=== PATIENT | male | born 1955 | race American Indian/Alaskan Native ===

== ENCOUNTER 2016-08-05 12:16 | Inpatient (IN) | payer OTHER ==
[~2016-08-05] VITALS: Ht 170.2 cm; Wt 51.8 kg
[2016-08-05] VITALS (8 sets, daily range): BP systolic 103–160; BP diastolic 52–79; PULSE 89–107; RESP 18–25; TEMP 98.6–101.1; O2SAT 89–96
[~2016-08-05 12:16] MED LIST: DILA4TAB10 PO; GABA300C3 PO; GLIP5 PO; XANA0.5T PO
[2016-08-05] MEDS ORDERED: SODIUM CHLORIDE 0.9% FLUSH 5 ML FLUSH IVF PRN (12:45)
[2016-08-05] MEDS ORDERED: ACETAMINOPHEN 325 MG TAB PO ONE (12:45)
--- NOTE | 2016-08-05 12:53 | PD ---
HPI Chief Complaint: Respiratory Distress Time Seen by Provider: 12:45 Travel History International Travel<30 days: No Contact w/Intl Traveler<30days: No Traveled to known affect area: No History of Present Illness HPI 61-year-old male presents to the emergency department via EMS and by his primary care physician for probable pneumonia. The patient reports cough, congestion, fevers for the past week. He has a history of multiple myeloma and amyloidosis, his oncologist Dr. Smith and he is undergoing chemotherapy every Monday. He also has a history of CHF, coronary artery disease status post [place], depression, diabetes type 2, hyperlipidemia, hypertension, irregular heartbeat. Reports history patient reports cough, congestion, shortness of breath, fevers. He denies any chest pain. He reports chronic abdominal pain. Patient states he has vomited from coughing, but no other vomiting. He reports decreased appetite, but states he has been drinking plenty of fluids. Patient is a current tobacco smoker, states he hasn't smoked for the last 4 days. PFSH Past Medical History Hx Anticoagulant Therapy: Yes (asa 81mg) Arthritis: Yes (LEFT ANKLE) Asthma: No Autoimmune Disease: No Blood Disorders: No Anxiety: No Depression: Yes (SINCE HAD STROKE) Heart Rhythm Problems: Yes Cancer: Yes (MULTIPLE MYELOMA) Cardiovascular Problems: Yes (htn on meds, [place], bypass 2000) High Cholesterol: Yes Chemotherapy: Yes Chest Pain: Yes (ONCE A WHILE AGO) Congestive Heart Failure: Yes COPD: No Cerebrovascular Accident: No Coronary Artery Disease: Yes Diabetes: Yes Diminished Hearing: No Endocrine: Yes GERD: No Genitourinary: Yes Hepatitis: Yes Hiatal Hernia: No Hypertension: Yes Immune Disorder: No Implanted Vascular Access Dvce: Yes Kidney Stones: No Musculoskeletal: Yes Neurologic: No Psychiatric: Yes Reproductive: No Respiratory: Yes Immunizations Current: No Migraines: No Myocardial Infarction: Yes Renal Failure: No Seizures: No Sickle Cell Disease: No Sleep Apnea: No Thyroid Disease: No Ulcer: No ?: Not Past Surgical History AICD: No Arteriovenous Shunt: No Cardiac Surgery: Yes (CABG 2006, AORTIC VALVE 2000) Coronary Artery Bypass Graft: Yes (X2, AORTIC VALCE REPLACEMENT) Ear Surgery: No Endocrine Surgery: No Eye Surgery: No Genitourinary Surgery: No Gynecologic Surgery: No Insulin Pump: No Joint Replacement: Yes (left ANKLE SCREWS AND PLATE AND BAR IN LT FOOT) Oral Surgery: No Pacemaker: No Thoracic Surgery: No Other Surgery: Yes Social History Alcohol Use: Yes (occas. mixed drinks, beer and wine) Tobacco Use: Yes (1-2 CIGARETTES DAILY) Substance Use: No Allergies-Medications (Allergen,Severity, Reaction): Coded Allergies: Zithromax (Verified Allergy, Intermediate, rash, 03/22/16) *MDRO Multi-Drug Resistant Organism (Verified Adverse Reaction, Mild, ) MRSA (foot abscess) - 12/2009 MRSA PCR Screen NEGATIVE - 10/26 and 10/29/2015 CLEARED PER INFECTION CONTROL Reported Meds & Prescriptions Reported Meds & Active Scripts Active Reported Gabapentin 300 Mg Cap 300 Mg PO DAILY Alprazolam 0.5 Mg Tab 0.5 Mg PO DAILY PRN Hydromorphone (Hydromorphone HCl) 4 Mg Tab 4 Mg PO Q6H PRN Review of Systems Except as stated in HPI: all other systems reviewed are Neg Physical Exam Narrative GENERAL: Thin male patient, fever of 101.1. SKIN: Warm and dry. HEAD: Normocephalic. Atraumatic. EYES: No scleral icterus. No injection or drainage. NECK: Supple, trachea midline. No JVD or lymphadenopathy. CARDIOVASCULAR: Regular patient is slightly tachycardic heart rate in the 110s. Regular Rhythm without murmurs, gallops, or rubs. RESPIRATORY: Breath sounds equal bilaterally. No accessory muscle use. Lungs sounds with scattered rhonchi and minimal wheezes. GASTROINTESTINAL: Abdomen soft, non-tender, nondistended. MUSCULOSKELETAL: No cyanosis, or edema. BACK: Nontender without obvious deformity. No CVA tenderness. Data Data Last Documented VS Vital Signs Date Time Temp Pulse Resp B/P Pulse Ox O2 Delivery O2 Flow Rate FiO2 08/05/16 12:45 94 Nasal Cannula 2 08/05/16 12:38 107 25 08/05/16 12:38 101.1 160/79 Orders Complete Blood Count With Diff (08/05/16 12:40) B-Type Natriuretic Peptide (08/05/16 12:40) Magnesium (Mg) (08/05/16 12:40) Ckmb (Isoenzyme) Profile (08/05/16 12:40) Troponin I (08/05/16 12:40) Influenzae A/B Antigen (08/05/16 12:40) Blood Culture (08/05/16 12:40) Iv Access Insert/Monitor (08/05/16 12:40) Electrocardiogram (08/05/16 12:40) Ecg Monitoring (08/05/16 12:40) Oximetry (08/05/16 12:40) Oxygen Administration (08/05/16 12:40) Chest, Single Ap (08/05/16 12:40) Sodium Chloride 0.9% Flush (Ns Flush) (08/05/16 12:45) Lactic Acid Sepsis Protocol (08/05/16 12:40) Comprehensive Metabolic Panel (08/05/16 12:40) Acetaminophen (Tylenol) (08/05/16 12:45) Albuterol-Ipratropium Neb (Duoneb Neb) (08/05/16 12:45) Levofloxacin 750 Mg Premix Inj (Levaquin (08/05/16 14:30) Admit Order (Ed Use Only) (08/05/16 14:34) Labs Laboratory Tests Test 08/05/16 13:15 White Blood Count 7.4 TH/MM3 Red Blood Count 4.00 MIL/MM3 Hemoglobin 13.1 GM/DL Hematocrit 37.4 % Mean Corpuscular Volume 93.4 FL Mean Corpuscular Hemoglobin 32.8 PG Mean Corpuscular Hemoglobin 35.1 % Concent Red Cell Distribution Width 15.3 % Platelet Count 132 TH/MM3 Mean Platelet Volume 8.5 FL Neutrophils (%) (Auto) 91.7 % Lymphocytes (%) (Auto) 2.5 % Monocytes (%) (Auto) 5.6 % Eosinophils (%) (Auto) 0.0 % Basophils (%) (Auto) 0.2 % Neutrophils # (Auto) 6.8 TH/MM3 Lymphocytes # (Auto) 0.2 TH/MM3 Monocytes # (Auto) 0.4 TH/MM3 Eosinophils # (Auto) 0.0 TH/MM3 Basophils # (Auto) 0.0 TH/MM3 CBC Comment DIFF FINAL Differential Comment Sodium Level 132 MEQ/L Potassium Level 4.1 MEQ/L Chloride Level 95 MEQ/L Carbon Dioxide Level 26.6 MEQ/L Anion Gap 10 MEQ/L Blood Urea Nitrogen 13 MG/DL Creatinine 0.57 MG/DL Estimat Glomerular Filtration 146 ML/MIN Rate Random Glucose 149 MG/DL Lactic Acid Level 1.4 mmol/L Calcium Level 8.8 MG/DL Magnesium Level 1.6 MG/DL Total Bilirubin 0.6 MG/DL Aspartate Amino Transf 11 U/L (AST/SGOT) Alanine Aminotransferase 10 U/L (ALT/SGPT) Alkaline Phosphatase 106 U/L Total Creatine Kinase 28 U/L Troponin I LESS THAN 0.02 NG/ML B-Type Natriuretic Peptide 1259 PG/ML Total Protein 7.0 GM/DL Albumin 3.3 GM/DL [facility] Medical Decision Making Medical Screen Exam Complete: Yes Emergency Medical Condition: Yes Medical Record Reviewed: Yes Interpretation(s) chest x-ray - CONCLUSION: Interval improvement with less consolidation. Small pleural effusion persists on the right. Differential Diagnosis Pneumonia versus sepsis versus CHF exacerbation Narrative Course 61-year-old male presents to the emergency department for evaluation of cough, congestion, fevers, shortness of breath sent by his primary care physician for probable pneumonia. EKG, CBC, CMP, magnesium, BNP, CK, troponin, and influenza , lactic acid, blood cultures 2 are ordered and pending. Chest x-ray is ordered and pending. Patient is given DuoNeb 2 and Tylenol 650 mg by mouth for fever. EKG shows ST, HR 106. CBC shows normal WBC 7.4, neutrophilia of 91.7. CMP shows no acute abnormalities. Magnesium is 1.6. BNP is 1259. CK is 28. Troponin is less than 0.02. Lactic acid is 1.4. Influenza is negative. Chest x-ray shows interval improvement with less consolidation, small pleural effusion on the right.' [facility] is paged for admission. Dr. Gómez accepted admission. Sepsis Criteria SIRS Criteria (2 or more): Temp > 100.9 or < 96.8, Heart rate over 90 Sepsis Criteria (SIRS+source): Infect source susp/known Diagnosis Primary Impression: Pneumonia Qualified Code: J18.9 - Pneumonia of left lung due to infectious organism, unspecified part of lung Additional Impressions: Sepsis Qualified Code: A41.9 - Sepsis, due to unspecified organism CHF (congestive heart failure) Qualified Code: I50.9 - Chronic congestive heart failure, unspecified congestive heart failure type Admitting Information Admitting Physician Requests: Admit Joyce Jack Aug 05, 2016 12:52
--- NOTE | 2016-08-05 13:20 | RADRPT ---
EXAM DATE/TIME: 08/05/2016 12:45 [place] COMPARISON: CHEST SINGLE AP, October 23, 2015, 16:22. INDICATIONS : Patient states he feels he has pneumonia and has been short of breath. MEDICAL HISTORY : None. SURGICAL HISTORY : CABG. ENCOUNTER: Initial ACUITY: 2 weeks PAIN SCORE: 7/10 LOCATION: chest FINDINGS: [id number] is in good position. The lungs are mildly hyperinflated. There is minimal blunting of the right costophrenic sulcus, improving in the interval. CONCLUSION: Interval improvement with less consolidation. Small pleural effusion persists on the right. Ramone Carmen MD FACR on August 05, 2016 at 13:13 Board Certified Radiologist. This report was verified electronically.
[2016-08-05 13:38] LABS: AUTOMATED NEUTROPHIL # 6.8 TH/MM3 (1.8-7.7); BASOPHIL % 0.2 % (0.0-2.0); HEMATOCRIT 37.4 % (39.0-51.0); HEMO FLAGS DIFF FINAL; LYMPH % 2.5 % (9.0-44.0); LYMPHOCYTE # 0.2 TH/MM3 (1.0-4.8); MEAN CELL VOLUME 93.4 FL (80.0-100.0); MEAN CORPUSCULAR HEMOGLOBIN 32.8 PG (27.0-34.0); MEAN CORPUSCULAR HGB CONC 35.1 % (32.0-36.0); MONO % 5.6 % (0.0-8.0); NEUT % 91.7 % (16.0-70.0); PLATELET COUNT 132 TH/MM3 (150-450); RED CELL DISTRIBUTION WIDTH 15.3 % (11.6-17.2); WHITE BLOOD COUNT 7.4 TH/MM3 (4.0-11.0)
[2016-08-05 13:53] LABS: ALT (GPT) 10 U/L (12-78); ANION GAP 10 MEQ/L (5-15); AST (GOT) 11 U/L (15-37); BICARBONATE 26.6 MEQ/L (21.0-32.0); BLOOD UREA NITROGEN 13 MG/DL (7-18); CHLORIDE 95 MEQ/L (98-107); GLOMERULAR FILTRATION RATE 146 ML/MIN (>89); MAGNESIUM 1.6 MG/DL (1.5-2.5); POTASSIUM 4.1 MEQ/L (3.5-5.1); SODIUM (NA) 132 MEQ/L (136-145)
[2016-08-05 13:57] LABS: ALKALINE PHOSPHATASE 106 U/L (45-117); TOTAL BILIRUBIN ADULT 0.6 MG/DL (0.2-1.0)
[2016-08-05] MEDS: RESP: ALBUTEROL 2.5 MG/IPRATROPIUM 0.5 MG NEB (SCH) INH (13:59)
[2016-08-05 14:01] LABS: CREATINE KINASE 28 U/L (39-308)
[2016-08-05] MEDS ORDERED: LEVOFLOXACIN 750 MG PREMIX INJ 150 ML IV ONE (14:30)
[2016-08-05] MEDS ORDERED: NALOXONE HCL 0.4 MG/ML AMP IV PRN (14:45)
[2016-08-05] MEDS ORDERED: ONDANSETRON HCL 4 MG/2 ML VIAL IVP PRN (14:45)
[2016-08-05] MEDS ORDERED: ACETAMINOPHEN 325 MG TAB PO PRN (14:45)
--- NOTE | 2016-08-05 15:43 | PD ---
Physical Exam Narrative I, Dr. Moreno, have reviewed the advance practice practitioner's documentation and am in agreement, met with the patient face to face, made the diagnosis, and the medical decision making was done by me. *My assessment and Findings: Pneumonia vs. ACS vs. pleural effusion 61yo M with multiple myeloma, amyloidosis on chemo here with fever, cough and sob for 1 week. Pt was sent by PMD for further evaluation. Pt was hypoxic at 89% on RA initially. O2sat improved to 93% on 2L NC. Pt is cachetic male with decreased lung sounds in lower lungs. Labs reviewed, no leukocytosis but neutrophil is 91.7%. Lactic acid 1.4. Troponin negative. BNP 1259. CXR showed small pleural effusion persists on right. Pt was febrile, tachycardic and tachypneic. Pt given levofloxacin to cover sepsis with suspected pneumonia. Admitted to hospitalist Dr. Gómez. Data Data Last Documented VS Vital Signs Date Time Temp Pulse Resp B/P Pulse Ox O2 Delivery O2 Flow Rate FiO2 08/05/16 12:45 94 Nasal Cannula 2 08/05/16 12:38 107 25 08/05/16 12:38 101.1 160/79 Orders Complete Blood Count With Diff (08/05/16 12:40) B-Type Natriuretic Peptide (08/05/16 12:40) Magnesium (Mg) (08/05/16 12:40) Ckmb (Isoenzyme) Profile (08/05/16 12:40) Troponin I (08/05/16 12:40) Influenzae A/B Antigen (08/05/16 12:40) Blood Culture (08/05/16 12:40) Iv Access Insert/Monitor (08/05/16 12:40) Electrocardiogram (08/05/16 12:40) Ecg Monitoring (08/05/16 12:40) Oximetry (08/05/16 12:40) Oxygen Administration (08/05/16 12:40) Chest, Single Ap (08/05/16 12:40) Sodium Chloride 0.9% Flush (Ns Flush) (08/05/16 12:45) Lactic Acid Sepsis Protocol (08/05/16 12:40) Comprehensive Metabolic Panel (08/05/16 12:40) Acetaminophen (Tylenol) (08/05/16 12:45) Albuterol-Ipratropium Neb (Duoneb Neb) (08/05/16 12:45) Levofloxacin 750 Mg Premix Inj (Levaquin (08/05/16 14:30) Admit Order (Ed Use Only) (08/05/16 14:34) Labs Laboratory Tests Test 08/05/16 13:15 White Blood Count 7.4 TH/MM3 Red Blood Count 4.00 MIL/MM3 Hemoglobin 13.1 GM/DL Hematocrit 37.4 % Mean Corpuscular Volume 93.4 FL Mean Corpuscular Hemoglobin 32.8 PG Mean Corpuscular Hemoglobin 35.1 % Concent Red Cell Distribution Width 15.3 % Platelet Count 132 TH/MM3 Mean Platelet Volume 8.5 FL Neutrophils (%) (Auto) 91.7 % Lymphocytes (%) (Auto) 2.5 % Monocytes (%) (Auto) 5.6 % Eosinophils (%) (Auto) 0.0 % Basophils (%) (Auto) 0.2 % Neutrophils # (Auto) 6.8 TH/MM3 Lymphocytes # (Auto) 0.2 TH/MM3 Monocytes # (Auto) 0.4 TH/MM3 Eosinophils # (Auto) 0.0 TH/MM3 Basophils # (Auto) 0.0 TH/MM3 CBC Comment DIFF FINAL Differential Comment Sodium Level 132 MEQ/L Potassium Level 4.1 MEQ/L Chloride Level 95 MEQ/L Carbon Dioxide Level 26.6 MEQ/L Anion Gap 10 MEQ/L Blood Urea Nitrogen 13 MG/DL Creatinine 0.57 MG/DL Estimat Glomerular Filtration 146 ML/MIN Rate Random Glucose 149 MG/DL Lactic Acid Level 1.4 mmol/L Calcium Level 8.8 MG/DL Magnesium Level 1.6 MG/DL Total Bilirubin 0.6 MG/DL Aspartate Amino Transf 11 U/L (AST/SGOT) Alanine Aminotransferase 10 U/L (ALT/SGPT) Alkaline Phosphatase 106 U/L Total Creatine Kinase 28 U/L Troponin I LESS THAN 0.02 NG/ML B-Type Natriuretic Peptide 1259 PG/ML Total Protein 7.0 GM/DL Albumin 3.3 GM/DL [facility] Supervised Visit with GEORGES: Yes Diagnosis Primary Impression: Pneumonia Qualified Code: J18.9 - Pneumonia of left lung due to infectious organism, unspecified part of lung Additional Impressions: CHF (congestive heart failure) Qualified Code: I50.9 - Chronic congestive heart failure, unspecified congestive heart failure type Sepsis Qualified Code: A41.9 - Sepsis, due to unspecified organism Judi Moreno DO Aug 05, 2016 15:43
[2016-08-05] MEDS: HEPARIN SODIUM - SQ 10,000 UNITS/ML VIAL SQ SCH (16:09)
[2016-08-05] MEDS: SODIUM CHLOR 0.9% 1000 ML INJ 1,000 ML IV SCH (16:09)
[2016-08-05] MEDS ORDERED: FAMOTIDINE 20 MG/2 ML VIAL IV PUSH SCH (16:15)
[2016-08-05] MEDS ORDERED: GLUCAGON 1 MG/ML VIAL OTHER PRN (16:30)
[2016-08-05] MEDS ORDERED: DEXTROSE 50% IN WATER 50 ML VIAL(D50) IV PUSH PRN (16:30)
[2016-08-05] MEDS ORDERED: HYDR4TAB PO (16:56)
[2016-08-05] MEDS ORDERED: GABA300C5 PO (16:56)
[2016-08-05] MEDS ORDERED: ALPR0.5T3 PO (16:56)
[2016-08-05] MEDS: FUROSEMIDE 20 MG/2 ML VIAL IV PUSH SCH (17:19)
[2016-08-05] MEDS: FAMOTIDINE 20 MG/2 ML VIAL IV PUSH SCH (17:19)
--- NOTE | 2016-08-05 17:54 | HP.UPD ---
H&P Update Note This is a very pleasant 7-year-old male with a history of multiple myeloma and of amyloidosis. The patient is also a smoker. He came to the emergency department at [facility] with 3 days of worsening cough with green sputum. Also he had a fever of 101. He gets chemotherapy every Monday including Cytoxan with oncologist Dr. Smith. He has chronic musculoskeletal pain on oral Dilaudid. He was found to have a basal consolidation with a small effusion on chest x-ray. He is being admitted for pneumonia in an immunocompromised host. He was seen by the undersigned in room 1404 In the Presence of his and his nurse. He was started on cefepime and vancomycin. His oncologist is consulted. Full history and physical is to follow. Bhavana Gómez MD Aug 05, 2016 17:52
[2016-08-05] MEDS ORDERED: HYDROmorphone HCL 4 MG TAB PO PRN (18:00)
[2016-08-05] MEDS ORDERED: Vancomycin Consult Pharmacy 1 EA OTHER SCH (18:00)
[2016-08-05] MEDS: HYDROmorphone HCL 4 MG TAB PO SCH ×2 (18:24→23:21)
[2016-08-05] MEDS: CEFEPIME INJ 2,000 MG in SODIUM CHLORIDE 0.9% INJ 100 ML IV SCH (20:19)
[2016-08-05] MEDS: SODIUM CHLORIDE 0.9% FLUSH 5 ML FLUSH FLUSH SCH (20:21)
[2016-08-05] MEDS: VANCOMYCIN INJ 1,000 MG in SODIUM CHLOR 0.9% 250 ML INJ 250 ML IV SCH (21:40)
[2016-08-05] MEDS: ALPRAZolam 0.5 MG TAB PO PRN (23:21)
[2016-08-06] VITALS (8 sets, daily range): BP systolic 119–154; BP diastolic 59–84; PULSE 78–97; RESP 16–20; TEMP 98.9–100; O2SAT 91–96
[2016-08-06] MEDS: HEPARIN SODIUM - SQ 10,000 UNITS/ML VIAL SQ SCH ×2 (03:31→16:00)
[2016-08-06] MEDS: SODIUM CHLOR 0.9% 1000 ML INJ 1,000 ML IV SCH ×2 (03:31→11:32)
[2016-08-06] MEDS: FAMOTIDINE 20 MG/2 ML VIAL IV PUSH SCH ×2 (05:20→17:05)
[2016-08-06] MEDS: HYDROmorphone HCL 4 MG TAB PO SCH ×4 (05:20→23:11)
[2016-08-06 06:06] LABS: AUTOMATED NEUTROPHIL # 2.9 TH/MM3 (1.8-7.7); BASOPHIL % 0.5 % (0.0-2.0); EOSINOPHIL % 0.2 % (0.0-4.0); HEMO FLAGS DIFF FINAL; LYMPH % 8.1 % (9.0-44.0); LYMPHOCYTE # 0.3 TH/MM3 (1.0-4.8); MEAN CELL VOLUME 93.9 FL (80.0-100.0); MEAN CORPUSCULAR HEMOGLOBIN 32.4 PG (27.0-34.0); MEAN CORPUSCULAR HGB CONC 34.5 % (32.0-36.0); MONO % 12.4 % (0.0-8.0); NEUT % 78.8 % (16.0-70.0); PLATELET COUNT 117 TH/MM3 (150-450); RED BLOOD COUNT 3.51 MIL/MM3 (4.50-5.90); RED CELL DISTRIBUTION WIDTH 15.6 % (11.6-17.2); WHITE BLOOD COUNT 3.6 TH/MM3 (4.0-11.0)
[2016-08-06 06:14] LABS: BICARBONATE 26.9 MEQ/L (21.0-32.0); POTASSIUM 3.8 MEQ/L (3.5-5.1)
[2016-08-06] MEDS: SODIUM CHLORIDE 0.9% FLUSH 5 ML FLUSH FLUSH SCH ×2 (07:57→20:32)
[2016-08-06] MEDS: CEFEPIME INJ 2,000 MG in SODIUM CHLORIDE 0.9% INJ 100 ML IV SCH ×2 (08:40→20:32)
[2016-08-06] MEDS: FUROSEMIDE 20 MG/2 ML VIAL IV PUSH SCH ×2 (08:41→17:03)
[2016-08-06] MEDS: VANCOMYCIN INJ 1,000 MG in SODIUM CHLOR 0.9% 250 ML INJ 250 ML IV SCH ×2 (08:42→20:38)
[2016-08-06] MEDS ORDERED: GABAPENTIN 300 MG CAP PO SCH (09:00)
[2016-08-06] MEDS ORDERED: GABAPENTIN 300 MG CAP PO PRN (09:00)
--- NOTE | 2016-08-06 10:44 | HHI.PR ---
Subjective Remarks 61yr old male seen and examined today. Feeling slightly better than yesterday. Still with cough/congestion. No fever. Objective Objective Results - Vital Signs Date Time Temp Pulse Resp B/P Pulse Ox O2 Delivery O2 Flow Rate FiO2 08/06/16 10:24 87 08/06/16 08:00 99.5 92 18 122/84 91 08/06/16 04:24 99.9 83 20 119/61 95 08/06/16 00:07 100.0 97 16 141/72 95 08/05/16 20:19 98.8 92 18 116/63 95 08/05/16 20:00 90 08/05/16 17:22 98.8 102 18 103/52 92 08/05/16 16:30 98.6 08/05/16 16:13 18 08/05/16 16:00 89 20 119/65 96 Nasal Cannula 2 08/05/16 12:45 94 Nasal Cannula 2 08/05/16 12:45 94 Nasal Cannula 2 08/05/16 12:38 107 25 89 Room Air 08/05/16 12:38 101.1 107 25 160/79 95 Nasal Cannula 2 08/05/16 12:34 101.1 107 25 160/79 89 I/O 08/05/16 08/05/16 08/05/16 08/06/16 08/06/16 08/06/16 07:00 15:00 23:00 07:00 15:00 23:00 Intake Total 600 ml 2034 ml Output Total 500 ml 1100 ml Balance 100 ml 934 ml Intake Oral 600 ml 500 ml IV Total 1534 ml Output Urine Total 500 ml 1100 ml # Bowel Movements 0 0 Result Diagram: 08/06/16 0525 08/06/16 0525 Other Results Laboratory Tests Test 08/05/16 08/06/16 13:15 05:25 White Blood Count 7.4 3.6 Red Blood Count 4.00 3.51 Hemoglobin 13.1 11.4 Hematocrit 37.4 33.0 Mean Corpuscular Volume 93.4 93.9 Mean Corpuscular Hemoglobin 32.8 32.4 Mean Corpuscular Hemoglobin 35.1 34.5 Concent Red Cell Distribution Width 15.3 15.6 Platelet Count 132 117 Mean Platelet Volume 8.5 8.8 Neutrophils (%) (Auto) 91.7 78.8 Lymphocytes (%) (Auto) 2.5 8.1 Monocytes (%) (Auto) 5.6 12.4 Eosinophils (%) (Auto) 0.0 0.2 Basophils (%) (Auto) 0.2 0.5 Neutrophils # (Auto) 6.8 2.9 Lymphocytes # (Auto) 0.2 0.3 Monocytes # (Auto) 0.4 0.5 Eosinophils # (Auto) 0.0 0.0 Basophils # (Auto) 0.0 0.0 CBC Comment DIFF FINAL DIFF FINAL Differential Comment Sodium Level 132 135 Potassium Level 4.1 3.8 Chloride Level 95 99 Carbon Dioxide Level 26.6 26.9 Anion Gap 10 9 Blood Urea Nitrogen 13 12 Creatinine 0.57 0.46 Estimat Glomerular Filtration 146 187 Rate Random Glucose 149 93 Lactic Acid Level 1.4 Calcium Level 8.8 8.4 Magnesium Level 1.6 Total Bilirubin 0.6 Aspartate Amino Transf 11 (AST/SGOT) Alanine Aminotransferase 10 (ALT/SGPT) Alkaline Phosphatase 106 Total Creatine Kinase 28 Troponin I LESS THAN 0.02 B-Type Natriuretic Peptide 1259 Total Protein 7.0 Albumin 3.3 Date/Time Procedure Status Source Growth 08/05/16 13:20 Aerobic Blood Culture Received Blood Peripheral Pending 08/05/16 13:20 Anaerobic Blood Culture Received Blood Peripheral Pending 08/05/16 13:15 Influenza Types A,B Antigen (OSIEL) - Final Complete Nasal Aspirate NEGATIVE FOR FLU A AND B ANTIGEN.... 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 He is alert and awake HEAD: Normocephalic without any lesion or mass noted. Facial features appear symmetric. EYES: Perrla, Normal eye movement, No Icterus. No Conj congestion. OROPHARYNGEAL: Oropharynx without erythema or edema. MOUTH/THROAT: Tongue midline . Buccal mucosa is moist . NECK: Supple. No nuchal rigidity or lymphadenopathy.Trachea midline without deviation. Thyroid not palpable, no bruits appreciated. CARDIAC: Regular rhythm, regular rate, S1 and S2 are heard. No muymur. LUNGS: Decreased bs marlin with basilar rales. ABDOMEN: Soft, nontender, no organomegaly or masses. Bowel sounds are heard in all four quadrants. No rebound. No guarding. EXTREMITIES: No edema. Pulses equal bilateral. NEUROLOGICAL: Patient mood and affect appropriate. Cranial nerves II through XII grossly intact. Muscle strength 5/5 in the upper and lower extremities bilaterally. Deep tendon reflexes are 2+ in the upper and lower extremities bilaterally. SKIN:Warm and moist PSYCH: Mood and affect appropriate Urinary Catheter: No A/P Assessment and Plan Pneumonia Sepsis Right pleural effusion Leukopenia Chronic CHF Multiple myeloma Amyloidosis Chronic pain Plan: Admitted to med unit On cefepime.vancomycin. Hem/onc consulted. Mgmt of multiple myeloma/amyloidosis per Hemonc. Pain mgmt by dilaudid/gabapentin Monitor CBC, BMP. DVT prophylaxis: SCDs GI prophylaxis: Pepcid. Discussed with pt/RN. Dwayne Jones MD Aug 06, 2016 10:44
--- NOTE | 2016-08-06 18:30 | EKG ---
Date Performed: 08/05/2016 Time Performed: 13:01:30 PTAGE: 61 years EKG: SINUS TACHYCARDIA POSSIBLE LEFT ATRIAL ENLARGEMENT INTRAVENTRICULAR CONDUCTION DELAY ABNORM AL ECG PREVIOUS TRACING : 10/23/2015 16.14 DOCTOR: Antonio Gates Interpretating Date/Time 08/06/2016 18:28:59
[2016-08-06] MEDS: ALPRAZolam 0.5 MG TAB PO PRN (23:19)
[2016-08-07] VITALS (8 sets, daily range): BP systolic 108–147; BP diastolic 57–77; PULSE 65–83; RESP 16–20; TEMP 97.8–98.6; O2SAT 94–97
[2016-08-07] MEDS: HEPARIN SODIUM - SQ 10,000 UNITS/ML VIAL SQ SCH ×2 (04:59→16:13)
[2016-08-07] MEDS: FAMOTIDINE 20 MG/2 ML VIAL IV PUSH SCH ×2 (04:59→16:16)
[2016-08-07] MEDS: SODIUM CHLOR 0.9% 1000 ML INJ 1,000 ML IV SCH ×3 (04:59→21:15)
[2016-08-07] MEDS: HYDROmorphone HCL 4 MG TAB PO SCH ×4 (05:00→23:54)
[2016-08-07 05:57] LABS: AUTOMATED NEUTROPHIL # 1.4 TH/MM3 (1.8-7.7); BASOPHIL % 0.9 % (0.0-2.0); EOSINOPHIL # 0.1 TH/MM3 (0-0.4); EOSINOPHIL % 2.5 % (0.0-4.0); HEMATOCRIT 33.3 % (39.0-51.0); HEMO FLAGS DIFF FINAL; LYMPH % 14.4 % (9.0-44.0); LYMPHOCYTE # 0.3 TH/MM3 (1.0-4.8); MEAN CELL VOLUME 95.1 FL (80.0-100.0); MEAN CORPUSCULAR HEMOGLOBIN 31.5 PG (27.0-34.0); MEAN CORPUSCULAR HGB CONC 33.1 % (32.0-36.0); MONO % 19.6 % (0.0-8.0); NEUT % 62.6 % (16.0-70.0); PLATELET COUNT 114 TH/MM3 (150-450); RED CELL DISTRIBUTION WIDTH 15.4 % (11.6-17.2); WHITE BLOOD COUNT 2.3 TH/MM3 (4.0-11.0)
[2016-08-07 06:20] LABS: BICARBONATE 28.3 MEQ/L (21.0-32.0)
[2016-08-07 06:43] LABS: CALCIUM-PROTEIN CORRECTED 8.1 MG/DL (8.5-10.1)
[2016-08-07] MEDS ORDERED: PHARMACY ORDERED LAB XX ONE (08:45)
[2016-08-07] MEDS: SODIUM CHLORIDE 0.9% FLUSH 5 ML FLUSH FLUSH SCH ×2 (09:07→20:25)
[2016-08-07] MEDS: CEFEPIME INJ 2,000 MG in SODIUM CHLORIDE 0.9% INJ 100 ML IV SCH ×2 (09:07→20:25)
[2016-08-07] MEDS: FUROSEMIDE 20 MG/2 ML VIAL IV PUSH SCH ×2 (09:07→16:13)
[2016-08-07] MEDS: VANCOMYCIN INJ 1,000 MG in SODIUM CHLOR 0.9% 250 ML INJ 250 ML IV SCH ×2 (09:09→21:16)
--- NOTE | 2016-08-07 11:11 | HHI.PR ---
Subjective Remarks 61yr old male seen and examined today. Feeling slightly better than yesterday. Still with cough/congestion. No fever. Objective Objective Results - Vital Signs Date Time Temp Pulse Resp B/P Pulse Ox O2 Delivery O2 Flow Rate FiO2 08/07/16 09:33 66 08/07/16 08:50 Room Air 08/07/16 08:00 97.8 78 18 147/77 94 08/07/16 04:19 97.8 65 20 124/61 96 08/07/16 00:00 98.6 82 20 119/57 95 08/06/16 20:32 Room Air 08/06/16 20:28 99.0 83 20 125/60 96 08/06/16 20:23 82 08/06/16 16:00 99.2 78 18 154/72 94 08/06/16 12:00 98.9 80 18 127/59 95 I/O 08/06/16 08/06/16 08/06/16 08/07/16 08/07/16 08/07/16 07:00 15:00 23:00 07:00 15:00 23:00 Intake Total 2034 ml 2003 ml 1638 ml 1574 ml Output Total 1100 ml 1050 ml 960 ml 850 ml Balance 934 ml 953 ml 678 ml 724 ml Intake Oral 500 ml 960 ml 480 ml 520 ml IV Total 1534 ml 1043 ml 1158 ml 1054 ml Output Urine Total 1100 ml 1050 ml 960 ml 850 ml # Bowel Movements 0 1 0 1 Result Diagram: 08/07/16 0505 08/07/16 0505 Other Results Laboratory Tests Test 08/07/16 08/07/16 05:05 09:00 White Blood Count 2.3 Red Blood Count 3.50 Hemoglobin 11.0 Hematocrit 33.3 Mean Corpuscular Volume 95.1 Mean Corpuscular Hemoglobin 31.5 Mean Corpuscular Hemoglobin 33.1 Concent Red Cell Distribution Width 15.4 Platelet Count 114 Mean Platelet Volume 9.0 Neutrophils (%) (Auto) 62.6 Lymphocytes (%) (Auto) 14.4 Monocytes (%) (Auto) 19.6 Eosinophils (%) (Auto) 2.5 Basophils (%) (Auto) 0.9 Neutrophils # (Auto) 1.4 Lymphocytes # (Auto) 0.3 Monocytes # (Auto) 0.5 Eosinophils # (Auto) 0.1 Basophils # (Auto) 0.0 CBC Comment DIFF FINAL Differential Comment Sodium Level 137 Potassium Level 3.0 Chloride Level 99 Carbon Dioxide Level 28.3 Anion Gap 10 Blood Urea Nitrogen 10 Creatinine 0.44 Estimat Glomerular Filtration 197 Rate Random Glucose 98 Calcium Level 7.4 Protein Corrected Calcium 8.1 Total Protein 5.9 Vancomycin Level Trough 12.1 Date/Time Procedure Status Source Growth 08/05/16 13:20 Aerobic Blood Culture - Preliminary Resulted Blood Peripheral NO GROWTH IN 1 DAY 08/05/16 13:20 Anaerobic Blood Culture - Preliminary Resulted Blood Peripheral NO GROWTH IN 1 DAY 08/05/16 13:15 Influenza Types A,B Antigen (OSIEL) - Final Complete Nasal Aspirate NEGATIVE FOR FLU A AND B ANTIGEN.... 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 He is alert and awake HEAD: Normocephalic without any lesion or mass noted. Facial features appear symmetric. EYES: Perrla, Normal eye movement, No Icterus. No Conj congestion. OROPHARYNGEAL: Oropharynx without erythema or edema. MOUTH/THROAT: Tongue midline . Buccal mucosa is moist . NECK: Supple. No nuchal rigidity or lymphadenopathy.Trachea midline without deviation. Thyroid not palpable, no bruits appreciated. CARDIAC: Regular rhythm, regular rate, S1 and S2 are heard. No murmur. LUNGS: Decreased bs marlin with basilar rales. ABDOMEN: Soft, nontender, no organomegaly or masses. Bowel sounds are heard in all four quadrants. No rebound. No guarding. EXTREMITIES: No edema. Pulses equal bilateral. NEUROLOGICAL: No focal deficits. SKIN:Warm and moist PSYCH: Mood and affect appropriate A/P Assessment and Plan Assessment: Pneumonia Sepsis Right pleural effusion Leukopenia Chronic CHF Multiple myeloma Amyloidosis Chronic pain Hypokalemia Plan: Admitted to med unit On cefepime.vancomycin. Hem/onc on board. Mgmt of multiple myeloma/amyloidosis per Hemonc. Pain mgmt by dilaudid/gabapentin Replace potassium. Monitor CBC, BMP: WBC: 2.3. DVT prophylaxis: SCDs GI prophylaxis: Pepcid. Discussed with pt/RN. Dwayne Jones MD Aug 07, 2016 11:10
[2016-08-07] MEDS ORDERED: POTASSIUM CHLORIDE 10 MEQ CONTROLLED RELEASE TAB PO ONE (12:15)
[2016-08-07] MEDS: ALPRAZolam 0.5 MG TAB PO PRN (23:55)
[2016-08-08] VITALS (9 sets, daily range): BP systolic 130–181; BP diastolic 59–76; PULSE 70–93; RESP 16–20; TEMP 97.9–98.5; O2SAT 96–99
[2016-08-08] MEDS: SODIUM CHLOR 0.9% 1000 ML INJ 1,000 ML IV SCH ×2 (00:35→12:02)
[2016-08-08] MEDS: HEPARIN SODIUM - SQ 10,000 UNITS/ML VIAL SQ SCH ×2 (04:20→17:33)
[2016-08-08] MEDS: FAMOTIDINE 20 MG/2 ML VIAL IV PUSH SCH ×2 (04:21→17:33)
[2016-08-08 04:44] LABS: AUTOMATED NEUTROPHIL # 1.6 TH/MM3 (1.8-7.7); BASOPHIL % 0.9 % (0.0-2.0); EOSINOPHIL # 0.1 TH/MM3 (0-0.4); EOSINOPHIL % 3.4 % (0.0-4.0); HEMATOCRIT 29.3 % (39.0-51.0); HEMO FLAGS DIFF FINAL; LYMPH % 18.7 % (9.0-44.0); LYMPHOCYTE # 0.5 TH/MM3 (1.0-4.8); MEAN CORPUSCULAR HEMOGLOBIN 32.7 PG (27.0-34.0); MEAN CORPUSCULAR HGB CONC 34.7 % (32.0-36.0); MONO % 14.8 % (0.0-8.0); NEUT % 62.2 % (16.0-70.0); PLATELET COUNT 133 TH/MM3 (150-450); RED BLOOD COUNT 3.11 MIL/MM3 (4.50-5.90); RED CELL DISTRIBUTION WIDTH 15.2 % (11.6-17.2); WHITE BLOOD COUNT 2.5 TH/MM3 (4.0-11.0)
[2016-08-08] MEDS: HYDROmorphone HCL 4 MG TAB PO SCH ×4 (05:57→23:54)
--- NOTE | 2016-08-08 08:16 | MH ---
cc: KT SOTO MD DATE OF ADMISSION: 08/05/2016 DATE OF 1955 CHIEF COMPLAINT Shortness of breath. TRAVEL HISTORY: None in 30 days. HISTORY OF PRESENT ILLNESS This is a pleasant 61-year-old white male who has been diagnosed with multiple myeloma and amyloidosis and approximately two years ago. The patients Oncologist is Dr. Smith. The patient is currently taking chemotherapy treatments and has been very focused on this disease and his treatment regimen for the past few years. Approximately 2 weeks ago the patient was noted to have cough and increased shortness of breath. Currently the patient is a cigarette smoker thought that he just had a little bronchitis. The cough and shortness of breath has continued to get worse. The patient did go for a treatment this past Monday and for the last 24 to 48 hours has been running a fever. He is complaining of weakness and aching all over, malaise, shortness of breath and treatment this past Monday and for the last 24 to 48 hours has been running a fever. He is complaining of weakness and aching all over, malaise, shortness of breath, and congestion. The patient denies any chest pain. Denies any abdominal pain. He does have a decreased appetite and for the past two days he has eaten hardly anything. He has also not smoked in approximately four days. Reynaldo barajas via his OR 80 [facility] the patient does according to the record the patient does complain of some chronic pain in his abdomen she is positive for weight loss a significant weight loss of the past couple years due to cancer. The patient's air volumes are noted to be rapid and low he does cough uncontrollably when trying to take a short run trying to take a deep breath. PAST MEDICAL HISTORY The patient is very weak but is able to give me most of this medical information the other part of the information is being recorded from the record the patient is a fair historian. PAST MEDICAL HISTORY: 1. Multiple myeloma 2. Amyloidosis. 3. Congestive heart failure. 4. Coronary artery disease post myocardial infarction. 5. Depression. 6. Diabetes type 2 7. Hyperlipidemia 8. Hypertension 9. Irregular heart rate 10. Arthritis. 11. Hyperlipidemia 12. Chest pain 13. Diabetic neuropathy. PAST SURGICAL HISTORY: 1. Coronary artery bypass graft in 2006. 2. Aortic valve replacement in 2000. 3. Joint replacement. 4. Left ankle with screws and plates. ALLERGIES ZITHROMAX MDRO DRUG RESISTANT ORGANISMS WITH FOOT ABSCESS. MRSA with a foot abscess MEDICATIONS Reported 1. P.o Dilaudid. 2. Gabapentin 3. Xanax 4. Glucotrol. SOCIAL HISTORY The patient is , currently lives in the home with his . He is positive for tobacco use. He she smokes approximately half a pack of cigarettes a day. He denies any alcohol or beer and greater than 1 year. Denies any illicit drugs. FAMILY HISTORY Cancer on both sides of the family and diabetes. REVIEW OF SYSTEMS A 12-point review was done positives noted. Dyspnea, Diaphoresis cough, congestion, fever. Acute on chronic abdominal pain, decreased appetite, tobacco abuse. Other systems negative or unremarkable. PHYSICAL EXAMINATION VITAL SIGNS: Temperature is 101.1, pulse 107, respirations 25, blood pressure 160/79, O2 sat 94 labile between 89 and 94, O2 at 2 liters. IN GENERAL: Thin white male looks older than his stated age resting on a stretcher, pale, low air volumes, acutely ill. SKIN: Pale, warm, moist. HEAD, EYES, EARS, NOSE, AND THROAT: Atraumatic, normocephalic. Pupils equal, round, reactive to light and accommodation, at two. Mucous membranes are pale and slightly dry. No scleral icterus. NECK: Neck is thin supple. Trachea is midline. CARDIOVASCULAR SYSTEM: S1-S2 audible murmur at the left sternal border. No edema. Pulses are intact. PULMONARY: Tachypneic, low air volumes, coarse rhonchi heard throughout the lung geller. Decreased breath sounds more on the right than the left diminished breath sounds. ABDOMEN: Abdomen is flat, soft, nontender, nondistended. Active bowel sounds in all four quads. MUSCULOSKELETAL: He moves his extremities with purpose. He is generally weakened but can overcome resistance, equal hand foster winder. NEUROLOGICALLY: He is alert, able to answer short questions. Equal hand foster winder. PSYCHIATRIC: Quiet, judgment normal. DIAGNOSTIC DATA Sodium 132, potassium 4.1, chloride 95, carbon dioxide 26.6, amnion gap 10, BUN 13, creatinine 0.57, random glucose 149, lactic acid 1.4, calcium 8.8, mag 1.6, bilirubin one 0.6, AST 11, ALT 10, alkaline phosphatase 106, creatinine kinase 28, troponin less than 0.02. BNP 05/1959, total protein seven, albumin 3.3. CBC blood count white count 7.4, RBC four, hemoglobin 13, hematocrit 237.4, platelet count 132, neutrophil auto count 91.7, lymphocyte auto count 2.5. Chest x-ray shows acute interval improvement with less consolidation, small pleural effusions persist on the right. ASSESSMENT/PLAN Lactic acid, sepsis, pneumonia, congestive heart failure, diabetes type 2. Tobacco abuse, dyspnea, hyponatremia, anemia. PLAN: Our plan is to admit inpatient, vital signs will be q. four. Patient can have a regular diet, we will place him on cardiac monitoring. Activity will be bedrest with out of bed, with assistance. He can have sodium chloride flushes for his IV Tylenol p.r.n. for temperature, Zofran p.r.n. for nausea. We will monitor his labs and order more labs for in the morning. DVT prophylaxis with heparin. Patient has been placed on Levaquin IV. The patient has had an influenza check which is pending. EKG's, O2 therapy, duoneb. Dr. Hyman and I have discussed this plan of care. The patient will have Pepcid I.V. for PUD prophylaxis, medications will be reconciled. Accu-Chek's a.c. and hs. The patient does appear from his chest x-ray that he may have some congestive heart failure with a possible pneumonia. We will discuss any other meds and plan of care. Currently to my knowledge the patient is full code, full aggressive care and we will follow. Thank you very much DICTATED BY:MANASA Jensen MD PAU Marrufo/nathaly /3:56 PM /8:13 AM
[2016-08-08] MEDS: CEFEPIME INJ 2,000 MG in SODIUM CHLORIDE 0.9% INJ 100 ML IV SCH ×2 (09:09→20:17)
[2016-08-08] MEDS: SODIUM CHLORIDE 0.9% FLUSH 5 ML FLUSH FLUSH SCH ×2 (09:09→20:17)
[2016-08-08] MEDS: VANCOMYCIN INJ 1,000 MG in SODIUM CHLOR 0.9% 250 ML INJ 250 ML IV SCH ×2 (09:09→21:29)
[2016-08-08] MEDS: FUROSEMIDE 20 MG/2 ML VIAL IV PUSH SCH (09:09)
[2016-08-08] MEDS ORDERED: RESP: ALBUTEROL 2.5 MG/IPRATROPIUM 0.5 MG NEB (PRN) NEB (16:15)
--- NOTE | 2016-08-08 16:16 | HHI.PR ---
Subjective Subjective Remarks weak no pain + cough no fever blood glucose 200s states he doesn't take anything pills, insulin for diabetes at home (Farhana Gaffney) Vitals/Results Intake & Output 08/07/16 08/07/16 08/08/16 15:00 23:00 07:00 Intake Total 1982 ml 993 ml 579 ml Output Total 700 ml 1200 ml Balance 1282 ml 993 ml -621 ml Intake Oral 860 ml IV Total 1122 ml 993 ml 579 ml Output Urine Total 700 ml 1200 ml # Bowel Movements 2 Vital Signs Vital Signs Date Time Temp Pulse Resp B/P Pulse Ox O2 Delivery O2 Flow Rate FiO2 08/08/16 12:00 98.1 83 20 140/65 97 08/08/16 10:41 71 08/08/16 09:20 Room Air 08/08/16 08:00 98.1 81 20 147/62 96 08/08/16 04:00 98.2 70 16 136/63 98 08/08/16 00:00 98.5 73 16 130/59 97 08/07/16 20:25 Room Air 08/07/16 20:20 71 08/07/16 20:00 98.5 83 16 130/63 95 (Farhana Gaffney) CBC/BMP: 08/08/16 0430 08/08/16 0430 Lab Results Laboratory Tests Test 08/08/16 04:30 White Blood Count 2.5 TH/MM3 Red Blood Count 3.11 MIL/MM3 Hemoglobin 10.2 GM/DL Hematocrit 29.3 % Mean Corpuscular Volume 94.0 FL Mean Corpuscular Hemoglobin 32.7 PG Mean Corpuscular Hemoglobin 34.7 % Concent Red Cell Distribution Width 15.2 % Platelet Count 133 TH/MM3 Mean Platelet Volume 9.2 FL Neutrophils (%) (Auto) 62.2 % Lymphocytes (%) (Auto) 18.7 % Monocytes (%) (Auto) 14.8 % Eosinophils (%) (Auto) 3.4 % Basophils (%) (Auto) 0.9 % Neutrophils # (Auto) 1.6 TH/MM3 Lymphocytes # (Auto) 0.5 TH/MM3 Monocytes # (Auto) 0.4 TH/MM3 Eosinophils # (Auto) 0.1 TH/MM3 Basophils # (Auto) 0.0 TH/MM3 CBC Comment DIFF FINAL Differential Comment Potassium Level 3.5 MEQ/L (Farhana Gaffney. BUILDING OFFICIAL) Physical Exam General General Appearance: Well Developed, Sleeping, Malnourished (Farhana Gaffney. BUILDING OFFICIAL) Eyes Eye Exam: Pupils Equal, Pupils Reactive (Farhana Gaffney. BUILDING OFFICIAL) Ears & Nose Ears & Nose Exam: Nasal Mucosa [place] (Farhana Gaffney. BUILDING OFFICIAL) Throat Throat Exam: Oral Mucosa [place] & Moist (Farhana Gaffney BUILDING OFFICIAL) Pulmonary Resp Exam: Rhonchi Resp Remarks exp. wheeze (Farhana Gaffney G. BUILDING OFFICIAL) Cardiology CV Exam: Regular (Farhana Gaffney. BUILDING OFFICIAL) Gastrointestinal/Abdomen GI Exam: Soft, Non-Tender, Bowel Sounds Present, Non-Distended (Farhana Gaffney. BUILDING OFFICIAL) Musculoskeletal MS Exam: Joints Intact, Atrophy (Farhana Gaffney. BUILDING OFFICIAL) Integumentary Skin Exam: Warm, Dry (Farhana Gaffney. BUILDING OFFICIAL) Extremeties Extremities Exam: No Edema, Pedal Pulses Palpable (Farhana Gaffney BUILDING OFFICIAL) Neurologic Neuro Exam: Alert, Awake, Oriented, Speech Clear, Moving All Extremities, No Focal Deficits (Farhana Gaffney G. BUILDING OFFICIAL) Psychiatric Psych Exam: Appropriate Responses (Farhana Gaffney) VTE Prophylaxis VTE Prophylaxis Meds: Heparin (Farhana Gaffney. BUILDING OFFICIAL) PUD Prophylasis PUD Remarks Pepcid (Farhana Gaffney GDanial BUILDING OFFICIAL) Assessment/Plan Problem List: (1) Sepsis (2) CHF (congestive heart failure) (3) Pneumonia (4) Hx of CABG (5) Hx of aortic valve repair (6) Multiple myeloma (7) Diabetes 1.5, managed as type 2 (8) CAD (coronary artery disease) (9) Amyloidosis (10) Tobacco abuse (11) Pleural effusion, right Assessment/Plan Continue with empiric antibiotics Will add DuoNeb's 4 times a day and when necessary Oxygen as needed to keep sats greater than 92 Tobacco abuse counseling Acute on chronic CHF -improving Discontinue IV fluids Change diuretics, Lasix 20 mg by mouth twice a day Replace potassium Add potassium 20 po daily Accu-Cheks before meals and at bedtime with insulin therapy as needed Patient states he doesn't take any medications at home and doesn't want to start any of them again History of multiple myeloma now with progression to amyloidosis, stable f/u oncology as OP Continue with pain management Heparin subq every 12 for DVT prophylaxis Pepcid for GI prophylaxis Possible discharge tomorrow D/W RN D/W Dr. Gómez D/W pt This patient was seen by myself and Dr. Gómez, this note is written on his behalf (Farhana Gaffney) Assessment/Plan seen, examined by myself, Dr Gómez, today Severe bilateral wheezing Discontinue IV fluids Possible discharge tomorrow if stable Discussed with patient Discussed with mid level provider The exam, history, and the medical decision-making described in the above note were completed with the assistance of the mid-level provider. I reviewed the findings presented. I attest that I had a intx-st-piye encounter with the patient on the same day, and personally performed and documented my assessment and findings in the medical record. (Bhavana Gómez MD) Problem Qualifiers (1) Sepsis: Qualified Code: A41.9 - Sepsis, due to unspecified organism (2) CHF (congestive heart failure): Qualified Code: I50.9 - Chronic congestive heart failure, unspecified congestive heart failure type (3) Pneumonia: Qualified Code: J18.9 - Pneumonia of left lung due to infectious organism, unspecified part of lung (4) Multiple myeloma: Qualified Code: C90.01 - Multiple myeloma in remission (5) CAD (coronary artery disease): Qualified Code: I25.10 - Coronary artery disease involving [place] coronary artery of [place] heart without angina pectoris (6) Amyloidosis: Qualified Code: E85.9 - Amyloidosis, unspecified type Farhana Gaffney Aug 08, 2016 16:16 Bhavana Gómez MD Aug 08, 2016 18:56
[2016-08-08] MEDS: FUROSEMIDE 20 MG TAB PO SCH (17:33)
[2016-08-08] MEDS: POTASSIUM CHLORIDE 20 MEQ CONTROLLED RELEASE TAB PO SCH (17:33)
[2016-08-08] MEDS: INSULIN ASPART SUPPLEMENTAL SCALE SQ SCH ×2 (17:40→21:00)
[2016-08-08] MEDS: RESP: ALBUTEROL 2.5 MG/IPRATROPIUM 0.5 MG NEB (SCH) NEB (19:04)
[2016-08-08] MEDS: ALPRAZolam 0.5 MG TAB PO PRN (23:58)
[2016-08-09] VITALS (7 sets, daily range): BP systolic 110–157; BP diastolic 60–80; PULSE 67–88; RESP 18–20; TEMP 97–98.8; O2SAT 94–98
[2016-08-09] MEDS: FAMOTIDINE 20 MG/2 ML VIAL IV PUSH SCH ×2 (04:46→16:40)
[2016-08-09] MEDS: HEPARIN SODIUM - SQ 10,000 UNITS/ML VIAL SQ SCH ×2 (04:46→16:40)
[2016-08-09] MEDS: HYDROmorphone HCL 4 MG TAB PO SCH ×4 (05:59→23:14)
[2016-08-09] MEDS: INSULIN ASPART SUPPLEMENTAL SCALE SQ SCH ×4 (06:01→23:15)
[2016-08-09] MEDS: RESP: ALBUTEROL 2.5 MG/IPRATROPIUM 0.5 MG NEB (SCH) NEB ×4 (08:00→18:56)
[2016-08-09] MEDS ORDERED: PHARMACY ORDERED LAB XX ONE (08:45)
[2016-08-09] MEDS: FUROSEMIDE 20 MG TAB PO SCH ×2 (09:06→16:40)
[2016-08-09] MEDS: VANCOMYCIN INJ 1,000 MG in SODIUM CHLOR 0.9% 250 ML INJ 250 ML IV SCH (09:06)
[2016-08-09] MEDS: SODIUM CHLORIDE 0.9% FLUSH 5 ML FLUSH FLUSH SCH ×2 (09:06→21:20)
[2016-08-09] MEDS: POTASSIUM CHLORIDE 20 MEQ CONTROLLED RELEASE TAB PO SCH (09:06)
[2016-08-09] MEDS: CEFEPIME INJ 2,000 MG in SODIUM CHLORIDE 0.9% INJ 100 ML IV SCH ×2 (09:08→21:18)
--- NOTE | 2016-08-09 13:54 | HHI.PR ---
Subjective Subjective Remarks better today, has been ambulating, took a shower no fever less cough, some more wheezing today appetite good no n/v no diarrhea Review of Systems Constitutional Constitutional Remarks 12 point ROS completed, negative except as noted above Vitals/Results Intake & Output 08/08/16 08/08/16 08/09/16 15:00 23:00 07:00 Intake Total 960 ml 2324 ml 745 ml Output Total 600 ml 275 ml Balance 360 ml 2049 ml 745 ml Intake Oral 960 ml 480 ml 745 ml IV Total 1844 ml Output Urine Total 600 ml 275 ml # Voids 2 # Bowel Movements 0 0 0 Vital Signs Vital Signs Date Time Temp Pulse Resp B/P Pulse Ox O2 Delivery O2 Flow Rate FiO2 08/09/16 12:00 98.4 76 20 132/61 96 08/09/16 09:25 88 08/09/16 09:25 Room Air 08/09/16 08:00 98.8 79 20 157/74 98 08/09/16 04:00 97.9 78 18 152/80 98 08/09/16 00:00 97.8 73 18 138/62 94 08/08/16 20:59 93 08/08/16 20:17 Room Air 08/08/16 20:00 97.9 80 18 148/72 98 08/08/16 19:05 97 21 08/08/16 16:00 97.9 76 20 181/76 99 CBC/BMP: 08/08/16 0430 08/08/16 0430 Lab Results Laboratory Tests Test 08/09/16 09:25 Vancomycin Level Trough 12.0 MCG/ML Physical Exam General General Appearance: Well Developed, No Acute Distress, Comfortable, Malnourished Eyes Eye Exam: Pupils Equal, Pupils Reactive Ears & Nose Ears & Nose Exam: Nasal Mucosa [place] Throat Throat Exam: Oral Mucosa [place] & Moist Neck Neck Exam: Neck Supple, Trachea Midline Pulmonary Resp Exam: Rhonchi Resp Remarks exp. wheeze Cardiology CV Exam: Regular Gastrointestinal/Abdomen GI Exam: Soft, Non-Tender, Bowel Sounds Present, Non-Distended Musculoskeletal MS Exam: Joints Intact, Atrophy Integumentary Skin Exam: Warm, Dry Extremeties Extremities Exam: No Edema, Pedal Pulses Palpable Neurologic Neuro Exam: Alert, Awake, Oriented, Speech Clear, Moving All Extremities, No Focal Deficits Psychiatric Psych Exam: Appropriate Responses VTE Prophylaxis VTE Prophylaxis Meds: Heparin PUD Prophylasis PUD Remarks Pepcid Assessment/Plan Problem List: (1) Sepsis (2) CHF (congestive heart failure) (3) Pneumonia (4) Hx of CABG (5) Hx of aortic valve repair (6) Multiple myeloma (7) Diabetes 1.5, managed as type 2 (8) CAD (coronary artery disease) (9) Amyloidosis (10) Tobacco abuse (11) Pleural effusion, right Assessment/Plan Continue with empiric antibiotics DuoNeb's 4 times a day and when necessary Oxygen as needed to keep sats greater than 92 add Prednisone 20 mg PO daily Tobacco abuse counseling Acute on chronic CHF -improving Continue with Lasix 20 mg by mouth twice a day Continue with potassium 20 po daily Accu-Cheks before meals and at bedtime with insulin therapy as needed Patient states he doesn't take any medications at home and doesn't want to start any of them again History of multiple myeloma now with progression to amyloidosis, stable f/u oncology as OP Continue with pain management Heparin subq every 12 for DVT prophylaxis Pepcid for GI prophylaxis Some improvement, but more wheezing today, will keep one more day. States also sick at home D/W RN D/W Dr. Gómez D/W pt This patient was seen by myself and Dr. Gómez, this note is written on his behalf Problem Qualifiers (1) Sepsis: Qualified Code: A41.9 - Sepsis, due to unspecified organism (2) CHF (congestive heart failure): Qualified Code: I50.9 - Chronic congestive heart failure, unspecified congestive heart failure type (3) Pneumonia: Qualified Code: J18.9 - Pneumonia of left lung due to infectious organism, unspecified part of lung (4) Multiple myeloma: Qualified Code: C90.01 - Multiple myeloma in remission (5) CAD (coronary artery disease): Qualified Code: I25.10 - Coronary artery disease involving [place] coronary artery of [place] heart without angina pectoris (6) Amyloidosis: Qualified Code: E85.9 - Amyloidosis, unspecified type Farhana Gaffney Aug 09, 2016 13:54
[2016-08-09] MEDS: predniSONE 20 MG TAB PO SCH (14:00)
[2016-08-09] MEDS: VANCOMYCIN INJ 1,250 MG in SODIUM CHLOR 0.9% 250 ML INJ 250 ML IV SCH (21:17)
[2016-08-09] MEDS: SODIUM CHLORIDE 0.9% FLUSH 5 ML FLUSH FLUSH PRN (21:20)
[2016-08-10] VITALS: BP 149/71; PULSE 78; RESP 18; TEMP 98.6; O2SAT 97
[2016-08-10] MEDS: ALPRAZolam 0.5 MG TAB PO PRN (00:57)
[2016-08-10] MEDS: SODIUM CHLORIDE 0.9% FLUSH 5 ML FLUSH FLUSH PRN (00:58)
[2016-08-10 04:00] VITALS: BP 154/72; PULSE 67; RESP 18; TEMP 97.9; O2SAT 98
[2016-08-10] MEDS: FAMOTIDINE 20 MG/2 ML VIAL IV PUSH SCH (05:08)
[2016-08-10] MEDS: HYDROmorphone HCL 4 MG TAB PO SCH ×2 (05:08→11:57)
[2016-08-10] MEDS: HEPARIN SODIUM - SQ 10,000 UNITS/ML VIAL SQ SCH (05:09)
[2016-08-10] MEDS: INSULIN ASPART SUPPLEMENTAL SCALE SQ SCH ×2 (05:11→12:00)
[2016-08-10 06:32] LABS: AUTOMATED NEUTROPHIL # 2.2 TH/MM3 (1.8-7.7); BASOPHIL % 0.8 % (0.0-2.0); EOSINOPHIL % 1.1 % (0.0-4.0); HEMATOCRIT 28.8 % (39.0-51.0); HEMO FLAGS DIFF FINAL; LYMPH % 14.7 % (9.0-44.0); LYMPHOCYTE # 0.5 TH/MM3 (1.0-4.8); MEAN CELL VOLUME 93.2 FL (80.0-100.0); MEAN CORPUSCULAR HEMOGLOBIN 33.1 PG (27.0-34.0); MEAN CORPUSCULAR HGB CONC 35.6 % (32.0-36.0); NEUT % 72.4 % (16.0-70.0); PLATELET COUNT 192 TH/MM3 (150-450); RED BLOOD COUNT 3.09 MIL/MM3 (4.50-5.90); RED CELL DISTRIBUTION WIDTH 15.2 % (11.6-17.2); WHITE BLOOD COUNT 3.1 TH/MM3 (4.0-11.0)
[2016-08-10] MEDS: RESP: ALBUTEROL 2.5 MG/IPRATROPIUM 0.5 MG NEB (SCH) NEB ×2 (07:37→11:03)
[2016-08-10 08:00] VITALS: BP 150/70; PULSE 79; RESP 20; TEMP 98.1; O2SAT 97
[2016-08-10] MEDS: CEFEPIME INJ 2,000 MG in SODIUM CHLORIDE 0.9% INJ 100 ML IV SCH (09:41)
[2016-08-10] MEDS: SODIUM CHLORIDE 0.9% FLUSH 5 ML FLUSH FLUSH SCH (09:41)
[2016-08-10] MEDS: POTASSIUM CHLORIDE 20 MEQ CONTROLLED RELEASE TAB PO SCH (09:42)
[2016-08-10] MEDS: FUROSEMIDE 20 MG TAB PO SCH (09:42)
[2016-08-10] MEDS: VANCOMYCIN INJ 1,250 MG in SODIUM CHLOR 0.9% 250 ML INJ 250 ML IV SCH (09:42)
[2016-08-10] MEDS: predniSONE 20 MG TAB PO SCH (09:42)
--- NOTE | 2016-08-10 11:50 | HHI.PR ---
Subjective Subjective Remarks feels better less cough, and wheezing anxious to go home no fever was seen by Dr. Smith Review of Systems Constitutional Constitutional Remarks 12 point ROS completed, negative except as noted above Vitals/Results Intake & Output 08/09/16 08/09/16 08/10/16 15:00 23:00 07:00 Intake Total 480 ml Balance 480 ml Intake Oral 480 ml # Voids 3 3 # Bowel Movements 1 0 Vital Signs Vital Signs Date Time Temp Pulse Resp B/P Pulse Ox O2 Delivery O2 Flow Rate FiO2 08/10/16 07:00 18 08/10/16 04:00 97.9 67 18 154/72 98 08/10/16 00:00 98.6 78 18 149/71 97 08/09/16 21:30 Room Air 08/09/16 20:00 98.6 75 18 148/65 98 08/09/16 16:00 98.5 79 20 141/65 97 08/09/16 12:00 98.4 76 20 132/61 96 CBC/BMP: 08/10/16 0530 08/10/16 0530 Lab Results Laboratory Tests Test 08/10/16 05:30 White Blood Count 3.1 TH/MM3 Red Blood Count 3.09 MIL/MM3 Hemoglobin 10.2 GM/DL Hematocrit 28.8 % Mean Corpuscular Volume 93.2 FL Mean Corpuscular Hemoglobin 33.1 PG Mean Corpuscular Hemoglobin 35.6 % Concent Red Cell Distribution Width 15.2 % Platelet Count 192 TH/MM3 Mean Platelet Volume 9.2 FL Neutrophils (%) (Auto) 72.4 % Lymphocytes (%) (Auto) 14.7 % Monocytes (%) (Auto) 11.0 % Eosinophils (%) (Auto) 1.1 % Basophils (%) (Auto) 0.8 % Neutrophils # (Auto) 2.2 TH/MM3 Lymphocytes # (Auto) 0.5 TH/MM3 Monocytes # (Auto) 0.3 TH/MM3 Eosinophils # (Auto) 0.0 TH/MM3 Basophils # (Auto) 0.0 TH/MM3 CBC Comment DIFF FINAL Differential Comment Creatinine 0.40 MG/DL Estimat Glomerular Filtration 219 ML/MIN Rate Physical Exam General General Appearance: Well Developed, No Acute Distress, Comfortable, Malnourished Eyes Eye Exam: Pupils Equal, Pupils Reactive Ears & Nose Ears & Nose Exam: Nasal Mucosa [place] Throat Throat Exam: Oral Mucosa [place] & Moist Neck Neck Exam: Neck Supple, Trachea Midline Pulmonary Resp Exam: Rhonchi Resp Remarks exp. wheeze less ronchi Cardiology CV Exam: Regular Gastrointestinal/Abdomen GI Exam: Soft, Non-Tender, Bowel Sounds Present, Non-Distended Musculoskeletal MS Exam: Joints Intact, Atrophy Integumentary Skin Exam: Warm, Dry Extremeties Extremities Exam: No Edema, Pedal Pulses Palpable Neurologic Neuro Exam: Alert, Awake, Oriented, Speech Clear, Moving All Extremities, No Focal Deficits Psychiatric Psych Exam: Appropriate Responses VTE Prophylaxis VTE Prophylaxis Meds: Heparin PUD Prophylasis PUD Remarks Pepcid Assessment/Plan Problem List: (1) Sepsis (2) CHF (congestive heart failure) (3) Pneumonia (4) Hx of CABG (5) Hx of aortic valve repair (6) Multiple myeloma (7) Diabetes 1.5, managed as type 2 (8) CAD (coronary artery disease) (9) Amyloidosis (10) Tobacco abuse (11) Pleural effusion, right Assessment/Plan Continue with empiric antibiotics DuoNeb's 4 times a day and when necessary Oxygen as needed to keep sats greater than 92 Prednisone 20 mg PO daily Tobacco abuse counseling pt. likely with underlying COPD Acute on chronic CHF -improving Continue with Lasix 20 mg by mouth twice a day Continue with potassium 20 po daily Accu-Cheks before meals and at bedtime with insulin therapy as needed Patient states he doesn't take any medications at home and doesn't want to start any of them again History of multiple myeloma now with progression to amyloidosis, stable oncology input appreciated, seen by Dr. Smith today, note pending Continue with pain management Heparin subq every 12 for DVT prophylaxis Pepcid for GI prophylaxis Plan to discharge today, overall improved. F/U oncology, PCP Diet-heart healthy Activity as tolerated D/W RN D/W Dr. Gómez D/W pt This patient was seen by myself and Dr. Gómez, this note is written on his behalf Discharge Minutes: 45 Problem Qualifiers (1) Sepsis: Qualified Code: A41.9 - Sepsis, due to unspecified organism (2) CHF (congestive heart failure): Qualified Code: I50.9 - Chronic congestive heart failure, unspecified congestive heart failure type (3) Pneumonia: Qualified Code: J18.9 - Pneumonia of left lung due to infectious organism, unspecified part of lung (4) Multiple myeloma: Qualified Code: C90.01 - Multiple myeloma in remission (5) CAD (coronary artery disease): Qualified Code: I25.10 - Coronary artery disease involving [place] coronary artery of [place] heart without angina pectoris (6) Amyloidosis: Qualified Code: E85.9 - Amyloidosis, unspecified type Farhana Gaffney Aug 10, 2016 11:50
[2016-08-10] MEDS ORDERED: PRED20 PO (11:53)
[2016-08-10] MEDS ORDERED: POTA20TA5 PO (11:53)
[2016-08-10] MEDS ORDERED: FURO20TA PO (11:53)
[2016-08-10] MEDS ORDERED: VENTAER INH (11:54)
[2016-08-10] MEDS ORDERED: LEVO500T3 PO (11:54)
--- NOTE | 2016-08-10 11:54 | HHI.DCPOC ---
Discharge Care Plan Diagnosis: (1) Congestive heart failure (CHF) (2) Sepsis (3) Pneumonia (4) Multiple myeloma (5) Amyloidosis (6) CAD (coronary artery disease) (7) Tobacco abuse Your Health Problems Are: Chest Pain Cough Shortness of Breath Goals to Promote Your Health * To prevent worsening of your condition and complications * To maintain your health at the optimal level Directions to Meet Your Goals Take your medications as prescribed Follow your dietary instruction Follow activity as directed Keep your appointments as scheduled Take your immunizations and boosters as scheduled If your symptoms worsen call your PCP, if no PCP go to Urgent Care Center or Emergency Room Smoking is Dangerous to Your Health. Avoid second hand smoke Call the 24-hour hour crisis hotline for domestic abuse at Farhana Gaffney Aug 10, 2016 11:54
--- NOTE | 2016-08-10 22:37 | MB ---
cc: MARY ELLEN CONNOR M.D. DATE OF CONSULTATION 08/10/2016 REASON FOR CONSULTATION Consult question by Dr. Gómez for evaluation of multiple myeloma in a patient who is admitted with pneumonia. HISTORY OF PRESENT ILLNESS Jose Angel is a pleasant 61-year-old male. He has a multiple myeloma which has progressed into amyloidosis. Currently he is on Velcade, Cytoxan and Decadron therapy which he gets this once a week. The patient presented to the emergency room complaining of 3 days of cough, fever, shortness of breath and greenish phlegm. X-ray shows pneumonia and he is admitted to the hospital as he is immunocompromised from myeloma as well as from the chemotherapy. The patient is receiving antibiotics. I have been asked to see him for further evaluation. The patient states that his fever has resolved. He is feeling better. He does not have any more shortness of breath. His sputum is now clear. He is anxious to go home. His blood cultures have been negative. He does not have any more fevers. The rest of the review of symptoms is negative. PAST MEDICAL HISTORY 1. Congestive heart failure. 2. Coronary artery disease status post myocardial infarction. 3. Depression. 4. Diabetes mellitus. 5. Hypercholesterolemia. 6. Hypertension. 7. Irregular heartbeat. 8. History of osteomyelitis. 9. Peripheral neuropathy. 10. Multiple myeloma which has progressed in to amyloidosis. PAST SURGICAL HISTORY 1. Colonoscopy. 2. Coronary artery bypass surgery. 3. Knee surgery. 4. Tonsillectomy. 5. I&D of the left foot. 6. Rbefuf-K-Ocjz placement. ALLERGIES None. MEDICATIONS Please see EMR. FAMILY HISTORY Noncontributory. SOCIAL HISTORY The patient smokes cigarettes, does not drink alcohol. PHYSICAL EXAMINATION GENERAL: This is a well-developed, well-nourished white male in no apparent distress. VITAL SIGNS: Temperature 98.1, heart rate 79, blood pressure 150/70. O2 saturation 97% on room air. HEENT: Pupils equal, round, reactive to light and accommodation. Extraocular muscles intact. Anicteric. No oral lesions noted. NECK: Supple. LYMPHATICS: There is no cervical, supraclavicular or axillary lymphadenopathy noted. LUNGS: Clear. No wheezes, rhonchi or rales. HEART: Regular rate and rhythm. ABDOMEN: Soft. Nontender. No hepatosplenomegaly. EXTREMITIES: No pedal edema. NEUROLOGICAL: Awake and alert, oriented times three. SKIN: No significant lesions noted. ASSESSMENT 1. Fever, cough with the greenish phlegm consistent with pneumonia in a patient who is immunocompromised from myeloma as well as from the chemotherapy. 2. Multiple myeloma which has progressed in to amyloidosis, currently on chemotherapy with Velcade, Cytoxan and Decadron. So far he has a good response. 3. Congestive heart failure. PLAN I have reviewed his available records. I have discussed with the patient regarding the reason for admission to the hospital. He had a CBC today which showed white count 3.1, hemoglobin 10.2, hematocrit 28.8, platelet count is 192. The absolute neutrophil count is normal at 2200. On his admission the CBC showed white at 2.3, hemoglobin 11, hematocrit 33.3 and platelet count 114. The absolute neutrophil count is 1400. The leukopenia with neutropenia, thrombocytopenia is due to the chemotherapy. His thrombocytopenia has resolved and neutropenia also has resolved. His blood cultures have been negative. He has been afebrile since the first day of admission. My recommendation is to continue with the antibiotics. The patient is anxious to go home. He is due for chemotherapy today and I will hold off on that due to the infection pneumonia. He will come to our office next week to resume his chemotherapy. No further oncology intervention is required at this time. I will sign off on the case and I will be available as needed. Thank you Dr. Gómez for asking my opinion. MD TIARA Joseph/JENNA /10:07 PM /10:22 PM
[2016-08-11] MEDS ORDERED: PHARMACY ORDERED LAB XX ONE (08:45)
--- NOTE | 2016-08-11 17:53 | HHI.DS ---
Discharge Summary Admission Date Aug 05, 2016 at 14:36 Discharge Date: Aug 10, 2016 Admitting Diagnosis pneumonia,sepsis,chf Brief History This was a pleasant 61-year-old white male who had been diagnosed with multiple myeloma and amyloidosis and approximately two years ago. The patients Oncologist was Dr. Smith. The patient was currently taking chemotherapy treatments and had been very focused on his disease and his treatment regimen for the past few years. Approximately 2 weeks ago the patient was noted to have cough and increased shortness of breath. Currently the patient was a cigarette smoker thought that he just had a little bronchitis. The cough and shortness of breath continued to get worse. The patient did go for a treatment this past Monday and for the last 24 to 48 hours has been running a fever. He was complaining of weakness and aching all over, malaise, shortness of breath and treatment this past Monday before admission and for the last 24 to 48 hours had also been running a fever. He was complaining of weakness and aching all over, malaise, shortness of breath, and congestion. The patient denied any chest pain. He denied any abdominal pain. He did have a decreased appetite and for the past two days he had eaten hardly anything. He had also not smoked in approximately four days. The patient did complain of some chronic pain in his abdomen and was positive for weight loss a significant weight loss of the past couple years due to cancer. The patient's air volumes were noted to be rapid and low. He did cough uncontrollably when trying to take a deep breath. CBC/BMP: 08/10/16 0530 08/10/16 0530 Significant Findings Laboratory Tests Test 08/09/16 08/10/16 09:25 05:30 Vancomycin Level Trough 12.0 MCG/ML (5.0-10.0) White Blood Count 3.1 TH/MM3 (4.0-11.0) Red Blood Count 3.09 MIL/MM3 (4.50-5.90) Hemoglobin 10.2 GM/DL (13.0-17.0) Hematocrit 28.8 % (39.0-51.0) Neutrophils (%) (Auto) 72.4 % (16.0-70.0) Monocytes (%) (Auto) 11.0 % (0.0-8.0) Lymphocytes # (Auto) 0.5 TH/MM3 (1.0-4.8) Creatinine 0.40 MG/DL (0.60-1.30) Imaging Last Impressions Chest X-Ray 08/05/16 1240 Signed Impressions: Service Date/Time: Friday, August 05, 2016 12:45 - CONCLUSION: Interval improvement with less consolidation. Small pleural effusion persists on the right. Ramone Carmen MD FACR PE at Discharge General Appearance: Well Developed, No Acute Distress, Comfortable, Malnourished Eyes Eye Exam: Pupils Equal, Pupils Reactive Ears & Nose Ears & Nose Exam: Nasal Mucosa Watson Throat Throat Exam: Oral Mucosa Watson & Moist Neck Neck Exam: Neck Supple, Trachea Midline Pulmonary Resp Exam: Rhonchi Resp Remarks exp. wheeze less ronchi Cardiology CV Exam: Regular Gastrointestinal/Abdomen GI Exam: Soft, Non-Tender, Bowel Sounds Present, Non-Distended Musculoskeletal MS Exam: Joints Intact, Atrophy Integumentary Skin Exam: Warm, Dry Extremeties Extremities Exam: No Edema, Pedal Pulses Palpable Neurologic Neuro Exam: Alert, Awake, Oriented, Speech Clear, Moving All Extremities, No Focal Deficits Psychiatric Psych Exam: Appropriate Responses VTE Prophylaxis VTE Prophylaxis Meds: Heparin PUD Prophylasis PUD Remarks Pepcid Hospital Course These are the diagnoses that were used to treat this patient during this hospital stay. (1) Sepsis (2) CHF (congestive heart failure) (3) Pneumonia (4) Hx of CABG (5) Hx of aortic valve repair (6) Multiple myeloma (7) Diabetes 1.5, managed as type 2 (8) CAD (coronary artery disease) (9) Amyloidosis (10) Tobacco abuse (11) Pleural effusion, right Due to diagnosis of pneumonia , patient was started on empiric antibiotics, and given DuoNeb's 4 times a day and when necessary. Oxygen was used as needed to keep sats greater than 92 Prednisone 20 mg PO daily was initiated in attempt to stabilize his cough and COPD. Tobacco abuse counseling, since patient is struggling with multi-medical comorbidities which include cancer pneumonia and COPD. Acute on chronic CHF -improving with treatment regimen of Lasix 20 mg by mouth twice a day Continue with potassium 20 po daily, labs were monitored for his renal function as well as potassium levels. Accu-Cheks before meals and at bedtime with insulin therapy as needed Patient states he doesn't take any medications at home and doesn't want to start any of them again History of multiple myeloma now with progression to amyloidosis, stable oncology input appreciated, seen by Dr. Smith today, will be followed up with an outpatient basis for his treatment regimen, when he is stable. Continue with pain management, Heparin subq every 12 for DVT prophylaxis, Pepcid for GI prophylaxis. Patient responded well to medical management included antibiotics, dual nebs, O2 therapy, pain management. He was evaluated per Dr. Gómez and was okayed for discharge. F/U oncology, PCP Diet-heart healthy was tolerated during this hospital stay bout nausea or vomiting Activity as tolerated with assistance and safety. Pt Condition on Discharge: Stable Discharge Disposition: Discharge Home Discharge Instructions DIET: Follow Instructions for: Heart Healthy Diet Activities you can perform: Weight Bearing as Andree Follow up Referrals: Oncology with [facility] PCP Follow-up New Medications: Albuterol 18 GM Inh (Ventolin Hfa 18 GM Inh) 90 Mcg/Act Aer 2 PUFF INH Q4-6H PRN SHORTNESS OF BREATH #1 Ref 0 INHALER Levofloxacin (Levofloxacin) 500 Mg Tab 500 MG PO DAILY Infection #5 Ref 0 TAB Furosemide (Furosemide) 20 Mg Tab 20 MG PO DAILY FLUID OVERLOAD #7 Ref 0 TAB Potassium Chloride Microencaps (Potassium Chloride Microencaps) 20 Meq Tab 20 MEQ PO DAILY ELECTROLYTE REPLACEMENT #7 Ref 0 TAB Prednisone (Prednisone) 20 Mg Tab 20 MG PO DAILY Broncospasm #5 Ref 0 TAB Continued Medications: Alprazolam (Alprazolam) 0.5 Mg Tab 0.5 MG PO DAILY PRN ANXIETY Ref 0 TAB Gabapentin (Gabapentin) 300 Mg Cap 300 MG PO DAILY #60 Ref 0 CAP Hydromorphone (Hydromorphone) 4 Mg Tab 4 MG PO Q6H PRN PAIN Ref 0 TAB Ese Willis Aug 11, 2016 17:53
== END 2016-08-10 14:30 | disposition home or self-care (01) | DRG 871 ==
LOC: NEPC 12:16 → NEDA 14:36 → N04A 17:00
PROVIDERS: ADMIT Specialist; ATTEND Specialist
DX: A41.9 Sepsis, unspecified organism (principal); J44.0 Chronic obstructive pulmonary disease with (acute) lower respiratory infection; J18.9 Pneumonia, unspecified organism; C90.00 Multiple myeloma not having achieved remission; E46 Unspecified protein-calorie malnutrition; E85.9 Amyloidosis, unspecified; I50.9 Heart failure, unspecified; E87.1 Hypo-osmolality and hyponatremia; Z68.1 Body mass index [BMI] 19.9 or less, adult; E11.40 Type 2 diabetes mellitus with diabetic neuropathy, unspecified; Z79.84 Long term (current) use of oral hypoglycemic drugs; Z79.899 Other long term (current) drug therapy; I25.10 Atherosclerotic heart disease of native coronary artery without angina pectoris; Z95.1 Presence of aortocoronary bypass graft; I25.2 Old myocardial infarction; E78.5 Hyperlipidemia, unspecified; F17.210 Nicotine dependence, cigarettes, uncomplicated; I10 Essential (primary) hypertension; M19.90 Unspecified osteoarthritis, unspecified site; Z95.2 Presence of prosthetic heart valve; G89.29 Other chronic pain; E87.6 Hypokalemia
CPT/HCPCS: 71010; 80048; 80053; 80202; 82550; 82565; 82948; 83605; 83735; 83880; 84132; 84155; 84484; 85025; 85060; 87040; 87804; 93005; 94640; 94664; 96374; J0692; J1642; J1644; J1815; J1940; J1956; J3370; J7030; J7050; J7512

== ENCOUNTER 2018-01-11 15:07 | Inpatient (IN) ==
--- NOTE | 2018-01-11 17:45 | ED ---
HPI General Chief complaint: Respiratory Symptoms Stated complaint: Dr an-respiratory Time Seen by Provider: 01/11/18 16:59 Source: patient Mode of arrival: wheelchair Limitations: no limitations History of Present Illness HPI narrative: 62-year-old male the presents to the ED for evaluation of possible pneumonia and swelling. Per patient he has been having symptoms for about a week. He has a history of CHF, amyloidosis and multiple myeloma. He had chemotherapy yesterday. He states that symptoms are worsened for the past week and he is continuing to gain fluid on his leg. Per patient he has pain on his legs has discoloration in his legs. He states that he follows with Dr. Smith for oncology. States that he has been having some congestion as well as feeling short of breath and believes that he has pneumonia. Unclear as to why he thinks his pneumonia as he denies any fevers chills or sweats. He states that he has had similar episodes in the past. He was told by his doctor to come here. Per patient the pain is 7 out of 10. Denies any urinary or bowel movement issues. States taking Lasix currently. He is not sure as to how much he takes. Related Data Allergies Allergy/AdvReac Type Severity Reaction Status Date / Time azithromycin Allergy Intermediate rash Unverified 01/17/17 15:56 *MDRO Multi-Drug Resistant AdvReac Mild Cleared Uncoded 08/08/16 09:57 Organism 10/2015 Review of Systems ROS: all other systems reviewed are negative [facility] Social History Social History Recent Travel in [facility] within the Last 8 Weeks: No Recent Out of Country Travel within the Last 8 Weeks: No Exam Narrative Exam Narrative: GENERAL: Well-appearing. SKIN: Focused skin assessment warm/dry. HEAD: Atraumatic. Normocephalic. EYES: Pupils equal and round. No scleral icterus. No injection or drainage. ENT: No nasal bleeding or discharge. Mucous membranes pink and moist. Tongue is midline. No uvula deviation. NECK: Trachea midline. No JVD. CARDIOVASCULAR: Regular rate and rhythm. No murmur appreciated. RESPIRATORY: No accessory muscle use. Clear to auscultation. Breath sounds equal bilaterally. GASTROINTESTINAL: Abdomen soft, non-tender, nondistended. Hepatic and splenic margins not palpable. MUSCULOSKELETAL: No obvious deformities. No clubbing. No cyanosis. Patient has 2+ pitting edema in the lower extremities with fluid coming out of the skin. Skin changes in the lower extremities as well noted. Full range of motion of the upper and lower extremities bilaterally. 2+ pulses bilaterally. NEUROLOGICAL: Awake and alert. No obvious cranial nerve deficits. Motor grossly within normal limits. Normal speech. PSYCHIATRIC: Appropriate mood and affect; insight and judgment normal. Course Initial Documented Vital Signs Temperature 97.9 F 01/11/18 15:16 Pulse Rate 97 H 01/11/18 15:16 Respiratory Rate 20 01/11/18 15:16 Blood Pressure 115/56 L 01/11/18 15:16 Pulse Oximetry 97 01/11/18 15:16 Last Documented Vital Signs Temperature 97.9 F 01/11/18 15:16 Pulse Rate 97 H 01/11/18 15:16 Respiratory Rate 20 01/11/18 15:16 Blood Pressure 115/56 L 01/11/18 15:16 Pulse Oximetry 97 01/11/18 15:16 Medical Decision Making GEORGES Attestation GEORGES supervised visit: Yes Attestation: I, Dr. segovia, have reviewed the advance practice practitioner's documentation and am in agreement, met with the patient face to face, made the diagnosis, and the medical decision making was done by me. *My assessment and Findings: 62 y/o male that yesterday received chemo no w with signs of sepsis and pneumonia. Given broad-spectrum antibiotics and will admit for further care. Patient agrees to plan, IV fluids held given CHF findings MDM Narrative Medical decision making narrative: 62-year-old male the presents to the ED for evaluation of shortness of breath as well as leg edema and possible pneumonia. Patient was properly examined and was found to have signs and symptoms of unclear etiology. I did review his medical records and he has been diagnosed with amyloidosis recently as well as what appears to be CHF with ejection fraction of 20%. Labs and imaging were ordered. He does appear to be in acute CHF exacerbation at this time. Labs and imaging show what appears to be pneumonia as well as CHF exacerbation. This time her condition is for admission for further evaluation. Patient agrees. No fluids were given. Zosyn and vancomycin was ordered. Patient was given replacement for his low potassium. Case discussed with my attending agrees with admission. Patient was admitted to Dr. Grieper who agrees to admission to his service. Differential Diagnosis Differential Diagnosis: CHF exacerbation versus pneumonia versus fluid overload versus cellulitis Medical Records Medical records reviewed: Yes I reviewed the patient's medical records. Lab Data Lab results reviewed: Yes I reviewed the patient's lab results. Lab results narrative: BNP in the 1999s lactic acid elevated troponin negative Result diagrams: 01/11/18 17:15 01/11/18 17:15 Lab Results 01/11/18 01/11/18 01/11/18 Range/Units 17:15 17:15 17:15 WBC 9.7 (4.0-11.0) th/mm3 RBC 3.18 L (4.50-5.90) mil/mm3 Hgb 9.9 L (13.0-17.0) gm/dL Hct 30.9 L (39.0-51.0) % MCV 97.3 (80.0-100.0) fL MCH 31.1 (27.0-34.0) pg MCHC 32.0 (32.0-36.0) % RDW 21.8 H (11.6-17.2) % Plt Count 141 L (150-450) th/mm3 MPV 9.4 (7.0-11.0) fL Neut % (Auto) 92.1 H (16.0-70.0) % Lymph % (Auto) 2.1 L (9.0-44.0) % [place] % (Auto) 5.4 (0.0-8.0) % Eos % (Auto) 0.0 (0.0-4.0) % Baso % (Auto) 0.4 (0.0-2.0) % Neut # (Auto) 8.9 H (1.8-7.7) th/mm3 Lymph # (Auto) 0.2 L (1.0-4.8) th/mm3 [place] # (Auto) 0.5 (0.0-0.9) th/mm3 Eos # (Auto) 0.0 (0.0-0.4) th/mm3 Baso # (Auto) 0.0 (0.0-0.2) th/mm3 WBC Differential . Differential Comment Auto diff final Sodium 139 (136-145) meq/L Potassium 3.2 L (3.5-5.1) meq/L Chloride 105 (98-107) meq/L Carbon Dioxide 24.8 (21.0-32.0) meq/L Anion Gap 9 (5-15) meq/L BUN 8 (7-18) mg/dL Creatinine 0.89 (0.60-1.30) mg/dL Estimated GFR 87 L (>89) mL/min Random Glucose 332 H (74-106) mg/dL Lactic Acid 3.8 H (0.4-2.0) mmol/L Calcium 7.4 L* (8.5-10.1) mg/dL Prot Corrected Calcium 7.8 L (8.5-10.1) mg/dL Magnesium 1.7 (1.5-2.5) mg/dL Total Bilirubin 0.3 (0.2-1.0) mg/dL AST 9 L (15-37) U/L ALT 18 (12-78) U/L Alkaline Phosphatase 119 H (45-117) U/L Total Creatine Kinase 102 (39-308) U/L CK-MB (CK-2) 1.2 (0.5-3.6) ng/mL Troponin I Less than 0.02 L (0.02-0.05) ng/mL B-Natriuretic Peptide (0-100) pg/mL Total Protein 6.4 (6.4-8.2) g/dL Albumin 2.5 L (3.4-5.0) g/dL 01/11/18 01/11/18 01/11/18 Range/Units 17:15 17:15 17:15 WBC (4.0-11.0) th/mm3 RBC (4.50-5.90) mil/mm3 Hgb (13.0-17.0) gm/dL Hct (39.0-51.0) % MCV (80.0-100.0) fL MCH (27.0-34.0) pg MCHC (32.0-36.0) % RDW (11.6-17.2) % Plt Count (150-450) th/mm3 MPV (7.0-11.0) fL Neut % (Auto) (16.0-70.0) % Lymph % (Auto) (9.0-44.0) % [place] % (Auto) (0.0-8.0) % Eos % (Auto) (0.0-4.0) % Baso % (Auto) (0.0-2.0) % Neut # (Auto) (1.8-7.7) th/mm3 Lymph # (Auto) (1.0-4.8) th/mm3 [place] # (Auto) (0.0-0.9) th/mm3 Eos # (Auto) (0.0-0.4) th/mm3 Baso # (Auto) (0.0-0.2) th/mm3 WBC Differential Differential Comment Sodium (136-145) meq/L Potassium (3.5-5.1) meq/L Chloride (98-107) meq/L Carbon Dioxide (21.0-32.0) meq/L Anion Gap (5-15) meq/L BUN (7-18) mg/dL Creatinine (0.60-1.30) mg/dL Estimated GFR (>89) mL/min Random Glucose (74-106) mg/dL Lactic Acid (0.4-2.0) mmol/L Calcium (8.5-10.1) mg/dL Prot Corrected Calcium (8.5-10.1) mg/dL Magnesium Cancelled (1.5-2.5) mg/dL Total Bilirubin (0.2-1.0) mg/dL AST (15-37) U/L ALT (12-78) U/L Alkaline Phosphatase (45-117) U/L Total Creatine Kinase Cancelled (39-308) U/L CK-MB (CK-2) (0.5-3.6) ng/mL Troponin I (0.02-0.05) ng/mL B-Natriuretic Peptide 2362 H (0-100) pg/mL Total Protein (6.4-8.2) g/dL Albumin (3.4-5.0) g/dL Imaging Data Attestation: I personally reviewed and interpreted this imaging study as follows : Radiologist's impression: Chest X-Ray 01/11/18 17:08 CONCLUSION: 1. Right vertebral left bibasilar consolidation. 2. Small right pleural effusion. 3. Mild cardiomegaly. ECG Data Attestation: I personally reviewed and interpreted this ECG as follows: Interpretation: EKG show sinus rhythm with no sign of acute ST elevation or ischemia. Patient does appear to have some sinus tachycardia. Discharge Plan Discharge Disposition Patient Disposition: 30 Still Patient Discharge Details Diagnosis: Pneumonia, Sepsis, Acute exacerbation of CHF (congestive heart failure) Physicians Team ED Provider: Aixa Segovia ED Midlevel Provider: Gigi Bangura Primary Care Provider: Taiwo Palm Discharge Interventions Interventions: Vital Signs Last Done: 01/11/18 15:16 Status ED Status: Admitted Patient
[2018-01-11 17:46] LABS: Baso % (Auto) 0.4 % (0.0-2.0); Hematocrit 30.9 % (39.0-51.0); Hemoglobin 9.9 gm/dL (13.0-17.0); Lymph # (Auto) 0.2 th/mm3 (1.0-4.8); Lymph % (Auto) 2.1 % (9.0-44.0); Mean Corpuscular Hemoglobin 31.1 pg (27.0-34.0); Mean Corpuscular Volume 97.3 fL (80.0-100.0); Mean Platelet Volume 9.4 fL (7.0-11.0); Mono # (Auto) 0.5 th/mm3 (0.0-0.9); Mono % (Auto) 5.4 % (0.0-8.0); Neut # (Auto) 8.9 th/mm3 (1.8-7.7); Neut % (Auto) 92.1 % (16.0-70.0); Platelet Count 141 th/mm3 (150-450); Red Blood Count 3.18 mil/mm3 (4.50-5.90); Red Cell Distribution Width 21.8 % (11.6-17.2); White Blood Count 9.7 th/mm3 (4.0-11.0)
--- NOTE | 2018-01-11 17:52 | XR ---
EXAM DATE: 01/11/2018 5:44 PM EDT AGE/SEX: 62 years / Male INDICATIONS: Shortness of breath. CLINICAL DATA: This is the patient's initial encounter. Patient reports that signs and symptoms have been present for 1 day and indicates a pain score of 0/10. MEDICAL/SURGICAL HISTORY: . CHF Coronary artery disease Depression Diabetes High cholesterol HT N Irregular heart beat Osteomyelitis Peripheral neuropathy. . Colonoscopy Heart bypass Knee surgery Tonsillectomy I&D of left foot with bone bx COMPARISON: [facility] [place], 08/05/[place]. . FINDINGS: Right greater than left basilar consolidation present. There is also a small right pleural effusion a nd some of it is loculated at the apex. No pneumothorax seen. There is mild cardiomegaly which appears increased from before. Patient has had previous median platt otomy and CABG. Right IJ Mwaxzf-d-Iewl catheter with tip at the atriocaval junction again noted. CONCLUSION: 1. Right vertebral left bibasilar consolidation. 2. Small right pleural effusion. 3. Mild cardiomegaly. Electronically signed by: Dannie Pizarro MD 01/11/2018 5:50 PM EDT
[2018-01-11 18:07] LABS: Alanine Aminotransferase 18 U/L (12-78); Albumin 2.5 g/dL (3.4-5.0); Alkaline Phosphatase 119 U/L (45-117); Anion Gap 9 meq/L (5-15); Aspartate Aminotransferase 9 U/L (15-37); Blood Urea Nitrogen 8 mg/dL (7-18); Calcium 7.4 mg/dL (8.5-10.1); Carbon Dioxide 24.8 meq/L (21.0-32.0); Chloride 105 meq/L (98-107); Creatine Kinase 102 U/L (39-308); Glomerular Filtration Rate 87 mL/min (>89); Glucose,Random 332 mg/dL (74-106); Magnesium 1.7 mg/dL (1.5-2.5); Potassium 3.2 meq/L (3.5-5.1); Sodium 139 meq/L (136-145); Total Protein 6.4 g/dL (6.4-8.2)
[2018-01-11] MEDS ORDERED: Piperacil/Tazo 4.5 GM Premix 4.5 GM/100 ML BAG IV.SIG ONE (18:11)
[2018-01-11] MEDS ORDERED: Sodium Chlor 0.9% Inj 500 ML IV.SIG ONE (18:11)
[2018-01-11] MEDS ORDERED: Vancomycin Inj 1 GM/200 ML PIGGYBACK IV.SIG ONE (18:12)
[2018-01-11 18:29] LABS: Creatine Kinase MB 1.2 ng/mL (0.5-3.6)
[2018-01-11] MEDS ORDERED: Vancomycin Inj 1,000 MG in Sodium Chlor 0.9% Inj 250 ML IV.SIG ONE ×2 (18:30→18:46)
[2018-01-11] MEDS ORDERED: Vancomycin Consult Pharmacy OTHER SCH (18:46)
[2018-01-11] MEDS ORDERED: Acetaminophen 325 MG Tablet PO PRN (18:46)
[2018-01-11] MEDS ORDERED: Temazepam 15 MG Capsule PO PRN (18:51)
[2018-01-11] MEDS ORDERED: Bisacodyl 10 MG Supp RECTAL PRN (18:51)
[2018-01-11] MEDS ORDERED: Morphine Inj 4 MG/ML Vial IV.PUSH PRN (18:54)
[2018-01-11] MEDS ORDERED: Naloxone Inj 0.4 MG/ML Vial IV.PUSH PRN (18:54)
[2018-01-11] MEDS: oxyCODONE/Acetaminophen 10/325 Tablet PO PRN (21:41)
[2018-01-11] MEDS: MethylPREDNISolone Sod Succinate Inj 40 MG/ML Vial IV.PUSH SCH (21:42)
[2018-01-11] MEDS: Senna/Docusate Sodium 8.6/50 MG Tablet PO SCH (21:43)
[2018-01-11] MEDS: guaiFENesin 600 MG ER Tablet PO SCH (21:43)
[2018-01-11] MEDS: Enoxaparin Inj 30 MG/0.3 ML Syringe SQ SCH (21:45)
[2018-01-11] MEDS ORDERED: Sodium Chlor 0.9% Inj 250 ML IV.SIG ONE (23:04)
--- NOTE | 2018-01-11 23:12 | P.HPIM ---
History of Present Illness Service: [facility] Primary Care Physician: Taiwo Palm MD Chief Complaint: Leg swelling and shortness of breath History of Present Illness: Mr. Rios is a 62 y/o male with a history of multiple myeloma s/p chemo on (Dr. Smith is oncologist), CHF (EF 20 - 25% 2015), CAD s/p CABG and aortic valve replacement, diabetes mellitus, diabetic neuropathy, hyperlipidemia , hypertension, and amyloidosis who presented to the ER on 01/11 upon recommendation by his PCP Dr. Palm for 1 week history of progressively worsening SOB and lower extremity edema. The patient was found to have pneumonia, sepsis, and a small pleural effusion and was admitted to the hospitalist service for medical management. The patient is seen in his hospital room. He reports fevers and chills at home. He denies chest pain, nausea, vomiting, or diarrhea. He is diaphoretic at the time of my visit and warm to touch. He reports that he continues to feel mildly short of breath at rest and has weeping bilateral lower extremity edema. He develops worsening shortness of breath with conversation thus limiting history. Inpatient Certification: I certify that the inpatient services were ordered in accordance with Medicare regulations governing the order. This includes certification that hospital inpatient services are reasonable and necessary and in the case of services not specified as inpatient-only under 42 CFR 419.22(n), that they are appropriately provided as inpatient services in accordance to with the 2-midnight benchmark under 43 CFR 412.3(e) Estimated Total Length of Stay (Days): 6 Plans for Post Hospital Care: Not yet determined Review of Systems All other systems reviewed negative except as stated in HPI [facility] - History History Provided By: Medical Record - Medical History Medical History: Medical History (Last Updated 01/12/18 @ 03:02 by MANASA Lanza) Amyloidosis Arthritis CAD (coronary artery disease) CHF (congestive heart failure) Chest pain Diabetes mellitus Diabetic neuropathy HLD (hyperlipidemia) HTN (hypertension) Irregular heart beat Multiple myeloma Myocardial infarct - Surgical History Surgical History: Surgical History (Last Updated 01/12/18 @ 03:00 by MANASA Lanza) Aortic valve replaced Hx of CABG Status post surgical manipulation of ankle joint - Family History Family History: Family History (Last Updated 01/12/18 @ 02:57 by MANASA Lanza) Father Cancer Mother Cancer - Tobacco History Tobacco Use In Past 30 Days: Yes Smoking Status: Current every day smoker Tobacco Type: Cigarettes - Alcohol History How Often Do You Have a Drink Containing Alcohol: Monthly or less - Substance Use History Substance History: No History of Abuse - Travel History Recent Travel in the [place] Within the Last 8 Weeks: No Recent Travel Out of the Country Within the Last 8 Weeks: No - Immunization History Tetanus Immunization: Unsure Hx Influenza Vaccine This Season: No Medications and Allergies Active Medications: Active Medications Acetaminophen (Tylenol) 650 mg PO Q4H PRN PRN Reason: TEMPERATURE > 101 F Al Hydroxide/Mg Hydroxide (Milk Of Magnesia Liq) 30 ml PO Q12H PRN PRN Reason: Mild Constipation Albuterol (Duoneb Neb (Prn)) 1 ampul NEB Q2HR NEB PRN PRN Reason: SHORTNESS OF BREATH/WHEEZING Albuterol (Duoneb Neb (Sharon)) 1 ampul NEB Q6HR WHILE AWAKE NEB SHARON Bisacodyl (Dulcolax Supp) 10 mg RECTAL DAILY PRN PRN Reason: SEVERE CONSITIPATION Enoxaparin Sodium (Lovenox Inj) 30 mg SQ Q24H [facility] Last Admin: 01/11/18 21:45 Dose: 30 mg Furosemide (Lasix Inj) 40 mg IV.PUSH BID@0900,1800 [facility] Guaifenesin (Mucinex Er) 600 mg PO BID [facility] Last Admin: 01/11/18 21:43 Dose: 600 mg Piperacillin/Tazobactam/Dextrose (Zosyn 4.5 Gm Premix) 4.5 gm in 100 mls @ 200 mls/hr IV.SIG Q6H [facility] Vancomycin HCl 750 mg/ Sodium (Chloride) 257.5 mls @ 250 mls/hr IV.SIG Q12H [facility] Sodium Chloride (Ns Inj) 1,000 mls @ 75 mls/hr IV.CONT .[id number] [facility] Lactulose (Lactulose Liq) 30 ml PO DAILY PRN PRN Reason: SEVERE CONSITIPATION Methylprednisolone Sodium Succinate (Solumedrol Inj) 40 mg IV.PUSH Q12H [facility] Last Admin: 01/11/18 21:42 Dose: 40 mg Miscellaneous Information ([facility] Ordered Lab Info) 0 each OTHER ONCE ONE Stop: 01/13/18 08:46 Morphine Sulfate (Morphine Inj) 4 mg IV.PUSH Q3H PRN PRN Reason: PAIN 6-10;IF UNABLE TO TAKE PO Morphine Sulfate (Morphine Inj) 2 mg IV.PUSH Q3H PRN PRN Reason: PAIN 3-5; IF UABLE TO TAKE PO Naloxone HCl (Narcan Inj) 0.4 mg IV.PUSH UNSCH PRN PRN Reason: SEE LABEL COMMENTS Ondansetron HCl (Zofran Inj) 4 mg IV.PUSH Q6H PRN PRN Reason: NAUSEA OR VOMITING Oxycodone/Acetaminophen (Percocet 10/325 Mg) 1 tab PO Q6H PRN PRN Reason: PAIN SCALE 6 TO 10 Last Admin: 01/11/18 21:41 Dose: 1 tab Oxycodone/Acetaminophen (Percocet 5/325 Mg) 1 tab PO Q6H PRN PRN Reason: PAIN SCALE 3 TO 5 Pharmacy Profile Note (Vancomycin Consult Pharmacy) 1 each OTHER UNSCH [facility] Senna/Docusate Sodium (Kamini-Colace) 1 tab PO BID [facility] Last Admin: 01/11/18 21:43 Dose: 1 tab Sennosides (Senokot) 17.2 mg PO Q12H PRN PRN Reason: Moderate Constipation Sodium Chloride (Ns Flush) 2 ml IV.FLUSH PRN PRN PRN Reason: FLUSH AFTER USING IV ACCESS Sodium Chloride (Ns Flush) 2 ml IV.FLUSH BID [facility] Last Admin: 01/11/18 21:41 Dose: 2 ml Temazepam (Restoril) 15 mg PO HS PRN PRN Reason: INSOMNIA Allergies Allergy/AdvReac Type Severity Reaction Status Date / Time azithromycin Allergy Intermediate rash Verified 01/11/18 20:23 *MDRO Multi-Drug Resistant AdvReac Mild Cleared Uncoded 08/08/16 09:57 Organism 10/2015 Home Medications Medication Instructions Recorded Confirmed Type alprazolam 0.5 mg PO HS PRN 01/11/18 01/11/18 History dexamethasone 20 mg PO WEEKLY 01/11/18 01/11/18 History duloxetine [Cymbalta] 30 mg PO HS 01/11/18 01/11/18 History hydromorphone [Dilaudid] 4 mg PO Q6H PRN 01/11/18 01/11/18 History prochlorperazine maleate 10 mg PO QID PRN 01/11/18 01/11/18 History [Compazine] Exam Vital signs: Vital Signs 01/11/18 15:16 01/11/18 15:21 01/11/18 17:08 Temperature 97.9 F Pulse Rate 97 H 117 H 117 H Respiratory Rate 20 Blood Pressure 115/56 L Pulse Oximetry 97 01/11/18 20:00 Temperature 99.4 F Pulse Rate 126 H Respiratory Rate 20 Blood Pressure 141/67 H Pulse Oximetry 98 Intake & Output 01/11/18 01/11/18 01/12/18 06:59 18:59 06:59 Weight 59.421 kg 59.421 kg Other: Weight On Admission 59.421 kg - Constitutional mild distress, thin, chronically ill appearing - Routine HEENT Exam Head: Present: normocephalic, atraumatic - Routine Neck Exam Present: supple. Absent: JVD - Routine Respiratory Exam Present: distant breath sounds (at bilateral bases). Absent: accessory muscle use, wheezes, crackles - Routine Cardiovascular Exam Present: RRR, S1, S2, tachycardia. Absent: murmur - Routine Abdominal Exam Present: soft, normoactive bowel sounds. Absent: tenderness, distended - Routine Extremities Exam Present: edema, pulses intact - Routine Skin Exam Present: warm Comments: diaphoresis noted on chest - Routine Neurological Exam Present: alert, oriented X3 Results - Labs CBC & Chem 7: 01/11/18 17:15 01/11/18 23:37 Labs: Short CBC 01/11/18 Range/Units 17:15 WBC 9.7 (4.0-11.0) th/mm3 Hgb 9.9 L (13.0-17.0) gm/dL Hct 30.9 L (39.0-51.0) % Plt Count 141 L (150-450) th/mm3 BMP 01/11/18 17:15 Sodium 139 Potassium 3.2 L Chloride 105 Carbon Dioxide 24.8 BUN 8 Creatinine 0.89 Calcium 7.4 L* Cardiac Enzymes 01/11/18 01/11/18 Range/Units 17:15 17:15 Total Creatine Kinase 102 Cancelled (39-308) U/L CK-MB (CK-2) 1.2 (0.5-3.6) ng/mL Troponin I Less than 0.02 L (0.02-0.05) ng/mL Liver Function 01/11/18 Range/Units 17:15 Total Bilirubin 0.3 (0.2-1.0) mg/dL AST 9 L (15-37) U/L ALT 18 (12-78) U/L Alkaline Phosphatase 119 H (45-117) U/L Albumin 2.5 L (3.4-5.0) g/dL - Imaging Impressions Chest X-Ray 01/11/18 17:08 CONCLUSION: 1. Right vertebral left bibasilar consolidation. 2. Small right pleural effusion. 3. Mild cardiomegaly. Caprini VTE Risk Assessment Caprini VTE Risk Assessment: Moderate/High Risk (score >= 2) Caprini Risk Assessment Model: Point Value = 1 Point Value = 2 Point Value = 3 Point Value = 5 Age 41-60 Minor surgery BMI > 25 kg/m2 Swollen legs Varicose veins or History of unexplained or recurrent spontaneous Oral contraceptives or hormone replacement Sepsis (< 1 month) Serious lung disease, including pneumonia (< 1 month) Abnormal pulmonary function Acute myocardial infarction Congestive heart failure (< 1 month) History of inflammatory bowel disease Medical patient at bed rest Age 61-74 Arthroscopic surgery Major open surgery (> 45 min) Laparoscopic surgery (> 45 min) Malignancy Confined to bed (> 72 hours) Immobilizing plaster cast Central venous access Age >= 75 History of VTE Family history of VTE Factor V Leiden Prothrombin [id number] Lupus anticoagulant Anticardiolipin antibodies Elevated serum homocysteine Heparin-induced thrombocytopenia Other congenital or acquired thrombophilia Stroke (< 1 month) Elective arthroplasty Hip, pelvis, or leg fracture Acute spinal cord injury (< 1 month) Prophylaxis Regimen: Total Risk Factor Score Risk Level Prophylaxis Regimen 0-1 Low Early ambulation 2 Moderate Order ONE of the following: *Sequential Compression Device (SCD) *Heparin 5000 units SQ BID 3-4 Higher Order ONE of the following medications: *Heparin 5000 units SQ TID *Enoxaparin/Lovenox 40 mg SQ daily (WT < 150 kg, CrCl > 30 mL/min) *Enoxaparin/Lovenox 30 mg SQ daily (WT < 150 kg, CrCl > 10-29 mL/min) *Enoxaparin/Lovenox 30 mg SQ BID (WT < 150 kg, CrCl > 30 mL/min) AND/OR *Sequential Compression Device (SCD) 5 or more Highest Order ONE of the following medications: *Heparin 5000 units SQ TID (Preferred with Epidurals) *Enoxaparin/Lovenox 40 mg SQ daily (WT < 150 kg, CrCl > 30 mL/min) *Enoxaparin/Lovenox 30 mg SQ daily (WT < 150 kg, CrCl > 10-29 mL/min) *Enoxaparin/Lovenox 30 mg SQ BID (WT < 150 kg, CrCl > 30 mL/min) AND *Sequential Compression Device (SCD) Assessment and Plan - Plan Mr. Rios is a 62 y/o male with a history of multiple myeloma s/p chemo on (Dr. Smith is oncologist), CHF (EF 20 - 25% 2015), CAD s/p CABG and aortic valve replacement, diabetes mellitus, diabetic neuropathy, hyperlipidemia , hypertension, and amyloidosis who presented to the ER on 01/11 upon recommendation by his PCP Dr. Palm for 1 week history of progressively worsening SOB and lower extremity edema. The patient was found to have pneumonia, sepsis, and a small pleural effusion and was admitted to the hospitalist service for medical management. Severe Sepsis -Lactic Acid 3.8 on admission, 3.1 on repeat - will repeat per lactic acid sepsis protocol -Antibiotics: IV Vancomycin and Zosyn -IV fluid bolus with NS 250 cc/hr and IV NS at 75 cc/hr maintenance - caution due to CHF -monitor temperature - recheck showed temp 102.4 - PRN tylenol for fever Pneumonia - IV antibiotics as above - Duonebs - supplemental oxygen as needed to maintain oxygen saturation > 92% CHF - last echo (2015) in system shows EF 20 - 25% - will check echocardiogram - Lasix 40 mg IV BID - monitor closely - requiring IVF for sepsis management - at high risk for deterioration - patient transfer to ICU - BNP 2362 Multiple Myeloma - last chemo 01/10 - consult Dr. Smith, oncology - appreciate assistance - monitor CBC DVT prophylaxis - Lovenox SQ Discussed Condition With: Dr. Mcdaniels, RNs, and patient
[2018-01-12] MEDS: Sod Chloride 0.9% Inj 1,000 ML IV.CONT SCH ×2 (00:15→16:41)
[2018-01-12 00:22] LABS: Albumin 2.4 g/dL (3.4-5.0); Calcium 7.3 mg/dL (8.5-10.1); Carbon Dioxide 25.1 meq/L (21.0-32.0); Potassium 3.8 meq/L (3.5-5.1); Troponin I 0.04 ng/mL (0.02-0.05)
[2018-01-12] MEDS: Piperacil/Tazo 4.5 GM Premix 4.5 GM/100 ML BAG IV.SIG SCH ×4 (00:52→17:42)
[2018-01-12] MEDS ORDERED: Heparin Central Flush 100 UNIT/ML 5 ML Vial IV.FLUSH PRN ×2 (01:44)
[2018-01-12] MEDS ORDERED: Dextrose 50% in Water 50 ML Vial IV.PUSH PRN (03:03)
[2018-01-12 06:15] LABS: INR 1.3 Ratio; Prothrombin Time 12.7 sec (9.8-11.6)
[2018-01-12 06:16] LABS: Baso % (Auto) 0.1 % (0.0-2.0); Hematocrit 28.9 % (39.0-51.0); Hemoglobin 9.5 gm/dL (13.0-17.0); Lymph # (Auto) 0.1 th/mm3 (1.0-4.8); Lymph % (Auto) 1.2 % (9.0-44.0); Mean Corpuscular HGB Conc 32.7 % (32.0-36.0); Mean Corpuscular Hemoglobin 31.3 pg (27.0-34.0); Mean Corpuscular Volume 95.9 fL (80.0-100.0); Mean Platelet Volume 9.2 fL (7.0-11.0); Mono # (Auto) 0.7 th/mm3 (0.0-0.9); Mono % (Auto) 9.2 % (0.0-8.0); Neut % (Auto) 89.5 % (16.0-70.0); Platelet Count 105 th/mm3 (150-450); Red Blood Count 3.02 mil/mm3 (4.50-5.90); Red Cell Distribution Width 21.2 % (11.6-17.2); White Blood Count 7.8 th/mm3 (4.0-11.0)
[2018-01-12 06:49] LABS: Albumin 2.4 g/dL (3.4-5.0); Calcium 7.3 mg/dL (8.5-10.1); Carbon Dioxide 21.4 meq/L (21.0-32.0); Free T4 (Free Thyroxine) 1.67 ng/dL (0.76-1.46); Magnesium 1.5 mg/dL (1.5-2.5); Phosphorus 3.2 mg/dL (2.5-4.9); Potassium 4.2 meq/L (3.5-5.1); Thyroid Stimulating Hormone 0.453 uIU/mL (0.358-3.740); Total Protein 6.1 g/dL (6.4-8.2); Troponin I 0.06 ng/mL (0.02-0.05)
[2018-01-12] MEDS: MethylPREDNISolone Sod Succinate Inj 40 MG/ML Vial IV.PUSH SCH ×2 (08:25→21:10)
[2018-01-12] MEDS: Insulin NovoLOG Aspart Correctional Sugar Inj SQ SCH ×3 (08:25→18:12)
[2018-01-12] MEDS: Senna/Docusate Sodium 8.6/50 MG Tablet PO SCH ×2 (08:26→21:13)
[2018-01-12] MEDS: guaiFENesin 600 MG ER Tablet PO SCH ×2 (08:26→21:13)
--- NOTE | 2018-01-12 09:11 | P.PN ---
Physical Exam Vital signs: Vital Signs 01/11/18 15:16 01/11/18 15:21 01/11/18 17:08 Temperature 97.9 F Pulse Rate 97 H 117 H 117 H Respiratory Rate 20 Blood Pressure 115/56 L Pulse Oximetry 97 01/11/18 20:00 01/11/18 23:10 01/12/18 00:30 Temperature 99.4 F 102.4 F H Pulse Rate 126 H Respiratory Rate 20 Blood Pressure 141/67 H Pulse Oximetry 98 98 01/12/18 04:00 01/12/18 04:18 01/12/18 06:00 Temperature 99.6 F Pulse Rate 116 H 118 H Respiratory Rate 20 Blood Pressure 139/67 Pulse Oximetry 97 96 Intake & Output 01/11/18 01/12/18 01/12/18 18:59 06:59 18:59 Intake Total 340 / 340 100 / 100 Balance 340 / 340 100 / 100 Weight 59.421 kg 72.6 kg Intake: IV 100 / 100 100 / 100 Zosyn 4.5 GM Premix 4.5 gm In 100 / 100 100 / 100 100 ml @ 200 mls/hr IV.SIG Q6H [facility] Rx#:[id number] Oral 240 / 240 Other: # Voids 2 Date of Last Bowel Movement 01/10/18 Weight On Admission 59.421 kg Narrative: Subjective In bed complaints of pain in his right leg. Is also associated swelling and redness, there is also drainage. Patient with chills no fevers overnight. Feels very tired and he is noted lethargic however he is complaining of severe pain in his right leg. No n/v/d/c. Blood cultures positive repeat blood cultures today and consult infectious disease, continue antibiotics, consult podiatry and palliative care. BS elevated. not eating much . will add levemir Physical exam GENERAL: Cachectic male, in bed appears lethargic, in pain. SKIN: Bilateral legs erythematous and edematous, left leg with 2 blisters/ wounds, painful to touch. LAD HEAD: Normocephalic. EYES: No scleral icterus. No injection or drainage. NECK: Supple, trachea midline. CARDIOVASCULAR: Tachycardic. Regular rate and rhythm without murmurs, gallops, or rubs. RESPIRATORY: Breath sounds equal bilaterally. No accessory muscle use. GASTROINTESTINAL: Abdomen soft, non-tender, nondistended. MUSCULOSKELETAL: No cyanosis, or edema. BACK: Nontender without obvious deformity. No CVA tenderness. Assessment and plan Mr. Rios is a 62 y/o male with a history of multiple myeloma s/p chemo on (Dr. Smith is oncologist), CHF (EF 20 - 25% 2015), CAD s/p CABG and aortic valve replacement, diabetes mellitus, diabetic neuropathy, hyperlipidemia , hypertension, and amyloidosis who presented to the ER on 01/11 upon recommendation by his PCP Dr. Palm for 1 week history of progressively worsening SOB and lower extremity edema. The patient was found to have pneumonia, sepsis, and a small pleural effusion and was admitted to the hospitalist service for medical management. Severe Sepsis on admission with leukocytosis, fevers, tachycardia, elevated acidosis, source PNA, left leg cellulitis/wound, bacteremia), now lethargic. -Lactic Acid 3.8 on admission, trending down to normal -Antibiotics: IV Vancomycin and Zosyn -IV fluid bolus with NS 250 cc/hr and IV NS at 75 cc/hr maintenance - caution due to CHF - XRay foot reviewed. US doppler shows no DVT -monitor temperature - recheck showed temp 102.4 - PRN tylenol for fever - with bacteremia, repeat BC , consult ID appreciate recommendations - consult wound care, cultures obtained from the leg wounds - Consult podiatry as patient with severe leg pain and edema, wound is not improving. also discussed with wound care - consult palliative care for goals of care Pneumonia - IV antibiotics as above - Duonebs - supplemental oxygen as needed to maintain oxygen saturation > 92% CHF - last echo (2015) in system shows EF 20 - 25% - will check echocardiogram - Lasix 40 mg IV BID - monitor closely - requiring IVF for sepsis management - at high risk for deterioration - patient transfer to ICU - BNP 2362 Multiple Myeloma - last chemo 01/10 - consult Dr. Smith, oncology - appreciate assistance - monitor CBC Elevated BS, accuchecks, ISS- low, Add levemir, monitor BS and adjust insulin as need. diabetic diet. Check A1c. DVT prophylaxis - Lovenox SQ Consult palliative care for goals of care Discussed with the patient, nurse, wound care The patient is lethargic , appears critically ill. Results - Labs CBC & Chem 7: 01/12/18 05:24 01/12/18 05:24 Laboratory Results - last 24 hr 01/11/18 01/11/18 01/11/18 17:15 17:15 17:15 WBC 9.7 RBC 3.18 L Hgb 9.9 L Hct 30.9 L MCV 97.3 MCH 31.1 MCHC 32.0 RDW 21.8 H Plt Count 141 L MPV 9.4 Neut % (Auto) 92.1 H Lymph % (Auto) 2.1 L Brewster % (Auto) 5.4 Eos % (Auto) 0.0 Baso % (Auto) 0.4 Neut # (Auto) 8.9 H Lymph # (Auto) 0.2 L Brewster # (Auto) 0.5 Eos # (Auto) 0.0 Baso # (Auto) 0.0 WBC Differential . Differential Comment Auto diff final PT INR Sodium 139 Potassium 3.2 L Chloride 105 Carbon Dioxide 24.8 Anion Gap 9 BUN 8 Creatinine 0.89 Estimated GFR 87 L POC Glucose Random Glucose 332 H Lactic Acid 3.8 H Calcium 7.4 L* Prot Corrected Calcium 7.8 L Phosphorus Magnesium 1.7 Total Bilirubin 0.3 AST 9 L ALT 18 Alkaline Phosphatase 119 H Total Creatine Kinase 102 CK-MB (CK-2) 1.2 Troponin I Less than 0.02 L B-Natriuretic Peptide Total Protein 6.4 Albumin 2.5 L TSH Free T4 01/11/18 01/11/18 01/11/18 17:15 17:15 17:15 WBC RBC Hgb Hct MCV MCH MCHC RDW Plt Count MPV Neut % (Auto) Lymph % (Auto) Brewster % (Auto) Eos % (Auto) Baso % (Auto) Neut # (Auto) Lymph # (Auto) Brewster # (Auto) Eos # (Auto) Baso # (Auto) WBC Differential Differential Comment PT INR Sodium Potassium Chloride Carbon Dioxide Anion Gap BUN Creatinine Estimated GFR POC Glucose Random Glucose Lactic Acid Calcium Prot Corrected Calcium Phosphorus Magnesium Cancelled Total Bilirubin AST ALT Alkaline Phosphatase Total Creatine Kinase Cancelled CK-MB (CK-2) Troponin I B-Natriuretic Peptide 2362 H Total Protein Albumin TSH Free T4 01/11/18 01/11/18 01/11/18 19:50 23:37 23:37 WBC RBC Hgb Hct MCV MCH MCHC RDW Plt Count MPV Neut % (Auto) Lymph % (Auto) Brewster % (Auto) Eos % (Auto) Baso % (Auto) Neut # (Auto) Lymph # (Auto) Brewster # (Auto) Eos # (Auto) Baso # (Auto) WBC Differential Differential Comment PT INR Sodium 138 Potassium 3.8 Chloride 102 Carbon Dioxide 25.1 Anion Gap 11 BUN 9 Creatinine 0.99 Estimated GFR 77 L POC Glucose Random Glucose 363 H Lactic Acid 3.1 H 3.1 H Calcium 7.3 L* Prot Corrected Calcium 7.9 L Phosphorus Magnesium Total Bilirubin 0.9 AST 10 L ALT 15 Alkaline Phosphatase 119 H Total Creatine Kinase 103 CK-MB (CK-2) Troponin I 0.04 B-Natriuretic Peptide Total Protein 6.0 L Albumin 2.4 L TSH Free T4 01/12/18 01/12/18 01/12/18 05:24 05:24 05:24 WBC 7.8 RBC 3.02 L Hgb 9.5 L Hct 28.9 L MCV 95.9 MCH 31.3 MCHC 32.7 RDW 21.2 H Plt Count 105 L MPV 9.2 Neut % (Auto) 89.5 H Lymph % (Auto) 1.2 L Brewster % (Auto) 9.2 H Eos % (Auto) 0.0 Baso % (Auto) 0.1 Neut # (Auto) 7.0 Lymph # (Auto) 0.1 L Brewster # (Auto) 0.7 Eos # (Auto) 0.0 Baso # (Auto) 0.0 WBC Differential . Differential Comment Auto diff final PT 12.7 H INR 1.3 Sodium 135 L Potassium 4.2 Chloride 101 Carbon Dioxide 21.4 Anion Gap 13 BUN 12 Creatinine 1.04 Estimated GFR 73 L POC Glucose Random Glucose 405 H Lactic Acid Calcium 7.3 L* Prot Corrected Calcium 7.8 L Phosphorus 3.2 Magnesium 1.5 Total Bilirubin 1.0 AST 13 L ALT 16 Alkaline Phosphatase 110 Total Creatine Kinase 108 CK-MB (CK-2) Troponin I 0.06 H B-Natriuretic Peptide Total Protein 6.1 L Albumin 2.4 L TSH 0.453 Free T4 1.67 H 01/12/18 01/12/18 01/12/18 05:24 07:42 08:15 WBC RBC Hgb Hct MCV MCH MCHC RDW Plt Count MPV Neut % (Auto) Lymph % (Auto) Brewster % (Auto) Eos % (Auto) Baso % (Auto) Neut # (Auto) Lymph # (Auto) Brewster # (Auto) Eos # (Auto) Baso # (Auto) WBC Differential Differential Comment PT INR Sodium Potassium Chloride Carbon Dioxide Anion Gap BUN Creatinine Estimated GFR POC Glucose 454 H* Random Glucose Lactic Acid 2.3 H 2.1 H Calcium Prot Corrected Calcium Phosphorus Magnesium Total Bilirubin AST ALT Alkaline Phosphatase Total Creatine Kinase CK-MB (CK-2) Troponin I B-Natriuretic Peptide Total Protein Albumin TSH Free T4 Microbiology 01/11/18 17:20 Blood - Peripheral Aerobic Blood Culture - Preliminary gram negative rods 01/11/18 17:20 Blood - Peripheral Anaerobic Blood Culture - Preliminary gram negative rods 01/11/18 17:15 Blood - Peripheral Aerobic Blood Culture - Preliminary gram negative rods 01/11/18 17:15 Blood - Peripheral Anaerobic Blood Culture - Preliminary gram negative rods 01/11/18 17:25 Nasal Wash Influenza Types A,B Antigen - Final Negative for FLU A and B antigen Infection due to influenza A or B cannot be ruled out since the antigen present in the sample may be below the detection limit of the test. - Imaging Impressions Chest X-Ray 01/11/18 17:08 CONCLUSION: 1. Right vertebral left bibasilar consolidation. 2. Small right pleural effusion. 3. Mild cardiomegaly.
[2018-01-12] MEDS: Vancomycin Inj 750 MG in Sodium Chlor 0.9% Inj 250 ML IV.SIG SCH ×2 (09:15→21:13)
[2018-01-12] MEDS: Insulin Detemir Inj 1,000 UNIT/10 ML Vial SQ SCH (11:45)
[2018-01-12] MEDS: Morphine Inj 4 MG/ML Vial IV.PUSH PRN ×4 (11:52→21:11)
--- NOTE | 2018-01-12 12:29 | P.CONID ---
History of Present Illness Service: Infectious disease Consult date: 01/12/18 Requesting Physician: Vida Menezes Primary Care Provider: Taiwo Palm MD Family Provider: Taiwo Palm MD Chief Complaint: Leg swelling and shortness of breath History of Present Illness: Patient seen and examined. Records reviewed. Patient is a 62-year-old male, with known multiple myeloma, has been receiving chemotherapy over the last 2 years, received chemo about 2 days prior to admission, presented to the hospital for further evaluation of shortness of breath and lower extremity edema. Patient stated he started not feeling good about a week prior to admission. He is not a very good historian. He has had some shortness of breath which has been intermittent, and has noted increased swelling of both lower extremity. He denies any significant cough or congestion. Denies any chest pain. He also complains of some abdominal pain, but no nausea, vomiting, diarrhea or constipation. He denies any dysuria or any urinary complaints. Patient stated he has chronic pigmentation of both lower extremity, but has noted increased swelling of his left lower extremity. He has erythema on the left leg, but he cannot tell me when that started, and the sister stated that it was not there before. He has had some wounds on his left leg over the last 2 weeks, but has not really had any evaluation for that. He denies any trauma, or any injury recently where he would have gotten the wounds. Patient has had prior history of fracture in his left lower extremity about 15 years ago, and had surgery on his left knee, as well as his left ankle. Patient also is a little bit lethargic today. Patient stated that he was not lethargic at home, and also he has been doing ambulation at home normally. Patient also has an [id number] which apparently has been placed about 3 years ago. Since admission he has had a temperature spike of up to 102. His WBC is normal. LFTs are okay. His chest x-ray showing some basilar consolidation more on the right than on the left. No urinalysis has been done. 2 blood cultures now reported as growing gram-negative yandel. Infectious disease consultation has been requested to evaluate the patient with gram-negative yandel in the blood culture. Review of Systems Constitutional: Reports chills, Reports fever(s), Reports weakness Eyes: Denies discharge, Denies dry eyes Ears, Nose, Mouth, and Throat: Denies ear pain, Denies headache(s), Denies nasal congestion, Denies nasal discharge, Denies sinus pain, Denies sore throat Cardiovascular: Reports leg pain with activity, Reports leg sores, Reports leg swelling, Reports shortness of breath, Denies chest pain Respiratory: Reports shortness of breath, Denies chest congestion, Denies cough Gastrointestinal: Reports abdominal pain, Denies change in stools, Denies constipation, Denies loose stools, Denies nausea, Denies pain with swallowing, Denies vomiting Genitourinary: Denies painful urination Musculoskeletal: Reports joint pain Skin/Breast: Reports sores, Reports wounds, Denies rash PMFSH - History History Provided By: Medical Record - Medical History Medical History: Medical History (Last Reviewed 01/12/18 @ 12:28 by Tammi Rothman MD) Amyloidosis Arthritis CAD (coronary artery disease) CHF (congestive heart failure) Chest pain Diabetes mellitus Diabetic neuropathy HLD (hyperlipidemia) HTN (hypertension) Irregular heart beat Multiple myeloma Myocardial infarct - Surgical History Surgical History: Surgical History (Last Updated 01/12/18 @ 12:57 by Tammi Rothman MD) Aortic valve replaced H/O left knee surgery Hx of CABG Status post surgical manipulation of ankle joint - Family History Family History: Family History (Last Updated 01/12/18 @ 02:57 by MANASA Lanza) Father Cancer Mother Cancer - Tobacco History Second Hand Smoke Exposure: No Tobacco Use In Past 30 Days: Yes Smoking Status: Current every day smoker Tobacco Type: Cigarettes - Alcohol History How Often Do You Have a Drink Containing Alcohol: Monthly or less - Substance Use History Substance History: No History of Abuse - Travel History Recent Travel in the [facility] Within the Last 8 Weeks: No Recent Travel Out of the Country Within the Last 8 Weeks: No - Immunization History Tetanus Immunization: Unsure Hx Influenza Vaccine This Season: No Medications and Allergies Active Medications: Active Medications Acetaminophen (Tylenol) 650 mg PO Q4H PRN PRN Reason: TEMPERATURE > 101 F Last Admin: 01/12/18 11:51 Dose: 650 mg Al Hydroxide/Mg Hydroxide (Milk Of Magnesia Liq) 30 ml PO Q12H PRN PRN Reason: Mild Constipation Albuterol (Duoneb Neb (Prn)) 1 ampul NEB Q2HR NEB PRN PRN Reason: SHORTNESS OF BREATH/WHEEZING Albuterol (Duoneb Neb (Sharon)) 1 ampul NEB Q6HR WHILE AWAKE NEB [facility] Last Admin: 01/12/18 09:19 Dose: 1 ampul Bisacodyl (Dulcolax Supp) 10 mg RECTAL DAILY PRN PRN Reason: SEVERE CONSITIPATION Dextrose (D50w Vial) 50 ml IV.PUSH UNSCH PRN PRN Reason: PER HYPOGLYCEMIA PROTOCOL Duloxetine HCl (Cymbalta) 30 mg PO HS [facility] Enoxaparin Sodium (Lovenox Inj) 30 mg SQ Q24H [facility] Last Admin: 01/11/18 21:45 Dose: 30 mg Furosemide (Lasix Inj) 40 mg IV.PUSH BID@0900,1800 [facility] Last Admin: 01/12/18 08:25 Dose: 40 mg Glucagon (Glucagon Inj) 1 mg OTHER PRN PRN PRN Reason: for Hypoglycemia Protocol Guaifenesin (Mucinex Er) 600 mg PO BID [facility] Last Admin: 01/12/18 08:26 Dose: 600 mg Heparin Sodium (Porcine) (Heparin Central Flush) 500 unit IV.FLUSH PRN PRN PRN Reason: Flush infusaport Heparin Sodium (Porcine) (Heparin Central Flush) 250 unit IV.FLUSH PRN PRN PRN Reason: Flush Infusapot Piperacillin/Tazobactam/Dextrose (Zosyn 4.5 Gm Premix) 4.5 gm in 100 mls @ 200 mls/hr IV.SIG Q6H [facility] Last Admin: 01/12/18 11:45 Dose: 200 mls/hr Vancomycin HCl 750 mg/ Sodium (Chloride) 257.5 mls @ 250 mls/hr IV.SIG Q12H [facility] Last Admin: 01/12/18 09:15 Dose: 250 mls/hr Sodium Chloride (Ns Inj) 1,000 mls @ 75 mls/hr IV.CONT .[id number] [facility] Last Admin: 01/12/18 00:15 Dose: 75 mls/hr Insulin Aspart (Novolog Insulin Correctional Sugar Inj) 0 unit SQ ACHS AND 3AM SHARON; Protocol Last Admin: 01/12/18 11:45 Dose: 9 unit Insulin Detemir (Levemir Inj) 7 unit SQ BID [facility] Last Admin: 01/12/18 11:45 Dose: 7 unit Lactulose (Lactulose Liq) 30 ml PO DAILY PRN PRN Reason: SEVERE CONSITIPATION Methylprednisolone Sodium Succinate (Solumedrol Inj) 40 mg IV.PUSH Q12H [facility] Last Admin: 01/12/18 08:25 Dose: 40 mg Miscellaneous Information ([facility] Ordered Lab Info) 0 each OTHER ONCE ONE Stop: 01/13/18 08:46 Morphine Sulfate (Morphine Inj) 4 mg IV.PUSH Q3H PRN PRN Reason: PAIN 6-10;IF UNABLE TO TAKE PO Last Admin: 01/12/18 11:52 Dose: 4 mg Morphine Sulfate (Morphine Inj) 2 mg IV.PUSH Q3H PRN PRN Reason: PAIN 3-5; IF UABLE TO TAKE PO Naloxone HCl (Narcan Inj) 0.4 mg IV.PUSH UNSCH PRN PRN Reason: SEE LABEL COMMENTS Ondansetron HCl (Zofran Inj) 4 mg IV.PUSH Q6H PRN PRN Reason: NAUSEA OR VOMITING Oxycodone/Acetaminophen (Percocet 10/325 Mg) 1 tab PO Q6H PRN PRN Reason: PAIN SCALE 6 TO 10 Last Admin: 01/11/18 21:41 Dose: 1 tab Oxycodone/Acetaminophen (Percocet 5/325 Mg) 1 tab PO Q6H PRN PRN Reason: PAIN SCALE 3 TO 5 Pharmacy Profile Note (Vancomycin Consult Pharmacy) 1 each OTHER UNSCH [facility] Senna/Docusate Sodium (Kamini-Colace) 1 tab PO BID [facility] Last Admin: 01/12/18 08:26 Dose: 1 tab Sennosides (Senokot) 17.2 mg PO Q12H PRN PRN Reason: Moderate Constipation Sodium Chloride (Ns Flush) 2 ml IV.FLUSH PRN PRN PRN Reason: FLUSH AFTER USING IV ACCESS Sodium Chloride (Ns Flush) 2 ml IV.FLUSH BID [facility] Last Admin: 01/12/18 08:26 Dose: 2 ml Sodium Chloride (Ns Flush) 5 ml IV.FLUSH PRN PRN PRN Reason: Flush Infusaport Temazepam (Restoril) 15 mg PO HS PRN PRN Reason: INSOMNIA Allergies Allergy/AdvReac Type Severity Reaction Status Date / Time azithromycin Allergy Intermediate rash Verified 01/11/18 20:23 *MDRO Multi-Drug Resistant AdvReac Mild Cleared Uncoded 08/08/16 09:57 Organism 10/2015 Home Medications Medication Instructions Recorded Confirmed Type alprazolam 0.5 mg PO HS PRN 01/11/18 01/11/18 History dexamethasone 20 mg PO WEEKLY 01/11/18 01/11/18 History duloxetine [Cymbalta] 30 mg PO HS 01/11/18 01/11/18 History hydromorphone [Dilaudid] 4 mg PO Q6H PRN 01/11/18 01/11/18 History prochlorperazine maleate 10 mg PO QID PRN 01/11/18 01/11/18 History [Compazine] Exam Vital signs: Vital Signs 01/11/18 15:16 01/11/18 15:21 01/11/18 17:08 Temperature 97.9 F Pulse Rate 97 H 117 H 117 H Respiratory Rate 20 Blood Pressure 115/56 L Pulse Oximetry 97 01/11/18 20:00 01/11/18 23:10 01/12/18 00:30 Temperature 99.4 F 102.4 F H Pulse Rate 126 H Respiratory Rate 20 Blood Pressure 141/67 H Pulse Oximetry 98 98 01/12/18 04:00 01/12/18 04:18 01/12/18 06:00 Temperature 99.6 F Pulse Rate 116 H 118 H Respiratory Rate 20 Blood Pressure 139/67 Pulse Oximetry 97 96 01/12/18 08:00 Temperature 99.4 F Pulse Rate 116 H Respiratory Rate 34 H Blood Pressure 130/65 Pulse Oximetry 97 Intake & Output 01/11/18 01/12/18 01/12/18 18:59 06:59 18:59 Intake Total 340 / 340 100 / 100 Balance 340 / 340 100 / 100 Weight 59.421 kg 72.6 kg Intake: IV 100 / 100 100 / 100 Zosyn 4.5 GM Premix 4.5 gm In 100 / 100 100 / 100 100 ml @ 200 mls/hr IV.SIG Q6H [facility] Rx#:[id number] Oral 240 / 240 Other: # Voids 2 Date of Last Bowel Movement 01/10/18 01/10/18 Weight On Admission 59.421 kg Narrative: Physical Examination GENERAL: Patient is a well-nourished, well-developed male, mildly lethargic, looks chronically ill appearing, not in respiratory distress. Looks very weak SKIN: Cool and dry. No generalized rash, no ecchymoses and no evidence of embolic lesions. HEAD: Atraumatic. Normocephalic. No temporal wasting, or tenderness. EYES: [place] conjunctiva. No petechia or hemorrhage. Pupils equal, round and reactive to light. Extraocular movements full and intact. No scleral icterus. No injection or drainage. EARS, NOSE AND THROAT: Nose without bleeding or purulent nasal discharge. No sinus tenderness. Mucous membranes pink and moist. No oral lesions noted. No exudate. No oral thrush. NECK: Trachea midline. Supple and not tender, no meningeal signs. No nuchal rigidity CARDIOVASCULAR: Regular rate and rhythm. No murmurs, rubs or gallops heard. Sternotomy incision compatible with surgical history. RESPIRATORY: Clear to auscultation, but decreased at the bases. No rales, wheezing or rhonchi ABDOMEN: Soft, not distended, mild non-specific tenderness, no guarding or rebound. EXTREMITIES: Cool BLE, worse on R vicki on the L. Has chronic brownish pigmentation both legs. Has pitting edema BLE, has erythema on his LLE from below knee to L foot. and he has small wounds on his anterior leg, with some dried blood. He has scattered bullous lesions both LE, ,more on the LLE, with clear fluid and some have been unroofed with red cleann base. Has scar on his R leg, from previous injury with repair of open wound. Has scars on his L knee and L ankle from previous surgeries. Good ROM both knees and ankle. No calf tenderness R, (+) tender on L. Cool feet and hands NEUROLOGICAL: Mildly lethargic. Cranial nerves grossly intact. Moves all extremities. PSYCHIATRIC: cooperative. LINE: Port R upper chest, accessed, with no evidence of infection Results - Labs CBC & Chem 7: 01/12/18 05:24 01/12/18 05:24 Labs: Laboratory Results - last 24 hr 01/11/18 01/11/18 01/11/18 17:15 17:15 17:15 WBC 9.7 RBC 3.18 L Hgb 9.9 L Hct 30.9 L MCV 97.3 MCH 31.1 MCHC 32.0 RDW 21.8 H Plt Count 141 L MPV 9.4 Neut % (Auto) 92.1 H Lymph % (Auto) 2.1 L [place] % (Auto) 5.4 Eos % (Auto) 0.0 Baso % (Auto) 0.4 Neut # (Auto) 8.9 H Lymph # (Auto) 0.2 L [place] # (Auto) 0.5 Eos # (Auto) 0.0 Baso # (Auto) 0.0 WBC Differential . Differential Comment Auto diff final PT INR Sodium 139 Potassium 3.2 L Chloride 105 Carbon Dioxide 24.8 Anion Gap 9 BUN 8 Creatinine 0.89 Estimated GFR 87 L POC Glucose Random Glucose 332 H Lactic Acid 3.8 H Calcium 7.4 L* Prot Corrected Calcium 7.8 L Phosphorus Magnesium 1.7 Total Bilirubin 0.3 AST 9 L ALT 18 Alkaline Phosphatase 119 H Total Creatine Kinase 102 CK-MB (CK-2) 1.2 Troponin I Less than 0.02 L B-Natriuretic Peptide Total Protein 6.4 Albumin 2.5 L TSH Free T4 01/11/18 01/11/18 01/11/18 17:15 17:15 17:15 WBC RBC Hgb Hct MCV MCH MCHC RDW Plt Count MPV Neut % (Auto) Lymph % (Auto) [place] % (Auto) Eos % (Auto) Baso % (Auto) Neut # (Auto) Lymph # (Auto) [place] # (Auto) Eos # (Auto) Baso # (Auto) WBC Differential Differential Comment PT INR Sodium Potassium Chloride Carbon Dioxide Anion Gap BUN Creatinine Estimated GFR POC Glucose Random Glucose Lactic Acid Calcium Prot Corrected Calcium Phosphorus Magnesium Cancelled Total Bilirubin AST ALT Alkaline Phosphatase Total Creatine Kinase Cancelled CK-MB (CK-2) Troponin I B-Natriuretic Peptide 2362 H Total Protein Albumin TSH Free T4 01/11/18 01/11/18 01/11/18 19:50 23:37 23:37 WBC RBC Hgb Hct MCV MCH MCHC RDW Plt Count MPV Neut % (Auto) Lymph % (Auto) [place] % (Auto) Eos % (Auto) Baso % (Auto) Neut # (Auto) Lymph # (Auto) [place] # (Auto) Eos # (Auto) Baso # (Auto) WBC Differential Differential Comment PT INR Sodium 138 Potassium 3.8 Chloride 102 Carbon Dioxide 25.1 Anion Gap 11 BUN 9 Creatinine 0.99 Estimated GFR 77 L POC Glucose Random Glucose 363 H Lactic Acid 3.1 H 3.1 H Calcium 7.3 L* Prot Corrected Calcium 7.9 L Phosphorus Magnesium Total Bilirubin 0.9 AST 10 L ALT 15 Alkaline Phosphatase 119 H Total Creatine Kinase 103 CK-MB (CK-2) Troponin I 0.04 B-Natriuretic Peptide Total Protein 6.0 L Albumin 2.4 L TSH Free T4 01/12/18 01/12/18 01/12/18 05:24 05:24 05:24 WBC 7.8 RBC 3.02 L Hgb 9.5 L Hct 28.9 L MCV 95.9 MCH 31.3 MCHC 32.7 RDW 21.2 H Plt Count 105 L MPV 9.2 Neut % (Auto) 89.5 H Lymph % (Auto) 1.2 L [place] % (Auto) 9.2 H Eos % (Auto) 0.0 Baso % (Auto) 0.1 Neut # (Auto) 7.0 Lymph # (Auto) 0.1 L [place] # (Auto) 0.7 Eos # (Auto) 0.0 Baso # (Auto) 0.0 WBC Differential . Differential Comment Auto diff final PT 12.7 H INR 1.3 Sodium 135 L Potassium 4.2 Chloride 101 Carbon Dioxide 21.4 Anion Gap 13 BUN 12 Creatinine 1.04 Estimated GFR 73 L POC Glucose Random Glucose 405 H Lactic Acid Calcium 7.3 L* Prot Corrected Calcium 7.8 L Phosphorus 3.2 Magnesium 1.5 Total Bilirubin 1.0 AST 13 L ALT 16 Alkaline Phosphatase 110 Total Creatine Kinase 108 CK-MB (CK-2) Troponin I 0.06 H B-Natriuretic Peptide Total Protein 6.1 L Albumin 2.4 L TSH 0.453 Free T4 1.67 H 01/12/18 01/12/18 01/12/18 05:24 07:42 08:15 WBC RBC Hgb Hct MCV MCH MCHC RDW Plt Count MPV Neut % (Auto) Lymph % (Auto) [place] % (Auto) Eos % (Auto) Baso % (Auto) Neut # (Auto) Lymph # (Auto) [place] # (Auto) Eos # (Auto) Baso # (Auto) WBC Differential Differential Comment PT INR Sodium Potassium Chloride Carbon Dioxide Anion Gap BUN Creatinine Estimated GFR POC Glucose 454 H* Random Glucose Lactic Acid 2.3 H 2.1 H Calcium Prot Corrected Calcium Phosphorus Magnesium Total Bilirubin AST ALT Alkaline Phosphatase Total Creatine Kinase CK-MB (CK-2) Troponin I B-Natriuretic Peptide Total Protein Albumin TSH Free T4 01/12/18 11:30 WBC RBC Hgb Hct MCV MCH MCHC RDW Plt Count MPV Neut % (Auto) Lymph % (Auto) [place] % (Auto) Eos % (Auto) Baso % (Auto) Neut # (Auto) Lymph # (Auto) [place] # (Auto) Eos # (Auto) Baso # (Auto) WBC Differential Differential Comment PT INR Sodium Potassium Chloride Carbon Dioxide Anion Gap BUN Creatinine Estimated GFR POC Glucose 412 H Random Glucose Lactic Acid Calcium Prot Corrected Calcium Phosphorus Magnesium Total Bilirubin AST ALT Alkaline Phosphatase Total Creatine Kinase CK-MB (CK-2) Troponin I B-Natriuretic Peptide Total Protein Albumin TSH Free T4 - Imaging Impressions Chest X-Ray 01/11/18 17:08 CONCLUSION: 1. Right vertebral left bibasilar consolidation. 2. Small right pleural effusion. 3. Mild cardiomegaly. Assessment and Plan - Plan Impression GNR sepsis, source? - has cellulitis LLE, with some open wounds, seems to have chroniic venous insufficiency - has some basilar consolidation, ?PNA, no cough or congestion, but he is immunocompromised - ? - ?Port Multiple Myeloma, undergoing chemo Recommendation Repeat BC, one from port and one peripheral get UA and C/S Continue Zosyn - cover GNR Continue Vanco - cover GPC for cellulitis Repeat CXR tomorrow, reeval infiltrate and effusion, may need CT to eval if effusion increasing on CXR Wound care consult - for LLE Elevate BLE Xray L ankle Venous doppler LLE Follow C/S and adjust ABx Follow temps Monitor progress Will determine course of Rx once workup completed and depending on clinical response I will follow along with you Thank you for this consultation D/W RN
--- NOTE | 2018-01-12 13:32 | XR ---
EXAM DATE: 01/12/2018 1:21 PM EDT AGE/SEX: 62 years / Male INDICATIONS: Left ankle pain, swelling, and inflammation. CLINICAL DATA: This is the patient's subsequent encounter. Patient reports that signs and symptoms h ave been present for 1 day and indicates a pain score of 10/10. MEDICAL/SURGICAL HISTORY: . CHF Coronary artery disease Depression Diabetes High cholesterol HT N Irregular heart beat Osteomyelitis Peripheral neuropathy. . Colonoscopy Heart bypass Knee surgery Tonsillectomy I&D of left foot with bone bx COMPARISON: No prior exams available for comparison. FINDINGS: Extra medullary plates are noted along the distal fibular shaft and distal tibia following ORIF. Ther e is soft tissue swelling seen along the distal aspect of the ankle extending into the foot. Signific ant arthropathy is identified of the subtalar joints. There is focal demineralization noted along the medial malleolus. CONCLUSION: 1. Status post ORIF of the distal left fibula and tibia 2. Soft tissue swelling extending from the distal calf into the foot. 3. Mineralization and mild cortical erosion along the medial malleolus 4. Subtalar joint arthropathy Electronically signed by: Ronal Cat MD 01/12/2018 1:30 PM EDT
[2018-01-12 13:59] LABS: Bilirubin,Urine Negative (Negative); Color,Urine Yellow (Yellw/Straw); Glucose,Urine (UA) 150 mg/dL (Negative); Hyaline Casts,Urine 1 /lpf (0-3); Leukocyte Esterase,Urine Negative (Negative); Mucus,Urine Few /lpf (Occasional); Nitrite,Urine Negative (Negative); Specific Gravity,Urine 1.014 (1.002-1.035)
[2018-01-12 14:01] LABS: Clarity,Urine Clear (Clear)
--- NOTE | 2018-01-12 14:33 | US ---
EXAM DATE: 01/12/2018 2:28 PM EDT AGE/SEX: 62 years / Male INDICATIONS: Left leg pain and swelling. CLINICAL DATA: This is the patient's initial encounter. Patient reports that signs and symptoms have been present for 3 days and indicates a pain score of 10/10. MEDICAL/SURGICAL HISTORY: Arthritis. Amyloidosis. CAD. Chest pain. CHF. Diabetes. Diabetic neur opathy. Hyperlipidemia. HTN. Irregular heartbeat. Multiple myeloma. [place]. . CABG. Aortic valve replac ed. Left knee surgery. Status post surgical manipulation of ankle joint. COMPARISON: No prior exams available for comparison. TECHNIQUE: Venous ultrasound of both lower extremities was performed from the inguinal ligament to t he proximal calf. Real-time, color Doppler and spectral tracing, compression and augmentation techni ques were used. FINDINGS: Normal compression of the deep venous system from the inguinal region to the proximal calf . No echogenic clot is seen. Normal response of the venous system to augmentation and respiration. CONCLUSION: Negative for deep venous thrombosis in the left lower extremity. Electronically signed by: Raymond Pereira MD 01/12/2018 2:32 PM EDT
--- NOTE | 2018-01-12 14:39 | ECG ---
Date Performed: 01/11/2018 Time Performed: 18:23:19 PTAGE: 62 years EKG: SINUS TACHYCARDIA LEFT ATRIAL ENLARGEMENT INDETERMINATE AXIS MODERATE INTRAVENTRICULAR COND UCTION DELAY MINIMAL ST DEPRESSION ABNORMAL ECG Since the PREVIOUS TRACING , no significant change noted PREVIOUS TRACIN08/05/2016 13.01 DOCTOR: Antonio Gates Interpretating Date/Time 01/12/2018 14:35:05
--- NOTE | 2018-01-12 16:18 | P.PNWCN ---
Wound Care Nurse Consult Description: Consult for wound Management of LLE per Dr Rothman Communicated with: Dr Riri Houston, RN Recommendation: Consult Podiatry for left lower extremity. Additional information: Patient seen on for LLE wounds with bullae and purple discolored friable fluctuant skin. Wound/Pressure Injury - Patient Status Premedicated for Pain Prior to Dressing Change: Yes - Wound Right Lower Leg Wound Assessment: Ongoing Wound Type: Blister Requested from Provider a Wound Care Consult: No Wound Bed Appearance: Blisters - Intact, Sunsites, Shiny Surrounding Tissue Appearance: Erythema, Sunsites, Shiny, Weeping Surrounding Tissue Temperature: Cool Drainage Description: Serous Drainage Amount: Scant Dressing Status: Changed Cleansing Solution: Saline Primary Dressing: Absorbant Pad Cover Dressing: Gauze Roll/Wrap Tape Type: Transparent Wound Dressing Change Date: 01/12/18 Left Lower Leg Wound Assessment: Ongoing Wound Type: Blister (roofed and unroofed with 2 ulcers noted (wound cultures obtained)) Is This a Chronic Wound: Yes Requested from Provider a Wound Care Consult: Yes Wound Bed Appearance: Blisters - Intact, Peeling Skin, Sunsites, Shiny Surrounding Tissue Appearance: Erythema, Shiny, Taut, Weeping Surrounding Tissue Temperature: Warm Drainage Description: Serous Drainage Amount: Scant Dressing Status: Changed Cleansing Solution: Saline Primary Dressing: Optifoam AG Cover Dressing: Absorbant Pad Tape Type: Roll gauze Wound Dressing Change Date: 01/12/18
[2018-01-12 16:44] LABS: Hemoglobin A1c 10.5 % (4.3-6.0)
--- NOTE | 2018-01-12 19:37 | MB ---
cc: Asda Dale DPM DATE: 01/12/2018 REASON FOR CONSULTATION: Evaluation of lower extremity wound cellulitis. HISTORY OF PRESENT ILLNESS: This is a 62-year-old male. The patient's significant other appears to be bedside, giving some history. Within the past week, there has been worsening of swelling of his extremities and decline. The patient is not the best historian. He does not recall any incident or injury. He does recall he had a history of left ankle fusion in the past, years back that appeared to be uncomplicated. The patient is undergoing chemotherapy for approximately the last 2 years for multiple myeloma. PAST MEDICAL HISTORY: Amyloidosis, arthritis, CAD, CHF, chest pain, diabetes mellitus, diabetic neuropathy, hyperlipidemia, hypertension, irregular heartbeat, multiple myeloma, history of myocardial infarction. PAST SURGICAL HISTORY: Left ankle fusion per significant other 20 plus years ago, aortic valve replacement history of CABG, status post surgical manipulation of ankle joint, unspecified. ALLERGIES: AZITHROMYCIN. APPARENT HISTORY OF MULTIDRUG RESISTANT ORGANISM. SOCIAL HISTORY: Current every day smoker. INPATIENT MEDICATIONS: Reviewed. The patient is receivin. IV antibiotics. 2. Zosyn. 3. Vancomycin. PHYSICAL EXAMINATION: VITAL SIGNS: 101.5, pulse rate 92, respiratory rate 21, he is saturating 100% on room air. GENERAL: This is an arousable gentleman, otherwise he does not appear well. He is alert to himself and place. EXTREMITIES: Bilateral lower extremities are examined. Left is much worse than the right. There is an expansile clear filled bulla, I extending from the posterior lateral ankle and calf. There is noted to be a purple hue of a pretibial abrasion that appears to correlate with at best a partial thickness ulcer. There is no exposed bone. There is no exposed plate or screw. There is shiny skin, significant edema of the dorsum of the foot, ankle and calf. There is significant pain upon attempting to palpate the posterior tibial artery as well as the dorsalis pedis. The right lower extremity has a similar type of appearance; however, not much swelling. Blisters remain. There is audible Doppler posterior tibialis and dorsalis pedis. The extremities appear to be cool. The calf on the left appears to be tender. There is no motion of the left ankle correlating with the patient's past history of ankle fusion. There are thickened, elongated nails. There is no obvious odor. The patient appears to have good perfusion to the digits. There appears to be capillary fill time. LABORATORY FINDINGS: White blood cell 7.8, hemoglobin and hematocrit 9 and 28, platelet count is 105. Microbial findings: Leg culture appears to be ordered and pending. Blood culture is positive for gram-negative rods. Ankle x-ray status post distal fibula ORIF, appears to be a joint fusion. Otherwise, there is no obvious expansile cortical erosion; however mineralization and mild cortical erosion of note of the medial malleolus. This appears to correlate more with arthritis clinically. ASSESSMENT AND PLAN: Left lower extremity edema, third spacing, significant pretibial abrasion. Recommendation to observe over the next 24 hours on IV antibiotics. If the patient improves, this may just be soft tissue such cellulitis. However, if he does not there is a possibility of a CT to further evaluate the soft tissue of the distal leg and ankle. I will continue to follow along with this case. Continue foam dressing to the anterior pretibial roberson, ABD pads and attempt at elevation of the extremities, compressive wrappings. I do not think the patient could tolerate at this point; however, once the swelling goes down this may definitely improve his healing process. GILBERTO Morgan/tom , 05:47 PM , 05:55 PM
[2018-01-12] MEDS: Enoxaparin Inj 30 MG/0.3 ML Syringe SQ SCH (21:13)
--- NOTE | 2018-01-13 00:20 | P.CON ---
History of Present Illness Service: Oncology Consult date: 01/12/18 Reason for Consult: MULTIPLE MYELOMA, CELLULITIS Primary Care Provider: Taiwo Palm MD Family Provider: Taiwo Palm MD Chief Complaint: Leg swelling and shortness of breath History of Present Illness: This is a 62-year-old male who has a diagnosis [place]. He was diagnosed in December 2013. He sees Dr. Smith in the oncology clinic. He was initially treated with CYBORDEX regimen. He had an excellent response. He went into remission after 3 cycles of treatment. He was then initiated on Velcade, which was stopped in 2014. In June 2015 he relapsed and Velcade was restarted. He had complications and developed CHF. He was retreated with CyBORDex. He was then found to have amyloidosis. Daratumamab was added to his treatment regimen. He has been evaluated by [facility] for [facility] cell transplant. Patient received his treatment approximately 1 week ago in the oncology clinic he now presents to the emergency room with 1 week history of progressively getting short of breath and lower extremity edema. He was admitted to the hospital. He is being treated for pneumonia and sepsis. He is receiving broad-spectrum antibiotics include pending. Patient has also been seen by infectious disease. Wound care team has been consulted. He has left lower extremity cellulitis. Doppler ultrasound of lower extremities are pending. Patient appears quite weak and he is not answering my questions. He is arousable and alert and oriented. Review of Systems All other systems reviewed negative except as stated in HPI PMFSH - History History Provided By: Medical Record - Medical History Medical History: Medical History (Last Reviewed 01/13/18 @ 00:30 by Nick De Dios MD) Amyloidosis Arthritis CAD (coronary artery disease) CHF (congestive heart failure) Chest pain Diabetes mellitus Diabetic neuropathy HLD (hyperlipidemia) HTN (hypertension) Irregular heart beat Multiple myeloma Myocardial infarct - Surgical History Surgical History: Surgical History (Last Updated 01/12/18 @ 12:57 by Tammi Rothman MD) Aortic valve replaced H/O left knee surgery Hx of CABG Status post surgical manipulation of ankle joint - Family History Family History: Family History (Last Updated 01/12/18 @ 02:57 by MANASA Lanza) Father Cancer Mother Cancer - Tobacco History Second Hand Smoke Exposure: No Tobacco Use In Past 30 Days: Yes Smoking Status: Current every day smoker Tobacco Type: Cigarettes - Alcohol History How Often Do You Have a Drink Containing Alcohol: Monthly or less - Substance Use History Substance History: No History of Abuse - Travel History Recent Travel in the [place] Within the Last 8 Weeks: No Recent Travel Out of the Country Within the Last 8 Weeks: No - Immunization History Tetanus Immunization: Unsure Hx Influenza Vaccine This Season: No Medications and Allergies Active Medications: Active Medications Acetaminophen (Tylenol) 650 mg PO Q4H PRN PRN Reason: TEMPERATURE > 101 F Last Admin: 01/12/18 11:51 Dose: 650 mg Al Hydroxide/Mg Hydroxide (Milk Of Sara Liq) 30 ml PO Q12H PRN PRN Reason: Mild Constipation Albuterol (Duoneb Neb (Prn)) 1 ampul NEB Q2HR NEB PRN PRN Reason: SHORTNESS OF BREATH/WHEEZING Albuterol (Duoneb Neb (Sharon)) 1 ampul NEB Q6HR WHILE AWAKE NEB [facility] Last Admin: 01/12/18 20:08 Dose: 1 ampul Bisacodyl (Dulcolax Supp) 10 mg RECTAL DAILY PRN PRN Reason: SEVERE CONSITIPATION Dextrose (D50w Vial) 50 ml IV.PUSH UNSCH PRN PRN Reason: PER HYPOGLYCEMIA PROTOCOL Duloxetine HCl (Cymbalta) 30 mg PO HS [facility] Last Admin: 01/12/18 21:13 Dose: 30 mg Enoxaparin Sodium (Lovenox Inj) 30 mg SQ Q24H [facility] Last Admin: 01/12/18 21:13 Dose: 30 mg Furosemide (Lasix Inj) 40 mg IV.PUSH BID@0900,1800 [facility] Last Admin: 01/12/18 18:12 Dose: 40 mg Glucagon (Glucagon Inj) 1 mg OTHER PRN PRN PRN Reason: for Hypoglycemia Protocol Guaifenesin (Mucinex Er) 600 mg PO BID [facility] Last Admin: 01/12/18 21:13 Dose: 600 mg Heparin Sodium (Porcine) (Heparin Central Flush) 500 unit IV.FLUSH PRN PRN PRN Reason: Flush infusaport Heparin Sodium (Porcine) (Heparin Central Flush) 250 unit IV.FLUSH PRN PRN PRN Reason: Flush Infusapot Piperacillin/Tazobactam/Dextrose (Zosyn 4.5 Gm Premix) 4.5 gm in 100 mls @ 200 mls/hr IV.SIG Q6H [facility] Last Admin: 01/12/18 17:42 Dose: 200 mls/hr Vancomycin HCl 750 mg/ Sodium (Chloride) 257.5 mls @ 250 mls/hr IV.SIG Q12H [facility] Last Admin: 01/12/18 21:13 Dose: 250 mls/hr Sodium Chloride (Ns Inj) 1,000 mls @ 75 mls/hr IV.CONT .[id number] [facility] Last Admin: 01/12/18 16:41 Dose: 75 mls/hr Insulin Aspart (Novolog Insulin Correctional Sugar Inj) 0 unit SQ ACHS AND 3AM [facility]; Protocol Last Admin: 01/12/18 18:12 Dose: Not Given Insulin Detemir (Levemir Inj) 7 unit SQ BID [facility] Last Admin: 01/12/18 11:45 Dose: 7 unit Lactulose (Lactulose Liq) 30 ml PO DAILY PRN PRN Reason: SEVERE CONSITIPATION Methylprednisolone Sodium Succinate (Solumedrol Inj) 40 mg IV.PUSH Q12H [facility] Last Admin: 01/12/18 21:10 Dose: 40 mg Miscellaneous Information ([facility] Ordered Lab Info) 0 each OTHER ONCE ONE Stop: 01/13/18 08:46 Morphine Sulfate (Morphine Inj) 4 mg IV.PUSH Q3H PRN PRN Reason: PAIN 6-10;IF UNABLE TO TAKE PO Last Admin: 01/12/18 21:11 Dose: 4 mg Morphine Sulfate (Morphine Inj) 2 mg IV.PUSH Q3H PRN PRN Reason: PAIN 3-5; IF UABLE TO TAKE PO Naloxone HCl (Narcan Inj) 0.4 mg IV.PUSH UNSCH PRN PRN Reason: SEE LABEL COMMENTS Ondansetron HCl (Zofran Inj) 4 mg IV.PUSH Q6H PRN PRN Reason: NAUSEA OR VOMITING Oxycodone/Acetaminophen (Percocet 10/325 Mg) 1 tab PO Q6H PRN PRN Reason: PAIN SCALE 6 TO 10 Last Admin: 01/11/18 21:41 Dose: 1 tab Oxycodone/Acetaminophen (Percocet 5/325 Mg) 1 tab PO Q6H PRN PRN Reason: PAIN SCALE 3 TO 5 Pharmacy Profile Note (Vancomycin Consult Pharmacy) 1 each OTHER UNSCH [facility] Senna/Docusate Sodium (Kamini-Colace) 1 tab PO BID [facility] Last Admin: 01/12/18 21:13 Dose: 1 tab Sennosides (Senokot) 17.2 mg PO Q12H PRN PRN Reason: Moderate Constipation Sodium Chloride (Ns Flush) 2 ml IV.FLUSH PRN PRN PRN Reason: FLUSH AFTER USING IV ACCESS Sodium Chloride (Ns Flush) 2 ml IV.FLUSH BID [facility] Last Admin: 01/12/18 08:26 Dose: 2 ml Sodium Chloride (Ns Flush) 5 ml IV.FLUSH PRN PRN PRN Reason: Flush Infusaport Temazepam (Restoril) 15 mg PO HS PRN PRN Reason: INSOMNIA Allergies Allergy/AdvReac Type Severity Reaction Status Date / Time azithromycin Allergy Intermediate rash Verified 01/11/18 20:23 *MDRO Multi-Drug Resistant AdvReac Mild Cleared Uncoded 08/08/16 09:57 Organism 10/2015 Home Medications Medication Instructions Recorded Confirmed Type alprazolam 0.5 mg PO HS PRN 01/11/18 01/11/18 History dexamethasone 20 mg PO WEEKLY 01/11/18 01/11/18 History duloxetine [Cymbalta] 30 mg PO HS 01/11/18 01/11/18 History hydromorphone [Dilaudid] 4 mg PO Q6H PRN 01/11/18 01/11/18 History prochlorperazine maleate 10 mg PO QID PRN 01/11/18 01/11/18 History [Compazine] Physical Exam Vital signs: Vital Signs 01/12/18 00:30 01/12/18 04:00 01/12/18 04:18 Temperature 99.6 F Pulse Rate 116 H Respiratory Rate 20 Blood Pressure 139/67 Pulse Oximetry 98 97 96 01/12/18 06:00 01/12/18 08:00 01/12/18 10:00 Temperature 99.4 F Pulse Rate 118 H 116 H 110 H Respiratory Rate 34 H Blood Pressure 130/65 Pulse Oximetry 97 01/12/18 12:00 01/12/18 14:00 01/12/18 15:15 Temperature 101.1 F H Pulse Rate 112 H 92 H Respiratory Rate 33 H 21 Blood Pressure 133/72 Pulse Oximetry 100 01/12/18 16:00 01/12/18 18:00 01/12/18 20:00 Temperature 98.9 F 98 F Pulse Rate 86 82 88 Respiratory Rate 17 14 Blood Pressure 115/57 L 108/62 Pulse Oximetry 100 100 01/12/18 20:10 01/12/18 20:12 01/12/18 21:30 Temperature Pulse Rate 86 Respiratory Rate 16 14 Blood Pressure Pulse Oximetry 100 01/12/18 22:00 Temperature Pulse Rate 90 Respiratory Rate Blood Pressure Pulse Oximetry Intake & Output 01/12/18 01/12/18 01/13/18 06:59 18:59 06:59 Intake Total 690 / 690 2137.5 / 2137.5 Output Total 400 / 400 Balance 690 / 690 1737.5 / 1737.5 Weight 72.6 kg Intake: IV 450 / 450 1657.5 / 1657.5 NS Inj 1,000 ML @ 75 mls/hr IV. 950 / 950 CONT .[id number] [facility]ARON Rx#:[id number] Zosyn 4.5 GM Premix 4.5 gm In 100 / 100 200 / 200 100 ml @ 200 mls/hr IV.SIG Q6H [facility] Rx#:[id number] Vancomycin Inj 750 MG In NS Inj 257.5 / 257.5 250 ML @ 250 mls/hr IV.SIG Q12H [facility] Rx#:[id number] Oral 240 / 240 480 / 480 Output: Urine 400 / 400 Other: # Voids 2 # Incontinent Voids 1 Date of Last Bowel Movement 01/10/18 01/12/18 01/12/18 # Bowel Movements 1 Weight On Admission 59.421 kg - Constitutional thin, cachectic, chronically ill appearing - Routine Neck Exam Present: supple - Routine Respiratory Exam Present: rhonchi, crackles Comments: right lung bases - Routine Cardiovascular Exam Present: RRR, S1, S2 - Routine Abdominal Exam Present: soft, normoactive bowel sounds - Routine Extremities Exam Comments: b/l LE pitting edema cellulitis left foot - Routine Skin Exam Comments: cellulitis with bullous eruptions left foot - Detailed Neurological Exam: Coma Scale Verbal Response: Oriented - Routine Psychiatric Exam Present: normal affect Assessment and Plan - Assessment (1) Pneumonia Code(s): J18.9 - Pneumonia, unspecified organism Status: Acute (2) Sepsis Code(s): A41.9 - Sepsis, unspecified organism Status: Acute (3) Acute exacerbation of CHF (congestive heart failure) Code(s): I50.9 - Heart failure, unspecified Status: Acute - Plan Assessment and plan: This is a 62-year-old male with refractory/progressive multiple myeloma who is currently receiving systemic chemotherapy as well as anti-CD38 treatment. He presents to the emergency department with increasing shortness of breath and lower extremity edema: #1 sepsis and pneumonia and also cellulitis of the left lower extremity Blood cultures are-positive for gram-negative rods. Speciation and sensitivities are pending. Patient is being followed by ID. Appreciate their recommendations. I agree with obtaining ultrasound of lower extremities to rule out DVT. #2 anemia due to multiple myeloma -No indication for blood transfusion at this time. Transfuse to keep hemoglobin greater than 7.5-. -He will need diuresis with blood transfusions. #3 thrombocytopenia with a platelet count of 105,000. -No evidence of bleeding -Monitor daily CBC #4 history of CAD and cardiomyopathy -Consider repeating 2D echocardiogram. -He does have significant lower extremity edema - Lasix prn -Check BNP -Consider cardiology evaluation #5 refractory/progressive multiple myeloma To be further managed in the outpatient setting- Patient will be seen by Dr. Smith on Monday. Please call the on-call oncology team over the weekend if any questions (1) Pneumonia Qualifiers: Pneumonia type: due to unspecified organism Laterality: right Lung location : lower lobe of lung Qualified Code(s): J18.1 - Lobar pneumonia, unspecified organism (2) Sepsis Qualifiers: Sepsis type: sepsis due to unspecified organism Qualified Code(s): A41.9 - Sepsis, unspecified organism (3) Acute exacerbation of CHF (congestive heart failure) Qualifiers: Heart failure type: unspecified Qualified Code(s): I50.9 - Heart failure, unspecified
[2018-01-13] MEDS: Morphine Inj 4 MG/ML Vial IV.PUSH PRN ×4 (00:23→23:05)
[2018-01-13] MEDS: Piperacil/Tazo 4.5 GM Premix 4.5 GM/100 ML BAG IV.SIG SCH ×5 (00:23→23:01)
[2018-01-13] MEDS: Insulin NovoLOG Aspart Correctional Sugar Inj SQ SCH ×6 (00:42→20:36)
[2018-01-13] MEDS: Insulin Detemir Inj 1,000 UNIT/10 ML Vial SQ SCH ×3 (00:42→20:35)
[2018-01-13 04:02] LABS: Baso # (Auto) 0.1 th/mm3 (0.0-0.2); Hematocrit 26.3 % (39.0-51.0); Hemoglobin 8.7 gm/dL (13.0-17.0); Lymph # (Auto) 0.1 th/mm3 (1.0-4.8); Lymph % (Auto) 1.6 % (9.0-44.0); Mean Corpuscular HGB Conc 32.9 % (32.0-36.0); Mean Corpuscular Volume 94.4 fL (80.0-100.0); Mean Platelet Volume 9.1 fL (7.0-11.0); Mono # (Auto) 0.4 th/mm3 (0.0-0.9); Mono % (Auto) 7.3 % (0.0-8.0); Neut # (Auto) 5.4 th/mm3 (1.8-7.7); Neut % (Auto) 90.1 % (16.0-70.0); Platelet Count 62 th/mm3 (150-450); Red Blood Count 2.79 mil/mm3 (4.50-5.90); Red Cell Distribution Width 20.8 % (11.6-17.2)
[2018-01-13 04:12] LABS: Albumin 1.9 g/dL (3.4-5.0); Calcium 7.1 mg/dL (8.5-10.1); Potassium 3.3 meq/L (3.5-5.1)
[2018-01-13 04:17] LABS: Total Protein 5.4 g/dL (6.4-8.2)
[2018-01-13 04:58] LABS: Lymphocytes 1 % (9-44); Monocytes 4 % (0-8); Tallied Nucleated RBC 1 (0-0)
[2018-01-13 05:01] LABS: Platelet Morphology Normal (Normal)
[2018-01-13 05:03] LABS: Acanthocytes Occ
[2018-01-13] MEDS ORDERED: Pharmacy Ordered Lab Info OTHER ONE (08:45)
[2018-01-13] MEDS: Senna/Docusate Sodium 8.6/50 MG Tablet PO SCH ×2 (09:19→20:35)
[2018-01-13] MEDS: MethylPREDNISolone Sod Succinate Inj 40 MG/ML Vial IV.PUSH SCH ×2 (09:19→20:35)
[2018-01-13] MEDS: guaiFENesin 600 MG ER Tablet PO SCH ×2 (09:22→20:35)
[2018-01-13] MEDS: Sod Chloride 0.9% Inj 1,000 ML IV.CONT SCH ×2 (10:07→15:15)
[2018-01-13] MEDS: Vancomycin Inj 750 MG in Sodium Chlor 0.9% Inj 250 ML IV.SIG SCH (10:26)
[2018-01-13] MEDS ORDERED: Sodium Phosphate Inj 30 MMOL in Sodium Chlor 0.9% Inj 250 ML IV.SIG PRN (11:03)
[2018-01-13] MEDS ORDERED: Potassium Chlor 40 mEq Premix 40 MEQ/100 ML PIGGYBACK IV.SIG PRN ×2 (11:03)
[2018-01-13] MEDS ORDERED: Magnesium Sulfate Inj 4 GM in Sodium Chlor 0.9% Inj 92 ML IV.SIG PRN (11:03)
[2018-01-13] MEDS ORDERED: Magnesium Sulfate Inj 2 GM in Sodium Chlor 0.9% Inj 96 ML IV.SIG PRN (11:03)
[2018-01-13] MEDS ORDERED: Potassium Chloride 25 MEQ Effervescent Tablet PO PRN (11:03)
[2018-01-13] MEDS ORDERED: Potassium Chlor 20 mEq Premix 20 MEQ/100 ML PIGGYBACK IV.SIG PRN ×2 (11:03)
[2018-01-13] MEDS ORDERED: Potassium Phosphate 500 MG Soluble Tablet PO PRN ×2 (11:03)
[2018-01-13] MEDS ORDERED: Magnesium Oxide 400 MG Tablet PO PRN (11:03)
[2018-01-13] MEDS ORDERED: Potassium Phosphate Inj 30 MMOL in Sodium Chlor 0.9% Inj 250 ML IV.SIG PRN (11:03)
--- NOTE | 2018-01-13 11:06 | P.PN ---
Physical Exam Vital signs: Vital Signs 01/12/18 12:00 01/12/18 14:00 01/12/18 15:15 Temperature 101.1 F H Pulse Rate 112 H 92 H Respiratory Rate 33 H 21 Blood Pressure 133/72 Pulse Oximetry 100 01/12/18 16:00 01/12/18 18:00 01/12/18 20:00 Temperature 98.9 F 98 F Pulse Rate 86 82 88 Respiratory Rate 17 14 Blood Pressure 115/57 L 108/62 Pulse Oximetry 100 100 01/12/18 20:10 01/12/18 20:12 01/12/18 21:30 Temperature Pulse Rate 86 Respiratory Rate 16 14 Blood Pressure Pulse Oximetry 100 01/12/18 22:00 01/13/18 00:00 01/13/18 01:00 Temperature 98.3 F Pulse Rate 90 96 H Respiratory Rate 18 14 Blood Pressure 99/56 L Pulse Oximetry 93 L 01/13/18 02:00 01/13/18 04:00 01/13/18 05:30 Temperature 98.1 F Pulse Rate 89 80 Respiratory Rate 16 16 Blood Pressure 120/71 Pulse Oximetry 100 01/13/18 06:00 01/13/18 08:00 01/13/18 08:45 Temperature Pulse Rate 81 86 Respiratory Rate 16 Blood Pressure Pulse Oximetry 98 Intake & Output 01/12/18 01/13/18 01/13/18 18:59 06:59 18:59 Intake Total 2237.5 / 2237.5 1817.5 / 1817.5 Output Total 400 / 400 800 / 800 Balance 1837.5 / 1837.5 1017.5 / 1017.5 Weight 73.6 kg Intake: IV 1757.5 / 1757.5 1457.5 / 1457.5 NS Inj 1,000 ML @ 75 mls/hr IV. 950 / 950 1000 / 1000 CONT .[id number] LEIGHA Rx#:[id number] Zosyn 4.5 GM Premix 4.5 gm In 300 / 300 200 / 200 100 ml @ 200 mls/hr IV.SIG Q6H LEIGHA Rx#:[id number] Vancomycin Inj 750 MG In NS Inj 257.5 / 257.5 257.5 / 257.5 250 ML @ 250 mls/hr IV.SIG Q12H LEIGHA Rx#:[id number] Oral 480 / 480 360 / 360 Output: Urine 400 / 400 800 / 800 Other: # Incontinent Voids 1 Date of Last Bowel Movement 01/12/18 01/12/18 # Bowel Movements 1 0 Narrative: Subjective In bed still with severe pain in his right leg, erythema and edema, blisters. Swelling appears a little bit improved. Patient with chills no fevers overnight. Feels very tired less lethargic today. No n/v/d/c. BS better controlled. Plan for CT right leg discussed with Dr Dale podiatry Physical exam GENERAL: Cachectic male, in bed appears ill. SKIN: Bilateral legs erythematous and edematous, left leg with 2 blisters/ wounds, painful to touch. HEAD: Normocephalic. EYES: No scleral icterus. No injection or drainage. NECK: Supple, trachea midline. CARDIOVASCULAR: Tachycardic. Regular rate and rhythm without murmurs, gallops, or rubs. RESPIRATORY: Breath sounds equal bilaterally. No accessory muscle use. GASTROINTESTINAL: Abdomen soft, non-tender, nondistended. MUSCULOSKELETAL: No cyanosis, or edema. BACK: Nontender without obvious deformity. No CVA tenderness. Assessment and plan Mr. Rios is a 62 y/o male with a history of multiple myeloma s/p chemo on (Dr. Smith is oncologist), CHF (EF 20 - 25% 2015), CAD s/p CABG and aortic valve replacement, diabetes mellitus, diabetic neuropathy, hyperlipidemia , hypertension, and amyloidosis who presented to the ER on 01/11 upon recommendation by his PCP Dr. Palm for 1 week history of progressively worsening SOB and lower extremity edema. The patient was found to have pneumonia, sepsis, and a small pleural effusion and was admitted to the hospitalist service for medical management. Severe Sepsis on admission with leukocytosis, fevers, tachycardia, elevated acidosis, source PNA, left leg cellulitis/wound, bacteremia), now lethargic. -Lactic Acid 3.8 on admission, trending down to normal -Antibiotics: IV Vancomycin and Zosyn -DC IVF - due to CHF - XRay foot reviewed. US doppler shows no DVT -monitor temperature - recheck showed temp 102.4 - PRN tylenol for fever - with bacteremia, repeat BC , consult ID appreciate recommendations - consult wound care, cultures obtained from the leg wounds - Consult podiatry as patient with severe leg pain and edema, wound is not improving. Plan for CT right leg discussed with Dr Dale podiatry - consult palliative care for goals of care - on lasix Pneumonia - IV antibiotics as above - Duonebs - supplemental oxygen as needed to maintain oxygen saturation > 92% Hypokalemia, hypocalcemia Replace Ca by IV and PO, Replace K . Electrolytes per ICU protocol. Monitor and replace lytes as need. CHF - last echo (2015) in system shows EF 20 - 25% - will check echocardiogram - Lasix 40 mg IV BID - monitor closely - requiring IVF for sepsis management - at high risk for deterioration - patient transfer to ICU - BNP 2362 - Monitor kidney function Multiple Myeloma - last chemo 01/10 - consult Dr. Smith, oncology - appreciate assistance - monitor CBC Elevated BS, accuchecks, ISS- low, Add levemir, monitor BS and adjust insulin as need. diabetic diet. Check A1c. DVT prophylaxis - Lovenox SQ Consult palliative care for goals of care Discussed with the patient, nurse, Dr Dale podiatry Results - Labs CBC & Chem 7: 01/13/18 03:40 01/13/18 03:40 Laboratory Results - last 24 hr 01/12/18 01/12/18 01/12/18 05:24 08:00 11:30 WBC RBC Hgb Hct MCV MCH MCHC RDW Plt Count MPV Prelim Diff (Auto) Neut % (Auto) Lymph % (Auto) [place] % (Auto) Eos % (Auto) Baso % (Auto) Neut # (Auto) Lymph # (Auto) [place] # (Auto) Eos # (Auto) Baso # (Auto) WBC Differential Seg Neuts % (Manual) Band Neuts % (Manual) Lymphocytes % (Manual) Monocytes % (Manual) Abs Neuts (Manual) Nucleated RBCs/100 WBC Differential Comment Platelet Estimate Platelet Morphology Acanthocytes (Spur) Keratocytes Sodium Potassium Chloride Carbon Dioxide Anion Gap BUN Creatinine Estimated GFR POC Glucose 412 H Random Glucose Hemoglobin A1c 10.5 H Calcium Prot Corrected Calcium Total Bilirubin AST ALT Alkaline Phosphatase B-Natriuretic Peptide Total Protein Albumin Urine Color Urine Clarity Urine pH Ur Specific [place] [employer] Urine Protein Urine Glucose (UA) Urine Ketones Urine Occult Blood Urine Nitrate Urine Bilirubin Urine Urobilinogen Ur Leukocyte Esterase Urine RBC Urine WBC Hyaline Casts Urine Mucus Micro UA Comment Urine Culture Comments Nasal Screen MRSA (PCR) Not detected Vancomycin Trough 01/12/18 01/12/18 01/12/18 13:00 17:50 20:58 WBC RBC Hgb Hct MCV MCH MCHC RDW Plt Count MPV Prelim Diff (Auto) Neut % (Auto) Lymph % (Auto) [place] % (Auto) Eos % (Auto) Baso % (Auto) Neut # (Auto) Lymph # (Auto) [place] # (Auto) Eos # (Auto) Baso # (Auto) WBC Differential Seg Neuts % (Manual) Band Neuts % (Manual) Lymphocytes % (Manual) Monocytes % (Manual) Abs Neuts (Manual) Nucleated RBCs/100 WBC Differential Comment Platelet Estimate Platelet Morphology Acanthocytes (Spur) Keratocytes Sodium Potassium Chloride Carbon Dioxide Anion Gap BUN Creatinine Estimated GFR POC Glucose 149 H 98 Random Glucose Hemoglobin A1c Calcium Prot Corrected Calcium Total Bilirubin AST ALT Alkaline Phosphatase B-Natriuretic Peptide Total Protein Albumin Urine Color Yellow Urine Clarity Clear Urine pH 5.0 Ur Specific [place] [employer] 1.014 Urine Protein 100 H Urine Glucose (UA) 150 H Urine Ketones Negative Urine Occult Blood Moderate H Urine Nitrate Negative Urine Bilirubin Negative Urine Urobilinogen Less than 2 Ur Leukocyte Esterase Negative Urine RBC 1 Urine WBC 7 H Hyaline Casts 1 Urine Mucus Few H Micro UA Comment Culture not ind Urine Culture Comments Culture not ind Nasal Screen MRSA (PCR) Vancomycin Trough 01/13/18 01/13/18 01/13/18 03:39 03:40 03:40 WBC 6.0 RBC 2.79 L Hgb 8.7 L Hct 26.3 L MCV 94.4 MCH 31.0 MCHC 32.9 RDW 20.8 H Plt Count 62 L D MPV 9.1 Prelim Diff (Auto) Slide review pending Neut % (Auto) 90.1 H Lymph % (Auto) 1.6 L Bradley % (Auto) 7.3 Eos % (Auto) 0.0 Baso % (Auto) 1.0 Neut # (Auto) 5.4 Lymph # (Auto) 0.1 L [place] # (Auto) 0.4 Eos # (Auto) 0.0 Baso # (Auto) 0.1 WBC Differential Manual diff final Seg Neuts % (Manual) 81 H Band Neuts % (Manual) 14 H Lymphocytes % (Manual) 1 L Monocytes % (Manual) 4 Abs Neuts (Manual) 5.7 Nucleated RBCs/100 WBC 1 H Differential Comment . Platelet Estimate Low L Platelet Morphology Normal Acanthocytes (Spur) Occ H Keratocytes Occ H Sodium 138 Potassium 3.3 L D Chloride 102 Carbon Dioxide 27.0 Anion Gap 9 BUN 19 H Creatinine 0.94 Estimated GFR 82 L POC Glucose 139 H Random Glucose 129 H D Hemoglobin A1c Calcium 7.1 L* Prot Corrected Calcium 8.0 L Total Bilirubin 0.6 AST 30 ALT 34 Alkaline Phosphatase 73 B-Natriuretic Peptide Total Protein 5.4 L D Albumin 1.9 L Urine Color Urine Clarity Urine pH Ur Specific [place] [employer] Urine Protein Urine Glucose (UA) Urine Ketones Urine Occult Blood Urine Nitrate Urine Bilirubin Urine Urobilinogen Ur Leukocyte Esterase Urine RBC Urine WBC Hyaline Casts Urine Mucus Micro UA Comment Urine Culture Comments Nasal Screen MRSA (PCR) Vancomycin Trough 01/13/18 01/13/18 01/13/18 03:40 08:27 09:20 WBC RBC Hgb Hct MCV MCH MCHC RDW Plt Count MPV Prelim Diff (Auto) Neut % (Auto) Lymph % (Auto) [place] % (Auto) Eos % (Auto) Baso % (Auto) Neut # (Auto) Lymph # (Auto) [place] # (Auto) Eos # (Auto) Baso # (Auto) WBC Differential Seg Neuts % (Manual) Band Neuts % (Manual) Lymphocytes % (Manual) Monocytes % (Manual) Abs Neuts (Manual) Nucleated RBCs/100 WBC Differential Comment Platelet Estimate Platelet Morphology Acanthocytes (Spur) Keratocytes Sodium Potassium Chloride Carbon Dioxide Anion Gap BUN Creatinine Estimated GFR POC Glucose 150 H Random Glucose Hemoglobin A1c Calcium Prot Corrected Calcium Total Bilirubin AST ALT Alkaline Phosphatase B-Natriuretic Peptide 3191 H Total Protein Albumin Urine Color Urine Clarity Urine pH Ur Specific [place] [employer] Urine Protein Urine Glucose (UA) Urine Ketones Urine Occult Blood Urine Nitrate Urine Bilirubin Urine Urobilinogen Ur Leukocyte Esterase Urine RBC Urine WBC Hyaline Casts Urine Mucus Micro UA Comment Urine Culture Comments Nasal Screen MRSA (PCR) Vancomycin Trough 15.9 H Microbiology 01/12/18 19:00 Blood - Peripheral Aerobic Blood Culture - Preliminary No growth in 1 day 01/12/18 19:00 Blood - Peripheral Anaerobic Blood Culture - Preliminary No growth in 1 day 01/12/18 15:35 Blood - Other Aerobic Blood Culture - Preliminary No growth in 1 day 01/12/18 15:35 Blood - Other Anaerobic Blood Culture - Preliminary No growth in 1 day 08/09/18 17:15 Blood - Peripheral Aerobic Blood Culture - Preliminary gram negative rods 01/11/18 17:15 Blood - Peripheral Anaerobic Blood Culture - Preliminary gram negative rods 01/12/18 15:15 Wound - Leg Gram Stain - Final 01/11/18 17:20 Blood - Peripheral Aerobic Blood Culture - Preliminary gram negative rods 01/11/18 17:20 Blood - Peripheral Anaerobic Blood Culture - Preliminary gram negative rods - Imaging Impressions Ankle X-Ray 01/12/18 00:00 CONCLUSION: 1. Status post ORIF of the distal left fibula and tibia 2. Soft tissue swelling extending from the distal calf into the foot. 3. Mineralization and mild cortical erosion along the medial malleolus 4. Subtalar joint arthropathy Venous Doppler Study 01/12/18 00:00 CONCLUSION: Negative for deep venous thrombosis in the left lower extremity.
[2018-01-13] MEDS ORDERED: Calcium Chloride Inj 1 GM in Dextrose 5% in Water Inj 100 ML IV.SIG ONE ×2 (11:12)
--- NOTE | 2018-01-13 14:14 | P.PNPOD ---
Subjective Interval history: Patient feels a little bit better Family Physical Exam Vital signs: Vital Signs 01/12/18 15:15 01/12/18 16:00 01/12/18 18:00 Temperature 98.9 F Pulse Rate 86 82 Respiratory Rate 21 17 Blood Pressure 115/57 L Pulse Oximetry 100 01/12/18 20:00 01/12/18 20:10 01/12/18 20:12 Temperature 98 F Pulse Rate 88 86 Respiratory Rate 14 16 Blood Pressure 108/62 Pulse Oximetry 100 100 01/12/18 21:30 01/12/18 22:00 01/13/18 00:00 Temperature 98.3 F Pulse Rate 90 96 H Respiratory Rate 14 18 Blood Pressure 99/56 L Pulse Oximetry 93 L 01/13/18 01:00 01/13/18 02:00 01/13/18 04:00 Temperature 98.1 F Pulse Rate 89 80 Respiratory Rate 14 16 Blood Pressure 120/71 Pulse Oximetry 100 01/13/18 05:30 01/13/18 06:00 01/13/18 08:00 Temperature Pulse Rate 81 Respiratory Rate 16 Blood Pressure Pulse Oximetry 98 01/13/18 08:45 Temperature Pulse Rate 86 Respiratory Rate 16 Blood Pressure Pulse Oximetry Intake & Output 01/12/18 01/13/18 01/13/18 18:59 06:59 18:59 Intake Total 2237.5 / 2237.5 1817.5 / 1817.5 257.5 / 257.5 Output Total 400 / 400 800 / 800 Balance 1837.5 / 1837.5 1017.5 / 1017.5 257.5 / 257.5 Weight 73.6 kg Intake: IV 1757.5 / 1757.5 1457.5 / 1457.5 257.5 / 257.5 NS Inj 1,000 ML @ 75 mls/hr IV. 950 / 950 1000 / 1000 CONT .[id number] SHARON Rx#:[id number] Zosyn 4.5 GM Premix 4.5 gm In 300 / 300 200 / 200 100 ml @ 200 mls/hr IV.SIG Q6H SHARON Rx#:[id number] Vancomycin Inj 750 MG In NS Inj 257.5 / 257.5 257.5 / 257.5 257.5 / 257.5 250 ML @ 250 mls/hr IV.SIG Q12H SHARON Rx#:[id number] Oral 480 / 480 360 / 360 Output: Urine 400 / 400 800 / 800 Other: # Incontinent Voids 1 Date of Last Bowel Movement 01/12/18 01/12/18 01/12/18 # Bowel Movements 1 0 Narrative: Patient is sleepy however easily arousable Left lower extremity: Expansile bulla formation with slight collapse with clear type drainage the pretibial area outlined from yesterday there is no increase in discoloration of skin posterior ankle bulla remain intact, pedal pulses remain palpable, sensation intact. Skin is less shiny less taut skin lines appear to be returning to the extremity, Right lower extremity examined: Improvement of expansile bulla of distal calf pedal pulses palpable minimal tenderness noted Medications and Allergies Active Medications: Active Medications Acetaminophen (Tylenol) 650 mg PO Q4H PRN PRN Reason: TEMPERATURE > 101 F Last Admin: 01/12/18 11:51 Dose: 650 mg Al Hydroxide/Mg Hydroxide (Milk Of Magnesia Liq) 30 ml PO Q12H PRN PRN Reason: Mild Constipation Albuterol (Duoneb Neb (Prn)) 1 ampul NEB Q2HR NEB PRN PRN Reason: SHORTNESS OF BREATH/WHEEZING Albuterol (Duoneb Neb (Sharon)) 1 ampul NEB Q6HR WHILE AWAKE NEB [facility] Last Admin: 01/13/18 08:46 Dose: 1 ampul Bisacodyl (Dulcolax Supp) 10 mg RECTAL DAILY PRN PRN Reason: SEVERE CONSITIPATION Dextrose (D50w Vial) 50 ml IV.PUSH UNSCH PRN PRN Reason: PER HYPOGLYCEMIA PROTOCOL Duloxetine HCl (Cymbalta) 30 mg PO HS [facility] Last Admin: 01/12/18 21:13 Dose: 30 mg Enoxaparin Sodium (Lovenox Inj) 30 mg SQ Q24H [facility] Last Admin: 01/12/18 21:13 Dose: 30 mg Furosemide (Lasix Inj) 40 mg IV.PUSH BID@0900,1800 [facility] Last Admin: 01/13/18 10:07 Dose: 40 mg Glucagon (Glucagon Inj) 1 mg OTHER PRN PRN PRN Reason: for Hypoglycemia Protocol Guaifenesin (Mucinex Er) 600 mg PO BID [facility] Last Admin: 01/13/18 09:22 Dose: Not Given Heparin Sodium (Porcine) (Heparin Central Flush) 500 unit IV.FLUSH PRN PRN PRN Reason: Flush infusaport Heparin Sodium (Porcine) (Heparin Central Flush) 250 unit IV.FLUSH PRN PRN PRN Reason: Flush Infusapot Piperacillin/Tazobactam/Dextrose (Zosyn 4.5 Gm Premix) 4.5 gm in 100 mls @ 200 mls/hr IV.SIG Q6H [facility] Last Admin: 01/13/18 12:06 Dose: 200 mls/hr Vancomycin HCl 750 mg/ Sodium (Chloride) 257.5 mls @ 250 mls/hr IV.SIG Q12H [facility] Last Infusion: 01/13/18 11:45 Dose: Infused Sodium Chloride (Ns Inj) 1,000 mls @ 75 mls/hr IV.CONT .[id number] [facility] Last Admin: 01/13/18 10:07 Dose: 75 mls/hr Magnesium Sulfate Inj 4 gm/ (Sodium Chloride) 100 mls @ 50 mls/hr IV.SIG UNSCH PRN PRN Reason: For Magnesium 0.9 - 1.1 mg/dL Potassium Chloride (Kcl 40 Meq Premix Inj) 40 meq in 100 mls @ 50 mls/hr IV.SIG Q2H PRN PRN Reason: For Potassium 2.8 - 3.2 mEq/L Potassium Chloride (Kcl 40 Meq Premix Inj) 40 meq in 100 mls @ 25 mls/hr IV.SIG UNSCH PRN PRN Reason: For Potassium 3.3 - 3.5 mEq/L Potassium Chloride (Kcl 20 Meq Premix Inj) 20 meq in 100 mls @ 50 mls/hr IV.SIG Q2H PRN PRN Reason: For Potassium 2.8 - 3.2 mEq/L Potassium Phosphate 30 mmol/ (Sodium Chloride) 260 mls @ 42 mls/hr IV.SIG UNSCH PRN PRN Reason: SEE LABEL COMMENTS Sodium Phosphate 30 mmol/ (Sodium Chloride) 260 mls @ 42 mls/hr IV.SIG UNSCH PRN PRN Reason: For Phosphorus < 2.5 mg/dL Magnesium Sulfate Inj 2 gm/ (Sodium Chloride) 100 mls @ 50 mls/hr IV.SIG UNSCH PRN PRN Reason: For Magnesium 1.2 - 1.6 mg/dL Potassium Chloride (Kcl 20 Meq Premix Inj) 20 meq in 100 mls @ 50 mls/hr IV.SIG Q2H PRN PRN Reason: For Potassium 3.3 - 3.5 mEq/L Insulin Aspart (Novolog Insulin Correctional Sugar Inj) 0 unit SQ ACHS AND 3AM SHARON; Protocol Last Admin: 01/13/18 12:08 Dose: 1 unit Insulin Detemir (Levemir Inj) 7 unit SQ BID [facility] Last Admin: 01/13/18 09:18 Dose: 7 unit Lactulose (Lactulose Liq) 30 ml PO DAILY PRN PRN Reason: SEVERE CONSITIPATION Magnesium Oxide (Mag-Ox) 800 mg PO UNSCH PRN PRN Reason: For Magnesium 1.2 - 1.6 mg/dL Methylprednisolone Sodium Succinate (Solumedrol Inj) 40 mg IV.PUSH Q12H [facility] Last Admin: 01/13/18 09:19 Dose: 40 mg Morphine Sulfate (Morphine Inj) 4 mg IV.PUSH Q3H PRN PRN Reason: PAIN 6-10;IF UNABLE TO TAKE PO Last Admin: 01/13/18 09:20 Dose: 4 mg Morphine Sulfate (Morphine Inj) 2 mg IV.PUSH Q3H PRN PRN Reason: PAIN 3-5; IF UABLE TO TAKE PO Naloxone HCl (Narcan Inj) 0.4 mg IV.PUSH UNSCH PRN PRN Reason: SEE LABEL COMMENTS Ondansetron HCl (Zofran Inj) 4 mg IV.PUSH Q6H PRN PRN Reason: NAUSEA OR VOMITING Oxycodone/Acetaminophen (Percocet 10/325 Mg) 1 tab PO Q6H PRN PRN Reason: PAIN SCALE 6 TO 10 Last Admin: 01/11/18 21:41 Dose: 1 tab Oxycodone/Acetaminophen (Percocet 5/325 Mg) 1 tab PO Q6H PRN PRN Reason: PAIN SCALE 3 TO 5 Pharmacy Profile Note (Vancomycin Consult Pharmacy) 1 each OTHER UNSCH [facility] Potassium Bicarb/Potassium Chloride (K-Lyte Cl Eff) 50 meq PO UNSCH PRN PRN Reason: For Potassium 3.3 - 3.5 mEq/L Last Admin: 01/13/18 12:04 Dose: 50 meq Potassium Phosphate (K-Phos Original) 2,000 mg PO Q4H PRN PRN Reason: Phosphorus Less Than 2.5 mg/dL Potassium Phosphate (K-Phos Original) 2,000 mg PO UNSCH PRN PRN Reason: SEE LABEL COMMENTS Senna/Docusate Sodium (Kamini-Colace) 1 tab PO BID [facility] Last Admin: 01/13/18 09:19 Dose: 1 tab Sennosides (Senokot) 17.2 mg PO Q12H PRN PRN Reason: Moderate Constipation Sodium Chloride (Ns Flush) 2 ml IV.FLUSH PRN PRN PRN Reason: FLUSH AFTER USING IV ACCESS Sodium Chloride (Ns Flush) 2 ml IV.FLUSH BID [facility] Last Admin: 01/13/18 09:20 Dose: 2 ml Sodium Chloride (Ns Flush) 5 ml IV.FLUSH PRN PRN PRN Reason: Flush Infusaport Temazepam (Restoril) 15 mg PO PRN PRN Reason: INSOMNIA Allergies Allergy/AdvReac Type Severity Reaction Status Date / Time azithromycin Allergy Intermediate rash Verified 01/11/18 20:23 *MDRO Multi-Drug Resistant AdvReac Mild Cleared Uncoded 08/08/16 09:57 Organism 10/2015 Home Medications Medication Instructions Recorded Confirmed Type alprazolam 0.5 mg PO HS PRN 01/11/18 01/11/18 History dexamethasone 20 mg PO WEEKLY 01/11/18 01/11/18 History duloxetine [Cymbalta] 30 mg PO HS 01/11/18 01/11/18 History hydromorphone [Dilaudid] 4 mg PO Q6H PRN 01/11/18 01/11/18 History prochlorperazine maleate 10 mg PO QID PRN 01/11/18 01/11/18 History [Compazine] Results - Labs CBC & Chem 7: 01/13/18 03:40 01/13/18 03:40 Laboratory Results - last 24 hr 01/12/18 01/12/18 01/12/18 05:24 08:00 17:50 WBC RBC Hgb Hct MCV MCH MCHC RDW Plt Count MPV Prelim Diff (Auto) Neut % (Auto) Lymph % (Auto) [place] % (Auto) Eos % (Auto) Baso % (Auto) Neut # (Auto) Lymph # (Auto) [place] # (Auto) Eos # (Auto) Baso # (Auto) WBC Differential Seg Neuts % (Manual) Band Neuts % (Manual) Lymphocytes % (Manual) Monocytes % (Manual) Abs Neuts (Manual) Nucleated RBCs/100 WBC Differential Comment Platelet Estimate Platelet Morphology Acanthocytes (Spur) Keratocytes Sodium Potassium Chloride Carbon Dioxide Anion Gap BUN Creatinine Estimated GFR POC Glucose 149 H Random Glucose Hemoglobin A1c 10.5 H Calcium Prot Corrected Calcium Total Bilirubin AST ALT Alkaline Phosphatase B-Natriuretic Peptide Total Protein Albumin Vitamin D 25-Hydroxy Nasal Screen MRSA (PCR) Not detected Vancomycin Trough 01/12/18 01/13/18 01/13/18 20:58 03:39 03:40 WBC 6.0 RBC 2.79 L Hgb 8.7 L Hct 26.3 L MCV 94.4 MCH 31.0 MCHC 32.9 RDW 20.8 H Plt Count 62 L D MPV 9.1 Prelim Diff (Auto) Slide review pending Neut % (Auto) 90.1 H Lymph % (Auto) 1.6 L [place] % (Auto) 7.3 Eos % (Auto) 0.0 Baso % (Auto) 1.0 Neut # (Auto) 5.4 Lymph # (Auto) 0.1 L [place] # (Auto) 0.4 Eos # (Auto) 0.0 Baso # (Auto) 0.1 WBC Differential Manual diff final Seg Neuts % (Manual) 81 H Band Neuts % (Manual) 14 H Lymphocytes % (Manual) 1 L Monocytes % (Manual) 4 Abs Neuts (Manual) 5.7 Nucleated RBCs/100 WBC 1 H Differential Comment . Platelet Estimate Low L Platelet Morphology Normal Acanthocytes (Spur) Occ H Keratocytes Occ H Sodium Potassium Chloride Carbon Dioxide Anion Gap BUN Creatinine Estimated GFR POC Glucose 98 139 H Random Glucose Hemoglobin A1c Calcium Prot Corrected Calcium Total Bilirubin AST ALT Alkaline Phosphatase B-Natriuretic Peptide Total Protein Albumin Vitamin D 25-Hydroxy Nasal Screen MRSA (PCR) Vancomycin Trough 01/13/18 01/13/18 01/13/18 03:40 03:40 08:27 WBC RBC Hgb Hct MCV MCH MCHC RDW Plt Count MPV Prelim Diff (Auto) Neut % (Auto) Lymph % (Auto) [place] % (Auto) Eos % (Auto) Baso % (Auto) Neut # (Auto) Lymph # (Auto) [place] # (Auto) Eos # (Auto) Baso # (Auto) WBC Differential Seg Neuts % (Manual) Band Neuts % (Manual) Lymphocytes % (Manual) Monocytes % (Manual) Abs Neuts (Manual) Nucleated RBCs/100 WBC Differential Comment Platelet Estimate Platelet Morphology Acanthocytes (Spur) Keratocytes Sodium 138 Potassium 3.3 L D Chloride 102 Carbon Dioxide 27.0 Anion Gap 9 BUN 19 H Creatinine 0.94 Estimated GFR 82 L POC Glucose 150 H Random Glucose 129 H D Hemoglobin A1c Calcium 7.1 L* Prot Corrected Calcium 8.0 L Total Bilirubin 0.6 AST 30 ALT 34 Alkaline Phosphatase 73 B-Natriuretic Peptide 3191 H Total Protein 5.4 L D Albumin 1.9 L Vitamin D 25-Hydroxy Nasal Screen MRSA (PCR) Vancomycin Trough 01/13/18 01/13/18 01/13/18 09:20 09:20 11:56 WBC RBC Hgb Hct MCV MCH MCHC RDW Plt Count MPV Prelim Diff (Auto) Neut % (Auto) Lymph % (Auto) [place] % (Auto) Eos % (Auto) Baso % (Auto) Neut # (Auto) Lymph # (Auto) [place] # (Auto) Eos # (Auto) Baso # (Auto) WBC Differential Seg Neuts % (Manual) Band Neuts % (Manual) Lymphocytes % (Manual) Monocytes % (Manual) Abs Neuts (Manual) Nucleated RBCs/100 WBC Differential Comment Platelet Estimate Platelet Morphology Acanthocytes (Spur) Keratocytes Sodium Potassium Chloride Carbon Dioxide Anion Gap BUN Creatinine Estimated GFR POC Glucose 159 H Random Glucose Hemoglobin A1c Calcium Prot Corrected Calcium Total Bilirubin AST ALT Alkaline Phosphatase B-Natriuretic Peptide Total Protein Albumin Vitamin D 25-Hydroxy Less than 4.2 L Nasal Screen MRSA (PCR) Vancomycin Trough 15.9 H Microbiology 01/12/18 15:15 Wound - Leg Gram Stain - Final 01/12/18 15:15 Wound - Leg Wound Culture - Preliminary gram negative rods 01/12/18 19:00 Blood - Peripheral Aerobic Blood Culture - Preliminary No growth in 1 day 01/12/18 19:00 Blood - Peripheral Anaerobic Blood Culture - Preliminary No growth in 1 day 01/12/18 15:35 Blood - Other Aerobic Blood Culture - Preliminary No growth in 1 day 01/12/18 15:35 Blood - Other Anaerobic Blood Culture - Preliminary No growth in 1 day 01/11/18 17:15 Blood - Peripheral Aerobic Blood Culture - Preliminary gram negative rods 01/11/18 17:15 Blood - Peripheral Anaerobic Blood Culture - Preliminary gram negative rods - Imaging Impressions Venous Doppler Study 01/12/18 00:00 CONCLUSION: Negative for deep venous thrombosis in the left lower extremity. Assessment and Plan - Assessment (1) Cellulitis of left leg Code(s): L03.116 - Cellulitis of left lower limb Status: Acute (2) Cellulitis of right leg Code(s): L03.115 - Cellulitis of right lower limb Status: Acute (3) Ulcer of right lower extremity, limited to breakdown of skin Code(s): L97.911 - Non-pressure chronic ulcer of unspecified part of right lower leg limited to breakdown of skin Status: Acute - Plan Patient is responding to antibiotics however the cultures verify legs as the source of + blood cx. Ordered CT to evaluate the soft tissue and bone of the left lower extremity. Continue bandaging and wound care per nursing if possible elevate the extremities L evaluate the patient tomorrow.
--- NOTE | 2018-01-13 18:00 | P.PNID ---
Subjective Remarks: ID Xcover for Dr Rothman chart was reviewed 62 yo male with MM Patient is a 62-year-old male, with known multiple myeloma, has been receiving chemotherapy over the last 2 years, received chemo about 2 days prior to admission, presented to the hospital for further evaluation of shortness of breath and lower extremity edema. Patient stated he started not feeling good about a week prior to admission. He is not a very good historian. He has had some shortness of breath which has been intermittent, and has noted increased swelling of both lower extremity. He denies any significant cough or congestion. Denies any chest pain. He also complains of some abdominal pain, but no nausea, vomiting, diarrhea or constipation. He denies any dysuria or any urinary complaints. Patient stated he has chronic pigmentation of both lower extremity, but has noted increased swelling of his left lower extremity. He has erythema on the left leg, but he cannot tell me when that started, and the sister stated that it was not there before. He has had some wounds on his left leg over the last 2 weeks, but has not really had any evaluation for that. He denies any trauma, or any injury recently where he would have gotten the wounds. Patient has had prior history of fracture in his left lower extremity about 15 years ago, and had surgery on his left knee, as well as his left ankle. Patient also is a little bit lethargic today. Patient stated that he was not lethargic at home, and also he has been doing ambulation at home normally. Patient also has an [id number] which apparently has been placed about 3 years ago. Since admission he has had a temperature spike of up to 102. His WBC is normal. LFTs are okay. His chest x-ray showing some basilar consolidation more on the right than on the left. No urinalysis has been done. 2 blood cultures now reported as growing gram-negative yandel. Infectious disease consultation has been requested to evaluate the patient with gram-negative yandel in the blood culture. Allergies/Adverse Reactions: Allergies azithromycin Allergy (Intermediate, Verified 01/11/18 20:23) rash *MDRO Multi-Drug Resistant Organism Adverse Reaction (Mild, Uncoded 08/08/16 09: 57) Cleared 10/2015 MRSA (foot abscess) - 12/2009 MRSA PCR Screen NEGATIVE - 10/26 and 10/29/2015* * CLEARED PER INFECTION CONTROL Objective Vital Signs 01/12/18 18:00 01/12/18 20:00 01/12/18 20:10 Temperature 98 F Pulse Rate 82 88 86 Respiratory Rate 14 16 Blood Pressure 108/62 Pulse Oximetry 100 01/12/18 20:12 01/12/18 21:30 01/12/18 22:00 Temperature Pulse Rate 90 Respiratory Rate 14 Blood Pressure Pulse Oximetry 100 01/13/18 00:00 01/13/18 01:00 01/13/18 02:00 Temperature 98.3 F Pulse Rate 96 H 89 Respiratory Rate 18 14 Blood Pressure 99/56 L Pulse Oximetry 93 L 01/13/18 04:00 01/13/18 05:30 01/13/18 06:00 Temperature 98.1 F Pulse Rate 80 81 Respiratory Rate 16 16 Blood Pressure 120/71 Pulse Oximetry 100 01/13/18 08:00 01/13/18 08:45 01/13/18 10:00 Temperature Pulse Rate 86 89 Respiratory Rate 16 Blood Pressure Pulse Oximetry 98 01/13/18 11:00 01/13/18 12:00 01/13/18 12:37 Temperature Pulse Rate 89 93 H 93 H Respiratory Rate 13 16 20 Blood Pressure 115/60 117/61 Pulse Oximetry 98 96 98 01/13/18 13:00 01/13/18 14:00 01/13/18 15:00 Temperature Pulse Rate 92 H 92 H 95 H Respiratory Rate 16 21 12 Blood Pressure 112/58 L 111/57 L 115/75 Pulse Oximetry 100 99 100 01/13/18 16:00 Temperature 98.2 F Pulse Rate 91 H Respiratory Rate 15 Blood Pressure 132/68 Pulse Oximetry 99 Intake & Output 01/12/18 01/13/18 01/13/18 18:59 06:59 18:59 Intake Total 2237.5 / 2237.5 1817.5 / 1817.5 467.5 / 467.5 Output Total 400 / 400 800 / 800 Balance 1837.5 / 1837.5 1017.5 / 1017.5 467.5 / 467.5 Weight 73.6 kg Intake: IV 1757.5 / 1757.5 1457.5 / 1457.5 467.5 / 467.5 NS Inj 1,000 ML @ 75 mls/hr IV. 950 / 950 1000 / 1000 CONT .[id number] [facility] Rx#:[id number] Calcium Chloride Inj 1 GM In 110 / 110 D5W Inj 100 ML @ 110 mls/hr IV. SIG ONCE ONE Rx#:[id number] Zosyn 4.5 GM Premix 4.5 gm In 300 / 300 200 / 200 100 / 100 100 ml @ 200 mls/hr IV.SIG Q6H [facility] Rx#:[id number] Vancomycin Inj 750 MG In NS Inj 257.5 / 257.5 257.5 / 257.5 257.5 / 257.5 250 ML @ 250 mls/hr IV.SIG Q12H [facility] Rx#:[id number] Oral 480 / 480 360 / 360 Output: Urine 400 / 400 800 / 800 Other: # Incontinent Voids 1 Date of Last Bowel Movement 01/12/18 01/12/18 01/12/18 # Bowel Movements 1 0 01/12/18 15:15 Wound - Leg Gram Stain - Final 01/12/18 15:15 Wound - Leg Wound Culture - Preliminary gram negative rods 01/12/18 19:00 Blood - Peripheral Aerobic Blood Culture - Preliminary No growth in 1 day 01/12/18 19:00 Blood - Peripheral Anaerobic Blood Culture - Preliminary No growth in 1 day 01/12/18 15:35 Blood - Other Aerobic Blood Culture - Preliminary No growth in 1 day 01/12/18 15:35 Blood - Other Anaerobic Blood Culture - Preliminary No growth in 1 day 01/11/18 17:15 Blood - Peripheral Aerobic Blood Culture - Preliminary gram negative rods 01/11/18 17:15 Blood - Peripheral Anaerobic Blood Culture - Preliminary gram negative rods 01/11/18 17:20 Blood - Peripheral Aerobic Blood Culture - Preliminary gram negative rods 01/11/18 17:20 Blood - Peripheral Anaerobic Blood Culture - Preliminary gram negative rods 01/11/18 17:25 Nasal Wash Influenza Types A,B Antigen - Final Negative for FLU A and B antigen Infection due to influenza A or B cannot be ruled out since the antigen present in the sample may be below the detection limit of the test. Lab - Hematology Results 01/12/18 01/13/18 05:24 03:40 WBC 7.8 6.0 RBC 3.02 L 2.79 L Hgb 9.5 L 8.7 L Hct 28.9 L 26.3 L MCV 95.9 94.4 MCH 31.3 31.0 MCHC 32.7 32.9 RDW 21.2 H 20.8 H Plt Count 105 L 62 L D MPV 9.2 9.1 Prelim Diff (Auto) Slide review pending Neut % (Auto) 89.5 H 90.1 H Lymph % (Auto) 1.2 L 1.6 L [place] % (Auto) 9.2 H 7.3 Eos % (Auto) 0.0 0.0 Baso % (Auto) 0.1 1.0 Neut # (Auto) 7.0 5.4 Lymph # (Auto) 0.1 L 0.1 L [place] # (Auto) 0.7 0.4 Eos # (Auto) 0.0 0.0 Baso # (Auto) 0.0 0.1 WBC Differential . Manual diff final Seg Neuts % (Manual) 81 H Band Neuts % (Manual) 14 H Lymphocytes % (Manual) 1 L Monocytes % (Manual) 4 Abs Neuts (Manual) 5.7 Nucleated RBCs/100 WBC 1 H Differential Comment Auto diff final . Platelet Estimate Low L Platelet Morphology Normal Acanthocytes (Spur) Occ H Keratocytes Occ H Lab - Chemistry Results 01/11/18 01/11/18 01/11/18 17:15 17:15 19:50 Sodium 139 Potassium 3.2 L Chloride 105 Carbon Dioxide 24.8 Anion Gap 9 BUN 8 Creatinine 0.89 Estimated GFR 87 L POC Glucose Random Glucose 332 H Hemoglobin A1c Lactic Acid 3.1 H Calcium 7.4 L* Prot Corrected Calcium 7.8 L Phosphorus Magnesium 1.7 Total Bilirubin 0.3 AST 9 L ALT 18 Alkaline Phosphatase 119 H Total Creatine Kinase 102 CK-MB (CK-2) 1.2 Troponin I Less than 0.02 L B-Natriuretic Peptide 2362 H Total Protein 6.4 Albumin 2.5 L Vitamin D 25-Hydroxy TSH Free T4 01/11/18 01/11/18 01/12/18 23:37 23:37 05:24 Sodium 138 135 L Potassium 3.8 4.2 Chloride 102 101 Carbon Dioxide 25.1 21.4 Anion Gap 11 13 BUN 9 12 Creatinine 0.99 1.04 Estimated GFR 77 L 73 L POC Glucose Random Glucose 363 H 405 H Hemoglobin A1c Lactic Acid 3.1 H Calcium 7.3 L* 7.3 L* Prot Corrected Calcium 7.9 L 7.8 L Phosphorus 3.2 Magnesium 1.5 Total Bilirubin 0.9 1.0 AST 10 L 13 L ALT 15 16 Alkaline Phosphatase 119 H 110 Total Creatine Kinase 103 108 CK-MB (CK-2) Troponin I 0.04 0.06 H B-Natriuretic Peptide Total Protein 6.0 L 6.1 L Albumin 2.4 L 2.4 L Vitamin D 25-Hydroxy TSH 0.453 Free T4 1.67 H 01/12/18 01/12/18 01/12/18 05:24 05:24 07:42 Sodium Potassium Chloride Carbon Dioxide Anion Gap BUN Creatinine Estimated GFR POC Glucose 454 H* Random Glucose Hemoglobin A1c 10.5 H Lactic Acid 2.3 H Calcium Prot Corrected Calcium Phosphorus Magnesium Total Bilirubin AST ALT Alkaline Phosphatase Total Creatine Kinase CK-MB (CK-2) Troponin I B-Natriuretic Peptide Total Protein Albumin Vitamin D 25-Hydroxy TSH Free T4 01/12/18 01/12/18 01/12/18 08:15 11:30 17:50 Sodium Potassium Chloride Carbon Dioxide Anion Gap BUN Creatinine Estimated GFR POC Glucose 412 H 149 H Random Glucose Hemoglobin A1c Lactic Acid 2.1 H Calcium Prot Corrected Calcium Phosphorus Magnesium Total Bilirubin AST ALT Alkaline Phosphatase Total Creatine Kinase CK-MB (CK-2) Troponin I B-Natriuretic Peptide Total Protein Albumin Vitamin D 25-Hydroxy TSH Free T4 01/12/18 01/13/18 01/13/18 20:58 03:39 03:40 Sodium 138 Potassium 3.3 L D Chloride 102 Carbon Dioxide 27.0 Anion Gap 9 BUN 19 H Creatinine 0.94 Estimated GFR 82 L POC Glucose 98 139 H Random Glucose 129 H D Hemoglobin A1c Lactic Acid Calcium 7.1 L* Prot Corrected Calcium 8.0 L Phosphorus Magnesium Total Bilirubin 0.6 AST 30 ALT 34 Alkaline Phosphatase 73 Total Creatine Kinase CK-MB (CK-2) Troponin I B-Natriuretic Peptide Total Protein 5.4 L D Albumin 1.9 L Vitamin D 25-Hydroxy TSH Free T4 01/13/18 01/13/18 01/13/18 03:40 08:27 09:20 Sodium Potassium Chloride Carbon Dioxide Anion Gap BUN Creatinine Estimated GFR POC Glucose 150 H Random Glucose Hemoglobin A1c Lactic Acid Calcium Prot Corrected Calcium Phosphorus Magnesium Total Bilirubin AST ALT Alkaline Phosphatase Total Creatine Kinase CK-MB (CK-2) Troponin I B-Natriuretic Peptide 3191 H Total Protein Albumin Vitamin D 25-Hydroxy Less than 4.2 L TSH Free T4 01/13/18 11:56 Sodium Potassium Chloride Carbon Dioxide Anion Gap BUN Creatinine Estimated GFR POC Glucose 159 H Random Glucose Hemoglobin A1c Lactic Acid Calcium Prot Corrected Calcium Phosphorus Magnesium Total Bilirubin AST ALT Alkaline Phosphatase Total Creatine Kinase CK-MB (CK-2) Troponin I B-Natriuretic Peptide Total Protein Albumin Vitamin D 25-Hydroxy TSH Free T4 Imaging: ITS Impressions Chest X-Ray 01/11/18 17:08 CONCLUSION: 1. Right vertebral left bibasilar consolidation. 2. Small right pleural effusion. 3. Mild cardiomegaly. Ankle X-Ray 01/12/18 00:00 CONCLUSION: 1. Status post ORIF of the distal left fibula and tibia 2. Soft tissue swelling extending from the distal calf into the foot. 3. Mineralization and mild cortical erosion along the medial malleolus 4. Subtalar joint arthropathy Venous Doppler Study 01/12/18 00:00 CONCLUSION: Negative for deep venous thrombosis in the left lower extremity. Physical Exam: GENERAL: Patient is a well-nourished, well-developed male, mildly lethargic, looks chronically ill appearing, not in respiratory distress. Looks very weak SKIN: Cool and dry. No generalized rash, no ecchymoses and no evidence of embolic lesions. HEAD: Atraumatic. Normocephalic. No temporal wasting, or tenderness. EYES: [place] conjunctiva. No petechia or hemorrhage. Pupils equal, round and reactive to light. Extraocular movements full and intact. No scleral icterus. No injection or drainage. EARS, NOSE AND THROAT: Nose without bleeding or purulent nasal discharge. No sinus tenderness. Mucous membranes pink and moist. No oral lesions noted. No exudate. No oral thrush. NECK: Trachea midline. Supple and not tender, no meningeal signs. No nuchal rigidity CARDIOVASCULAR: Regular rate and rhythm. No murmurs, rubs or gallops heard. Sternotomy incision compatible with surgical history. RESPIRATORY: Clear to auscultation, but decreased at the bases. No rales, wheezing or rhonchi ABDOMEN: Soft, not distended, mild non-specific tenderness, no guarding or rebound. EXTREMITIES: Cool BLE, worse on R vicki on the L. Has chronic brownish pigmentation both legs. Has pitting edema BLE, has erythema on his LLE from below knee to L foot. and he has small wounds on his anterior leg, with some dried blood. He has scattered bullous lesions both LE, ,more on the LLE, with clear fluid and some have been unroofed with red cleann base. Has scar on his R leg, from previous injury with repair of open wound. Has scars on his L knee and L ankle from previous surgeries. Good ROM both knees and ankle. No calf tenderness R, (+) tender on L. Cool feet and hands Blood filled bliasters on LLE NEUROLOGICAL: Awake, alert Cranial nerves grossly intact. Moves all extremities. PSYCHIATRIC: cooperative. LINE: Port R upper chest, accessed, with no evidence of infection Assessment and Plan - Plan Impression GNR sepsis, source? - has cellulitis LLE, with some open wounds, seems to have chroniic venous insufficiency same side ORIF - has some basilar consolidation, ?PNA, no cough or congestion, but he is immunocompromised - ? - ?Port Multiple Myeloma, undergoing chemo Recommendation Repeat BC, one from port and one peripheral get UA and C/S Continue Zosyn - cover GNR dc Vanco - Repeat CXR tomorrow, reeval infiltrate and effusion, may need CT to eval if effusion increasing on CXR CT LLE add Levaquine
--- NOTE | 2018-01-13 18:20 | CT ---
EXAM DATE: 01/13/2018 5:54 PM EDT AGE/SEX: 62 years / Male INDICATIONS: Left lower leg infection. CLINICAL DATA: This is the patient's initial encounter. Patient reports that signs and symptoms have been present for 1 day and indicates a pain score of 8/10. MEDICAL/SURGICAL HISTORY: Cardiovascular disease. Hypertension. CABG. Left Lower leg. RADIATION DOSE: 7.29 CTDI (mGy) COMPARISON: [facility], ANKLE LIMITED LEFT 2V, 01/12/2018. . TECHNIQUE: Multiple contiguous axial images were acquired using a multirow detector CT scanner after the intravenous administration of 80 ml Omnipaque 350 (iohexol) nonionic water-soluble contrast as a single exam dose. Multiplanar reconstruction was performed in the sagittal and coronal planes. Usin g automated exposure control and adjustment of the mA and/or kV according to patient size, radiation dose was kept as low as reasonably achievable to obtain optimal diagnostic quality images. DICOM for mat image data is available electronically for review and comparison. FINDINGS: There is generalized subcutaneous edema of the left leg. A collection of subcutaneous fluid just bene ath the skin is seen posteriorly of the distal leg measuring approximately 1.5 x 4.2 x 5.8 cm. I don' t see an organized or enhancing wall to suggest that this is an abscess. Nothing organized or drainab le otherwise. No acute neurovascular abnormality demonstrated. Muscles have mild, generalized atrophy ; I don't see muscle fluid. Patient has had previous screw and plate fixation of the distal fibula, healed. Patient has had screw and plate arthrodesis of the distal tibia and the talus with solid appearing bone bridging. There is also some localized bone bridging across the distal tib-fib syndesmosis. 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 At the knee, there is thickening of the patellar tendon and distal quadriceps. Patient has had pain a nd wire fixation of the patella which appears healed. A small to moderate knee joint effusion is demo nstrated. There is trace fluid in the semimembranosus/gastrocnemius bursa. There is mild tricompartme nt osteoarthritis. CONCLUSION: 1. Generalized subcutaneous edema, nonspecific. Some organized subcutaneous fluid posteriorly of the distal leg, also nonspecific but not highly suggestive of abscess. 2. Surgical and degenerative bony joint changes as above. Patient has a solidly fused screw and plat e arthrodesis of the tibiotalar joint. No findings convincing for osteomyelitis. 3. Mild osteoarthritis and a small to moderate nonspecific joint effusion at the knee. 4. Extensor tendinosis at the knee without evidence of rupture. Healed patella fracture post pin and wire fixation. 5. Tiny popliteal cyst at the knee. Electronically signed by: Dannie Pizarro MD 01/13/2018 6:18 PM EDT
[2018-01-13] MEDS: oxyCODONE/Acetaminophen 10/325 Tablet PO PRN (20:34)
[2018-01-13] MEDS: Enoxaparin Inj 30 MG/0.3 ML Syringe SQ SCH (20:35)
[2018-01-13] MEDS: Calcium Carbonate 500 MG Tablet PO SCH (20:35)
[2018-01-14] MEDS: oxyCODONE/Acetaminophen 10/325 Tablet PO PRN ×3 (02:35→20:13)
[2018-01-14] MEDS: Insulin NovoLOG Aspart Correctional Sugar Inj SQ SCH ×5 (02:36→20:40)
[2018-01-14] MEDS: Sod Chloride 0.9% Inj 1,000 ML IV.CONT SCH ×2 (05:08→17:31)
[2018-01-14] MEDS: Piperacil/Tazo 4.5 GM Premix 4.5 GM/100 ML BAG IV.SIG SCH ×3 (05:08→17:25)
[2018-01-14 06:25] LABS: Baso % (Auto) 0.4 % (0.0-2.0); Hematocrit 26.2 % (39.0-51.0); Hemoglobin 8.6 gm/dL (13.0-17.0); Lymph # (Auto) 0.1 th/mm3 (1.0-4.8); Lymph % (Auto) 1.5 % (9.0-44.0); Mean Corpuscular HGB Conc 32.9 % (32.0-36.0); Mean Corpuscular Hemoglobin 30.7 pg (27.0-34.0); Mean Corpuscular Volume 93.3 fL (80.0-100.0); Mean Platelet Volume 9.4 fL (7.0-11.0); Mono # (Auto) 0.2 th/mm3 (0.0-0.9); Mono % (Auto) 3.8 % (0.0-8.0); Neut # (Auto) 6.2 th/mm3 (1.8-7.7); Neut % (Auto) 94.3 % (16.0-70.0); Platelet Count 54 th/mm3 (150-450); Red Cell Distribution Width 21.1 % (11.6-17.2); White Blood Count 6.6 th/mm3 (4.0-11.0)
[2018-01-14 06:36] LABS: Albumin 1.6 g/dL (3.4-5.0); Anion Gap 8 meq/L (5-15); Aspartate Aminotransferase 32 U/L (15-37); Blood Urea Nitrogen 25 mg/dL (7-18); Calcium 7.7 mg/dL (8.5-10.1); Carbon Dioxide 28.6 meq/L (21.0-32.0); Chloride 102 meq/L (98-107); Glomerular Filtration Rate 83 mL/min (>89); Glucose,Random 75 mg/dL (74-106); Potassium 3.7 meq/L (3.5-5.1); Sodium 139 meq/L (136-145)
[2018-01-14 06:37] LABS: Alanine Aminotransferase 38 U/L (12-78)
[2018-01-14 06:39] LABS: Alkaline Phosphatase 66 U/L (45-117); Total Protein 5.2 g/dL (6.4-8.2)
--- NOTE | 2018-01-14 08:11 | P.PNPOD ---
Subjective Interval history: Continues to have slow steady improvement, decreasing pain of left lower extremity Physical Exam Vital signs: Vital Signs 01/13/18 08:45 01/13/18 10:00 01/13/18 11:00 Temperature Pulse Rate 86 89 89 Respiratory Rate 16 13 Blood Pressure 115/60 Pulse Oximetry 98 01/13/18 12:00 01/13/18 12:37 01/13/18 13:00 Temperature Pulse Rate 93 H 93 H 92 H Respiratory Rate 16 20 16 Blood Pressure 117/61 112/58 L Pulse Oximetry 96 98 100 01/13/18 14:00 01/13/18 15:00 01/13/18 16:00 Temperature 98.2 F Pulse Rate 92 H 95 H 91 H Respiratory Rate 21 12 16 Blood Pressure 111/57 L 115/75 132/68 Pulse Oximetry 99 100 99 01/13/18 18:00 01/13/18 18:10 01/13/18 20:00 Temperature 98.3 F Pulse Rate 99 H 99 H 99 H Respiratory Rate 16 28 H Blood Pressure 114/66 115/64 Pulse Oximetry 98 99 01/13/18 22:00 01/14/18 00:00 01/14/18 02:00 Temperature 98.3 F Pulse Rate 99 H 82 99 H Respiratory Rate 24 Blood Pressure 118/67 Pulse Oximetry 100 01/14/18 04:00 01/14/18 06:00 Temperature 98.1 F Pulse Rate 78 78 Respiratory Rate 23 Blood Pressure 106/64 Pulse Oximetry 100 Intake & Output 01/13/18 01/14/18 01/14/18 18:59 06:59 18:59 Intake Total 1287.5 / 1287.5 1830 / 1830 Output Total 1300 / 1300 800 / 800 Balance -12.5 / -12.5 1030 / 1030 Weight 82.9 kg Intake: IV 567.5 / 567.5 1350 / 1350 NS Inj 1,000 ML @ 75 mls/hr IV. 1000 / 1000 CONT .[id number] [facility] Rx#:[id number] Calcium Chloride Inj 1 GM In 110 / 110 D5W Inj 100 ML @ 110 mls/hr IV. SIG ONCE ONE Rx#:[id number] Levaquin 750 mg Premix Inj 150 150 / 150 ML @ 100 mls/hr IV.SIG Q24H [facility] Rx#:[id number] Zosyn 4.5 GM Premix 4.5 gm In 200 / 200 200 / 200 100 ml @ 200 mls/hr IV.SIG Q6H [facility] Rx#:[id number] Vancomycin Inj 750 MG In NS Inj 257.5 / 257.5 250 ML @ 250 mls/hr IV.SIG Q12H [facility] Rx#:[id number] Oral 720 / 720 480 / 480 Output: Urine 1300 / 1300 800 / 800 Other: Date of Last Bowel Movement 01/12/18 01/13/18 # Bowel Movements 1 - Constitutional no acute distress - Neurological Alert and oriented x3 - Routine Extremities Exam Comments: Left lower extremity: Expansile bulla formation with slight collapse with clear type drainage the pretibial area outlined from yesterday there is no increase in discoloration of skin posterior ankle bulla remain intact, pedal pulses remain palpable, sensation intact. There is been rupture of the anterior lateral ball of the distal tibia with pink skin beneath, skin is less shiny less taut skin lines appear to be returning to the extremity, compared to initial consultation mild improvement noted Right lower extremity examined: Improvement of expansile bulla of distal calf pedal pulses palpable minimal tenderness noted Medications and Allergies Active Medications: Active Medications Acetaminophen (Tylenol) 650 mg PO Q4H PRN PRN Reason: TEMPERATURE > 101 F Last Admin: 01/12/18 11:51 Dose: 650 mg Al Hydroxide/Mg Hydroxide (Milk Of Magnandrey Liq) 30 ml PO Q12H PRN PRN Reason: Mild Constipation Albuterol (Duoneb Neb (Prn)) 1 ampul NEB Q2HR NEB PRN PRN Reason: SHORTNESS OF BREATH/WHEEZING Albuterol (Duoneb Neb (Leigha)) 1 ampul NEB Q6HR WHILE AWAKE NEB [facility] Last Admin: 01/13/18 21:28 Dose: Not Given Bisacodyl (Dulcolax Supp) 10 mg RECTAL DAILY PRN PRN Reason: SEVERE CONSITIPATION Dextrose (D50w Vial) 50 ml IV.PUSH UNSCH PRN PRN Reason: PER HYPOGLYCEMIA PROTOCOL Duloxetine HCl (Cymbalta) 30 mg PO HS [facility] Last Admin: 01/13/18 20:35 Dose: 30 mg Enoxaparin Sodium (Lovenox Inj) 30 mg SQ Q24H [facility] Last Admin: 01/13/18 20:35 Dose: 30 mg Furosemide (Lasix Inj) 40 mg IV.PUSH BID@0900,1800 [facility] Last Admin: 01/13/18 18:17 Dose: 40 mg Glucagon (Glucagon Inj) 1 mg OTHER PRN PRN PRN Reason: for Hypoglycemia Protocol Guaifenesin (Mucinex Er) 600 mg PO BID [facility] Last Admin: 01/13/18 20:35 Dose: 600 mg Heparin Sodium (Porcine) (Heparin Central Flush) 500 unit IV.FLUSH PRN PRN PRN Reason: Flush infusaport Heparin Sodium (Porcine) (Heparin Central Flush) 250 unit IV.FLUSH PRN PRN PRN Reason: Flush Infusapot Piperacillin/Tazobactam/Dextrose (Zosyn 4.5 Gm Premix) 4.5 gm in 100 mls @ 200 mls/hr IV.SIG Q6H [facility] Last Infusion: 01/14/18 05:38 Dose: Infused Sodium Chloride (Ns Inj) 1,000 mls @ 75 mls/hr IV.CONT .[id number] [facility] Last Admin: 01/14/18 05:08 Dose: 75 mls/hr Magnesium Sulfate Inj 4 gm/ (Sodium Chloride) 100 mls @ 50 mls/hr IV.SIG UNSCH PRN PRN Reason: For Magnesium 0.9 - 1.1 mg/dL Potassium Chloride (Kcl 40 Meq Premix Inj) 40 meq in 100 mls @ 50 mls/hr IV.SIG Q2H PRN PRN Reason: For Potassium 2.8 - 3.2 mEq/L Potassium Chloride (Kcl 40 Meq Premix Inj) 40 meq in 100 mls @ 25 mls/hr IV.SIG UNSCH PRN PRN Reason: For Potassium 3.3 - 3.5 mEq/L Potassium Chloride (Kcl 20 Meq Premix Inj) 20 meq in 100 mls @ 50 mls/hr IV.SIG Q2H PRN PRN Reason: For Potassium 2.8 - 3.2 mEq/L Potassium Phosphate 30 mmol/ (Sodium Chloride) 260 mls @ 42 mls/hr IV.SIG UNSCH PRN PRN Reason: SEE LABEL COMMENTS Sodium Phosphate 30 mmol/ (Sodium Chloride) 260 mls @ 42 mls/hr IV.SIG UNSCH PRN PRN Reason: For Phosphorus < 2.5 mg/dL Magnesium Sulfate Inj 2 gm/ (Sodium Chloride) 100 mls @ 50 mls/hr IV.SIG UNSCH PRN PRN Reason: For Magnesium 1.2 - 1.6 mg/dL Potassium Chloride (Kcl 20 Meq Premix Inj) 20 meq in 100 mls @ 50 mls/hr IV.SIG Q2H PRN PRN Reason: For Potassium 3.3 - 3.5 mEq/L Levofloxacin/Dextrose (Levaquin 750 Mg Premix Inj) 150 mls @ 100 mls/hr IV.SIG Q24H [facility] Last Infusion: 01/13/18 19:48 Dose: Infused Insulin Aspart (Novolog Insulin Correctional Sugar Inj) 0 unit SQ ACHS AND 3AM [facility]; Protocol Last Admin: 01/14/18 08:05 Dose: Not Given Insulin Detemir (Levemir Inj) 7 unit SQ BID [facility] Last Admin: 01/13/18 20:35 Dose: 7 unit Lactulose (Lactulose Liq) 30 ml PO DAILY PRN PRN Reason: SEVERE CONSITIPATION Magnesium Oxide (Mag-Ox) 800 mg PO UNSCH PRN PRN Reason: For Magnesium 1.2 - 1.6 mg/dL Methylprednisolone Sodium Succinate (Solumedrol Inj) 40 mg IV.PUSH Q12H [facility] Last Admin: 01/13/18 20:35 Dose: 40 mg Morphine Sulfate (Morphine Inj) 4 mg IV.PUSH Q3H PRN PRN Reason: PAIN 6-10;IF UNABLE TO TAKE PO Last Admin: 01/13/18 23:05 Dose: 4 mg Morphine Sulfate (Morphine Inj) 2 mg IV.PUSH Q3H PRN PRN Reason: PAIN 3-5; IF UABLE TO TAKE PO Naloxone HCl (Narcan Inj) 0.4 mg IV.PUSH UNSCH PRN PRN Reason: SEE LABEL COMMENTS Ondansetron HCl (Zofran Inj) 4 mg IV.PUSH Q6H PRN PRN Reason: NAUSEA OR VOMITING Oxycodone/Acetaminophen (Percocet 10/325 Mg) 1 tab PO Q6H PRN PRN Reason: PAIN SCALE 6 TO 10 Last Admin: 01/14/18 02:35 Dose: 1 tab Oxycodone/Acetaminophen (Percocet 5/325 Mg) 1 tab PO Q6H PRN PRN Reason: PAIN SCALE 3 TO 5 Potassium Bicarb/Potassium Chloride (K-Lyte Cl Eff) 50 meq PO UNSCH PRN PRN Reason: For Potassium 3.3 - 3.5 mEq/L Last Admin: 01/13/18 12:04 Dose: 50 meq Potassium Phosphate (K-Phos Original) 2,000 mg PO Q4H PRN PRN Reason: Phosphorus Less Than 2.5 mg/dL Potassium Phosphate (K-Phos Original) 2,000 mg PO UNSCH PRN PRN Reason: SEE LABEL COMMENTS Senna/Docusate Sodium (Kamini-Colace) 1 tab PO BID [facility] Last Admin: 01/13/18 20:35 Dose: 1 tab Sennosides (Senokot) 17.2 mg PO Q12H PRN PRN Reason: Moderate Constipation Sodium Chloride (Ns Flush) 2 ml IV.FLUSH PRN PRN PRN Reason: FLUSH AFTER USING IV ACCESS Sodium Chloride (Ns Flush) 2 ml IV.FLUSH BID [facility] Last Admin: 01/13/18 20:36 Dose: 2 ml Sodium Chloride (Ns Flush) 5 ml IV.FLUSH PRN PRN PRN Reason: Flush Infusaport Temazepam (Restoril) 15 mg PO HS PRN PRN Reason: INSOMNIA Allergies Allergy/AdvReac Type Severity Reaction Status Date / Time azithromycin Allergy Intermediate rash Verified 01/11/18 20:23 *MDRO Multi-Drug Resistant AdvReac Mild Cleared Uncoded 08/08/16 09:57 Organism 10/2015 Home Medications Medication Instructions Recorded Confirmed Type alprazolam 0.5 mg PO HS PRN 01/11/18 01/11/18 History dexamethasone 20 mg PO WEEKLY 01/11/18 01/11/18 History duloxetine [Cymbalta] 30 mg PO HS 01/11/18 01/11/18 History hydromorphone [Dilaudid] 4 mg PO Q6H PRN 01/11/18 01/11/18 History prochlorperazine maleate 10 mg PO QID PRN 01/11/18 01/11/18 History [Compazine] Results - Labs CBC & Chem 7: 01/14/18 06:00 01/14/18 06:00 Laboratory Results - last 24 hr 01/13/18 01/13/18 01/13/18 08:27 09:20 09:20 WBC RBC Hgb Hct MCV MCH MCHC RDW Plt Count MPV Prelim Diff (Auto) Neut % (Auto) Lymph % (Auto) [place] % (Auto) Eos % (Auto) Baso % (Auto) Neut # (Auto) Lymph # (Auto) [place] # (Auto) Eos # (Auto) Baso # (Auto) Differential Comment Sodium Potassium Chloride Carbon Dioxide Anion Gap BUN Creatinine Estimated GFR POC Glucose 150 H Random Glucose Calcium Total Bilirubin AST ALT Alkaline Phosphatase Total Protein Albumin Vitamin D 25-Hydroxy Less than 4.2 L Vancomycin Trough 15.9 H 01/13/18 01/13/18 01/13/18 11:56 18:00 20:23 WBC RBC Hgb Hct MCV MCH MCHC RDW Plt Count MPV Prelim Diff (Auto) Neut % (Auto) Lymph % (Auto) [place] % (Auto) Eos % (Auto) Baso % (Auto) Neut # (Auto) Lymph # (Auto) [place] # (Auto) Eos # (Auto) Baso # (Auto) Differential Comment Sodium Potassium Chloride Carbon Dioxide Anion Gap BUN Creatinine Estimated GFR POC Glucose 159 H 226 H 269 H Random Glucose Calcium Total Bilirubin AST ALT Alkaline Phosphatase Total Protein Albumin Vitamin D 25-Hydroxy Vancomycin Trough 01/14/18 01/14/18 01/14/18 02:32 06:00 06:00 WBC 6.6 RBC 2.80 L Hgb 8.6 L Hct 26.2 L MCV 93.3 MCH 30.7 MCHC 32.9 RDW 21.1 H Plt Count 54 L MPV 9.4 Prelim Diff (Auto) Slide review pending Neut % (Auto) 94.3 H Lymph % (Auto) 1.5 L [place] % (Auto) 3.8 Eos % (Auto) 0.0 Baso % (Auto) 0.4 Neut # (Auto) 6.2 Lymph # (Auto) 0.1 L [place] # (Auto) 0.2 Eos # (Auto) 0.0 Baso # (Auto) 0.0 Differential Comment . Sodium 139 Potassium 3.7 Chloride 102 Carbon Dioxide 28.6 Anion Gap 8 BUN 25 H Creatinine 0.93 Estimated GFR 83 L POC Glucose 122 H Random Glucose 75 Calcium 7.7 L Total Bilirubin 0.4 AST 32 ALT 38 Alkaline Phosphatase 66 Total Protein 5.2 L Albumin 1.6 L Vitamin D 25-Hydroxy Vancomycin Trough Microbiology 01/12/18 15:15 Wound - Leg Gram Stain - Final 01/12/18 15:15 Wound - Leg Wound Culture - Preliminary gram negative rods 01/12/18 19:00 Blood - Peripheral Aerobic Blood Culture - Preliminary No growth in 1 day 01/12/18 19:00 Blood - Peripheral Anaerobic Blood Culture - Preliminary No growth in 1 day 01/12/18 15:35 Blood - Other Aerobic Blood Culture - Preliminary No growth in 1 day 01/12/18 15:35 Blood - Other Anaerobic Blood Culture - Preliminary No growth in 1 day 01/11/18 17:15 Blood - Peripheral Aerobic Blood Culture - Preliminary gram negative rods 01/11/18 17:15 Blood - Peripheral Anaerobic Blood Culture - Preliminary gram negative rods - Imaging Impressions Lower Extremity CT 01/13/18 00:00 CONCLUSION: 1. Generalized subcutaneous edema, nonspecific. Some organized subcutaneous fluid posteriorly of the distal leg, also nonspecific but not highly suggestive of abscess. 2. Surgical and degenerative bony joint changes as above. Patient has a solidly fused screw and plate arthrodesis of the tibiotalar joint. No findings convincing for osteomyelitis. 3. Mild osteoarthritis and a small to moderate nonspecific joint effusion at the knee. 4. Extensor tendinosis at the knee without evidence of rupture. Healed patella fracture post pin and wire fixation. 5. Tiny popliteal cyst at the knee. Assessment and Plan - Assessment (1) Cellulitis of left leg Code(s): L03.116 - Cellulitis of left lower limb Status: Acute (2) Cellulitis of right leg Code(s): L03.115 - Cellulitis of right lower limb Status: Acute (3) Ulcer of right lower extremity, limited to breakdown of skin Code(s): L97.911 - Non-pressure chronic ulcer of unspecified part of right lower leg limited to breakdown of skin Status: Acute - Plan CT reviewed, it correlates with a superficial bulla which appears to be clear honey colored filled lesion. No surgery planned at this point. Recommend continue attempted elevation compressive bandaging, IV ABX and wound care daily per nursing, will follow-up 3-5 days will sign out to Dr. Calles if any new issues arise please contact us immediately
[2018-01-14 08:45] LABS: Lymphocytes 8 % (9-44); Monocytes 8 % (0-8)
[2018-01-14 08:46] LABS: Ovalocytes 1+
[2018-01-14 08:47] LABS: Acanthocytes 1+; Platelet Morphology Normal (Normal)
[2018-01-14] MEDS: MethylPREDNISolone Sod Succinate Inj 40 MG/ML Vial IV.PUSH SCH ×2 (08:56→20:12)
[2018-01-14] MEDS: guaiFENesin 600 MG ER Tablet PO SCH ×2 (08:56→20:14)
[2018-01-14] MEDS: Calcium Carbonate 500 MG Tablet PO SCH ×2 (08:56→20:14)
[2018-01-14] MEDS: Senna/Docusate Sodium 8.6/50 MG Tablet PO SCH ×2 (08:56→20:15)
[2018-01-14] MEDS: Insulin Detemir Inj 1,000 UNIT/10 ML Vial SQ SCH ×2 (08:57→20:40)
--- NOTE | 2018-01-14 14:46 | ECHRPT ---
Indication: HEART FAILURE CONCLUSIONS Mild to moderately dilated left ventricle. Mild concentric left ventricular hypertrophy. The left ventricular systolic function is severely reduced with an estimated ejection fraction in th e range of 20-25%. There is diffuse global hypokinesis. The right ventricular systoilc function is moderately decreased. The right ventricle is moderately dilated. The left atrial size is mildly dilated. Moderate mitral valve regurgitation. Aortic valve sclerosis is present. There is mild tricuspid valve regurgitation. The estimated pulmonary arterial pressure is 45.8 mmHg. Trivial pulmonary valve regurgitation. BP: / HR: Rhythm: Sinus MEASUREMENTS (Male / Female) Normal Values Technical Quality:Fair 2D ECHO LV Diastolic Diameter PLAX 6.6 cm 4.2 - 5.9 / 3.9 - 5.3 cm LV Systolic Diameter PLAX 5.9 cm IVS Diastolic Thickness 1.1 cm 0.6 - 1.0 / 0.6 - 0.9 cm LVPW Diastolic Thickness 1.1 cm 0.6 - 1.0 / 0.6 - 0.9 cm LV Relative Wall Thickness 0.3 RV Internal Dim ED PLAX 2.5 cm LVOT Diameter 2.1 cm Aortic Root Diameter 2.8 cm LA Systolic Diameter LX 4.3 cm 3.0 - 4.0 / 2.7 - 3.8 cm M-MODE AV Cusp Separation MM 2.1 cm DOPPLER AV Peak Velocity 121.0 cm/s AV Peak Gradient 5.9 mmHg AV Mean Gradient 3.0 mmHg AV Velocity Time Integral 19.3 cm LVOT Peak Velocity 47.4 cm/s LVOT Peak Gradient 0.9 mmHg LVOT Velocity Time Integral 8.4 cm AV Area Cont Eq vti 1.5 cm AV Area Cont Eq pk 1.4 cm Mitral E Point Velocity 108.0 cm/s Mitral A Point Velocity 56.8 cm/s Mitral E to A Ratio 1.9 LV E' Lateral Velocity 5.7 cm/s Mitral E to LV E' Lateral Ratio 19.1 LV E' Septal Velocity 7.0 cm/s Mitral E to LV E' Septal Ratio 15.4 TR Peak Velocity 299.0 cm/s TR Peak Gradient 35.8 mmHg Right Atrial Pressure 10.0 mmHg Pulmonary Artery Systolic Pressu 45.8 mmHg Right Ventricular Systolic Press 45.8 mmHg PV Peak Velocity 57.9 cm/s PV Peak Gradient 1.3 mmHg FINDINGS LEFT VENTRICLE Mild to moderately dilated left ventricle. Mild concentric left ventricular hypertrophy. The left ventricular systolic function is severely reduced with an estimated ejection fraction in th e range of 20-25%. There is diffuse global hypokinesis RIGHT VENTRICLE The right ventricular systoilc function is moderately decreased. The right ventricle is moderately dilated. LEFT ATRIUM The left atrial size is mildly dilated. RIGHT ATRIUM The right atrial size is normal. ATRIAL SEPTUM No atrial level shunt is demonstrated by color flow Doppler interrogation. AORTA The aortic root and proximal ascending aorta are not well visualized. MITRAL VALVE Moderate mitral valve regurgitation. AORTIC VALVE Aortic valve sclerosis is present. TRICUSPID VALVE There is mild tricuspid valve regurgitation. The estimated pulmonary arterial pressure is 45.8 mmHg. PULMONARY VALVE Trivial pulmonary valve regurgitation. VESSELS The inferior vena cava is normal in size. PERICARDIUM No pericardial effusion. Artur Abreu MD (Electronically Signed) Final Date:14 January 2018 14:44
--- NOTE | 2018-01-14 15:18 | P.PN ---
Physical Exam Vital signs: Vital Signs 01/13/18 16:00 01/13/18 18:00 01/13/18 18:10 Temperature 98.2 F Pulse Rate 91 H 99 H 99 H Respiratory Rate 16 16 Blood Pressure 132/68 114/66 Pulse Oximetry 99 98 01/13/18 20:00 01/13/18 22:00 01/14/18 00:00 Temperature 98.3 F 98.3 F Pulse Rate 99 H 99 H 82 Respiratory Rate 28 H 24 Blood Pressure 115/64 118/67 Pulse Oximetry 99 100 01/14/18 02:00 01/14/18 04:00 01/14/18 06:00 Temperature 98.1 F Pulse Rate 99 H 78 78 Respiratory Rate 23 Blood Pressure 106/64 Pulse Oximetry 100 01/14/18 08:00 01/14/18 10:00 01/14/18 10:55 Temperature 98.1 F Pulse Rate 87 90 95 H Respiratory Rate 24 24 Blood Pressure 106/65 Pulse Oximetry 99 100 01/14/18 12:00 01/14/18 14:00 Temperature 99.3 F Pulse Rate 96 H 96 H Respiratory Rate 18 Blood Pressure 137/64 Pulse Oximetry 96 Intake & Output 01/13/18 01/14/18 01/14/18 18:59 06:59 18:59 Intake Total 1287.5 / 1287.5 1830 / 1830 100 / 100 Output Total 1300 / 1300 800 / 800 Balance -12.5 / -12.5 1030 / 1030 100 / 100 Weight 82.9 kg Intake: IV 567.5 / 567.5 1350 / 1350 100 / 100 NS Inj 1,000 ML @ 75 mls/hr IV. 1000 / 1000 CONT .[id number] [facility] Rx#:[id number] Calcium Chloride Inj 1 GM In 110 / 110 D5W Inj 100 ML @ 110 mls/hr IV. SIG ONCE ONE Rx#:[id number] Levaquin 750 mg Premix Inj 150 150 / 150 ML @ 100 mls/hr IV.SIG Q24H [facility] Rx#:[id number] Zosyn 4.5 GM Premix 4.5 gm In 200 / 200 200 / 200 100 / 100 100 ml @ 200 mls/hr IV.SIG Q6H [facility] Rx#:[id number] Vancomycin Inj 750 MG In NS Inj 257.5 / 257.5 250 ML @ 250 mls/hr IV.SIG Q12H [facility] Rx#:[id number] Oral 720 / 720 480 / 480 Output: Urine 1300 / 1300 800 / 800 Other: Date of Last Bowel Movement 01/12/18 01/13/18 01/13/18 # Bowel Movements 1 Narrative: Subjective In bed still with severe pain in his right leg, erythema and edema, blisters improving a little bit. Patient with chills no fevers overnight. Feels very tired less lethargic today. Family is bedside with multiple questions all questions answered to the best of my ability. No n/v/d/c. Physical exam GENERAL: Cachectic male, in bed appears ill. SKIN: Bilateral legs erythematous and edematous, left leg with 2 blisters/ wounds, painful to touch. HEAD: Normocephalic. EYES: No scleral icterus. No injection or drainage. NECK: Supple, trachea midline. CARDIOVASCULAR: Tachycardic. Regular rate and rhythm without murmurs, gallops, or rubs. RESPIRATORY: Breath sounds equal bilaterally. No accessory muscle use. GASTROINTESTINAL: Abdomen soft, non-tender, nondistended. MUSCULOSKELETAL: No cyanosis, or edema. BACK: Nontender without obvious deformity. No CVA tenderness. Assessment and plan Mr. Rios is a 62 y/o male with a history of multiple myeloma s/p chemo on (Dr. Smith is oncologist), CHF (EF 20 - 25% 2015), CAD s/p CABG and aortic valve replacement, diabetes mellitus, diabetic neuropathy, hyperlipidemia , hypertension, and amyloidosis who presented to the ER on 01/11 upon recommendation by his PCP Dr. Palm for 1 week history of progressively worsening SOB and lower extremity edema. The patient was found to have pneumonia, sepsis, and a small pleural effusion and was admitted to the hospitalist service for medical management. Severe Sepsis on admission with leukocytosis, fevers, tachycardia, elevated acidosis, source PNA, left leg cellulitis/wound, bacteremia), now lethargic. -Lactic Acid 3.8 on admission, trending down to normal -Antibiotics: IV Vancomycin and Zosyn -DC IVF - due to CHF - XRay foot reviewed. US doppler shows no DVT -monitor temperature - recheck showed temp 102.4 - PRN tylenol for fever - with bacteremia, repeat BC , consult ID appreciate recommendations - consult wound care, cultures obtained from the leg wounds - Consult podiatry as patient with severe leg pain and edema, wound is not improving. Plan for CT right leg discussed with Dr Dale podiatry - consult palliative care for goals of care - on lasix Pneumonia - IV antibiotics as above - Duonebs - supplemental oxygen as needed to maintain oxygen saturation > 92% Hypokalemia, hypocalcemia Replace Ca by IV and PO, Replace K . Electrolytes per ICU protocol. Monitor and replace lytes as need. CHF - last echo (2015) in system shows EF 20 - 25% - will check echocardiogram - Lasix 40 mg IV BID - monitor closely - requiring IVF for sepsis management - at high risk for deterioration - patient transfer to ICU - BNP 2362 - Monitor kidney function -Monitor lites Multiple Myeloma - last chemo 01/10 - consult Dr. Smith, oncology - appreciate assistance - monitor CBC Elevated BS, accuchecks, ISS- low, Add levemir, monitor BS and adjust insulin as need. diabetic diet. Check A1c. DVT prophylaxis - Lovenox SQ Consult palliative care for goals of care Discussed with the patient, nurse, Dr Dale podiatry Transfer out of ICU patient is improving. Results - Labs CBC & Chem 7: 01/14/18 06:00 01/14/18 06:00 Laboratory Results - last 24 hr 01/13/18 01/13/18 01/14/18 18:00 20:23 02:32 WBC RBC Hgb Hct MCV MCH MCHC RDW Plt Count MPV Prelim Diff (Auto) Neut % (Auto) Lymph % (Auto) [place] % (Auto) Eos % (Auto) Baso % (Auto) Neut # (Auto) Lymph # (Auto) [place] # (Auto) Eos # (Auto) Baso # (Auto) WBC Differential Seg Neuts % (Manual) Band Neuts % (Manual) Lymphocytes % (Manual) Monocytes % (Manual) Abs Neuts (Manual) Differential Comment Platelet Estimate Platelet Morphology Ovalocytes Acanthocytes (Spur) Sodium Potassium Chloride Carbon Dioxide Anion Gap BUN Creatinine Estimated GFR POC Glucose 226 H 269 H 122 H Random Glucose Calcium Total Bilirubin AST ALT Alkaline Phosphatase Total Protein Albumin 01/14/18 01/14/18 01/14/18 06:00 06:00 08:04 WBC 6.6 RBC 2.80 L Hgb 8.6 L Hct 26.2 L MCV 93.3 MCH 30.7 MCHC 32.9 RDW 21.1 H Plt Count 54 L MPV 9.4 Prelim Diff (Auto) Slide review pending Neut % (Auto) 94.3 H Lymph % (Auto) 1.5 L [place] % (Auto) 3.8 Eos % (Auto) 0.0 Baso % (Auto) 0.4 Neut # (Auto) 6.2 Lymph # (Auto) 0.1 L [place] # (Auto) 0.2 Eos # (Auto) 0.0 Baso # (Auto) 0.0 WBC Differential Manual diff final Seg Neuts % (Manual) 65 Band Neuts % (Manual) 19 H Lymphocytes % (Manual) 8 L Monocytes % (Manual) 8 Abs Neuts (Manual) 5.5 Differential Comment . Platelet Estimate Low L Platelet Morphology Normal Ovalocytes 1+ H Acanthocytes (Spur) 1+ H Sodium 139 Potassium 3.7 Chloride 102 Carbon Dioxide 28.6 Anion Gap 8 BUN 25 H Creatinine 0.93 Estimated GFR 83 L POC Glucose 90 Random Glucose 75 Calcium 7.7 L Total Bilirubin 0.4 AST 32 ALT 38 Alkaline Phosphatase 66 Total Protein 5.2 L Albumin 1.6 L 01/14/18 13:22 WBC RBC Hgb Hct MCV MCH MCHC RDW Plt Count MPV Prelim Diff (Auto) Neut % (Auto) Lymph % (Auto) [place] % (Auto) Eos % (Auto) Baso % (Auto) Neut # (Auto) Lymph # (Auto) [place] # (Auto) Eos # (Auto) Baso # (Auto) WBC Differential Seg Neuts % (Manual) Band Neuts % (Manual) Lymphocytes % (Manual) Monocytes % (Manual) Abs Neuts (Manual) Differential Comment Platelet Estimate Platelet Morphology Ovalocytes Acanthocytes (Spur) Sodium Potassium Chloride Carbon Dioxide Anion Gap BUN Creatinine Estimated GFR POC Glucose 156 H Random Glucose Calcium Total Bilirubin AST ALT Alkaline Phosphatase Total Protein Albumin Microbiology 01/11/18 17:15 Blood - Peripheral Aerobic Blood Culture - Preliminary gram negative rods 01/11/18 17:15 Blood - Peripheral Anaerobic Blood Culture - Preliminary gram negative rods 01/12/18 15:15 Wound - Leg Gram Stain - Final 01/12/18 15:15 Wound - Leg Wound Culture - Preliminary gram negative rods Group D Enterococcus 01/12/18 19:00 Blood - Peripheral Aerobic Blood Culture - Preliminary No growth in 2 days 01/12/18 19:00 Blood - Peripheral Anaerobic Blood Culture - Preliminary No growth in 2 days 01/12/18 15:35 Blood - Other Aerobic Blood Culture - Preliminary No growth in 2 days 01/12/18 15:35 Blood - Other Anaerobic Blood Culture - Preliminary No growth in 2 days - Imaging Impressions Lower Extremity CT 01/13/18 00:00 CONCLUSION: 1. Generalized subcutaneous edema, nonspecific. Some organized subcutaneous fluid posteriorly of the distal leg, also nonspecific but not highly suggestive of abscess. 2. Surgical and degenerative bony joint changes as above. Patient has a solidly fused screw and plate arthrodesis of the tibiotalar joint. No findings convincing for osteomyelitis. 3. Mild osteoarthritis and a small to moderate nonspecific joint effusion at the knee. 4. Extensor tendinosis at the knee without evidence of rupture. Healed patella fracture post pin and wire fixation. 5. Tiny popliteal cyst at the knee.
[2018-01-15] MEDS: Piperacil/Tazo 4.5 GM Premix 4.5 GM/100 ML BAG IV.SIG SCH ×4 (00:27→17:52)
[2018-01-15] MEDS: oxyCODONE/Acetaminophen 10/325 Tablet PO PRN ×3 (02:38→17:53)
[2018-01-15] MEDS: Insulin NovoLOG Aspart Correctional Sugar Inj SQ SCH ×5 (04:10→20:12)
[2018-01-15 06:00] LABS: Baso # (Auto) 0.1 th/mm3 (0.0-0.2); Baso % (Auto) 0.9 % (0.0-2.0); Eos % (Auto) 0.1 % (0.0-4.0); Hematocrit 26.8 % (39.0-51.0); Hemoglobin 8.8 gm/dL (13.0-17.0); Lymph # (Auto) 0.1 th/mm3 (1.0-4.8); Lymph % (Auto) 0.8 % (9.0-44.0); Mean Corpuscular HGB Conc 32.6 % (32.0-36.0); Mean Corpuscular Hemoglobin 30.6 pg (27.0-34.0); Mean Corpuscular Volume 93.8 fL (80.0-100.0); Mean Platelet Volume 10.2 fL (7.0-11.0); Mono # (Auto) 0.3 th/mm3 (0.0-0.9); Mono % (Auto) 3.5 % (0.0-8.0); Neut # (Auto) 7.2 th/mm3 (1.8-7.7); Neut % (Auto) 94.7 % (16.0-70.0); Platelet Count 56 th/mm3 (150-450); Red Blood Count 2.86 mil/mm3 (4.50-5.90); Red Cell Distribution Width 20.7 % (11.6-17.2); White Blood Count 7.6 th/mm3 (4.0-11.0)
[2018-01-15] MEDS: Enoxaparin Inj 30 MG/0.3 ML Syringe SQ SCH ×2 (06:24→20:44)
[2018-01-15 06:25] LABS: Calcium 7.8 mg/dL (8.5-10.1); Carbon Dioxide 28.9 meq/L (21.0-32.0); Potassium 3.1 meq/L (3.5-5.1)
[2018-01-15 07:48] LABS: Monocytes 3 % (0-8)
[2018-01-15 07:49] LABS: Burr Cells 1+; Ovalocytes 1+; Platelet Morphology Normal (Normal); Tear Drop Cells 1+
[2018-01-15] MEDS: Senna/Docusate Sodium 8.6/50 MG Tablet PO SCH ×2 (09:06→20:41)
[2018-01-15] MEDS: Calcium Carbonate 500 MG Tablet PO SCH ×2 (09:08→20:41)
[2018-01-15] MEDS: guaiFENesin 600 MG ER Tablet PO SCH ×2 (09:08→20:41)
[2018-01-15] MEDS: MethylPREDNISolone Sod Succinate Inj 40 MG/ML Vial IV.PUSH SCH ×2 (09:09→20:41)
[2018-01-15] MEDS: Insulin Detemir Inj 1,000 UNIT/10 ML Vial SQ SCH ×2 (09:09→20:42)
--- NOTE | 2018-01-15 09:50 | XR ---
EXAM DATE: 01/15/2018 9:46 AM EDT AGE/SEX: 62 years / Male INDICATIONS: . Short of breath. CLINICAL DATA: This is the patient's initial encounter. Patient reports that signs and symptoms have been present for 4 - 6 days and indicates a pain score of 0/10. MEDICAL/SURGICAL HISTORY: . multiple myeloma, COPD . bypass and aorta surgery for the heart. COMPARISON: C, CHEST 1V SINGLE AP, 01/11/2018. . FINDINGS: [id number] in good position. The heart is enlarged with mild hyperinflation. Moderate bibasilar pa renchymal changes are noted worse on the right than the left. Heart is enlarged with sternal wires fr om previous biopsy. CONCLUSION: Minimal improvement with less parenchymal changes in the right lung. Electronically signed by: Ramone Caremn MD 01/15/2018 9:49 AM EDT
--- NOTE | 2018-01-15 10:21 | P.PNID ---
Subjective Remarks: Patient is a 62-year-old male, with known multiple myeloma, has been receiving chemotherapy over the last 2 years, received chemo about 2 days prior to admission, presented to the hospital for further evaluation of shortness of breath and lower extremity edema. Patient stated he started not feeling good about a week prior to admission. He is not a very good historian. He has had some shortness of breath which has been intermittent, and has noted increased swelling of both lower extremity. He denies any significant cough or congestion. Denies any chest pain. He also complains of some abdominal pain, but no nausea, vomiting, diarrhea or constipation. He denies any dysuria or any urinary complaints. Patient stated he has chronic pigmentation of both lower extremity, but has noted increased swelling of his left lower extremity. He has erythema on the left leg, but he cannot tell me when that started, and the sister stated that it was not there before. He has had some wounds on his left leg over the last 2 weeks, but has not really had any evaluation for that. He denies any trauma, or any injury recently where he would have gotten the wounds. Patient has had prior history of fracture in his left lower extremity about 15 years ago, and had surgery on his left knee, as well as his left ankle. Patient also is a little bit lethargic today. Patient stated that he was not lethargic at home, and also he has been doing ambulation at home normally. Patient also has an [id number] which apparently has been placed about 3 years ago. Since admission he has had a temperature spike of up to 102. His WBC is normal. LFTs are okay. His chest x-ray showing some basilar consolidation more on the right than on the left. No urinalysis has been done. 2 blood cultures now reported as growing gram-negative yandel. Infectious disease consultation has been requested to evaluate the patient with gram-negative yandel in the blood culture. Notes reviewed Temps ok Still with pain BLE, worse on L Ct no osteo BC with possible Aeromonas, sent out Repeat BC negative Wound C/S GNR and Enterococcus Antibiotics: Zosyn Levaquin Lines: Port Past Medical History: Amyloidosis Arthritis CAD (coronary artery disease) CHF (congestive heart failure) Chest pain Diabetes mellitus Diabetic neuropathy HLD (hyperlipidemia) HTN (hypertension) Irregular heart beat Multiple myeloma Myocardial infarct Aortic valve replaced H/O left knee surgery Hx of CABG Status post surgical manipulation of ankle joint Allergies/Adverse Reactions: Allergies azithromycin Allergy (Intermediate, Verified 01/11/18 20:23) rash *MDRO Multi-Drug Resistant Organism Adverse Reaction (Mild, Uncoded 08/08/16 09: 57) Cleared 10/2015 MRSA (foot abscess) - 12/2009 MRSA PCR Screen NEGATIVE - 10/26 and 10/29/2015* * CLEARED PER INFECTION CONTROL Objective Vital Signs 01/14/18 10:55 01/14/18 12:00 01/14/18 14:00 Temperature 99.3 F Pulse Rate 95 H 96 H 96 H Respiratory Rate 24 18 Blood Pressure 137/64 Pulse Oximetry 100 96 01/14/18 16:00 01/14/18 16:53 01/14/18 18:00 Temperature 98.4 F Pulse Rate 96 H 95 H 93 H Respiratory Rate 22 21 Blood Pressure 127/62 Pulse Oximetry 98 01/14/18 20:00 01/14/18 21:50 01/14/18 22:11 Temperature 98.7 F 98.7 F Pulse Rate 96 H 93 H 91 H Respiratory Rate 25 H 20 18 Blood Pressure 129/64 118/69 Pulse Oximetry 100 100 98 01/15/18 00:00 01/15/18 04:00 01/15/18 04:10 Temperature 98.4 F 97.7 F Pulse Rate 88 96 H Respiratory Rate 18 18 20 Blood Pressure 133/83 140/74 Pulse Oximetry 100 99 01/15/18 08:00 01/15/18 08:51 Temperature 98.1 F Pulse Rate 70 70 Respiratory Rate 20 15 Blood Pressure 140/80 Pulse Oximetry 96 96 Intake & Output 01/14/18 01/15/18 01/15/18 18:59 06:59 18:59 Intake Total 1680 / 1680 830 / 830 Output Total 1500 / 1500 1500 / 1500 Balance 180 / 180 -670 / -670 Weight 78.7 kg Intake: IV 1200 / 1200 350 / 350 NS Inj 1,000 ML @ 75 mls/hr IV. 1000 / 1000 CONT .[id number] [facility] Rx#:[id number] Levaquin 750 mg Premix Inj 150 150 / 150 ML @ 100 mls/hr IV.SIG Q24H [facility] Rx#:[id number] Zosyn 4.5 GM Premix 4.5 gm In 200 / 200 200 / 200 100 ml @ 200 mls/hr IV.SIG Q6H [facility] Rx#:[id number] Oral 480 / 480 480 / 480 Output: Urine 1500 / 1500 1500 / 1500 Other: Date of Last Bowel Movement 01/14/18 01/14/18 # Bowel Movements 1 # Incontinent Bowel Movements 1 01/11/18 17:20 Blood - Peripheral Aerobic Blood Culture - Final 01/11/18 17:20 Blood - Peripheral Anaerobic Blood Culture - Final 01/11/18 17:15 Blood - Peripheral Aerobic Blood Culture - Preliminary Aeromonas species 01/11/18 17:15 Blood - Peripheral Anaerobic Blood Culture - Preliminary gram negative rods 01/12/18 15:15 Wound - Leg Gram Stain - Final 01/12/18 15:15 Wound - Leg Wound Culture - Preliminary gram negative rods Group D Enterococcus 01/12/18 19:00 Blood - Peripheral Aerobic Blood Culture - Preliminary No growth in 2 days 01/12/18 19:00 Blood - Peripheral Anaerobic Blood Culture - Preliminary No growth in 2 days 01/12/18 15:35 Blood - Other Aerobic Blood Culture - Preliminary No growth in 2 days 01/12/18 15:35 Blood - Other Anaerobic Blood Culture - Preliminary No growth in 2 days Lab - Hematology Results 01/14/18 01/15/18 06:00 05:37 WBC 6.6 7.6 RBC 2.80 L 2.86 L Hgb 8.6 L 8.8 L Hct 26.2 L 26.8 L MCV 93.3 93.8 MCH 30.7 30.6 MCHC 32.9 32.6 RDW 21.1 H 20.7 H Plt Count 54 L 56 L MPV 9.4 10.2 Prelim Diff (Auto) Slide review pending Slide review pending Neut % (Auto) 94.3 H 94.7 H Lymph % (Auto) 1.5 L 0.8 L [place] % (Auto) 3.8 3.5 Eos % (Auto) 0.0 0.1 Baso % (Auto) 0.4 0.9 Neut # (Auto) 6.2 7.2 Lymph # (Auto) 0.1 L 0.1 L [place] # (Auto) 0.2 0.3 Eos # (Auto) 0.0 0.0 Baso # (Auto) 0.0 0.1 WBC Differential Manual diff final Manual diff final Seg Neuts % (Manual) 65 91 H Band Neuts % (Manual) 19 H 6 Lymphocytes % (Manual) 8 L Monocytes % (Manual) 8 3 Abs Neuts (Manual) 5.5 7.4 Differential Comment . . Platelet Estimate Low L Low L Platelet Morphology Normal Normal Tear Drop Cells 1+ H Ovalocytes 1+ H 1+ H Millie Cells 1+ H Acanthocytes (Spur) 1+ H Lab - Chemistry Results 01/13/18 01/13/18 01/13/18 09:20 11:56 18:00 Sodium Potassium Chloride Carbon Dioxide Anion Gap BUN Creatinine Estimated GFR POC Glucose 159 H 226 H Random Glucose Calcium Magnesium Total Bilirubin AST ALT Alkaline Phosphatase Total Protein Albumin Vitamin D 25-Hydroxy Less than 4.2 L 01/13/18 01/14/18 01/14/18 20:23 02:32 06:00 Sodium 139 Potassium 3.7 Chloride 102 Carbon Dioxide 28.6 Anion Gap 8 BUN 25 H Creatinine 0.93 Estimated GFR 83 L POC Glucose 269 H 122 H Random Glucose 75 Calcium 7.7 L Magnesium Total Bilirubin 0.4 AST 32 ALT 38 Alkaline Phosphatase 66 Total Protein 5.2 L Albumin 1.6 L Vitamin D 25-Hydroxy 01/14/18 01/14/18 01/14/18 08:04 13:22 17:22 Sodium Potassium Chloride Carbon Dioxide Anion Gap BUN Creatinine Estimated GFR POC Glucose 90 156 H 211 H Random Glucose Calcium Magnesium Total Bilirubin AST ALT Alkaline Phosphatase Total Protein Albumin Vitamin D 25-Hydroxy 01/14/18 01/15/18 01/15/18 20:30 02:41 05:37 Sodium 138 Potassium 3.1 L Chloride 99 Carbon Dioxide 28.9 Anion Gap 10 BUN 29 H Creatinine 0.95 Estimated GFR 81 L POC Glucose 235 H 141 H Random Glucose 127 H Calcium 7.8 L Magnesium Total Bilirubin AST ALT Alkaline Phosphatase Total Protein Albumin Vitamin D 25-Hydroxy 01/15/18 01/15/18 05:37 07:17 Sodium Potassium Chloride Carbon Dioxide Anion Gap BUN Creatinine Estimated GFR POC Glucose 155 H Random Glucose Calcium Magnesium 1.6 Total Bilirubin AST ALT Alkaline Phosphatase Total Protein Albumin Vitamin D 25-Hydroxy Imaging: ITS Impressions Ankle X-Ray 01/12/18 00:00 CONCLUSION: 1. Status post ORIF of the distal left fibula and tibia 2. Soft tissue swelling extending from the distal calf into the foot. 3. Mineralization and mild cortical erosion along the medial malleolus 4. Subtalar joint arthropathy Venous Doppler Study 01/12/18 00:00 CONCLUSION: Negative for deep venous thrombosis in the left lower extremity. Lower Extremity CT 01/13/18 00:00 CONCLUSION: 1. Generalized subcutaneous edema, nonspecific. Some organized subcutaneous fluid posteriorly of the distal leg, also nonspecific but not highly suggestive of abscess. 2. Surgical and degenerative bony joint changes as above. Patient has a solidly fused screw and plate arthrodesis of the tibiotalar joint. No findings convincing for osteomyelitis. 3. Mild osteoarthritis and a small to moderate nonspecific joint effusion at the knee. 4. Extensor tendinosis at the knee without evidence of rupture. Healed patella fracture post pin and wire fixation. 5. Tiny popliteal cyst at the knee. Chest X-Ray 01/15/18 00:00 CONCLUSION: Minimal improvement with less parenchymal changes in the right lung. Physical Exam: GENERAL: awake and alert, looks chronically ill appearing, not in respiratory distress. Looks very weak SKIN: Cool and dry. No generalized rash, no ecchymoses and no evidence of embolic lesions. HEAD: Atraumatic. Normocephalic. No temporal wasting, or tenderness. EYES: [place] conjunctiva. No petechia or hemorrhage. Pupils equal, round and reactive to light. Extraocular movements full and intact. No scleral icterus. No injection or drainage. EARS, NOSE AND THROAT: Nose without bleeding or purulent nasal discharge. Mucous membranes pink and moist. No oral lesions noted. NECK: Trachea midline. Supple and not tender, no meningeal signs. No nuchal rigidity CARDIOVASCULAR: Regular rate and rhythm. No murmurs, rubs or gallops heard. Sternotomy incision compatible with surgical history. RESPIRATORY: Clear to auscultation, but decreased at the bases. No rales, wheezing or rhonchi ABDOMEN: Soft, not distended, mild non-specific tenderness, no guarding or rebound. EXTREMITIES: Cool BLE, worse on R than on the L. Has chronic brownish pigmentation both legs. Has improving pitting edema BLE. Erythema LLE looks better. Has large bulla L ankle, aspirated and it has clear serous fluid, will be sent for G/C C/S. Cool feet and hands Blood filled blisters on LLE NEUROLOGICAL: Awake, alert Cranial nerves grossly intact. Moves all extremities. PSYCHIATRIC: cooperative. LINE: Port R upper chest, accessed, with no evidence of infection Assessment and Plan - Plan Impression GNR sepsis, source? Possible Aeromonas - has cellulitis LLE, with some open wounds, seems to have chroniic venous insufficiency same side ORIF - has some basilar consolidation, ?PNA, no cough or congestion, but he is immunocompromised - ? - ?Port Multiple Myeloma, undergoing chemo Recommendation Follow C/S Continue Zosyn - cover GNR Also on Levaquin Monitor progress I aspirated large bulla, and will send for G/S C/S Explained plan to the patient D/W RN
[2018-01-15] MEDS: Sod Chloride 0.9% Inj 1,000 ML IV.CONT SCH ×2 (12:48→20:43)
--- NOTE | 2018-01-15 12:54 | P.PN ---
Subjective Interval history: Nursing denies any deterioration since last night. Patient himself says he feels better since admission. Legs are still painful. Says he does not wear oxygen at home. Physical Exam Vital signs: Vital Signs 01/14/18 14:00 01/14/18 16:00 01/14/18 16:53 Temperature 98.4 F Pulse Rate 96 H 96 H 95 H Respiratory Rate 22 21 Blood Pressure 127/62 Pulse Oximetry 98 01/14/18 18:00 01/14/18 20:00 01/14/18 21:50 Temperature 98.7 F 98.7 F Pulse Rate 93 H 96 H 93 H Respiratory Rate 25 H 20 Blood Pressure 129/64 118/69 Pulse Oximetry 100 100 01/14/18 22:11 01/15/18 00:00 01/15/18 04:00 Temperature 98.4 F 97.7 F Pulse Rate 91 H 88 96 H Respiratory Rate 18 18 18 Blood Pressure 133/83 140/74 Pulse Oximetry 98 100 99 01/15/18 04:10 01/15/18 08:00 01/15/18 08:51 Temperature 98.1 F Pulse Rate 91 H 70 Respiratory Rate 20 20 15 Blood Pressure 140/80 Pulse Oximetry 96 96 01/15/18 12:00 Temperature 98.8 F Pulse Rate 101 H Respiratory Rate 18 Blood Pressure 140/64 Pulse Oximetry 100 Intake & Output 01/14/18 01/15/18 01/15/18 18:59 06:59 18:59 Intake Total 1680 / 1680 1830 / 1830 Output Total 1500 / 1500 1500 / 1500 Balance 180 / 180 330 / 330 Weight 78.7 kg Intake: IV 1200 / 1200 1350 / 1350 NS Inj 1,000 ML @ 75 mls/hr IV. 1000 / 1000 1000 / 1000 CONT .[id number] [facility] Rx#:[id number] Levaquin 750 mg Premix Inj 150 150 / 150 ML @ 100 mls/hr IV.SIG Q24H [facility] Rx#:[id number] Zosyn 4.5 GM Premix 4.5 gm In 200 / 200 200 / 200 100 ml @ 200 mls/hr IV.SIG Q6H [facility] Rx#:[id number] Oral 480 / 480 480 / 480 Output: Urine 1500 / 1500 1500 / 1500 Other: Date of Last Bowel Movement 01/14/18 01/14/1801/14/18 # Bowel Movements 1 # Incontinent Bowel Movements 1 Narrative: Bullae on bilateral feet, has wounds on bilateral lower extremities with associated findings suggestive of chronic venous insufficiency unlabored breathing, on nasal cannula Results - Labs CBC & Chem 7: 01/15/18 05:37 01/15/18 05:37 Laboratory Results - last 24 hr 01/14/18 01/14/18 01/14/18 13:22 17:22 20:30 WBC RBC Hgb Hct MCV MCH MCHC RDW Plt Count MPV Prelim Diff (Auto) Neut % (Auto) Lymph % (Auto) [place] % (Auto) Eos % (Auto) Baso % (Auto) Neut # (Auto) Lymph # (Auto) [place] # (Auto) Eos # (Auto) Baso # (Auto) WBC Differential Seg Neuts % (Manual) Band Neuts % (Manual) Monocytes % (Manual) Abs Neuts (Manual) Differential Comment Platelet Estimate Platelet Morphology Tear Drop Cells Ovalocytes Millie Cells Sodium Potassium Chloride Carbon Dioxide Anion Gap BUN Creatinine Estimated GFR POC Glucose 156 H 211 H 235 H Random Glucose Calcium Magnesium 01/15/18 01/15/18 01/15/18 02:41 05:37 05:37 WBC 7.6 RBC 2.86 L Hgb 8.8 L Hct 26.8 L MCV 93.8 MCH 30.6 MCHC 32.6 RDW 20.7 H Plt Count 56 L MPV 10.2 Prelim Diff (Auto) Slide review pending Neut % (Auto) 94.7 H Lymph % (Auto) 0.8 L [place] % (Auto) 3.5 Eos % (Auto) 0.1 Baso % (Auto) 0.9 Neut # (Auto) 7.2 Lymph # (Auto) 0.1 L [place] # (Auto) 0.3 Eos # (Auto) 0.0 Baso # (Auto) 0.1 WBC Differential Manual diff final Seg Neuts % (Manual) 91 H Band Neuts % (Manual) 6 Monocytes % (Manual) 3 Abs Neuts (Manual) 7.4 Differential Comment . Platelet Estimate Low L Platelet Morphology Normal Tear Drop Cells 1+ H Ovalocytes 1+ H Millie Cells 1+ H Sodium 138 Potassium 3.1 L Chloride 99 Carbon Dioxide 28.9 Anion Gap 10 BUN 29 H Creatinine 0.95 Estimated GFR 81 L POC Glucose 141 H Random Glucose 127 H Calcium 7.8 L Magnesium 01/15/18 01/15/18 01/15/18 05:37 07:17 12:04 WBC RBC Hgb Hct MCV MCH MCHC RDW Plt Count MPV Prelim Diff (Auto) Neut % (Auto) Lymph % (Auto) [place] % (Auto) Eos % (Auto) Baso % (Auto) Neut # (Auto) Lymph # (Auto) [place] # (Auto) Eos # (Auto) Baso # (Auto) WBC Differential Seg Neuts % (Manual) Band Neuts % (Manual) Monocytes % (Manual) Abs Neuts (Manual) Differential Comment Platelet Estimate Platelet Morphology Tear Drop Cells Ovalocytes Millie Cells Sodium Potassium Chloride Carbon Dioxide Anion Gap BUN Creatinine Estimated GFR POC Glucose 155 H 181 H Random Glucose Calcium Magnesium 1.6 Microbiology 01/12/18 15:15 Wound - Leg Gram Stain - Final 01/12/18 15:15 Wound - Leg Wound Culture - Preliminary Citrobacter freundii Aeromonas species Group D Enterococcus 01/12/18 19:00 Blood - Peripheral Aerobic Blood Culture - Preliminary No growth in 3 days 01/12/18 19:00 Blood - Peripheral Anaerobic Blood Culture - Preliminary No growth in 3 days 01/12/18 15:35 Blood - Other Aerobic Blood Culture - Preliminary No growth in 3 days 01/12/18 15:35 Blood - Other Anaerobic Blood Culture - Preliminary No growth in 3 days 01/11/18 17:20 Blood - Peripheral Aerobic Blood Culture - Final 01/11/18 17:20 Blood - Peripheral Anaerobic Blood Culture - Final 01/11/18 17:15 Blood - Peripheral Aerobic Blood Culture - Preliminary Aeromonas species 01/11/18 17:15 Blood - Peripheral Anaerobic Blood Culture - Preliminary gram negative rods - Imaging Impressions Chest X-Ray 01/15/18 00:00 CONCLUSION: Minimal improvement with less parenchymal changes in the right lung. Assessment and Plan - Plan Mr. Rios is a 62 y/o male with a history of multiple myeloma s/p chemo on (Dr. Smith is oncologist), CHF (EF 20 - 25% 2015), CAD s/p CABG and aortic valve replacement, diabetes mellitus, diabetic neuropathy, hyperlipidemia , hypertension, and amyloidosis who presented to the ER on 01/11 upon recommendation by his PCP Dr. Palm for 1 week history of progressively worsening SOB and lower extremity edema. The patient was found to have pneumonia, sepsis, and a small pleural effusion and was admitted to the hospitalist service for medical management. Bacteremia suspected 2/2 cellulitis - Zosyn and levaquin, ID following, repeat cultures negative - wound care following, cultures obtained from the leg wounds - Consult podiatry as patient with severe leg pain and edema, wound is not improving. Plan for CT right leg discussed with Dr Dale podiatry - consult palliative care for goals of care Pneumonia - IV antibiotics as above - [place] sCHF - maintains low EF ~ 20-25% - Lasix 40 mg IV BID - BNP 2362 Multiple Myeloma - last chemo 01/10 - consult Dr. Smith, oncology - appreciate assistance - monitor CBC Elevated BS, accuchecks, ISS- low, Add levemir, monitor BS and adjust insulin as need. diabetic diet. Check A1c. DVT prophylaxis - Lovenox SQ
--- NOTE | 2018-01-15 13:19 | P.CONPAL ---
Consult Service: Palliative Care Requesting Physician: Vida Menezes Reason for Consult: a. To assist with evaluation and management of symptoms including:pain, shortness of breath b. To assist medical decision maker(s) with: better understanding of current medical conditions; weighing benefits/burdens of medical treatment options; making medical treatment decisions. Primary Care Provider: Taiwo Palm MD History of Present Illness History of Present Illness: Mr. Rios is a 62-year-old male with a past medical history of multiple myeloma who has been undergoing chemotherapy in the past 2 years and had chemotherapy on 01/10/18, CHF with an estimated ejection fraction of 20-25% in 2016, CAD status post CABG and aortic valve replacement, hypertension, diabetes mellitus, diabetic neuropathy, hyperlipidemia, and amyloidosis. Patient was advised by his primary care physician to go to the ER due to progressively worsening shortness of breath and lower extremity edema. He presented to the ER on for further evaluation of congestion, shortness of breath and bilateral lower extremity edema. Patient was diagnosed with multiple myeloma in December 2013. His oncologist is Dr. Smith. Patient was treated initially with Ciprodex regimen of which he responded well to treatment and was in remission after 3 treatment cycles. He was then initiated on Velcade which was stopped in 2014. Patient had relapse in June, and was restarted again on Velcade. Patient developed CHF and had complications. He was treated again with Cybordex and was noted to have amyloidosis. Patient was evaluated for stem cell transplant at [facility]. Patient denied fever, chills or sweats in the ER. ER course: * Vital signs: Temperature 97.9F, pulse 97, respirations 20, BP 115/56, O2 saturation 97%. * Laboratory workup revealed WBC 9.7, hemoglobin 9.9, hematocrit 30.9, platelet count 141, PT 12.7, INR 1.3, sodium 139, potassium 3.2, BUN/creatinine 8/0.089, random glucose 332, lactic acid 3.8, calcium 7.4, AST 9, ALT 18, CK-MB 1.2, troponin less than 0.02, total protein 6.4,albumin 2.5. * EKG showing sinus tachycardia * Chest x-ray revealing right vertebral bibasilar consolidation, small right pleural effusion and mild cardiomegaly. * Blood cultures collected, growing Aeromonas species in aerobic blood culture and gram-negative rods in anaerobic blood culture. * Patient admitted for further medical management of pneumonia, sepsis through [facility]. Ultrasound venous Doppler to edematous and painful left lower extremity on was negative for deep venous thrombosis. Patient has also been febrile with maximum temperature of 102F. Infectious disease Dr. Rothman consulted on 03/22 for evaluation and management of patient with bacteremia (gram-negative rods in blood culture), recommended continuing with Zosyn and vancomycin, repeat chest x-ray, wound care consult for LLE, repeat blood cultures and UA and CS. Leg wound culture collected on 01/12/18 growing Citrobacter freundii, Aeromonas species and group D enterococcus. Wound care consulted on 01/12/18 for evaluation and management of left lower extremity wound, recommended consulting podiatry for possible gangrene of left lower extremity. Oncology Dr. De Dios consulted on 01/12/18 for evaluation and management of patient with multiple myeloma,amyloidosis and cellulitis. Podiatry Dr. Dale consulted on 01/12/2018 for evaluation and management of lower extremity wound cellulitis, recommended continuing with antibiotics for the next 24 hours to see if there is any improvement and if not to have a CTof LLE for further evaluation of distal leg and ankle as well as continue with wound care. CT of left tib/fib revealed generalized subcutaneous edema, surgical and degenerative bony joint changes, not convincing for osteomyelitis, mild osteoarthritis and tiny popliteal cyst at the knee. Echocardiogram on 01/14/18 showed an estimated ejection fraction in the range of 20-25%. Clinical course complicated with thrombocytopenia,bacteremia, ejection fraction in the range of 20-25% and cellulitis to BLE. Palliative care consulted to assist with establishing goals of care. Patient seen and examined in his room in the presence of a long time friend. Introduced palliative care and its role in symptom management and discussion of goals of care. Obtained psychosocial, past medical history and events leading to hospitalization. Patient is alert, oriented to self, place and situation. Patient appears to understand his medical condition, seems to show capability of weighing benefits and burdens of treatment. Patient has never completed advance directives and today he is open to completion and signing of health care surrogate (HCS) form of which he designated his son Michael Rios as his HCS and his Celia Rios as his alternate HCS. Addressed code status, discussed CPR benefits, complications and limitations. Patient elected DNR/DNI. Patient stated that given his medical condition he would not want to be resuscitated in the event of cardiac arrest and he does not want to be intubated in the event of respiratory failure. In regards to chemotherapy, patient still wants to continue with chemotherapy even though he states that he was evaluated for stem cell transplant at [facility] and does not want to pursue that. Patient elaborated stating that after the procedure was explained to him he felt that he will not be able to tolerate the procedure. He mentioned that he is already enduring a lot with the chemotherapy he is going through already. At this time he want aggressive treatment short of no code. . Function/Cognitive Trajectory: Patient lives at home with his and his adult children who recently moved in with him. Patient`s spouse had a stroke. Patient`s adult children help with chores at home. Patient states that he has been able to perform all his ADLs independently. He states that he has been having issues with nausea and has lost 100lbs in less than a year. Patient's last hospitalization was, 2016. He is able to verbalize his needs. Patient is still undergoing chemotherapy once every week. Patient reports issues of diarrhea and nausea during chemotherapy treatment. Review of Systems Constitutional: Reports chills, Reports fever(s), Reports weakness, Reports weight loss Eyes: Denies blurry vision, Denies bulging eyes, Denies itchy eyes, Denies loss of vision Ears, Nose, Mouth, and Throat: Denies abnormal hearing, Denies headache(s), Denies hearing loss, Denies mouth lesions, Denies mouth pain, Denies nasal congestion, Denies nasal discharge Cardiovascular: Reports foot swelling, Reports leg sores, Reports leg swelling, Reports shortness of breath with activity, Denies chest pain, Denies irregular heart rhythm, Denies rapid, pounding, or irregular heartbeat Respiratory: Reports cough, Reports shortness of breath with activity, Denies wheezing Gastrointestinal: Reports nausea, Denies abdominal pain, Denies difficulty swallowing, Denies incontinent of stools Genitourinary: Denies difficulty urinating, Denies urinary incontinence Skin/Breast: Reports change in skin color (to left lower extremity), Reports sores, Reports unusual bruising Neurologic: Denies confusion, Denies frequent falls Psychiatric: Denies abnormal sleep pattern, Denies change in appetite, Denies confusion Endocrine: Denies increased thirst, Denies increased urination, Denies rapid, pounding, or irregular heartbeat Hematologic/Lymphatic: Reports easy bleeding, Reports easy bruising PMFSH - History History Provided By: Patient, Medical Record - Medical History Medical History: Medical History (Last Reviewed 01/13/18 @ 00:30 by Nick De Dios MD) Amyloidosis Arthritis CAD (coronary artery disease) CHF (congestive heart failure) Chest pain Diabetic neuropathy HLD (hyperlipidemia) HTN (hypertension) Irregular heart beat Multiple myeloma Myocardial infarct Diabetes mellitus - Surgical History Surgical History: Surgical History (Last Updated 01/12/18 @ 12:57 by Tammi Rothman MD) Aortic valve replaced H/O left knee surgery Hx of CABG Status post surgical manipulation of ankle joint - Family History Family History: Family History (Last Updated 01/12/18 @ 02:57 by MANASA Lanza) Father Cancer Mother Cancer - Tobacco History Second Hand Smoke Exposure: No Tobacco Use In Past 30 Days: Yes Smoking Status: Current every day smoker Tobacco Type: Cigarettes - Alcohol History How Often Do You Have a Drink Containing Alcohol: Monthly or less - Substance Use History Substance History: No History of Abuse - Travel History Recent Travel in the [place] Within the Last 8 Weeks: No Recent Travel Out of the Country Within the Last 8 Weeks: No - Immunization History Tetanus Immunization: Unsure Hx Influenza Vaccine This Season: No Medications and Allergies Allergies Allergy/AdvReac Type Severity Reaction Status Date / Time azithromycin Allergy Intermediate rash Verified 01/11/18 20:23 *MDRO Multi-Drug Resistant AdvReac Mild Cleared Uncoded 08/08/16 09:57 Organism 10/2015 Home Medications Medication Instructions Recorded Confirmed Type dexamethasone 20 mg PO WEEKLY 01/11/18 01/11/18 History duloxetine [Cymbalta] 30 mg PO HS 01/11/18 01/11/18 History prochlorperazine maleate 10 mg PO QID PRN 01/11/18 01/11/18 History [Compazine] Active Medications: Active Medications Acetaminophen (Tylenol) 650 mg PO Q4H PRN PRN Reason: TEMPERATURE > 101 F Last Admin: 01/12/18 11:51 Dose: 650 mg Al Hydroxide/Mg Hydroxide (Milk Of Magnesia Liq) 30 ml PO Q12H PRN PRN Reason: Mild Constipation Albuterol (Duoneb Neb (Prn)) 1 ampul NEB Q2HR NEB PRN PRN Reason: SHORTNESS OF BREATH/WHEEZING Albuterol (Duoneb Neb (Sharon)) 1 ampul NEB Q6HR WHILE AWAKE NEB [facility] Last Admin: 01/15/18 08:51 Dose: 1 ampul Bisacodyl (Dulcolax Supp) 10 mg RECTAL DAILY PRN PRN Reason: SEVERE CONSITIPATION Dextrose (D50w Vial) 50 ml IV.PUSH UNSCH PRN PRN Reason: PER HYPOGLYCEMIA PROTOCOL Duloxetine HCl (Cymbalta) 30 mg PO HS [facility] Last Admin: 01/14/18 20:14 Dose: 30 mg Enoxaparin Sodium (Lovenox Inj) 30 mg SQ Q24H [facility] Last Admin: 01/15/18 06:24 Dose: 30 mg Furosemide (Lasix Inj) 40 mg IV.PUSH BID@0900,1800 [facility] Last Admin: 01/15/18 09:08 Dose: 40 mg Glucagon (Glucagon Inj) 1 mg OTHER PRN PRN PRN Reason: for Hypoglycemia Protocol Guaifenesin (Mucinex Er) 600 mg PO BID [facility] Last Admin: 01/15/18 09:08 Dose: 600 mg Heparin Sodium (Porcine) (Heparin Central Flush) 500 unit IV.FLUSH PRN PRN PRN Reason: Flush infusaport Heparin Sodium (Porcine) (Heparin Central Flush) 250 unit IV.FLUSH PRN PRN PRN Reason: Flush Infusapot Last Admin: 01/15/18 05:34 Dose: 250 unit Piperacillin/Tazobactam/Dextrose (Zosyn 4.5 Gm Premix) 4.5 gm in 100 mls @ 200 mls/hr IV.SIG Q6H [facility] Last Infusion: 01/15/18 06:02 Dose: Infused Sodium Chloride (Ns Inj) 1,000 mls @ 75 mls/hr IV.CONT .[id number] [facility] Last Admin: 01/14/18 17:31 Dose: 75 mls/hr Magnesium Sulfate Inj 4 gm/ (Sodium Chloride) 100 mls @ 50 mls/hr IV.SIG UNSCH PRN PRN Reason: For Magnesium 0.9 - 1.1 mg/dL Potassium Chloride (Kcl 40 Meq Premix Inj) 40 meq in 100 mls @ 50 mls/hr IV.SIG Q2H PRN PRN Reason: For Potassium 2.8 - 3.2 mEq/L Potassium Chloride (Kcl 40 Meq Premix Inj) 40 meq in 100 mls @ 25 mls/hr IV.SIG UNSCH PRN PRN Reason: For Potassium 3.3 - 3.5 mEq/L Potassium Chloride (Kcl 20 Meq Premix Inj) 20 meq in 100 mls @ 50 mls/hr IV.SIG Q2H PRN PRN Reason: For Potassium 2.8 - 3.2 mEq/L Potassium Phosphate 30 mmol/ (Sodium Chloride) 260 mls @ 42 mls/hr IV.SIG UNSCH PRN PRN Reason: SEE LABEL COMMENTS Sodium Phosphate 30 mmol/ (Sodium Chloride) 260 mls @ 42 mls/hr IV.SIG UNSCH PRN PRN Reason: For Phosphorus < 2.5 mg/dL Magnesium Sulfate Inj 2 gm/ (Sodium Chloride) 100 mls @ 50 mls/hr IV.SIG UNSCH PRN PRN Reason: For Magnesium 1.2 - 1.6 mg/dL Potassium Chloride (Kcl 20 Meq Premix Inj) 20 meq in 100 mls @ 50 mls/hr IV.SIG Q2H PRN PRN Reason: For Potassium 3.3 - 3.5 mEq/L Levofloxacin/Dextrose (Levaquin 750 Mg Premix Inj) 150 mls @ 100 mls/hr IV.SIG Q24H [facility] Last Infusion: 01/14/18 22:00 Dose: Infused Insulin Aspart (Novolog Insulin Correctional Sugar Inj) 0 unit SQ ACHS AND 3AM [facility]; Protocol Last Admin: 01/15/18 09:09 Dose: 1 unit Insulin Detemir (Levemir Inj) 7 unit SQ BID [facility] Last Admin: 01/15/18 09:09 Dose: 7 unit Lactulose (Lactulose Liq) 30 ml PO DAILY PRN PRN Reason: SEVERE CONSITIPATION Magnesium Oxide (Mag-Ox) 800 mg PO UNSCH PRN PRN Reason: For Magnesium 1.2 - 1.6 mg/dL Methylprednisolone Sodium Succinate (Solumedrol Inj) 40 mg IV.PUSH Q12H [facility] Last Admin: 01/15/18 09:09 Dose: 40 mg Morphine Sulfate (Morphine Inj) 4 mg IV.PUSH Q3H PRN PRN Reason: PAIN 6-10;IF UNABLE TO TAKE PO Last Admin: 01/13/18 23:05 Dose: 4 mg Morphine Sulfate (Morphine Inj) 2 mg IV.PUSH Q3H PRN PRN Reason: PAIN 3-5; IF UABLE TO TAKE PO Naloxone HCl (Narcan Inj) 0.4 mg IV.PUSH UNSCH PRN PRN Reason: SEE LABEL COMMENTS Ondansetron HCl (Zofran Inj) 4 mg IV.PUSH Q6H PRN PRN Reason: NAUSEA OR VOMITING Oxycodone/Acetaminophen (Percocet 10/325 Mg) 1 tab PO Q6H PRN PRN Reason: PAIN SCALE 6 TO 10 Last Admin: 01/15/18 09:08 Dose: 1 tab Oxycodone/Acetaminophen (Percocet 5/325 Mg) 1 tab PO Q6H PRN PRN Reason: PAIN SCALE 3 TO 5 Potassium Bicarb/Potassium Chloride (K-Lyte Cl Eff) 50 meq PO UNSCH PRN PRN Reason: For Potassium 3.3 - 3.5 mEq/L Last Admin: 01/13/18 12:04 Dose: 50 meq Potassium Phosphate (K-Phos Original) 2,000 mg PO Q4H PRN PRN Reason: Phosphorus Less Than 2.5 mg/dL Potassium Phosphate (K-Phos Original) 2,000 mg PO UNSCH PRN PRN Reason: SEE LABEL COMMENTS Senna/Docusate Sodium (Kamini-Colace) 1 tab PO BID [facility] Last Admin: 01/15/18 09:06 Dose: Not Given Sennosides (Senokot) 17.2 mg PO Q12H PRN PRN Reason: Moderate Constipation Sodium Chloride (Ns Flush) 2 ml IV.FLUSH PRN PRN PRN Reason: FLUSH AFTER USING IV ACCESS Sodium Chloride (Ns Flush) 2 ml IV.FLUSH BID [facility] Last Admin: 01/15/18 09:09 Dose: 2 ml Sodium Chloride (Ns Flush) 5 ml IV.FLUSH PRN PRN PRN Reason: Flush Infusaport Temazepam (Restoril) 15 mg PO HS PRN PRN Reason: INSOMNIA Advance Directives Advance Directives Date on File: 01/15/18 Living Will: No Healthcare Surrogate: Yes (Completed and signed today) Health Care Surrogate Name and Number: Gabriel Rodriguez [phone] Alt :Gabriel [phone] Power of Director Oracle Database: No Today's verbally stated goals: Patient wants aggressive treatment short of no code. Ethical and Legal Issues: None identified at this time Physical Exam Vital Signs: Vital Signs - 24 hr 01/14/18 14:00 01/14/18 16:00 01/14/18 16:53 Temperature 98.4 F Pulse Rate 96 H 96 H 95 H Respiratory Rate 22 21 Blood Pressure 127/62 Pulse Oximetry 98 01/14/18 18:00 01/14/18 20:00 01/14/18 21:50 Temperature 98.7 F 98.7 F Pulse Rate 93 H 96 H 93 H Respiratory Rate 25 H 20 Blood Pressure 129/64 118/69 Pulse Oximetry 100 100 01/14/18 22:11 01/15/18 00:00 01/15/18 04:00 Temperature 98.4 F 97.7 F Pulse Rate 91 H 88 96 H Respiratory Rate 18 18 18 Blood Pressure 133/83 140/74 Pulse Oximetry 98 100 99 01/15/18 04:10 01/15/18 08:00 01/15/18 08:51 Temperature 98.1 F Pulse Rate 91 H 70 Respiratory Rate 20 20 15 Blood Pressure 140/80 Pulse Oximetry 96 96 I&O: Intake & Output 01/13/18 01/14/18 01/15/18 01/16/18 06:59 06:59 06:59 06:59 Intake Total 4055.0 / 4055.0 3117.5 / 3117.5 2510 / 2510 Output Total 1200 / 1200 2100 / 2100 3000 / 3000 Balance 2855.0 / 2855.0 1017.5 / 1017.5 -490 / -490 Weight 73.6 kg 82.9 kg 78.7 kg Physical Exam: CONSTITUTIONAL/GENERAL: This is a chronically ill-looking patient, in no apparent distress. TUBES/LINES/DRAINS:Infusaport to right chest wall SKIN: No jaundice, rashes, or lesions. Ecchymoses on upper extremities. Wounds covered with dressings to bilateral lower extremities. Weeping to left leg form open blisters. Skin temperature appropriate. Not diaphoretic. HEAD: Atraumatic. Normocephalic. EYES: Pupils equal and round and reactive. Extraocular motions intact. No scleral icterus. No injection or drainage. Fundi not examined. ENT: Hearing grossly normal. Nose without bleeding or purulent drainage. Throat without visible erythema, exudates, masses, or lesions. NECK: Trachea midline. Supple, nontender. CARDIOVASCULAR: Regular rate and rhythm without murmurs, gallops, or rubs. No JVD. Midsternum scar. Peripheral pulses symmetric. RESPIRATORY/CHEST: Symmetric, unlabored respirations. Clear to auscultation. No wheezes, rales, or rhonchi. GASTROINTESTINAL: Abdomen soft, non-tender, nondistended. No guarding. Bowel sounds present. GENITOURINARY: Without palpable bladder distension. Voids in urinal MUSCULOSKELETAL: Extremities without clubbing, cyanosis. Weeping edema to LLE. Kevin skin to visible area. Dressings to BLE intact. NEUROLOGICAL: Awake, alert, oriented to self, place and situation. Motor and sensory grossly within normal limits. Follows commands. Moves all extremities. PSYCHIATRIC: No obvious anxiety/depression. no apparent hallucinations or other psychotic thought process. Diagnostic Tests Laboratory: Laboratory Results - last 72 hr 01/12/18 01/12/18 01/12/18 05:24 08:00 13:00 WBC RBC Hgb Hct MCV MCH MCHC RDW Plt Count MPV Prelim Diff (Auto) Neut % (Auto) Lymph % (Auto) Mcleod % (Auto) Eos % (Auto) Baso % (Auto) Neut # (Auto) Lymph # (Auto) Mcleod # (Auto) Eos # (Auto) Baso # (Auto) WBC Differential Seg Neuts % (Manual) Band Neuts % (Manual) Lymphocytes % (Manual) Monocytes % (Manual) Abs Neuts (Manual) Nucleated RBCs/100 WBC Differential Comment Platelet Estimate Platelet Morphology Tear Drop Cells Ovalocytes Millie Cells Acanthocytes (Spur) Keratocytes Sodium Potassium Chloride Carbon Dioxide Anion Gap BUN Creatinine Estimated GFR POC Glucose Random Glucose Hemoglobin A1c 10.5 H Calcium Prot Corrected Calcium Magnesium Total Bilirubin AST ALT Alkaline Phosphatase B-Natriuretic Peptide Total Protein Albumin Vitamin D 25-Hydroxy Urine Color Yellow Urine Clarity Clear Urine pH 5.0 Ur Specific [place] 1.014 Urine Protein 100 H Urine Glucose (UA) 150 H Urine Ketones Negative Urine Occult Blood Moderate H Urine Nitrate Negative Urine Bilirubin Negative Urine Urobilinogen Less than 2 Ur Leukocyte Esterase Negative Urine RBC 1 Urine WBC 7 H Hyaline Casts 1 Urine Mucus Few H Micro UA Comment Culture not ind Urine Culture Comments Culture not ind Nasal Screen MRSA (PCR) Not detected Vancomycin Trough 01/12/18 01/12/18 01/13/18 17:50 20:58 03:39 WBC RBC Hgb Hct MCV MCH MCHC RDW Plt Count MPV Prelim Diff (Auto) Neut % (Auto) Lymph % (Auto) Mcleod % (Auto) Eos % (Auto) Baso % (Auto) Neut # (Auto) Lymph # (Auto) Mcleod # (Auto) Eos # (Auto) Baso # (Auto) WBC Differential Seg Neuts % (Manual) Band Neuts % (Manual) Lymphocytes % (Manual) Monocytes % (Manual) Abs Neuts (Manual) Nucleated RBCs/100 WBC Differential Comment Platelet Estimate Platelet Morphology Tear Drop Cells Ovalocytes Millie Cells Acanthocytes (Spur) Keratocytes Sodium Potassium Chloride Carbon Dioxide Anion Gap BUN Creatinine Estimated GFR POC Glucose 149 H 98 139 H Random Glucose Hemoglobin A1c Calcium Prot Corrected Calcium Magnesium Total Bilirubin AST ALT Alkaline Phosphatase B-Natriuretic Peptide Total Protein Albumin Vitamin D 25-Hydroxy Urine Color Urine Clarity Urine pH Ur Specific [place] Urine Protein Urine Glucose (UA) Urine Ketones Urine Occult Blood Urine Nitrate Urine Bilirubin Urine Urobilinogen Ur Leukocyte Esterase Urine RBC Urine WBC Hyaline Casts Urine Mucus Micro UA Comment Urine Culture Comments Nasal Screen MRSA (PCR) Vancomycin Trough 01/13/18 01/13/18 01/13/18 03:40 03:40 03:40 WBC 6.0 RBC 2.79 L Hgb 8.7 L Hct 26.3 L MCV 94.4 MCH 31.0 MCHC 32.9 RDW 20.8 H Plt Count 62 L D MPV 9.1 Prelim Diff (Auto) Slide review pending Neut % (Auto) 90.1 H Lymph % (Auto) 1.6 L Mcleod % (Auto) 7.3 Eos % (Auto) 0.0 Baso % (Auto) 1.0 Neut # (Auto) 5.4 Lymph # (Auto) 0.1 L Mcleod # (Auto) 0.4 Eos # (Auto) 0.0 Baso # (Auto) 0.1 WBC Differential Manual diff final Seg Neuts % (Manual) 81 H Band Neuts % (Manual) 14 H Lymphocytes % (Manual) 1 L Monocytes % (Manual) 4 Abs Neuts (Manual) 5.7 Nucleated RBCs/100 WBC 1 H Differential Comment . Platelet Estimate Low L Platelet Morphology Normal Tear Drop Cells Ovalocytes [place] Cells Acanthocytes (Spur) Occ H Keratocytes Occ H Sodium 138 Potassium 3.3 L D Chloride 102 Carbon Dioxide 27.0 Anion Gap 9 BUN 19 H Creatinine 0.94 Estimated GFR 82 L POC Glucose Random Glucose 129 H D Hemoglobin A1c Calcium 7.1 L* Prot Corrected Calcium 8.0 L Magnesium Total Bilirubin 0.6 AST 30 ALT 34 Alkaline Phosphatase 73 B-Natriuretic Peptide 3191 H Total Protein 5.4 L D Albumin 1.9 L Vitamin D 25-Hydroxy Urine Color Urine Clarity Urine pH Ur Specific [place] Urine Protein Urine Glucose (UA) Urine Ketones Urine Occult Blood Urine Nitrate Urine Bilirubin Urine Urobilinogen Ur Leukocyte Esterase Urine RBC Urine WBC Hyaline Casts Urine Mucus Micro UA Comment Urine Culture Comments Nasal Screen MRSA (PCR) Vancomycin Trough 01/13/18 01/13/18 01/13/18 08:27 09:20 09:20 WBC RBC Hgb Hct MCV MCH MCHC RDW Plt Count MPV Prelim Diff (Auto) Neut % (Auto) Lymph % (Auto) Mcleod % (Auto) Eos % (Auto) Baso % (Auto) Neut # (Auto) Lymph # (Auto) Mcleod # (Auto) Eos # (Auto) Baso # (Auto) WBC Differential Seg Neuts % (Manual) Band Neuts % (Manual) Lymphocytes % (Manual) Monocytes % (Manual) Abs Neuts (Manual) Nucleated RBCs/100 WBC Differential Comment Platelet Estimate Platelet Morphology Tear Drop Cells Ovalocytes Millie Cells Acanthocytes (Spur) Keratocytes Sodium Potassium Chloride Carbon Dioxide Anion Gap BUN Creatinine Estimated GFR POC Glucose 150 H Random Glucose Hemoglobin A1c Calcium Prot Corrected Calcium Magnesium Total Bilirubin AST ALT Alkaline Phosphatase B-Natriuretic Peptide Total Protein Albumin Vitamin D 25-Hydroxy Less than 4.2 L Urine Color Urine Clarity Urine pH Ur Specific [place] Urine Protein Urine Glucose (UA) Urine Ketones Urine Occult Blood Urine Nitrate Urine Bilirubin Urine Urobilinogen Ur Leukocyte Esterase Urine RBC Urine WBC Hyaline Casts Urine Mucus Micro UA Comment Urine Culture Comments Nasal Screen MRSA (PCR) Vancomycin Trough 15.9 H 01/13/18 01/13/18 01/13/18 11:56 18:00 20:23 WBC RBC Hgb Hct MCV MCH MCHC RDW Plt Count MPV Prelim Diff (Auto) Neut % (Auto) Lymph % (Auto) Mcleod % (Auto) Eos % (Auto) Baso % (Auto) Neut # (Auto) Lymph # (Auto) Mcleod # (Auto) Eos # (Auto) Baso # (Auto) WBC Differential Seg Neuts % (Manual) Band Neuts % (Manual) Lymphocytes % (Manual) Monocytes % (Manual) Abs Neuts (Manual) Nucleated RBCs/100 WBC Differential Comment Platelet Estimate Platelet Morphology Tear Drop Cells Ovalocytes Millie Cells Acanthocytes (Spur) Keratocytes Sodium Potassium Chloride Carbon Dioxide Anion Gap BUN Creatinine Estimated GFR POC Glucose 159 H 226 H 269 H Random Glucose Hemoglobin A1c Calcium Prot Corrected Calcium Magnesium Total Bilirubin AST ALT Alkaline Phosphatase B-Natriuretic Peptide Total Protein Albumin Vitamin D 25-Hydroxy Urine Color Urine Clarity Urine pH Ur Specific [place] Urine Protein Urine Glucose (UA) Urine Ketones Urine Occult Blood Urine Nitrate Urine Bilirubin Urine Urobilinogen Ur Leukocyte Esterase Urine RBC Urine WBC Hyaline Casts Urine Mucus Micro UA Comment Urine Culture Comments Nasal Screen MRSA (PCR) Vancomycin Trough 01/14/18 01/14/18 01/14/18 02:32 06:00 06:00 WBC 6.6 RBC 2.80 L Hgb 8.6 L Hct 26.2 L MCV 93.3 MCH 30.7 MCHC 32.9 RDW 21.1 H Plt Count 54 L MPV 9.4 Prelim Diff (Auto) Slide review pending Neut % (Auto) 94.3 H Lymph % (Auto) 1.5 L Mcleod % (Auto) 3.8 Eos % (Auto) 0.0 Baso % (Auto) 0.4 Neut # (Auto) 6.2 Lymph # (Auto) 0.1 L Mcleod # (Auto) 0.2 Eos # (Auto) 0.0 Baso # (Auto) 0.0 WBC Differential Manual diff final Seg Neuts % (Manual) 65 Band Neuts % (Manual) 19 H Lymphocytes % (Manual) 8 L Monocytes % (Manual) 8 Abs Neuts (Manual) 5.5 Nucleated RBCs/100 WBC Differential Comment . Platelet Estimate Low L Platelet Morphology Normal Tear Drop Cells Ovalocytes 1+ H Millie Cells Acanthocytes (Spur) 1+ H Keratocytes Sodium 139 Potassium 3.7 Chloride 102 Carbon Dioxide 28.6 Anion Gap 8 BUN 25 H Creatinine 0.93 Estimated GFR 83 L POC Glucose 122 H Random Glucose 75 Hemoglobin A1c Calcium 7.7 L Prot Corrected Calcium Magnesium Total Bilirubin 0.4 AST 32 ALT 38 Alkaline Phosphatase 66 B-Natriuretic Peptide Total Protein 5.2 L Albumin 1.6 L Vitamin D 25-Hydroxy Urine Color Urine Clarity Urine pH Ur Specific [place] Urine Protein Urine Glucose (UA) Urine Ketones Urine Occult Blood Urine Nitrate Urine Bilirubin Urine Urobilinogen Ur Leukocyte Esterase Urine RBC Urine WBC Hyaline Casts Urine Mucus Micro UA Comment Urine Culture Comments Nasal Screen MRSA (PCR) Vancomycin Trough 01/14/18 01/14/18 01/14/18 08:04 13:22 17:22 WBC RBC Hgb Hct MCV MCH MCHC RDW Plt Count MPV Prelim Diff (Auto) Neut % (Auto) Lymph % (Auto) Mcleod % (Auto) Eos % (Auto) Baso % (Auto) Neut # (Auto) Lymph # (Auto) Mcleod # (Auto) Eos # (Auto) Baso # (Auto) WBC Differential Seg Neuts % (Manual) Band Neuts % (Manual) Lymphocytes % (Manual) Monocytes % (Manual) Abs Neuts (Manual) Nucleated RBCs/100 WBC Differential Comment Platelet Estimate Platelet Morphology Tear Drop Cells Ovalocytes [place] Cells Acanthocytes (Spur) Keratocytes Sodium Potassium Chloride Carbon Dioxide Anion Gap BUN Creatinine Estimated GFR POC Glucose 90 156 H 211 H Random Glucose Hemoglobin A1c Calcium Prot Corrected Calcium Magnesium Total Bilirubin AST ALT Alkaline Phosphatase B-Natriuretic Peptide Total Protein Albumin Vitamin D 25-Hydroxy Urine Color Urine Clarity Urine pH Ur Specific [place] Urine Protein Urine Glucose (UA) Urine Ketones Urine Occult Blood Urine Nitrate Urine Bilirubin Urine Urobilinogen Ur Leukocyte Esterase Urine RBC Urine WBC Hyaline Casts Urine Mucus Micro UA Comment Urine Culture Comments Nasal Screen MRSA (PCR) Vancomycin Trough 01/14/18 01/15/18 01/15/18 20:30 02:41 05:37 WBC 7.6 RBC 2.86 L Hgb 8.8 L Hct 26.8 L MCV 93.8 MCH 30.6 MCHC 32.6 RDW 20.7 H Plt Count 56 L MPV 10.2 Prelim Diff (Auto) Slide review pending Neut % (Auto) 94.7 H Lymph % (Auto) 0.8 L Mcleod % (Auto) 3.5 Eos % (Auto) 0.1 Baso % (Auto) 0.9 Neut # (Auto) 7.2 Lymph # (Auto) 0.1 L Mcleod # (Auto) 0.3 Eos # (Auto) 0.0 Baso # (Auto) 0.1 WBC Differential Manual diff final Seg Neuts % (Manual) 91 H Band Neuts % (Manual) 6 Lymphocytes % (Manual) Monocytes % (Manual) 3 Abs Neuts (Manual) 7.4 Nucleated RBCs/100 WBC Differential Comment . Platelet Estimate Low L Platelet Morphology Normal Tear Drop Cells 1+ H Ovalocytes 1+ H Millie Cells 1+ H Acanthocytes (Spur) Keratocytes Sodium Potassium Chloride Carbon Dioxide Anion Gap BUN Creatinine Estimated GFR POC Glucose 235 H 141 H Random Glucose Hemoglobin A1c Calcium Prot Corrected Calcium Magnesium Total Bilirubin AST ALT Alkaline Phosphatase B-Natriuretic Peptide Total Protein Albumin Vitamin D 25-Hydroxy Urine Color Urine Clarity Urine pH Ur Specific [place] Urine Protein Urine Glucose (UA) Urine Ketones Urine Occult Blood Urine Nitrate Urine Bilirubin Urine Urobilinogen Ur Leukocyte Esterase Urine RBC Urine WBC Hyaline Casts Urine Mucus Micro UA Comment Urine Culture Comments Nasal Screen MRSA (PCR) Vancomycin Trough 01/15/18 01/15/18 01/15/18 05:37 05:37 07:17 WBC RBC Hgb Hct MCV MCH MCHC RDW Plt Count MPV Prelim Diff (Auto) Neut % (Auto) Lymph % (Auto) Mcleod % (Auto) Eos % (Auto) Baso % (Auto) Neut # (Auto) Lymph # (Auto) Mcleod # (Auto) Eos # (Auto) Baso # (Auto) WBC Differential Seg Neuts % (Manual) Band Neuts % (Manual) Lymphocytes % (Manual) Monocytes % (Manual) Abs Neuts (Manual) Nucleated RBCs/100 WBC Differential Comment Platelet Estimate Platelet Morphology Tear Drop Cells Ovalocytes [place] Cells Acanthocytes (Spur) Keratocytes Sodium 138 Potassium 3.1 L Chloride 99 Carbon Dioxide 28.9 Anion Gap 10 BUN 29 H Creatinine 0.95 Estimated GFR 81 L POC Glucose 155 H Random Glucose 127 H Hemoglobin A1c Calcium 7.8 L Prot Corrected Calcium Magnesium 1.6 Total Bilirubin AST ALT Alkaline Phosphatase B-Natriuretic Peptide Total Protein Albumin Vitamin D 25-Hydroxy Urine Color Urine Clarity Urine pH Ur Specific [place] Urine Protein Urine Glucose (UA) Urine Ketones Urine Occult Blood Urine Nitrate Urine Bilirubin Urine Urobilinogen Ur Leukocyte Esterase Urine RBC Urine WBC Hyaline Casts Urine Mucus Micro UA Comment Urine Culture Comments Nasal Screen MRSA (PCR) Vancomycin Trough 01/15/18 12:04 WBC RBC Hgb Hct MCV MCH MCHC RDW Plt Count MPV Prelim Diff (Auto) Neut % (Auto) Lymph % (Auto) Mcleod % (Auto) Eos % (Auto) Baso % (Auto) Neut # (Auto) Lymph # (Auto) Mcleod # (Auto) Eos # (Auto) Baso # (Auto) WBC Differential Seg Neuts % (Manual) Band Neuts % (Manual) Lymphocytes % (Manual) Monocytes % (Manual) Abs Neuts (Manual) Nucleated RBCs/100 WBC Differential Comment Platelet Estimate Platelet Morphology Tear Drop Cells Ovalocytes [place] Cells Acanthocytes (Spur) Keratocytes Sodium Potassium Chloride Carbon Dioxide Anion Gap BUN Creatinine Estimated GFR POC Glucose 181 H Random Glucose Hemoglobin A1c Calcium Prot Corrected Calcium Magnesium Total Bilirubin AST ALT Alkaline Phosphatase B-Natriuretic Peptide Total Protein Albumin Vitamin D 25-Hydroxy Urine Color Urine Clarity Urine pH Ur Specific [place] Urine Protein Urine Glucose (UA) Urine Ketones Urine Occult Blood Urine Nitrate Urine Bilirubin Urine Urobilinogen Ur Leukocyte Esterase Urine RBC Urine WBC Hyaline Casts Urine Mucus Micro UA Comment Urine Culture Comments Nasal Screen MRSA (PCR) Vancomycin Trough Result Diagrams: 01/15/18 20:00 01/17/18 12:30 Microbiology: Microbiology 01/12/18 15:15 Gram Stain - Final Wound - Leg Wound Culture - Preliminary Citrobacter freundii Aeromonas species Group D Enterococcus 01/12/18 19:00 Aerobic Blood Culture - Preliminary Blood - Peripheral No growth in 3 days Anaerobic Blood Culture - Preliminary No growth in 3 days 01/12/18 15:35 Aerobic Blood Culture - Preliminary Blood - Other No growth in 3 days Anaerobic Blood Culture - Preliminary No growth in 3 days 01/11/18 17:20 Aerobic Blood Culture - Final Blood - Peripheral Anaerobic Blood Culture - Final 01/11/18 17:15 Aerobic Blood Culture - Preliminary Blood - Peripheral Aeromonas species Anaerobic Blood Culture - Preliminary gram negative rods Imaging: Ankle X-Ray 01/12/18 00:00 CONCLUSION: 1. Status post ORIF of the distal left fibula and tibia 2. Soft tissue swelling extending from the distal calf into the foot. 3. Mineralization and mild cortical erosion along the medial malleolus 4. Subtalar joint arthropathy Venous Doppler Study 01/12/18 00:00 CONCLUSION: Negative for deep venous thrombosis in the left lower extremity. Lower Extremity CT 01/13/18 00:00 CONCLUSION: 1. Generalized subcutaneous edema, nonspecific. Some organized subcutaneous fluid posteriorly of the distal leg, also nonspecific but not highly suggestive of abscess. 2. Surgical and degenerative bony joint changes as above. Patient has a solidly fused screw and plate arthrodesis of the tibiotalar joint. No findings convincing for osteomyelitis. 3. Mild osteoarthritis and a small to moderate nonspecific joint effusion at the knee. 4. Extensor tendinosis at the knee without evidence of rupture. Healed patella fracture post pin and wire fixation. 5. Tiny popliteal cyst at the knee. Chest X-Ray 01/15/18 00:00 CONCLUSION: Minimal improvement with less parenchymal changes in the right lung. Patient/Family Conference Family Conference Location: Bedside Issues Discussed: * Palliative care role, purpose, approach * Additional medical, psychosocial, and spiritual history * Patients general health, functional status, and cognitive changes in the months leading up to the current hospitalization * Patient/family understanding of the current medical problems * Patient/family understanding of prognosis * Patients goals of care as best understood from advance directives and/or conversations and/or values * Current medical treatment options and benefits/burdens of those options * Likely scenarios comparing ongoing aggressive care with a transition to comfort measures only * Questions answered to the best of my ability * Palliative care contact information provided Assessment and Plan - Disease Oriented Problem List (1) Sepsis (2) Cellulitis of left leg (3) Cellulitis of right leg (4) Ulcer of right lower extremity, limited to breakdown of skin (5) Multiple myeloma (6) Diabetes mellitus (7) Diabetic neuropathy (8) Amyloidosis (9) Hypertension (10) CHF (congestive heart failure) (11) Pneumonia (12) Thrombocytopenia - Symptom Scale (1) Shortness of breath 0-10 Scale: Unable to quantify (History of congestive heart failure. Chest x- ray showing pneumonia.) (2) Pain 0-10 Scale: 5 Comment: Patient his cellulitis to bilateral lower extremities. c/o pain mostly to LLE. Pertinent Non-Medical Issues: Psychosocial:Patient is originally from [place]. He moved to [place] in 1990. Patient has been to his Celia for 36 years. He has 2 adult children-Son Michael Rios and daughter nAa Lazo and 8 grandchildren. 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 Spiritual:Anabaptist- Patient declined parts counterperson and infectious waste technician visit during hospitalization. Legal:Patient completed and signed HCS form today. Ethical issues impacting care: None identified at this time. Important Contacts: Health Care Surrogate- Son-Gabriel Rodriguez [phone] Alternate HCS- Spouse-Celia Rios [phone] . Prognosis: Mr. Rios is a 62-year-old male with a past medical history of multiple myeloma who has been undergoing chemotherapy in the past 2 years and had chemotherapy on 01/10/18, CHF with an estimated ejection fraction of 20-25% in 2016, CAD status post CABG and aortic valve replacement, hypertension, diabetes mellitus, diabetic neuropathy, hyperlipidemia, and amyloidosis. Patient was advised by his primary care physician to go to the ER due to progressively worsening shortness of breath and lower extremity edema. He presented to the ER on for further evaluation of congestion, shortness of breath and bilateral lower extremity edema. Clinical course complicated with thrombocytopenia, bacteremia, ejection fraction in the range of 20-25% and cellulitis to BLE. Given ongoing multiple comorbidities and ongoing chemotherapy, patient remains at high risk for further complications, deterioration and decline. Code Status: No Code DNR Plan: PLAN: Legal decision maker:Patient is currently able to participate in medical decision making. In the event that he is incapacitated, he designated his son Gabriel Rodriguez as his Health care surrogate and his spouse Celia Rios as the alternate health care surrogate. Goals: Aggressive short of no code. Patient would like to continue with aggressive treatment including chemotherapy though he mentioned that he does not want to undergo stem cell transplant at [facility]. He states that in the event of respiratory distress he does not want to be intubated and in the event of a cardiac arrest he does not want to be resuscitated. Patient completed and signed Health care surrogate today. CODE STATUS: No code DNR/DNI SYMPTOMS: * Pain: Patient has a history of multiple myeloma and is under going chemotherapy. He also has cellulitis to BLE. Patient is endorsing achy pain to left leg which is exacerbated with movement. He has weeping edema to LLE. Wound care following. Podiatry following patient and recommended continuing with dressing changes and antibiotic therapy. Infectious disease on case. Patient states that he takes 4mg Hydromorphone po q 4 hrs prn at home for pain. He is currently on Morphine Sulfate 2-4 mg IVP q 3 hrs prn for pain and Oxycodone/ acetaminophen 10/325 q 6 hrs prn, has needed x4 prn doses in the past 24hrs. * Shortness of breath:Hx on CAD s/p CABG, CHF and has pneumonia. Patient is on antibiotics, DuoNeb treatments, Solumedrol and Furosemide. Reports shortness of breath with activity. Currently on room air. Palliative care will continue to follow the patient during hospital course as condition evolves, to assist patient/decision-maker with understanding of their medical conditions, weighing benefits/burdens of treatment options, for clarification of goals of treatment. Additionally will assist with any symptoms of palliative concern Appreciation Thank you for the opportunity to participate in the care of Jose Angel Rios. Attestation Collaborating MD Comments: Chart reviewed. Case discussed with palliative care nurse practitioner. Above ROAD ROLLER OPERATOR note reviewed and I concur. . Attestation: To help prompt me to consider important information that might be impacting today's encounter and assessment, information from prior notes written by myself or my colleagues may have been "brought forward" into today's note. My signature on this note, however, is an attestation that I personally performed the exam, history, and/or decision-making noted today, and, unless otherwise indicated, the interactions with patient, family, and staff as well as the review of records all occurred today. I also attest that the listed assessment and stated plan reflect my best clinical judgment today based on the combination of historical information, prior notes, and today's exam/ interactions. When time spent is documented, it refers only to time spent today by the signer, or if indicated, combined time spent today by collaborating physician/nurse practitioner.
[2018-01-15 22:11] LABS: Baso % (Auto) 0.3 % (0.0-2.0); Hematocrit 28.3 % (39.0-51.0); Hemoglobin 9.4 gm/dL (13.0-17.0); Lymph # (Auto) 0.1 th/mm3 (1.0-4.8); Lymph % (Auto) 1.2 % (9.0-44.0); Mean Corpuscular HGB Conc 33.1 % (32.0-36.0); Mean Corpuscular Hemoglobin 30.6 pg (27.0-34.0); Mean Corpuscular Volume 92.4 fL (80.0-100.0); Mean Platelet Volume 10.8 fL (7.0-11.0); Mono # (Auto) 0.4 th/mm3 (0.0-0.9); Mono % (Auto) 4.4 % (0.0-8.0); Neut # (Auto) 8.2 th/mm3 (1.8-7.7); Neut % (Auto) 94.1 % (16.0-70.0); Platelet Count 69 th/mm3 (150-450); Red Blood Count 3.06 mil/mm3 (4.50-5.90); Red Cell Distribution Width 20.5 % (11.6-17.2); White Blood Count 8.7 th/mm3 (4.0-11.0)
[2018-01-15 22:37] LABS: Alanine Aminotransferase 37 U/L (12-78); Albumin 1.8 g/dL (3.4-5.0); Anion Gap 10 meq/L (5-15); Aspartate Aminotransferase 20 U/L (15-37); Blood Urea Nitrogen 28 mg/dL (7-18); Calcium 7.6 mg/dL (8.5-10.1); Chloride 98 meq/L (98-107); Glomerular Filtration Rate 76 mL/min (>89); Glucose,Random 132 mg/dL (74-106); Potassium 3.1 meq/L (3.5-5.1); Sodium 139 meq/L (136-145)
[2018-01-15 22:42] LABS: Alkaline Phosphatase 81 U/L (45-117); Total Protein 5.4 g/dL (6.4-8.2)
[2018-01-15 22:48] LABS: Platelet Morphology Normal (Normal)
[2018-01-16] MEDS: Piperacil/Tazo 4.5 GM Premix 4.5 GM/100 ML BAG IV.SIG SCH ×5 (00:28→23:25)
[2018-01-16] MEDS: Insulin NovoLOG Aspart Correctional Sugar Inj SQ SCH ×5 (02:53→21:22)
[2018-01-16] MEDS: oxyCODONE/Acetaminophen 10/325 Tablet PO PRN ×3 (04:18→18:16)
[2018-01-16] MEDS: Senna/Docusate Sodium 8.6/50 MG Tablet PO SCH ×2 (10:54→21:12)
[2018-01-16] MEDS: MethylPREDNISolone Sod Succinate Inj 40 MG/ML Vial IV.PUSH SCH ×2 (10:55→21:32)
[2018-01-16] MEDS: guaiFENesin 600 MG ER Tablet PO SCH ×2 (10:56→21:11)
[2018-01-16] MEDS: Calcium Carbonate 500 MG Tablet PO SCH ×2 (10:57→21:11)
[2018-01-16] MEDS: Insulin Detemir Inj 1,000 UNIT/10 ML Vial SQ SCH ×2 (10:57→21:22)
--- NOTE | 2018-01-16 11:20 | P.PNONC ---
Subjective Interval history: Afebrile Patient reports he is feeling stronger; sat up on the side of his bed himself today Reports bilateral leg pain Objective Vital Signs/Intake & Output: Vital Signs 01/15/18 11:53 01/15/18 12:00 01/15/18 15:45 Temperature 98.8 F Pulse Rate 96 H 95 H 101 H Respiratory Rate 18 Blood Pressure 140/64 Pulse Oximetry 100 01/15/18 16:00 01/15/18 19:55 01/15/18 20:00 Temperature 98.3 F 97.8 F Pulse Rate 101 H 101 H 107 H Respiratory Rate 18 16 19 Blood Pressure 146/71 H 150/86 H Pulse Oximetry 99 96 98 01/16/18 00:00 01/16/18 04:00 01/16/18 09:55 Temperature 97.6 F 97.4 F L Pulse Rate 93 H 101 H Respiratory Rate 19 21 Blood Pressure 137/79 155/96 H Pulse Oximetry 98 97 95 Intake & Output 01/15/18 01/16/18 01/16/18 18:59 06:59 18:59 Intake Total 680 / 680 490 / 490 Output Total 300 / 300 Balance 380 / 380 490 / 490 Weight 167 lb 15.876 oz Intake: IV 200 / 200 250 / 250 Levaquin 750 mg Premix Inj 150 150 / 150 ML @ 100 mls/hr IV.SIG Q24H LEIGHA Rx#:[id number] Zosyn 4.5 GM Premix 4.5 gm In 200 / 200 100 / 100 100 ml @ 200 mls/hr IV.SIG Q6H LEIGHA Rx#:[id number] Oral 480 / 480 240 / 240 Output: Urine 300 / 300 Other: # Voids 4 # Incontinent Voids 2 Date of Last Bowel Movement 01/14/18 01/14/18 01/14/18 # Bowel Movements 4 Result Diagrams: 01/15/18 20:00 01/15/18 20:00 Laboratory Results: Laboratory Results - last 24 hr 01/15/18 01/15/18 01/15/18 12:04 17:23 20:00 WBC 8.7 RBC 3.06 L Hgb 9.4 L Hct 28.3 L MCV 92.4 MCH 30.6 MCHC 33.1 RDW 20.5 H Plt Count 69 L MPV 10.8 Prelim Diff (Auto) Slide review pending Neut % (Auto) 94.1 H Lymph % (Auto) 1.2 L Haakon % (Auto) 4.4 Eos % (Auto) 0.0 Baso % (Auto) 0.3 Neut # (Auto) 8.2 H Lymph # (Auto) 0.1 L Haakon # (Auto) 0.4 Eos # (Auto) 0.0 Baso # (Auto) 0.0 WBC Differential . Diff Scan Auto diff confirmed Differential Comment . Platelet Estimate Low L Platelet Morphology Normal Sodium Potassium Chloride Carbon Dioxide Anion Gap BUN Creatinine Estimated GFR POC Glucose 181 H 150 H Random Glucose Calcium Total Bilirubin AST ALT Alkaline Phosphatase Total Protein Albumin 01/15/18 01/15/18 01/16/18 20:00 20:08 02:49 WBC RBC Hgb Hct MCV MCH MCHC RDW Plt Count MPV Prelim Diff (Auto) Neut % (Auto) Lymph % (Auto) Haakon % (Auto) Eos % (Auto) Baso % (Auto) Neut # (Auto) Lymph # (Auto) Haakon # (Auto) Eos # (Auto) Baso # (Auto) WBC Differential Diff Scan Differential Comment Platelet Estimate Platelet Morphology Sodium 139 Potassium 3.1 L Chloride 98 Carbon Dioxide 31.0 Anion Gap 10 BUN 28 H Creatinine 1.00 Estimated GFR 76 L POC Glucose 142 H 114 H Random Glucose 132 H Calcium 7.6 L Total Bilirubin 0.4 AST 20 ALT 37 Alkaline Phosphatase 81 Total Protein 5.4 L Albumin 1.8 L 01/16/18 01/16/18 05:51 07:34 WBC RBC Hgb Hct MCV MCH MCHC RDW Plt Count MPV Prelim Diff (Auto) Neut % (Auto) Lymph % (Auto) [place] % (Auto) Eos % (Auto) Baso % (Auto) Neut # (Auto) Lymph # (Auto) [place]akon # (Auto) Eos # (Auto) Baso # (Auto) WBC Differential Diff Scan Differential Comment Platelet Estimate Platelet Morphology Sodium Potassium Chloride Carbon Dioxide Anion Gap BUN Creatinine Estimated GFR POC Glucose 125 H 128 H Random Glucose Calcium Total Bilirubin AST ALT Alkaline Phosphatase Total Protein Albumin Culture Results: Microbiology 01/12/18 19:00 Aerobic Blood Culture - Preliminary Blood - Peripheral No growth in 4 days Anaerobic Blood Culture - Preliminary No growth in 4 days 01/12/18 15:35 Aerobic Blood Culture - Preliminary Blood - Other No growth in 4 days Anaerobic Blood Culture - Preliminary No growth in 4 days 01/15/18 10:10 Gram Stain - Final Fluid - Other 01/12/18 15:15 Gram Stain - Final Wound - Leg Wound Culture - Preliminary Citrobacter freundii Aeromonas species Enterococcus faecalis 01/11/18 17:20 Aerobic Blood Culture - Final Blood - Peripheral Anaerobic Blood Culture - Final 01/11/18 17:15 Aerobic Blood Culture - Preliminary Blood - Peripheral Aeromonas species Anaerobic Blood Culture - Preliminary gram negative rods Medications: Active Medications Generic Name Dose Route Start Last Admin Trade Name Freq PRN Reason Stop Dose Admin Acetaminophen 650 mg 01/11/18 18:46 01/12/18 11:51 Tylenol PO 650 mg Q4H PRN Administration TEMPERATURE > 101 F Duloxetine HCl 30 mg 01/12/18 21:00 01/15/18 20:41 Cymbalta PO 30 mg HS LEIGHA Administration Enoxaparin Sodium 30 mg 01/11/18 21:30 01/15/18 20:44 Lovenox Inj SQ 30 mg Q24H LEIGHA Administration Furosemide 40 mg 01/12/18 09:00 01/16/18 10:57 Lasix Inj IV.PUSH 40 mg BID@0900,1800 [facility] Administration Guaifenesin 600 mg 01/11/18 21:00 01/16/18 10:56 Mucinex Er PO 600 mg BID [facility] Administration Heparin Sodium (Porcine) 250 unit 01/12/18 01:44 01/15/18 05:34 Heparin Central Flush IV.FLUSH 250 unit PRN PRN Administration Flush Infusapot Piperacillin/Tazobactam/Dextrose 4.5 gm in 100 mls @ 200 mls/hr 01/12/18 00: 00 01/16/18 05:53 Zosyn 4.5 Gm Premix IV.SIG 200 mls/hr Q6H [facility] Administration Sodium Chloride 1,000 mls @ 75 mls/hr 01/11/18 23:15 01/15/18 20:43 Ns Inj IV.CONT Not Given .[id number] LEIGHA Levofloxacin/Dextrose 150 mls @ 100 mls/hr 01/13/18 18:00 01/15/18 19:21 Levaquin 750 Mg Premix Inj IV.SIG Infused Q24H [facility] Infusion Insulin Aspart 0 unit 01/12/18 08:00 01/16/18 07:43 Novolog Insulin Correctional Sugar Inj SQ Not Given ACHS AND 3AM LEIGHA Protocol Insulin Detemir 7 unit 01/12/18 10:00 01/16/18 10:57 Levemir Inj SQ 7 unit BID LEIGHA Administration Methylprednisolone Sodium Succinate 40 mg 01/11/18 21:00 01/16/18 10:55 Solumedrol Inj IV.PUSH 40 mg Q12H LEIGHA Administration Morphine Sulfate 4 mg 01/11/18 18:54 01/13/18 23:05 Morphine Inj IV.PUSH 4 mg Q3H PRN Administration PAIN 6-10;IF UNABLE TO TAKE PO Oxycodone/Acetaminophen 1 tab 01/11/18 18:54 01/16/18 10:56 Percocet 10/325 Mg PO 1 tab Q6H PRN Administration PAIN SCALE 6 TO 10 Potassium Bicarb/Potassium Chloride 50 meq 01/13/18 11:03 01/13/18 12:04 K-Lyte Cl Eff PO 50 meq UNSCH PRN Administration For Potassium 3.3 - 3.5 mEq/L Senna/Docusate Sodium 1 tab 01/11/18 21:00 01/16/18 10:54 Kamini-Colace PO Not Given BID LEIGHA Sodium Chloride 2 ml 01/11/18 21:00 01/16/18 10:57 Ns Flush IV.FLUSH 2 ml BID LEIGHA Administration Objective Remarks: GENERAL: Chronically ill-appearing male sitting up on side of bed in no obvious distress SKIN: Warm and dry. HEAD: Normocephalic. EYES: No scleral icterus. No injection or drainage. NECK: Supple, trachea midline. No JVD or lymphadenopathy. CARDIOVASCULAR: Regular rate and rhythm without murmurs. RESPIRATORY: Few rales to bilateral posterior lower lobes GASTROINTESTINAL: Abdomen soft, non-tender, nondistended. EXTREMITIES: No cyanosis. Dressings to bilateral lower extremities. Dry and intact. MUSCULOSKELETAL: Adequate muscle tone. NEUROLOGICAL: No obvious focal deficit. Awake, alert, and oriented x3. Assessment/Plan (1) Pneumonia Code(s): J18.9 - Pneumonia, unspecified organism Status: Acute (2) Sepsis Code(s): A41.9 - Sepsis, unspecified organism Status: Acute (3) Acute exacerbation of CHF (congestive heart failure) Code(s): I50.9 - Heart failure, unspecified Status: Acute - Plan 62-year-old male who we are seeing outpatient for multiple myeloma with amyloidosis admitted with shortness of breath and lower extremity edema 1. Patient is on Levaquin and Zosyn per infectious disease. He has gram- negative rods in the blood, however repeat blood cultures are negative. 2. He recently had chemotherapy in the outpatient clinic but is currently not neutropenic. He does have some thrombocytopenia that is likely due to the chemotherapy. He is not having any bleeding. 3. Continue to monitor CBC. Continue supportive care - Attending Statement The exam, history, and the medical decision-making described in the above note were completed with the assistance of the mid-level provider. I reviewed and agree with the findings presented. I attest that I had a [id number] encounter with the patient on the same day, and personally performed and documented my assessment and findings in the medical record. still has leg pain. Leg swelling is improving. Feels better. CHF per cardiology. will follow. (1) Pneumonia Qualifiers: Pneumonia type: due to unspecified organism Laterality: right Lung location : lower lobe of lung Qualified Code(s): J18.1 - Lobar pneumonia, unspecified organism (2) Sepsis Qualifiers: Sepsis type: sepsis due to unspecified organism Qualified Code(s): A41.9 - Sepsis, unspecified organism (3) Acute exacerbation of CHF (congestive heart failure) Qualifiers: Heart failure type: unspecified Qualified Code(s): I50.9 - Heart failure, unspecified
[2018-01-16 12:23] VITALS: RESP 18
--- NOTE | 2018-01-16 12:54 | P.PNID ---
Subjective Remarks: Patient is a 62-year-old male, with known multiple myeloma, has been receiving chemotherapy over the last 2 years, received chemo about 2 days prior to admission, presented to the hospital for further evaluation of shortness of breath and lower extremity edema. Patient stated he started not feeling good about a week prior to admission. He is not a very good historian. He has had some shortness of breath which has been intermittent, and has noted increased swelling of both lower extremity. He denies any significant cough or congestion. Denies any chest pain. He also complains of some abdominal pain, but no nausea, vomiting, diarrhea or constipation. He denies any dysuria or any urinary complaints. Patient stated he has chronic pigmentation of both lower extremity, but has noted increased swelling of his left lower extremity. He has erythema on the left leg, but he cannot tell me when that started, and the sister stated that it was not there before. He has had some wounds on his left leg over the last 2 weeks, but has not really had any evaluation for that. He denies any trauma, or any injury recently where he would have gotten the wounds. Patient has had prior history of fracture in his left lower extremity about 15 years ago, and had surgery on his left knee, as well as his left ankle. Patient also is a little bit lethargic today. Patient stated that he was not lethargic at home, and also he has been doing ambulation at home normally. Patient also has an Kilzmo-s-Bnco which apparently has been placed about 3 years ago. Since admission he has had a temperature spike of up to 102. His WBC is normal. LFTs are okay. His chest x-ray showing some basilar consolidation more on the right than on the left. No urinalysis has been done. 2 blood cultures now reported as growing gram-negative yandel. Infectious disease consultation has been requested to evaluate the patient with gram-negative yandel in the blood culture. Notes reviewed Temps ok Sat up at side of bed today Feels better, but still with pain BLE CT no osteo BC with possible Aeromonas, sent out Repeat BC negative Wound C/S Citrobacter, Aeromonas and Enterococcus Fluid C/S from ankle bulla - pending; G/S no organism CXR 01/15 with some mild improvement Antibiotics: Zosyn Levaquin Lines: Port Past Medical History: Amyloidosis Arthritis CAD (coronary artery disease) CHF (congestive heart failure) Chest pain Diabetes mellitus Diabetic neuropathy HLD (hyperlipidemia) HTN (hypertension) Irregular heart beat Multiple myeloma Myocardial infarct Aortic valve replaced H/O left knee surgery Hx of CABG Status post surgical manipulation of ankle joint Allergies/Adverse Reactions: Allergies azithromycin Allergy (Intermediate, Verified 01/11/18 20:23) rash *MDRO Multi-Drug Resistant Organism Adverse Reaction (Mild, Uncoded 08/08/16 09: 57) Cleared 10/2015 MRSA (foot abscess) - 12/2009 MRSA PCR Screen NEGATIVE - 10/26 and 10/29/2015* * CLEARED PER INFECTION CONTROL Objective Vital Signs 01/15/18 15:45 01/15/18 16:00 01/15/18 19:55 Temperature 98.3 F Pulse Rate 101 H 101 H 101 H Respiratory Rate 18 16 Blood Pressure 146/71 H Pulse Oximetry 99 96 01/15/18 20:00 01/16/18 00:00 01/16/18 04:00 Temperature 97.8 F 97.6 F 97.4 F L Pulse Rate 107 H 93 H 101 H Respiratory Rate 19 19 21 Blood Pressure 150/86 H 137/79 155/96 H Pulse Oximetry 98 98 97 01/16/18 08:00 01/16/18 09:55 01/16/18 12:00 Temperature 98.3 F 98.3 F Pulse Rate 100 H 100 H Respiratory Rate 18 18 Blood Pressure 141/87 H 143/67 H Pulse Oximetry 98 95 97 Intake & Output 01/15/18 01/16/18 01/16/18 18:59 06:59 18:59 Intake Total 680 / 680 490 / 490 Output Total 300 / 300 Balance 380 / 380 490 / 490 Weight 76.2 kg Intake: IV 200 / 200 250 / 250 Levaquin 750 mg Premix Inj 150 150 / 150 ML @ 100 mls/hr IV.SIG Q24H LEIGHA Rx#:[id number] Zosyn 4.5 GM Premix 4.5 gm In 200 / 200 100 / 100 100 ml @ 200 mls/hr IV.SIG Q6H LEIGHA Rx#:[id number] Oral 480 / 480 240 / 240 Output: Urine 300 / 300 Other: # Voids 4 # Incontinent Voids 2 Date of Last Bowel Movement 01/14/18 01/14/18 01/14/18 # Bowel Movements 4 01/12/18 19:00 Blood - Peripheral Aerobic Blood Culture - Preliminary No growth in 4 days 01/12/18 19:00 Blood - Peripheral Anaerobic Blood Culture - Preliminary No growth in 4 days 01/12/18 15:35 Blood - Other Aerobic Blood Culture - Preliminary No growth in 4 days 01/12/18 15:35 Blood - Other Anaerobic Blood Culture - Preliminary No growth in 4 days 01/11/18 17:15 Other - Pending 01/15/18 10:10 Fluid - Other Gram Stain - Final 01/15/18 10:10 Fluid - Other Body Fluid Culture - Pending 01/12/18 15:15 Wound - Leg Gram Stain - Final 01/12/18 15:15 Wound - Leg Wound Culture - Preliminary Citrobacter freundii Aeromonas species Enterococcus faecalis 01/12/18 15:15 Other - Pending 01/11/18 17:20 Blood - Peripheral Aerobic Blood Culture - Final 01/11/18 17:20 Blood - Peripheral Anaerobic Blood Culture - Final 01/11/18 17:15 Blood - Peripheral Aerobic Blood Culture - Preliminary Aeromonas species 01/11/18 17:15 Blood - Peripheral Anaerobic Blood Culture - Preliminary gram negative rods Lab - Hematology Results 01/15/18 01/15/18 05:37 20:00 WBC 7.6 8.7 RBC 2.86 L 3.06 L Hgb 8.8 L 9.4 L Hct 26.8 L 28.3 L MCV 93.8 92.4 MCH 30.6 30.6 MCHC 32.6 33.1 RDW 20.7 H 20.5 H Plt Count 56 L 69 L MPV 10.2 10.8 Prelim Diff (Auto) Slide review pending Slide review pending Neut % (Auto) 94.7 H 94.1 H Lymph % (Auto) 0.8 L 1.2 L [place] % (Auto) 3.5 4.4 Eos % (Auto) 0.1 0.0 Baso % (Auto) 0.9 0.3 Neut # (Auto) 7.2 8.2 H Lymph # (Auto) 0.1 L 0.1 L [place] # (Auto) 0.3 0.4 Eos # (Auto) 0.0 0.0 Baso # (Auto) 0.1 0.0 WBC Differential Manual diff final . Diff Scan Auto diff confirmed Seg Neuts % (Manual) 91 H Band Neuts % (Manual) 6 Monocytes % (Manual) 3 Abs Neuts (Manual) 7.4 Differential Comment . . Platelet Estimate Low L Low L Platelet Morphology Normal Normal Tear Drop Cells 1+ H Ovalocytes 1+ H [place] Cells 1+ H Lab - Chemistry Results 01/14/18 01/14/18 01/14/18 13:22 17:22 20:30 Sodium Potassium Chloride Carbon Dioxide Anion Gap BUN Creatinine Estimated GFR POC Glucose 156 H 211 H 235 H Random Glucose Calcium Magnesium Total Bilirubin AST ALT Alkaline Phosphatase Total Protein Albumin 01/15/18 01/15/18 01/15/18 02:41 05:37 05:37 Sodium 138 Potassium 3.1 L Chloride 99 Carbon Dioxide 28.9 Anion Gap 10 BUN 29 H Creatinine 0.95 Estimated GFR 81 L POC Glucose 141 H Random Glucose 127 H Calcium 7.8 L Magnesium 1.6 Total Bilirubin AST ALT Alkaline Phosphatase Total Protein Albumin 01/15/18 01/15/18 01/15/18 07:17 12:04 17:23 Sodium Potassium Chloride Carbon Dioxide Anion Gap BUN Creatinine Estimated GFR POC Glucose 155 H 181 H 150 H Random Glucose Calcium Magnesium Total Bilirubin AST ALT Alkaline Phosphatase Total Protein Albumin 01/15/18 01/15/18 01/16/18 20:00 20:08 02:49 Sodium 139 Potassium 3.1 L Chloride 98 Carbon Dioxide 31.0 Anion Gap 10 BUN 28 H Creatinine 1.00 Estimated GFR 76 L POC Glucose 142 H 114 H Random Glucose 132 H Calcium 7.6 L Magnesium Total Bilirubin 0.4 AST 20 ALT 37 Alkaline Phosphatase 81 Total Protein 5.4 L Albumin 1.8 L 01/16/18 01/16/18 05:51 07:34 Sodium Potassium Chloride Carbon Dioxide Anion Gap BUN Creatinine Estimated GFR POC Glucose 125 H 128 H Random Glucose Calcium Magnesium Total Bilirubin AST ALT Alkaline Phosphatase Total Protein Albumin Imaging: ITS Impressions Ankle X-Ray 01/12/18 00:00 CONCLUSION: 1. Status post ORIF of the distal left fibula and tibia 2. Soft tissue swelling extending from the distal calf into the foot. 3. Mineralization and mild cortical erosion along the medial malleolus 4. Subtalar joint arthropathy Venous Doppler Study 01/12/18 00:00 CONCLUSION: Negative for deep venous thrombosis in the left lower extremity. Lower Extremity CT 01/13/18 00:00 CONCLUSION: 1. Generalized subcutaneous edema, nonspecific. Some organized subcutaneous fluid posteriorly of the distal leg, also nonspecific but not highly suggestive of abscess. 2. Surgical and degenerative bony joint changes as above. Patient has a solidly fused screw and plate arthrodesis of the tibiotalar joint. No findings convincing for osteomyelitis. 3. Mild osteoarthritis and a small to moderate nonspecific joint effusion at the knee. 4. Extensor tendinosis at the knee without evidence of rupture. Healed patella fracture post pin and wire fixation. 5. Tiny popliteal cyst at the knee. Chest X-Ray 01/15/18 00:00 CONCLUSION: Minimal improvement with less parenchymal changes in the right lung. Physical Exam: GENERAL: awake and alert, looks chronically ill appearing, not in respiratory distress. Looks very weak SKIN: Cool and dry. No generalized rash HEAD: Atraumatic. Normocephalic. No temporal wasting, or tenderness. EYES: [place] conjunctiva. No petechia or hemorrhage. No scleral icterus. No injection or drainage. EARS, NOSE AND THROAT: Mucous membranes pink and moist. No oral lesions noted. NECK: Trachea midline. Supple and not tender, no meningeal signs. No nuchal rigidity CARDIOVASCULAR: Regular rate and rhythm. No murmurs, rubs or gallops heard. Sternotomy incision compatible with surgical history. RESPIRATORY: Clear to auscultation, but decreased at the bases. No rales, wheezing or rhonchi ABDOMEN: Soft, not distended, mild non-specific tenderness, no guarding or rebound. EXTREMITIES: Cool BLE, worse on R than on the L. Has chronic brownish pigmentation both legs. Has improving pitting edema BLE. Erythema LLE looks better. Has dressing both LE. Cool feet and hands NEUROLOGICAL: Grossly non-focal PSYCHIATRIC: cooperative. LINE: Port R upper chest, accessed, with no evidence of infection Assessment and Plan - Plan Impression GNR sepsis, source? Possible Aeromonas - has cellulitis LLE, with some open wounds, seems to have chroniic venous insufficiency same side ORIF Multiple Myeloma, undergoing chemo Recommendation Follow C/S Continue Zosyn - cover GNR Also on Levaquin Monitor progress Pain control
--- NOTE | 2018-01-16 14:02 | P.PN ---
Subjective Interval history: Nursing denies any deterioration since last night. Patient himself is on board with the plan for PT at rehab at the time of discharge if warranted. Says he is not short of breath today. Physical Exam Vital signs: Vital Signs 01/15/18 15:45 01/15/18 16:00 01/15/18 19:55 Temperature 98.3 F Pulse Rate 101 H 101 H 101 H Respiratory Rate 18 16 Blood Pressure 146/71 H Pulse Oximetry 99 96 01/15/18 20:00 01/16/18 00:00 01/16/18 04:00 Temperature 97.8 F 97.6 F 97.4 F L Pulse Rate 107 H 93 H 101 H Respiratory Rate 19 19 21 Blood Pressure 150/86 H 137/79 155/96 H Pulse Oximetry 98 98 97 01/16/18 08:00 01/16/18 09:55 01/16/18 12:00 Temperature 98.3 F 98.3 F Pulse Rate 100 H 100 H Respiratory Rate 18 18 Blood Pressure 141/87 H 143/67 H Pulse Oximetry 98 95 97 Intake & Output 01/15/18 01/16/18 01/16/18 18:59 06:59 18:59 Intake Total 680 / 680 490 / 490 Output Total 300 / 300 Balance 380 / 380 490 / 490 Weight 76.2 kg Intake: IV 200 / 200 250 / 250 Levaquin 750 mg Premix Inj 150 150 / 150 ML @ 100 mls/hr IV.SIG Q24H LEIGHA Rx#:[id number] Zosyn 4.5 GM Premix 4.5 gm In 200 / 200 100 / 100 100 ml @ 200 mls/hr IV.SIG Q6H LEIGHA Rx#:[id number] Oral 480 / 480 240 / 240 Output: Urine 300 / 300 Other: # Voids 4 # Incontinent Voids 2 Date of Last Bowel Movement 01/14/18 01/14/18 01/14/18 # Bowel Movements 4 Narrative: Clear lungs bilaterally, unlabored breathing, on nasal cannula Lower extremities in wound dressings Results - Labs CBC & Chem 7: 01/15/18 20:00 01/15/18 20:00 Laboratory Results - last 24 hr 01/15/18 01/15/18 01/15/18 17:23 20:00 20:00 WBC 8.7 RBC 3.06 L Hgb 9.4 L Hct 28.3 L MCV 92.4 MCH 30.6 MCHC 33.1 RDW 20.5 H Plt Count 69 L MPV 10.8 Prelim Diff (Auto) Slide review pending Neut % (Auto) 94.1 H Lymph % (Auto) 1.2 L [place] % (Auto) 4.4 Eos % (Auto) 0.0 Baso % (Auto) 0.3 Neut # (Auto) 8.2 H Lymph # (Auto) 0.1 L [place] # (Auto) 0.4 Eos # (Auto) 0.0 Baso # (Auto) 0.0 WBC Differential . Diff Scan Auto diff confirmed Differential Comment . Platelet Estimate Low L Platelet Morphology Normal Sodium 139 Potassium 3.1 L Chloride 98 Carbon Dioxide 31.0 Anion Gap 10 BUN 28 H Creatinine 1.00 Estimated GFR 76 L POC Glucose 150 H Random Glucose 132 H Calcium 7.6 L Total Bilirubin 0.4 AST 20 ALT 37 Alkaline Phosphatase 81 Total Protein 5.4 L Albumin 1.8 L 01/15/18 01/16/18 01/16/18 20:08 02:49 05:51 WBC RBC Hgb Hct MCV MCH MCHC RDW Plt Count MPV Prelim Diff (Auto) Neut % (Auto) Lymph % (Auto) [place] % (Auto) Eos % (Auto) Baso % (Auto) Neut # (Auto) Lymph # (Auto) [place] # (Auto) Eos # (Auto) Baso # (Auto) WBC Differential Diff Scan Differential Comment Platelet Estimate Platelet Morphology Sodium Potassium Chloride Carbon Dioxide Anion Gap BUN Creatinine Estimated GFR POC Glucose 142 H 114 H 125 H Random Glucose Calcium Total Bilirubin AST ALT Alkaline Phosphatase Total Protein Albumin 01/16/18 01/16/18 07:34 12:43 WBC RBC Hgb Hct MCV MCH MCHC RDW Plt Count MPV Prelim Diff (Auto) Neut % (Auto) Lymph % (Auto) [place] % (Auto) Eos % (Auto) Baso % (Auto) Neut # (Auto) Lymph # (Auto) [place] # (Auto) Eos # (Auto) Baso # (Auto) WBC Differential Diff Scan Differential Comment Platelet Estimate Platelet Morphology Sodium Potassium Chloride Carbon Dioxide Anion Gap BUN Creatinine Estimated GFR POC Glucose 128 H 140 H Random Glucose Calcium Total Bilirubin AST ALT Alkaline Phosphatase Total Protein Albumin Microbiology 01/15/18 10:10 Fluid - Other Gram Stain - Final 01/15/18 10:10 Fluid - Other Body Fluid Culture - Preliminary No growth in 24 hours 01/12/18 19:00 Blood - Peripheral Aerobic Blood Culture - Preliminary No growth in 4 days 01/12/18 19:00 Blood - Peripheral Anaerobic Blood Culture - Preliminary No growth in 4 days 01/12/18 15:35 Blood - Other Aerobic Blood Culture - Preliminary No growth in 4 days 01/12/18 15:35 Blood - Other Anaerobic Blood Culture - Preliminary No growth in 4 days 01/12/18 15:15 Wound - Leg Gram Stain - Final 01/12/18 15:15 Wound - Leg Wound Culture - Preliminary Citrobacter freundii Aeromonas species Enterococcus faecalis 01/11/18 17:20 Blood - Peripheral Aerobic Blood Culture - Final 01/11/18 17:20 Blood - Peripheral Anaerobic Blood Culture - Final Assessment and Plan - Plan Mr. Rios is a 62 y/o male with a history of multiple myeloma s/p chemo on (Dr. Smith is oncologist), CHF (EF 20 - 25% 2015), CAD s/p CABG and aortic valve replacement, diabetes mellitus, diabetic neuropathy, hyperlipidemia , hypertension, and amyloidosis who presented to the ER on 01/11 upon recommendation by his PCP Dr. Palm for 1 week history of progressively worsening SOB and lower extremity edema. The patient was found to have pneumonia, sepsis, and a small pleural effusion and was admitted to the hospitalist service for medical management. Bacteremia suspected 2/2 cellulitis - Zosyn and levaquin, ID following, repeat blood cultures negative, pending cultures from bolus aspiration - wound care following, cultures obtained from the leg wounds - Consult podiatry as patient with severe leg pain and edema, wound is not improving. Plan for CT right leg discussed with Dr Dale podiatry - consult palliative care for goals of care Pneumonia - IV antibiotics as above - Dunayelibs sCHF - maintains low EF ~ 20-25% - Lasix 40 mg IV BID - BNP 2362 Multiple Myeloma - last chemo 01/10 - consult Dr. Smith, oncology - appreciate assistance - monitor CBC Elevated BS, accuchecks, ISS- low, Add levemir, monitor BS and adjust insulin as need. diabetic diet. Check A1c. DVT prophylaxis - Lovenox SQ Discharge Planning: Discharge pending clearance with ID to PT at rehab.
--- NOTE | 2018-01-16 15:49 | P.PNPOD ---
Subjective Interval history: Bilateral leg ulcerations. Pt states the left leg continues to be very painful. Physical Exam Vital signs: Vital Signs 01/15/18 16:00 01/15/18 19:55 01/15/18 20:00 Temperature 98.3 F 97.8 F Pulse Rate 101 H 101 H 107 H Respiratory Rate 18 16 19 Blood Pressure 146/71 H 150/86 H Pulse Oximetry 99 96 98 01/16/18 00:00 01/16/18 04:00 01/16/18 08:00 Temperature 97.6 F 97.4 F L 98.3 F Pulse Rate 93 H 101 H 100 H Respiratory Rate 19 21 18 Blood Pressure 137/79 155/96 H 141/87 H Pulse Oximetry 98 97 98 01/16/18 09:55 01/16/18 12:00 Temperature 98.3 F Pulse Rate 100 H Respiratory Rate 18 Blood Pressure 143/67 H Pulse Oximetry 95 97 Intake & Output 01/15/18 01/16/18 01/16/18 18:59 06:59 18:59 Intake Total 680 / 680 490 / 490 Output Total 300 / 300 Balance 380 / 380 490 / 490 Weight 76.2 kg Intake: IV 200 / 200 250 / 250 Levaquin 750 mg Premix Inj 150 150 / 150 ML @ 100 mls/hr IV.SIG Q24H [facility] Rx#:[id number] Zosyn 4.5 GM Premix 4.5 gm In 200 / 200 100 / 100 100 ml @ 200 mls/hr IV.SIG Q6H [facility] Rx#:[id number] Oral 480 / 480 240 / 240 Output: Urine 300 / 300 Other: # Voids 4 # Incontinent Voids 2 Date of Last Bowel Movement 01/14/18 01/14/18 01/14/18 # Bowel Movements 4 Narrative: Right leg with only two small superficial ulcerations, no signs of infection, mild serous drainage Left leg with circumferential superficial ulcers after bullae debridement, no erythema or signs of infection, copious serous drainage. Discoloration and dark skin changes to lower leg, consistent with hemosederin deposits. Medications and Allergies Active Medications: Active Medications Acetaminophen (Tylenol) 650 mg PO Q4H PRN PRN Reason: TEMPERATURE > 101 F Last Admin: 01/12/18 11:51 Dose: 650 mg Al Hydroxide/Mg Hydroxide (Milk Of Magnesia Liq) 30 ml PO Q12H PRN PRN Reason: Mild Constipation Albuterol (Duoneb Neb (Prn)) 1 ampul NEB Q2HR NEB PRN PRN Reason: SHORTNESS OF BREATH/WHEEZING Bisacodyl (Dulcolax Supp) 10 mg RECTAL DAILY PRN PRN Reason: SEVERE CONSITIPATION Dextrose (D50w Vial) 50 ml IV.PUSH UNSCH PRN PRN Reason: PER HYPOGLYCEMIA PROTOCOL Duloxetine HCl (Cymbalta) 30 mg PO HS [facility] Last Admin: 01/15/18 20:41 Dose: 30 mg Enoxaparin Sodium (Lovenox Inj) 30 mg SQ Q24H [facility] Last Admin: 01/15/18 20:44 Dose: 30 mg Furosemide (Lasix Inj) 40 mg IV.PUSH BID@0900,1800 [facility] Last Admin: 01/16/18 10:57 Dose: 40 mg Glucagon (Glucagon Inj) 1 mg OTHER PRN PRN PRN Reason: for Hypoglycemia Protocol Guaifenesin (Mucinex Er) 600 mg PO BID [facility] Last Admin: 01/16/18 10:56 Dose: 600 mg Heparin Sodium (Porcine) (Heparin Central Flush) 500 unit IV.FLUSH PRN PRN PRN Reason: Flush infusaport Heparin Sodium (Porcine) (Heparin Central Flush) 250 unit IV.FLUSH PRN PRN PRN Reason: Flush Infusapot Last Admin: 01/15/18 05:34 Dose: 250 unit Piperacillin/Tazobactam/Dextrose (Zosyn 4.5 Gm Premix) 4.5 gm in 100 mls @ 200 mls/hr IV.SIG Q6H [facility] Last Admin: 01/16/18 05:53 Dose: 200 mls/hr Sodium Chloride (Ns Inj) 1,000 mls @ 75 mls/hr IV.CONT .[id number] [facility] Last Admin: 01/15/18 20:43 Dose: Not Given Magnesium Sulfate Inj 4 gm/ (Sodium Chloride) 100 mls @ 50 mls/hr IV.SIG UNSCH PRN PRN Reason: For Magnesium 0.9 - 1.1 mg/dL Potassium Chloride (Kcl 40 Meq Premix Inj) 40 meq in 100 mls @ 50 mls/hr IV.SIG Q2H PRN PRN Reason: For Potassium 2.8 - 3.2 mEq/L Potassium Chloride (Kcl 40 Meq Premix Inj) 40 meq in 100 mls @ 25 mls/hr IV.SIG UNSCH PRN PRN Reason: For Potassium 3.3 - 3.5 mEq/L Potassium Chloride (Kcl 20 Meq Premix Inj) 20 meq in 100 mls @ 50 mls/hr IV.SIG Q2H PRN PRN Reason: For Potassium 2.8 - 3.2 mEq/L Potassium Phosphate 30 mmol/ (Sodium Chloride) 260 mls @ 42 mls/hr IV.SIG UNSCH PRN PRN Reason: SEE LABEL COMMENTS Sodium Phosphate 30 mmol/ (Sodium Chloride) 260 mls @ 42 mls/hr IV.SIG UNSCH PRN PRN Reason: For Phosphorus < 2.5 mg/dL Magnesium Sulfate Inj 2 gm/ (Sodium Chloride) 100 mls @ 50 mls/hr IV.SIG UNSCH PRN PRN Reason: For Magnesium 1.2 - 1.6 mg/dL Potassium Chloride (Kcl 20 Meq Premix Inj) 20 meq in 100 mls @ 50 mls/hr IV.SIG Q2H PRN PRN Reason: For Potassium 3.3 - 3.5 mEq/L Levofloxacin/Dextrose (Levaquin 750 Mg Premix Inj) 150 mls @ 100 mls/hr IV.SIG Q24H [facility] Last Infusion: 01/15/18 19:21 Dose: Infused Insulin Aspart (Novolog Insulin Correctional Sugar Inj) 0 unit SQ ACHS AND 3AM [facility]; Protocol Last Admin: 01/16/18 13:49 Dose: Not Given Insulin Detemir (Levemir Inj) 7 unit SQ BID [facility] Last Admin: 01/16/18 10:57 Dose: 7 unit Lactulose (Lactulose Liq) 30 ml PO DAILY PRN PRN Reason: SEVERE CONSITIPATION Magnesium Oxide (Mag-Ox) 800 mg PO UNSCH PRN PRN Reason: For Magnesium 1.2 - 1.6 mg/dL Methylprednisolone Sodium Succinate (Solumedrol Inj) 40 mg IV.PUSH Q12H [facility] Last Admin: 01/16/18 10:55 Dose: 40 mg Morphine Sulfate (Morphine Inj) 4 mg IV.PUSH Q3H PRN PRN Reason: PAIN 6-10;IF UNABLE TO TAKE PO Last Admin: 01/13/18 23:05 Dose: 4 mg Morphine Sulfate (Morphine Inj) 2 mg IV.PUSH Q3H PRN PRN Reason: PAIN 3-5; IF UABLE TO TAKE PO Naloxone HCl (Narcan Inj) 0.4 mg IV.PUSH UNSCH PRN PRN Reason: SEE LABEL COMMENTS Ondansetron HCl (Zofran Inj) 4 mg IV.PUSH Q6H PRN PRN Reason: NAUSEA OR VOMITING Oxycodone/Acetaminophen (Percocet 10/325 Mg) 1 tab PO Q6H PRN PRN Reason: PAIN SCALE 6 TO 10 Last Admin: 01/16/18 10:56 Dose: 1 tab Oxycodone/Acetaminophen (Percocet 5/325 Mg) 1 tab PO Q6H PRN PRN Reason: PAIN SCALE 3 TO 5 Potassium Bicarb/Potassium Chloride (K-Lyte Cl Eff) 50 meq PO UNSCH PRN PRN Reason: For Potassium 3.3 - 3.5 mEq/L Last Admin: 01/13/18 12:04 Dose: 50 meq Potassium Phosphate (K-Phos Original) 2,000 mg PO Q4H PRN PRN Reason: Phosphorus Less Than 2.5 mg/dL Potassium Phosphate (K-Phos Original) 2,000 mg PO UNSCH PRN PRN Reason: SEE LABEL COMMENTS Senna/Docusate Sodium (Kamini-Colace) 1 tab PO BID [facility] Last Admin: 01/16/18 10:54 Dose: Not Given Sennosides (Senokot) 17.2 mg PO Q12H PRN PRN Reason: Moderate Constipation Sodium Chloride (Ns Flush) 2 ml IV.FLUSH PRN PRN PRN Reason: FLUSH AFTER USING IV ACCESS Sodium Chloride (Ns Flush) 2 ml IV.FLUSH BID [facility] Last Admin: 01/16/18 10:57 Dose: 2 ml Sodium Chloride (Ns Flush) 5 ml IV.FLUSH PRN PRN PRN Reason: Flush Infusaport Temazepam (Restoril) 15 mg PO HS PRN PRN Reason: INSOMNIA Allergies Allergy/AdvReac Type Severity Reaction Status Date / Time azithromycin Allergy Intermediate rash Verified 01/11/18 20:23 *MDRO Multi-Drug Resistant AdvReac Mild Cleared Uncoded 08/08/16 09:57 Organism 10/2015 Home Medications Medication Instructions Recorded Confirmed Type alprazolam 0.5 mg PO HS PRN 01/11/18 01/11/18 History dexamethasone 20 mg PO WEEKLY 01/11/18 01/11/18 History duloxetine [Cymbalta] 30 mg PO HS 01/11/18 01/11/18 History hydromorphone [Dilaudid] 4 mg PO Q6H PRN 01/11/18 01/11/18 History prochlorperazine maleate 10 mg PO QID PRN 01/11/18 01/11/18 History [Compazine] Results - Labs CBC & Chem 7: 01/15/18 20:00 01/15/18 20:00 Laboratory Results - last 24 hr 01/15/18 01/15/18 01/15/18 17:23 20:00 20:00 WBC 8.7 RBC 3.06 L Hgb 9.4 L Hct 28.3 L MCV 92.4 MCH 30.6 MCHC 33.1 RDW 20.5 H Plt Count 69 L MPV 10.8 Prelim Diff (Auto) Slide review pending Neut % (Auto) 94.1 H Lymph % (Auto) 1.2 L Fleming % (Auto) 4.4 Eos % (Auto) 0.0 Baso % (Auto) 0.3 Neut # (Auto) 8.2 H Lymph # (Auto) 0.1 L Fleming # (Auto) 0.4 Eos # (Auto) 0.0 Baso # (Auto) 0.0 WBC Differential . Diff Scan Auto diff confirmed Differential Comment . Platelet Estimate Low L Platelet Morphology Normal Sodium 139 Potassium 3.1 L Chloride 98 Carbon Dioxide 31.0 Anion Gap 10 BUN 28 H Creatinine 1.00 Estimated GFR 76 L POC Glucose 150 H Random Glucose 132 H Calcium 7.6 L Total Bilirubin 0.4 AST 20 ALT 37 Alkaline Phosphatase 81 Total Protein 5.4 L Albumin 1.8 L 01/15/18 01/16/18 01/16/18 20:08 02:49 05:51 WBC RBC Hgb Hct MCV MCH MCHC RDW Plt Count MPV Prelim Diff (Auto) Neut % (Auto) Lymph % (Auto) Fleming % (Auto) Eos % (Auto) Baso % (Auto) Neut # (Auto) Lymph # (Auto) Fleming # (Auto) Eos # (Auto) Baso # (Auto) WBC Differential Diff Scan Differential Comment Platelet Estimate Platelet Morphology Sodium Potassium Chloride Carbon Dioxide Anion Gap BUN Creatinine Estimated GFR POC Glucose 142 H 114 H 125 H Random Glucose Calcium Total Bilirubin AST ALT Alkaline Phosphatase Total Protein Albumin 01/16/18 01/16/18 07:34 12:43 WBC RBC Hgb Hct MCV MCH MCHC RDW Plt Count MPV Prelim Diff (Auto) Neut % (Auto) Lymph % (Auto) Fleming % (Auto) Eos % (Auto) Baso % (Auto) Neut # (Auto) Lymph # (Auto) Fleming # (Auto) Eos # (Auto) Baso # (Auto) WBC Differential Diff Scan Differential Comment Platelet Estimate Platelet Morphology Sodium Potassium Chloride Carbon Dioxide Anion Gap BUN Creatinine Estimated GFR POC Glucose 128 H 140 H Random Glucose Calcium Total Bilirubin AST ALT Alkaline Phosphatase Total Protein Albumin Microbiology 01/15/18 10:10 Fluid - Other Gram Stain - Final 01/15/18 10:10 Fluid - Other Body Fluid Culture - Preliminary No growth in 24 hours 01/12/18 19:00 Blood - Peripheral Aerobic Blood Culture - Preliminary No growth in 4 days 01/12/18 19:00 Blood - Peripheral Anaerobic Blood Culture - Preliminary No growth in 4 days 01/12/18 15:35 Blood - Other Aerobic Blood Culture - Preliminary No growth in 4 days 01/12/18 15:35 Blood - Other Anaerobic Blood Culture - Preliminary No growth in 4 days 01/12/18 15:15 Wound - Leg Gram Stain - Final 01/12/18 15:15 Wound - Leg Wound Culture - Preliminary Citrobacter freundii Aeromonas species Enterococcus faecalis Assessment and Plan - Assessment (1) Cellulitis of left leg Code(s): L03.116 - Cellulitis of left lower limb Status: Acute (2) Cellulitis of right leg Code(s): L03.115 - Cellulitis of right lower limb Status: Acute (3) Ulcer of right lower extremity, limited to breakdown of skin Code(s): L97.911 - Non-pressure chronic ulcer of unspecified part of right lower leg limited to breakdown of skin Status: Acute - Plan -LE cellulitis appears resolved -elevate legs when at rest -nurses to continue daily wound care -will continue to monitor closely while in house
[2018-01-16] MEDS: Sod Chloride 0.9% Inj 1,000 ML IV.CONT SCH ×2 (15:59→23:28)
--- NOTE | 2018-01-16 16:03 | P.PNPAL ---
Reason for Visit Reason for visit: a. To assist with evaluation and management of symptoms including:pain, shortness of breath b. To assist medical decision maker(s) with: better understanding of current medical conditions; weighing benefits/burdens of medical treatment options; making medical treatment decisions. Subjective Subjective/Interval History: Follow-up medically necessary for symptom management. Patient seen and examined in his room. Patient is awake, alert, oriented to self, place and situation. Physical therapy currently in room getting patient ready for therapy. Patient currently denies pain. Reports that when he is pain is mostly to his left lower extremity. Pain managed with morphine sulfate 2-4 mg q. 3 hrs prn. Patient has not required any prn morphine sulfate for the past 24 hours. Last dose was administered 01/13/18 at 2305 hrs. Patient is also on oxycodone/acetaminophen 5/325 and 10/325 every 6 hrs prn . Patient is required 4 prn doses of oxycodone/acetaminophen 10/325 in the past 24 hours. Patient denies chest pain, shortness of breath. Patient is currently on room air with O2 sats in the mid to high 90s. Patient assisted with completing [facility] DNR today. Patient states that he feels better and is looking forward to continuing with physical therapy in rehabilitation. Family/Friend Interactions: No family at bedside Advance Directives Living Will: Never completed Health Care Surrogate: Copy in medical record Durable Power of In Shop Service Technician: Never completed Advance Directives Date on File: 01/15/18 Health Care Surrogate Name and Number: Gabriel Rodriguez [phone] Alt :Gabriel [phone] Objective Vital Signs: Vital Signs 01/15/18 16:00 01/15/18 19:55 01/15/18 20:00 Temperature 98.3 F 97.8 F Pulse Rate 101 H 101 H 107 H Respiratory Rate 18 16 19 Blood Pressure 146/71 H 150/86 H Pulse Oximetry 99 96 98 01/16/18 00:00 01/16/18 04:00 01/16/18 08:00 Temperature 97.6 F 97.4 F L 98.3 F Pulse Rate 93 H 101 H 100 H Respiratory Rate 19 21 18 Blood Pressure 137/79 155/96 H 141/87 H Pulse Oximetry 98 97 98 01/16/18 09:55 01/16/18 12:00 Temperature 98.3 F Pulse Rate 100 H Respiratory Rate 18 Blood Pressure 143/67 H Pulse Oximetry 95 97 Intake & Output 01/15/18 01/16/18 01/16/18 18:59 06:59 18:59 Intake Total 680 / 680 490 / 490 Output Total 300 / 300 Balance 380 / 380 490 / 490 Weight 76.2 kg Intake: IV 200 / 200 250 / 250 Levaquin 750 mg Premix Inj 150 150 / 150 ML @ 100 mls/hr IV.SIG Q24H LEIGHA Rx#:[id number] Zosyn 4.5 GM Premix 4.5 gm In 200 / 200 100 / 100 100 ml @ 200 mls/hr IV.SIG Q6H LEIGHA Rx#:[id number] Oral 480 / 480 240 / 240 Output: Urine 300 / 300 Other: # Voids 4 # Incontinent Voids 2 Date of Last Bowel Movement 01/14/18 01/14/18 01/14/18 # Bowel Movements 4 Physical Exam: CONSTITUTIONAL/GENERAL: This is a chronically ill-looking patient, in no apparent distress. TUBES/LINES/DRAINS:Infusaport to right chest wall SKIN: No jaundice, rashes, or lesions. Ecchymoses on upper extremities. No wounds seen anteriorly. Skin temperature appropriate. Open blister area to left lower extremity. HEAD: Atraumatic. Normocephalic. EYES: Pupils equal and round and reactive. Extraocular motions intact. No scleral icterus. No injection or drainage. Fundi not examined. ENT: Hearing grossly normal. Nose without bleeding or purulent drainage. Throat without visible erythema, exudates, masses, or lesions. CARDIOVASCULAR: Regular rate and rhythm without murmurs, gallops, or rubs. No JVD. Midsternum scar. Peripheral pulses symmetric. RESPIRATORY/CHEST: Symmetric, unlabored respirations. Clear to auscultation. No wheezes, rales, or rhonchi. GASTROINTESTINAL: Abdomen soft, non-tender, nondistended. No guarding. Bowel sounds present. MUSCULOSKELETAL: Extremities without clubbing, cyanosis. Weeping edema to LLE. Kevin skin to visible area. Dressings to BLE intact. NEUROLOGICAL: Awake, alert, oriented to self, place and situation. Motor and sensory grossly within normal limits. Follows commands. Moves all extremities. PSYCHIATRIC: No obvious anxiety/depression. no apparent hallucinations or other psychotic thought process. Diagnostic Tests Laboratory: Laboratory Results - last 72 hr 01/13/18 01/13/18 01/14/18 18:00 20:23 02:32 WBC RBC Hgb Hct MCV MCH MCHC RDW Plt Count MPV Prelim Diff (Auto) Neut % (Auto) Lymph % (Auto) Angelina % (Auto) Eos % (Auto) Baso % (Auto) Neut # (Auto) Lymph # (Auto) Angelina # (Auto) Eos # (Auto) Baso # (Auto) WBC Differential Diff Scan Seg Neuts % (Manual) Band Neuts % (Manual) Lymphocytes % (Manual) Monocytes % (Manual) Abs Neuts (Manual) Differential Comment Platelet Estimate Platelet Morphology Tear Drop Cells Ovalocytes Millie Cells Acanthocytes (Spur) Sodium Potassium Chloride Carbon Dioxide Anion Gap BUN Creatinine Estimated GFR POC Glucose 226 H 269 H 122 H Random Glucose Calcium Magnesium Total Bilirubin AST ALT Alkaline Phosphatase Total Protein Albumin 01/14/18 01/14/18 01/14/18 06:00 06:00 08:04 WBC 6.6 RBC 2.80 L Hgb 8.6 L Hct 26.2 L MCV 93.3 MCH 30.7 MCHC 32.9 RDW 21.1 H Plt Count 54 L MPV 9.4 Prelim Diff (Auto) Slide review pending Neut % (Auto) 94.3 H Lymph % (Auto) 1.5 L Angelina % (Auto) 3.8 Eos % (Auto) 0.0 Baso % (Auto) 0.4 Neut # (Auto) 6.2 Lymph # (Auto) 0.1 L Angelina # (Auto) 0.2 Eos # (Auto) 0.0 Baso # (Auto) 0.0 WBC Differential Manual diff final Diff Scan Seg Neuts % (Manual) 65 Band Neuts % (Manual) 19 H Lymphocytes % (Manual) 8 L Monocytes % (Manual) 8 Abs Neuts (Manual) 5.5 Differential Comment . Platelet Estimate Low L Platelet Morphology Normal Tear Drop Cells Ovalocytes 1+ H [place] Cells Acanthocytes (Spur) 1+ H Sodium 139 Potassium 3.7 Chloride 102 Carbon Dioxide 28.6 Anion Gap 8 BUN 25 H Creatinine 0.93 Estimated GFR 83 L POC Glucose 90 Random Glucose 75 Calcium 7.7 L Magnesium Total Bilirubin 0.4 AST 32 ALT 38 Alkaline Phosphatase 66 Total Protein 5.2 L Albumin 1.6 L 01/14/18 01/14/18 01/14/18 13:22 17:22 20:30 WBC RBC Hgb Hct MCV MCH MCHC RDW Plt Count MPV Prelim Diff (Auto) Neut % (Auto) Lymph % (Auto) Angelina % (Auto) Eos % (Auto) Baso % (Auto) Neut # (Auto) Lymph # (Auto) Angelina # (Auto) Eos # (Auto) Baso # (Auto) WBC Differential Diff Scan Seg Neuts % (Manual) Band Neuts % (Manual) Lymphocytes % (Manual) Monocytes % (Manual) Abs Neuts (Manual) Differential Comment Platelet Estimate Platelet Morphology Tear Drop Cells Ovalocytes Millie Cells Acanthocytes (Spur) Sodium Potassium Chloride Carbon Dioxide Anion Gap BUN Creatinine Estimated GFR POC Glucose 156 H 211 H 235 H Random Glucose Calcium Magnesium Total Bilirubin AST ALT Alkaline Phosphatase Total Protein Albumin 01/15/18 01/15/18 01/15/18 02:41 05:37 05:37 WBC 7.6 RBC 2.86 L Hgb 8.8 L Hct 26.8 L MCV 93.8 MCH 30.6 MCHC 32.6 RDW 20.7 H Plt Count 56 L MPV 10.2 Prelim Diff (Auto) Slide review pending Neut % (Auto) 94.7 H Lymph % (Auto) 0.8 L Angelina % (Auto) 3.5 Eos % (Auto) 0.1 Baso % (Auto) 0.9 Neut # (Auto) 7.2 Lymph # (Auto) 0.1 L Angelina # (Auto) 0.3 Eos # (Auto) 0.0 Baso # (Auto) 0.1 WBC Differential Manual diff final Diff Scan Seg Neuts % (Manual) 91 H Band Neuts % (Manual) 6 Lymphocytes % (Manual) Monocytes % (Manual) 3 Abs Neuts (Manual) 7.4 Differential Comment . Platelet Estimate Low L Platelet Morphology Normal Tear Drop Cells 1+ H Ovalocytes 1+ H [place] Cells 1+ H Acanthocytes (Spur) Sodium 138 Potassium 3.1 L Chloride 99 Carbon Dioxide 28.9 Anion Gap 10 BUN 29 H Creatinine 0.95 Estimated GFR 81 L POC Glucose 141 H Random Glucose 127 H Calcium 7.8 L Magnesium Total Bilirubin AST ALT Alkaline Phosphatase Total Protein Albumin 01/15/18 01/15/18 01/15/18 05:37 07:17 12:04 WBC RBC Hgb Hct MCV MCH MCHC RDW Plt Count MPV Prelim Diff (Auto) Neut % (Auto) Lymph % (Auto) Angelina % (Auto) Eos % (Auto) Baso % (Auto) Neut # (Auto) Lymph # (Auto) Angelina # (Auto) Eos # (Auto) Baso # (Auto) WBC Differential Diff Scan Seg Neuts % (Manual) Band Neuts % (Manual) Lymphocytes % (Manual) Monocytes % (Manual) Abs Neuts (Manual) Differential Comment Platelet Estimate Platelet Morphology Tear Drop Cells Ovalocytes [place] Cells Acanthocytes (Spur) Sodium Potassium Chloride Carbon Dioxide Anion Gap BUN Creatinine Estimated GFR POC Glucose 155 H 181 H Random Glucose Calcium Magnesium 1.6 Total Bilirubin AST ALT Alkaline Phosphatase Total Protein Albumin 01/15/18 01/15/18 01/15/18 17:23 20:00 20:00 WBC 8.7 RBC 3.06 L Hgb 9.4 L Hct 28.3 L MCV 92.4 MCH 30.6 MCHC 33.1 RDW 20.5 H Plt Count 69 L MPV 10.8 Prelim Diff (Auto) Slide review pending Neut % (Auto) 94.1 H Lymph % (Auto) 1.2 L Angelina % (Auto) 4.4 Eos % (Auto) 0.0 Baso % (Auto) 0.3 Neut # (Auto) 8.2 H Lymph # (Auto) 0.1 L Angelina # (Auto) 0.4 Eos # (Auto) 0.0 Baso # (Auto) 0.0 WBC Differential . Diff Scan Auto diff confirmed Seg Neuts % (Manual) Band Neuts % (Manual) Lymphocytes % (Manual) Monocytes % (Manual) Abs Neuts (Manual) Differential Comment . Platelet Estimate Low L Platelet Morphology Normal Tear Drop Cells Ovalocytes [place] Cells Acanthocytes (Spur) Sodium 139 Potassium 3.1 L Chloride 98 Carbon Dioxide 31.0 Anion Gap 10 BUN 28 H Creatinine 1.00 Estimated GFR 76 L POC Glucose 150 H Random Glucose 132 H Calcium 7.6 L Magnesium Total Bilirubin 0.4 AST 20 ALT 37 Alkaline Phosphatase 81 Total Protein 5.4 L Albumin 1.8 L 01/15/18 01/16/18 01/16/18 20:08 02:49 05:51 WBC RBC Hgb Hct MCV MCH MCHC RDW Plt Count MPV Prelim Diff (Auto) Neut % (Auto) Lymph % (Auto) Angelina % (Auto) Eos % (Auto) Baso % (Auto) Neut # (Auto) Lymph # (Auto) Angelina # (Auto) Eos # (Auto) Baso # (Auto) WBC Differential Diff Scan Seg Neuts % (Manual) Band Neuts % (Manual) Lymphocytes % (Manual) Monocytes % (Manual) Abs Neuts (Manual) Differential Comment Platelet Estimate Platelet Morphology Tear Drop Cells Ovalocytes Millie Cells Acanthocytes (Spur) Sodium Potassium Chloride Carbon Dioxide Anion Gap BUN Creatinine Estimated GFR POC Glucose 142 H 114 H 125 H Random Glucose Calcium Magnesium Total Bilirubin AST ALT Alkaline Phosphatase Total Protein Albumin 01/16/18 01/16/18 07:34 12:43 WBC RBC Hgb Hct MCV MCH MCHC RDW Plt Count MPV Prelim Diff (Auto) Neut % (Auto) Lymph % (Auto) Angelina % (Auto) Eos % (Auto) Baso % (Auto) Neut # (Auto) Lymph # (Auto) Angelina # (Auto) Eos # (Auto) Baso # (Auto) WBC Differential Diff Scan Seg Neuts % (Manual) Band Neuts % (Manual) Lymphocytes % (Manual) Monocytes % (Manual) Abs Neuts (Manual) Differential Comment Platelet Estimate Platelet Morphology Tear Drop Cells Ovalocytes Millie Cells Acanthocytes (Spur) Sodium Potassium Chloride Carbon Dioxide Anion Gap BUN Creatinine Estimated GFR POC Glucose 128 H 140 H Random Glucose Calcium Magnesium Total Bilirubin AST ALT Alkaline Phosphatase Total Protein Albumin Result Diagrams: 01/15/18 20:00 01/15/18 20:00 Microbiology: Microbiology 01/15/18 10:10 Gram Stain - Final Fluid - Other Body Fluid Culture - Preliminary No growth in 24 hours 01/12/18 19:00 Aerobic Blood Culture - Preliminary Blood - Peripheral No growth in 4 days Anaerobic Blood Culture - Preliminary No growth in 4 days 01/12/18 15:35 Aerobic Blood Culture - Preliminary Blood - Other No growth in 4 days Anaerobic Blood Culture - Preliminary No growth in 4 days 01/12/18 15:15 Gram Stain - Final Wound - Leg Wound Culture - Preliminary Citrobacter freundii Aeromonas species Enterococcus faecalis 01/11/18 17:20 Aerobic Blood Culture - Final Blood - Peripheral Anaerobic Blood Culture - Final 01/11/18 17:15 Aerobic Blood Culture - Preliminary Blood - Peripheral Aeromonas species Anaerobic Blood Culture - Preliminary gram negative rods Imaging: Ankle X-Ray 01/12/18 00:00 CONCLUSION: 1. Status post ORIF of the distal left fibula and tibia 2. Soft tissue swelling extending from the distal calf into the foot. 3. Mineralization and mild cortical erosion along the medial malleolus 4. Subtalar joint arthropathy Venous Doppler Study 01/12/18 00:00 CONCLUSION: Negative for deep venous thrombosis in the left lower extremity. Lower Extremity CT 01/13/18 00:00 CONCLUSION: 1. Generalized subcutaneous edema, nonspecific. Some organized subcutaneous fluid posteriorly of the distal leg, also nonspecific but not highly suggestive of abscess. 2. Surgical and degenerative bony joint changes as above. Patient has a solidly fused screw and plate arthrodesis of the tibiotalar joint. No findings convincing for osteomyelitis. 3. Mild osteoarthritis and a small to moderate nonspecific joint effusion at the knee. 4. Extensor tendinosis at the knee without evidence of rupture. Healed patella fracture post pin and wire fixation. 5. Tiny popliteal cyst at the knee. Chest X-Ray 01/15/18 00:00 CONCLUSION: Minimal improvement with less parenchymal changes in the right lung. Assessment and Plan - Disease Oriented Problem List (1) Sepsis (2) Pneumonia (3) Cellulitis of left leg (4) Cellulitis of right leg (5) Ulcer of right lower extremity, limited to breakdown of skin (6) CHF (congestive heart failure) (7) Multiple myeloma (8) Thrombocytopenia (9) Amyloidosis (10) Diabetes mellitus (11) Diabetic neuropathy (12) Hypertension - Symptom Scale (2) Pain Comment: Patient his cellulitis to bilateral lower extremities. c/o pain mostly to LLE. Pertinent Non-Medical Issues: Psychosocial:Patient is originally from [place]. He moved to [place] in 1990. Spiritual: Legal: Ethical issues impacting care: Important Contacts: Health Care Surrogate- Son-Gabriel Rodriguez [phone] Alternate HCS- Spouse-Celia Rios [phone] . Code Status: No Code DNR Plan: PLAN: Legal decision maker:Patient is currently able to participate in medical decision making. In the event that he is incapacitated, he designated his son Gabriel Rodriguez as his Health care surrogate and his spouse Celia as the alternate health care surrogate. Goals: Aggressive short of no code. Patient is amenable to discharging to rehab after this hospitalization. CODE STATUS: No code DNR/DNI. [facility] DNR signed 01/16/18 SYMPTOMS: * Pain: Patient has a history of multiple myeloma and is under going chemotherapy. He also has cellulitis to BLE. Patient is endorsing achy pain to left leg which is exacerbated with movement. He has weeping edema to LLE. Wound care following. Podiatry following patient and recommended continuing with dressing changes and antibiotic therapy. Patient states that he takes 4mg Hydromorphone po q 4 hrs prn at home for pain. Pain managed with morphine sulfate 2-4 mg q. 3 hrs prn. Patient has not required any prn morphine sulfate for the past 24 hours. Last dose was administered 01/13/18 at 2305 hrs. Patient is also on oxycodone/acetaminophen 5/325 and 10/325 every 6 hrs prn . Patient is required 4 prn doses of oxycodone/acetaminophen 10/325 in the past 24 hours. * Shortness of breath:Hx on CAD s/p CABG, CHF and has pneumonia. Patient is on antibiotics, DuoNeb treatments, Solumedrol and Furosemide. Reports shortness of breath with activity. Currently on room air. Palliative care will continue to follow the patient during hospital course as condition evolves, to assist patient/decision-maker with understanding of their medical conditions, weighing benefits/burdens of treatment options, for clarification of goals of treatment. Additionally will assist with any symptoms of palliative concern
[2018-01-16] MEDS: Enoxaparin Inj 30 MG/0.3 ML Syringe SQ SCH (21:11)
[2018-01-17 02:22] LABS: Carbon Dioxide 33.5 meq/L (21.0-32.0); Magnesium 1.8 mg/dL (1.5-2.5)
[2018-01-17 02:27] LABS: Potassium 2.8 meq/L (3.5-5.1)
[2018-01-17] MEDS: Potassium Chlor 20 mEq Premix 20 MEQ/100 ML PIGGYBACK IV.SIG SCH ×2 (03:22→05:11)
[2018-01-17] MEDS: Insulin NovoLOG Aspart Correctional Sugar Inj SQ SCH ×5 (03:31→22:09)
[2018-01-17] MEDS: Piperacil/Tazo 4.5 GM Premix 4.5 GM/100 ML BAG IV.SIG SCH ×2 (07:11→19:36)
[2018-01-17] MEDS: guaiFENesin 600 MG ER Tablet PO SCH ×2 (09:39→21:55)
[2018-01-17] MEDS: Senna/Docusate Sodium 8.6/50 MG Tablet PO SCH ×2 (09:39→21:56)
[2018-01-17] MEDS: Calcium Carbonate 500 MG Tablet PO SCH ×2 (09:39→21:55)
[2018-01-17] MEDS: Insulin Detemir Inj 1,000 UNIT/10 ML Vial SQ SCH ×2 (09:46→22:08)
--- NOTE | 2018-01-17 12:41 | P.PNID ---
Subjective Remarks: Patient is a 62-year-old male, with known multiple myeloma, has been receiving chemotherapy over the last 2 years, received chemo about 2 days prior to admission, presented to the hospital for further evaluation of shortness of breath and lower extremity edema. Patient stated he started not feeling good about a week prior to admission. He is not a very good historian. He has had some shortness of breath which has been intermittent, and has noted increased swelling of both lower extremity. He denies any significant cough or congestion. Denies any chest pain. He also complains of some abdominal pain, but no nausea, vomiting, diarrhea or constipation. He denies any dysuria or any urinary complaints. Patient stated he has chronic pigmentation of both lower extremity, but has noted increased swelling of his left lower extremity. He has erythema on the left leg, but he cannot tell me when that started, and the sister stated that it was not there before. He has had some wounds on his left leg over the last 2 weeks, but has not really had any evaluation for that. He denies any trauma, or any injury recently where he would have gotten the wounds. Patient has had prior history of fracture in his left lower extremity about 15 years ago, and had surgery on his left knee, as well as his left ankle. Patient also is a little bit lethargic today. Patient stated that he was not lethargic at home, and also he has been doing ambulation at home normally. Patient also has an [id number] which apparently has been placed about 3 years ago. Since admission he has had a temperature spike of up to 102. His WBC is normal. LFTs are okay. His chest x-ray showing some basilar consolidation more on the right than on the left. No urinalysis has been done. 2 blood cultures now reported as growing gram-negative yandel. Infectious disease consultation has been requested to evaluate the patient with gram-negative yandel in the blood culture. Notes reviewed Temps ok Feels better, but still with pain BLE Still very weak CT no osteo BC with possible Aeromonas, sent out Repeat BC negative Wound C/S Citrobacter, Aeromonas and Enterococcus Fluid C/S from ankle bulla - negative CXR 01/15 with some mild improvement Antibiotics: Zosyn Levaquin Lines: Port Past Medical History: Amyloidosis Arthritis CAD (coronary artery disease) CHF (congestive heart failure) Chest pain Diabetes mellitus Diabetic neuropathy HLD (hyperlipidemia) HTN (hypertension) Irregular heart beat Multiple myeloma Myocardial infarct Aortic valve replaced H/O left knee surgery Hx of CABG Status post surgical manipulation of ankle joint Allergies/Adverse Reactions: Allergies azithromycin Allergy (Intermediate, Verified 01/11/18 20:23) rash *MDRO Multi-Drug Resistant Organism Adverse Reaction (Mild, Uncoded 08/08/16 09: 57) Cleared 10/2015 MRSA (foot abscess) - 12/2009 MRSA PCR Screen NEGATIVE - 10/26 and 10/29/2015* * CLEARED PER INFECTION CONTROL Objective Vital Signs 01/16/18 16:00 01/16/18 17:23 01/16/18 20:00 Temperature 97.9 F 98.1 F Pulse Rate 93 H 99 H Respiratory Rate 18 18 Blood Pressure 159/78 H 152/70 H Pulse Oximetry 97 97 98 01/17/18 00:00 01/17/18 04:00 01/17/18 08:00 Temperature 98.6 F 98.8 F 97.2 F L Pulse Rate 98 H 96 H 102 H Respiratory Rate 18 18 Blood Pressure 150/74 H 143/72 H 154/90 H Pulse Oximetry 94 L 98 98 Intake & Output 01/16/18 01/17/18 01/17/18 18:59 06:59 18:59 Intake Total 680 / 680 1733 / 1733 Balance 680 / 680 1733 / 1733 Weight 75.7 kg Intake: IV 200 / 200 950 / 950 NS Inj 1,000 ML @ 75 mls/hr IV. 600 / 600 CONT .[id number] LEIGHA Rx#:[id number] Levaquin 750 mg Premix Inj 150 150 / 150 ML @ 100 mls/hr IV.SIG Q24H LEIGHA Rx#:[id number] Zosyn 4.5 GM Premix 4.5 gm In 200 / 200 100 / 100 100 ml @ 200 mls/hr IV.SIG Q6H LEIGHA Rx#:[id number] KCl 20 mEq Premix Inj 20 meq In 100 / 100 100 ml @ 50 mls/hr IV.SIG Q2H LEIGHA Rx#:[id number] Oral 480 / 480 780 / 780 Oral Supplement 3 / 3 Other: # Voids 3 2 # Incontinent Voids 2 Date of Last Bowel Movement 01/14/18 01/16/18 # Bowel Movements 1 01/15/18 10:10 Fluid - Other Gram Stain - Final 01/15/18 10:10 Fluid - Other Body Fluid Culture - Preliminary No growth in 48 hours 01/12/18 19:00 Blood - Peripheral Aerobic Blood Culture - Final No growth in 5 days 01/12/18 19:00 Blood - Peripheral Anaerobic Blood Culture - Final No growth in 5 days 01/12/18 15:35 Blood - Other Aerobic Blood Culture - Final No growth in 5 days 01/12/18 15:35 Blood - Other Anaerobic Blood Culture - Final No growth in 5 days 01/11/18 17:15 Other - Pending 01/12/18 15:15 Wound - Leg Gram Stain - Final 01/12/18 15:15 Wound - Leg Wound Culture - Preliminary Citrobacter freundii Aeromonas species Enterococcus faecalis 01/12/18 15:15 Other - Pending 01/11/18 17:20 Blood - Peripheral Aerobic Blood Culture - Final 01/11/18 17:20 Blood - Peripheral Anaerobic Blood Culture - Final 01/11/18 17:15 Blood - Peripheral Aerobic Blood Culture - Preliminary Aeromonas species 01/11/18 17:15 Blood - Peripheral Anaerobic Blood Culture - Preliminary gram negative rods Lab - Hematology Results 01/15/18 20:00 WBC 8.7 RBC 3.06 L Hgb 9.4 L Hct 28.3 L MCV 92.4 MCH 30.6 MCHC 33.1 RDW 20.5 H Plt Count 69 L MPV 10.8 Prelim Diff (Auto) Slide review pending Neut % (Auto) 94.1 H Lymph % (Auto) 1.2 L [place] % (Auto) 4.4 Eos % (Auto) 0.0 Baso % (Auto) 0.3 Neut # (Auto) 8.2 H Lymph # (Auto) 0.1 L [place] # (Auto) 0.4 Eos # (Auto) 0.0 Baso # (Auto) 0.0 WBC Differential . Diff Scan Auto diff confirmed Differential Comment . Platelet Estimate Low L Platelet Morphology Normal Lab - Chemistry Results 01/15/18 01/15/18 01/15/18 17:23 20:00 20:08 Sodium 139 Potassium 3.1 L Chloride 98 Carbon Dioxide 31.0 Anion Gap 10 BUN 28 H Creatinine 1.00 Estimated GFR 76 L POC Glucose 150 H 142 H Random Glucose 132 H Calcium 7.6 L Magnesium Total Bilirubin 0.4 AST 20 ALT 37 Alkaline Phosphatase 81 Total Protein 5.4 L Albumin 1.8 L 01/16/18 01/16/18 01/16/18 02:49 05:51 07:34 Sodium Potassium Chloride Carbon Dioxide Anion Gap BUN Creatinine Estimated GFR POC Glucose 114 H 125 H 128 H Random Glucose Calcium Magnesium Total Bilirubin AST ALT Alkaline Phosphatase Total Protein Albumin 01/16/18 01/16/18 01/16/18 12:43 18:20 21:17 Sodium Potassium Chloride Carbon Dioxide Anion Gap BUN Creatinine Estimated GFR POC Glucose 140 H 178 H 191 H Random Glucose Calcium Magnesium Total Bilirubin AST ALT Alkaline Phosphatase Total Protein Albumin 01/17/18 01/17/18 01/17/18 01:33 03:30 08:17 Sodium 142 Potassium 2.8 L* Chloride 100 Carbon Dioxide 33.5 H Anion Gap 9 BUN 28 H Creatinine 1.03 Estimated GFR 73 L POC Glucose 136 H 136 H Random Glucose 143 H Calcium 8.0 L Magnesium 1.8 Total Bilirubin AST ALT Alkaline Phosphatase Total Protein Albumin 01/17/18 11:53 Sodium Potassium Chloride Carbon Dioxide Anion Gap BUN Creatinine Estimated GFR POC Glucose 117 H Random Glucose Calcium Magnesium Total Bilirubin AST ALT Alkaline Phosphatase Total Protein Albumin Imaging: ITS Impressions Ankle X-Ray 01/12/18 00:00 CONCLUSION: 1. Status post ORIF of the distal left fibula and tibia 2. Soft tissue swelling extending from the distal calf into the foot. 3. Mineralization and mild cortical erosion along the medial malleolus 4. Subtalar joint arthropathy Venous Doppler Study 01/12/18 00:00 CONCLUSION: Negative for deep venous thrombosis in the left lower extremity. Lower Extremity CT 01/13/18 00:00 CONCLUSION: 1. Generalized subcutaneous edema, nonspecific. Some organized subcutaneous fluid posteriorly of the distal leg, also nonspecific but not highly suggestive of abscess. 2. Surgical and degenerative bony joint changes as above. Patient has a solidly fused screw and plate arthrodesis of the tibiotalar joint. No findings convincing for osteomyelitis. 3. Mild osteoarthritis and a small to moderate nonspecific joint effusion at the knee. 4. Extensor tendinosis at the knee without evidence of rupture. Healed patella fracture post pin and wire fixation. 5. Tiny popliteal cyst at the knee. Chest X-Ray 01/15/18 00:00 CONCLUSION: Minimal improvement with less parenchymal changes in the right lung. Physical Exam: GENERAL: awake and alert, looks chronically ill appearing, not in respiratory distress. Looks very weak SKIN: Cool and dry. No generalized rash HEAD: Atraumatic. Normocephalic. No temporal wasting, or tenderness. EYES: [place] conjunctiva. No petechia or hemorrhage. No scleral icterus. No injection or drainage. EARS, NOSE AND THROAT: Mucous membranes pink and moist. No oral lesions noted. NECK: Trachea midline. Supple and not tender, no meningeal signs. No nuchal rigidity CARDIOVASCULAR: Regular rate and rhythm. No murmurs, rubs or gallops heard. Sternotomy incision compatible with surgical history. RESPIRATORY: Clear to auscultation, but decreased at the bases. No rales, wheezing or rhonchi ABDOMEN: Soft, not distended, mild non-specific tenderness, no guarding or rebound. EXTREMITIES: Edema both LE much improved. LLE - unroofed blisters, base are drying up, very minimal redness remaining, no lymphangitis. Has chronic brownish pigmentation both legs. NEUROLOGICAL: Grossly non-focal PSYCHIATRIC: cooperative. LINE: Port R upper chest, accessed, with no evidence of infection Assessment and Plan - Plan Impression GNR sepsis, source? Possible Aeromonas - has cellulitis LLE, with some open wounds, seems to have chroniic venous insufficiency same side ORIF Multiple Myeloma, undergoing chemo Recommendation Doing well Will switch to oral Abx: Levaquin plus PCN, and give 10 more days of oral Abx Edema control Stable for D/C from ID standpoint Likely benefit from rehab on D/C
--- NOTE | 2018-01-17 13:19 | P.PNONC ---
Subjective Interval history: Afebrile Patient sitting up in bed in no obvious distress States his pain is less Denies fever or chills Objective Vital Signs/Intake & Output: Vital Signs 01/16/18 16:00 01/16/18 17:23 01/16/18 20:00 Temperature 97.9 F 98.1 F Pulse Rate 93 H 99 H Respiratory Rate 18 18 Blood Pressure 159/78 H 152/70 H Pulse Oximetry 97 97 98 01/17/18 00:00 01/17/18 04:00 01/17/18 08:00 Temperature 98.6 F 98.8 F 97.2 F L Pulse Rate 98 H 96 H 102 H Respiratory Rate 18 18 18 Blood Pressure 150/74 H 143/72 H 154/90 H Pulse Oximetry 94 L 98 98 Intake & Output 01/16/18 01/17/18 01/17/18 18:59 06:59 18:59 Intake Total 680 / 680 1733 / 1733 Balance 680 / 680 1733 / 1733 Weight 166 lb 14.239 oz Intake: IV 200 / 200 950 / 950 NS Inj 1,000 ML @ 75 mls/hr IV. 600 / 600 CONT .[id number] LEIGHA Rx#:[id number] Levaquin 750 mg Premix Inj 150 150 / 150 ML @ 100 mls/hr IV.SIG Q24H LEIGHA Rx#:[id number] Zosyn 4.5 GM Premix 4.5 gm In 200 / 200 100 / 100 100 ml @ 200 mls/hr IV.SIG Q6H LEIGHA Rx#:[id number] KCl 20 mEq Premix Inj 20 meq In 100 / 100 100 ml @ 50 mls/hr IV.SIG Q2H LEIGHA Rx#:[id number] Oral 480 / 480 780 / 780 Oral Supplement 3 / 3 Other: # Voids 3 2 # Incontinent Voids 2 Date of Last Bowel Movement 01/14/18 01/16/18 # Bowel Movements 1 Result Diagrams: 01/17/18 16:00 01/17/18 16:00 Laboratory Results: Laboratory Results - last 24 hr 01/16/18 01/16/18 01/17/18 18:20 21:17 01:33 Sodium 142 Potassium 2.8 L* Chloride 100 Carbon Dioxide 33.5 H Anion Gap 9 BUN 28 H Creatinine 1.03 Estimated GFR 73 L POC Glucose 178 H 191 H Random Glucose 143 H Calcium 8.0 L Magnesium 1.8 01/17/18 01/17/18 01/17/18 03:30 08:17 11:53 Sodium Potassium Chloride Carbon Dioxide Anion Gap BUN Creatinine Estimated GFR POC Glucose 136 H 136 H 117 H Random Glucose Calcium Magnesium Culture Results: Microbiology 01/15/18 10:10 Gram Stain - Final Fluid - Other Body Fluid Culture - Preliminary No growth in 48 hours 01/12/18 19:00 Aerobic Blood Culture - Final Blood - Peripheral No growth in 5 days Anaerobic Blood Culture - Final No growth in 5 days 01/12/18 15:35 Aerobic Blood Culture - Final Blood - Other No growth in 5 days Anaerobic Blood Culture - Final No growth in 5 days 01/12/18 15:15 Gram Stain - Final Wound - Leg Wound Culture - Preliminary Citrobacter freundii Aeromonas species Enterococcus faecalis 01/11/18 17:20 Aerobic Blood Culture - Final Blood - Peripheral Anaerobic Blood Culture - Final 01/11/18 17:15 Aerobic Blood Culture - Preliminary Blood - Peripheral Aeromonas species Anaerobic Blood Culture - Preliminary gram negative rods Medications: Active Medications Generic Name Dose Route Start Last Admin Trade Name Freq PRN Reason Stop Dose Admin Acetaminophen 650 mg 01/11/18 18:46 01/12/18 11:51 Tylenol PO 650 mg Q4H PRN Administration TEMPERATURE > 101 F Duloxetine HCl 30 mg 01/12/18 21:00 01/16/18 21:11 Cymbalta PO 30 mg HS LEIGHA Administration Enoxaparin Sodium 30 mg 01/11/18 21:30 01/16/18 21:11 Lovenox Inj SQ 30 mg Q24H LEIGHA Administration Guaifenesin 600 mg 01/11/18 21:00 01/17/18 09:39 Mucinex Er PO 600 mg BID LEIGHA Administration Heparin Sodium (Porcine) 250 unit 01/12/18 01:44 01/15/18 05:34 Heparin Central Flush IV.FLUSH 250 unit PRN PRN Administration Flush Infusapot Hydromorphone HCl 4 mg 01/16/18 20:24 01/17/18 09:44 Dilaudid PO 4 mg Q6H PRN Administration PAIN SCALE 1 TO 10 Sodium Chloride 1,000 mls @ 75 mls/hr 01/11/18 23:15 01/17/18 06:02 Ns Inj IV.CONT 75 mls/hr .[id number] LEIGHA Infusion Insulin Aspart 0 unit 01/12/18 08:00 01/17/18 11:54 Novolog Insulin Correctional Sugar Inj SQ Not Given ACHS AND 3AM LEIGHA Protocol Insulin Detemir 7 unit 01/12/18 10:00 01/17/18 09:46 Levemir Inj SQ 7 unit BID LEIGHA Administration Potassium Bicarb/Potassium Chloride 50 meq 01/13/18 11:03 01/13/18 12:04 K-Lyte Cl Eff PO 50 meq UNSCH PRN Administration For Potassium 3.3 - 3.5 mEq/L Senna/Docusate Sodium 1 tab 01/11/18 21:00 01/17/18 09:39 Kamini-Colace PO 1 tab BID LEIGHA Administration Sodium Chloride 2 ml 01/11/18 21:00 01/17/18 09:47 Ns Flush IV.FLUSH 2 ml BID LEIGHA Administration Objective Remarks: GENERAL: Chronically ill-appearing male resting in bed in no obvious distress SKIN: Warm and dry. HEAD: Normocephalic. EYES: No scleral icterus. No injection or drainage. NECK: Supple, trachea midline. No JVD or lymphadenopathy. CARDIOVASCULAR: Regular rate and rhythm without murmurs. RESPIRATORY: Few rales to bilateral posterior lower lobes GASTROINTESTINAL: Abdomen soft, non-tender, nondistended. EXTREMITIES: No cyanosis. Dressings to bilateral lower extremities. Small amount of serous drainage noted MUSCULOSKELETAL: Adequate muscle tone. NEUROLOGICAL: No obvious focal deficit. Awake, alert, and oriented x3. Assessment/Plan (1) Pneumonia Code(s): J18.9 - Pneumonia, unspecified organism Status: Acute (2) Sepsis Code(s): A41.9 - Sepsis, unspecified organism Status: Acute (3) Acute exacerbation of CHF (congestive heart failure) Code(s): I50.9 - Heart failure, unspecified Status: Acute - Plan 62-year-old male who we are seeing outpatient for multiple myeloma with amyloidosis admitted with shortness of breath and lower extremity edema 1. Patient is overall doing better. 2. CBC pending today. Patient is not having any bleeding. 3. Patient is clear for discharge to rehab from oncology standpoint if today's CBC shows a stable platelet count as anticipated. - Attending Statement The exam, history, and the medical decision-making described in the above note were completed with the assistance of the mid-level provider. I reviewed and agree with the findings presented. I attest that I had a [id number] encounter with the patient on the same day, and personally performed and documented my assessment and findings in the medical record. leg swelling. weak. Ok to d/c sign off FU as outpt. (1) Pneumonia Qualifiers: Pneumonia type: due to unspecified organism Laterality: right Lung location : lower lobe of lung Qualified Code(s): J18.1 - Lobar pneumonia, unspecified organism (2) Sepsis Qualifiers: Sepsis type: sepsis due to unspecified organism Qualified Code(s): A41.9 - Sepsis, unspecified organism (3) Acute exacerbation of CHF (congestive heart failure) Qualifiers: Heart failure type: unspecified Qualified Code(s): I50.9 - Heart failure, unspecified
--- NOTE | 2018-01-17 15:33 | P.PNPAL ---
Reason for Visit Reason for visit: a. To assist with evaluation and management of symptoms including:pain, shortness of breath b. To assist medical decision maker(s) with: better understanding of current medical conditions; weighing benefits/burdens of medical treatment options; making medical treatment decisions. Subjective Subjective/Interval History: Follow-up medically necessary for symptom management. Patient seen and examined in his room. Patient is in bed, awake, alert and oriented to self, place and situation. Patient reports pain as controlled at this time. Morphine sulfate and oxycodone has been discontinued. Patient has an open blister to his left lower extremity. Patient has a list of care home facilities on his table. Patient stated that he will be going to rehabilitation at time of discharge. Vital signs have been stable. Patient currently on room air and denying shortness of breath. Furosemide is also been discontinued. Laboratory workup today revealing WBC 8.7, hemoglobin 9.4, hematocrit 28.3, platelet count 69, potassium 2.8-replaced and repeat potassium 3.3. Infectious disease following. Fluid culture and sensitivity from her left ankle bulla negative. Patient has been cleared by oncology for discharge. Family/Friend Interactions: No family at bedside Advance Directives Living Will: Never completed Health Care Surrogate: Copy in medical record Durable Power of Menagerie Caretaker: Never completed Advance Directives Date on File: 01/15/18 Health Care Surrogate Name and Number: Gabriel Rodriguez [phone] Alt :Gabriel [phone] Objective Vital Signs: Vital Signs 01/16/18 16:00 01/16/18 17:23 01/16/18 20:00 Temperature 97.9 F 98.1 F Pulse Rate 93 H 99 H Respiratory Rate 18 18 Blood Pressure 159/78 H 152/70 H Pulse Oximetry 97 97 98 01/17/18 00:00 01/17/18 04:00 01/17/18 08:00 Temperature 98.6 F 98.8 F 97.2 F L Pulse Rate 98 H 96 H 99 H Respiratory Rate 18 18 18 Blood Pressure 150/74 H 143/72 H 154/90 H Pulse Oximetry 94 L 98 98 01/17/18 12:00 Temperature 97.9 F Pulse Rate 101 H Respiratory Rate 18 Blood Pressure 144/92 H Pulse Oximetry 99 Intake & Output 01/16/18 01/17/18 01/17/18 18:59 06:59 18:59 Intake Total 680 / 680 1733 / 1733 Balance 680 / 680 1733 / 1733 Weight 75.7 kg Intake: IV 200 / 200 950 / 950 NS Inj 1,000 ML @ 75 mls/hr IV. 600 / 600 CONT .[id number] LEIGHA Rx#:[id number] Levaquin 750 mg Premix Inj 150 150 / 150 ML @ 100 mls/hr IV.SIG Q24H LEIGHA Rx#:[id number] Zosyn 4.5 GM Premix 4.5 gm In 200 / 200 100 / 100 100 ml @ 200 mls/hr IV.SIG Q6H LEIGHA Rx#:[id number] KCl 20 mEq Premix Inj 20 meq In 100 / 100 100 ml @ 50 mls/hr IV.SIG Q2H LEIGHA Rx#:[id number] Oral 480 / 480 780 / 780 Oral Supplement Other: # Voids 3 2 # Incontinent Voids 2 Date of Last Bowel Movement 01/14/18 01/16/18 01/16/18 # Bowel Movements 1 Physical Exam: CONSTITUTIONAL/GENERAL: This is a chronically ill-looking patient, in no apparent distress. TUBES/LINES/DRAINS:[place] to right chest wall SKIN: No jaundice, rashes, or lesions. Ecchymoses on upper extremities. Dressings to bilateral lower extremities with an open blister. Skin temperature appropriate. Not diaphoretic. HEAD: Atraumatic. Normocephalic. EYES: Pupils equal and round and reactive. Extraocular motions intact. No scleral icterus. No injection or drainage. Fundi not examined. ENT: Hearing grossly normal. Nose without bleeding or purulent drainage. Moist oral mucosa NECK: Trachea midline. Supple, nontender. CARDIOVASCULAR: Regular rate and rhythm without murmurs, gallops, or rubs. No JVD. Midsternum scar. Peripheral pulses symmetric. RESPIRATORY/CHEST: Symmetric, unlabored respirations. Clear to auscultation. No wheezes, rales, or rhonchi. GASTROINTESTINAL: Abdomen soft, non-tender, nondistended. No guarding. Bowel sounds present. GENITOURINARY: Without palpable bladder distension. Voids in urinal MUSCULOSKELETAL: Extremities without clubbing, cyanosis. Weeping edema to LLE. Kevin skin to visible area. Dressings to BLE intact. NEUROLOGICAL: Awake, alert, oriented to self, place and situation. Motor and sensory grossly within normal limits. Follows commands. Moves all extremities. PSYCHIATRIC: No obvious anxiety/depression. no apparent hallucinations or other psychotic thought process. Diagnostic Tests Laboratory: Laboratory Results - last 72 hr 01/14/18 01/14/18 01/15/18 17:22 20:30 02:41 WBC RBC Hgb Hct MCV MCH MCHC RDW Plt Count MPV Prelim Diff (Auto) Neut % (Auto) Lymph % (Auto) [place] % (Auto) Eos % (Auto) Baso % (Auto) Neut # (Auto) Lymph # (Auto) [place] # (Auto) Eos # (Auto) Baso # (Auto) WBC Differential Diff Scan Seg Neuts % (Manual) Band Neuts % (Manual) Monocytes % (Manual) Abs Neuts (Manual) Differential Comment Platelet Estimate Platelet Morphology Tear Drop Cells Ovalocytes [place] Cells Sodium Potassium Chloride Carbon Dioxide Anion Gap BUN Creatinine Estimated GFR POC Glucose 211 H 235 H 141 H Random Glucose Calcium Magnesium Total Bilirubin AST ALT Alkaline Phosphatase Total Protein Albumin 01/15/18 01/15/18 01/15/18 05:37 05:37 05:37 WBC 7.6 RBC 2.86 L Hgb 8.8 L Hct 26.8 L MCV 93.8 MCH 30.6 MCHC 32.6 RDW 20.7 H Plt Count 56 L MPV 10.2 Prelim Diff (Auto) Slide review pending Neut % (Auto) 94.7 H Lymph % (Auto) 0.8 L [place] % (Auto) 3.5 Eos % (Auto) 0.1 Baso % (Auto) 0.9 Neut # (Auto) 7.2 Lymph # (Auto) 0.1 L [place] # (Auto) 0.3 Eos # (Auto) 0.0 Baso # (Auto) 0.1 WBC Differential Manual diff final Diff Scan Seg Neuts % (Manual) 91 H Band Neuts % (Manual) 6 Monocytes % (Manual) 3 Abs Neuts (Manual) 7.4 Differential Comment . Platelet Estimate Low L Platelet Morphology Normal Tear Drop Cells 1+ H Ovalocytes 1+ H [place] Cells 1+ H Sodium 138 Potassium 3.1 L Chloride 99 Carbon Dioxide 28.9 Anion Gap 10 BUN 29 H Creatinine 0.95 Estimated GFR 81 L POC Glucose Random Glucose 127 H Calcium 7.8 L Magnesium 1.6 Total Bilirubin AST ALT Alkaline Phosphatase Total Protein Albumin 01/15/18 01/15/18 01/15/18 07:17 12:04 17:23 WBC RBC Hgb Hct MCV MCH MCHC RDW Plt Count MPV Prelim Diff (Auto) Neut % (Auto) Lymph % (Auto) [place] % (Auto) Eos % (Auto) Baso % (Auto) Neut # (Auto) Lymph # (Auto) [place] # (Auto) Eos # (Auto) Baso # (Auto) WBC Differential Diff Scan Seg Neuts % (Manual) Band Neuts % (Manual) Monocytes % (Manual) Abs Neuts (Manual) Differential Comment Platelet Estimate Platelet Morphology Tear Drop Cells Ovalocytes [place] Cells Sodium Potassium Chloride Carbon Dioxide Anion Gap BUN Creatinine Estimated GFR POC Glucose 155 H 181 H 150 H Random Glucose Calcium Magnesium Total Bilirubin AST ALT Alkaline Phosphatase Total Protein Albumin 01/15/18 01/15/18 01/15/18 20:00 20:00 20:08 WBC 8.7 RBC 3.06 L Hgb 9.4 L Hct 28.3 L MCV 92.4 MCH 30.6 MCHC 33.1 RDW 20.5 H Plt Count 69 L MPV 10.8 Prelim Diff (Auto) Slide review pending Neut % (Auto) 94.1 H Lymph % (Auto) 1.2 L [place] % (Auto) 4.4 Eos % (Auto) 0.0 Baso % (Auto) 0.3 Neut # (Auto) 8.2 H Lymph # (Auto) 0.1 L [place] # (Auto) 0.4 Eos # (Auto) 0.0 Baso # (Auto) 0.0 WBC Differential . Diff Scan Auto diff confirmed Seg Neuts % (Manual) Band Neuts % (Manual) Monocytes % (Manual) Abs Neuts (Manual) Differential Comment . Platelet Estimate Low L Platelet Morphology Normal Tear Drop Cells Ovalocytes [place] Cells Sodium 139 Potassium 3.1 L Chloride 98 Carbon Dioxide 31.0 Anion Gap 10 BUN 28 H Creatinine 1.00 Estimated GFR 76 L POC Glucose 142 H Random Glucose 132 H Calcium 7.6 L Magnesium Total Bilirubin 0.4 AST 20 ALT 37 Alkaline Phosphatase 81 Total Protein 5.4 L Albumin 1.8 L 01/16/18 01/16/18 01/16/18 02:49 05:51 07:34 WBC RBC Hgb Hct MCV MCH MCHC RDW Plt Count MPV Prelim Diff (Auto) Neut % (Auto) Lymph % (Auto) [place] % (Auto) Eos % (Auto) Baso % (Auto) Neut # (Auto) Lymph # (Auto) [place] # (Auto) Eos # (Auto) Baso # (Auto) WBC Differential Diff Scan Seg Neuts % (Manual) Band Neuts % (Manual) Monocytes % (Manual) Abs Neuts (Manual) Differential Comment Platelet Estimate Platelet Morphology Tear Drop Cells Ovalocytes [place] Cells Sodium Potassium Chloride Carbon Dioxide Anion Gap BUN Creatinine Estimated GFR POC Glucose 114 H 125 H 128 H Random Glucose Calcium Magnesium Total Bilirubin AST ALT Alkaline Phosphatase Total Protein Albumin 01/16/18 01/16/18 01/16/18 12:43 18:20 21:17 WBC RBC Hgb Hct MCV MCH MCHC RDW Plt Count MPV Prelim Diff (Auto) Neut % (Auto) Lymph % (Auto) [place] % (Auto) Eos % (Auto) Baso % (Auto) Neut # (Auto) Lymph # (Auto) [place] # (Auto) Eos # (Auto) Baso # (Auto) WBC Differential Diff Scan Seg Neuts % (Manual) Band Neuts % (Manual) Monocytes % (Manual) Abs Neuts (Manual) Differential Comment Platelet Estimate Platelet Morphology Tear Drop Cells Ovalocytes [place] Cells Sodium Potassium Chloride Carbon Dioxide Anion Gap BUN Creatinine Estimated GFR POC Glucose 140 H 178 H 191 H Random Glucose Calcium Magnesium Total Bilirubin AST ALT Alkaline Phosphatase Total Protein Albumin 01/17/18 01/17/18 01/17/18 01:33 03:30 08:17 WBC RBC Hgb Hct MCV MCH MCHC RDW Plt Count MPV Prelim Diff (Auto) Neut % (Auto) Lymph % (Auto) [place] % (Auto) Eos % (Auto) Baso % (Auto) Neut # (Auto) Lymph # (Auto) [place] # (Auto) Eos # (Auto) Baso # (Auto) WBC Differential Diff Scan Seg Neuts % (Manual) Band Neuts % (Manual) Monocytes % (Manual) Abs Neuts (Manual) Differential Comment Platelet Estimate Platelet Morphology Tear Drop Cells Ovalocytes Millie Cells Sodium 142 Potassium 2.8 L* Chloride 100 Carbon Dioxide 33.5 H Anion Gap 9 BUN 28 H Creatinine 1.03 Estimated GFR 73 L POC Glucose 136 H 136 H Random Glucose 143 H Calcium 8.0 L Magnesium 1.8 Total Bilirubin AST ALT Alkaline Phosphatase Total Protein Albumin 01/17/18 01/17/18 11:53 12:30 WBC RBC Hgb Hct MCV MCH MCHC RDW Plt Count MPV Prelim Diff (Auto) Neut % (Auto) Lymph % (Auto) [place] % (Auto) Eos % (Auto) Baso % (Auto) Neut # (Auto) Lymph # (Auto) [place] # (Auto) Eos # (Auto) Baso # (Auto) WBC Differential Diff Scan Seg Neuts % (Manual) Band Neuts % (Manual) Monocytes % (Manual) Abs Neuts (Manual) Differential Comment Platelet Estimate Platelet Morphology Tear Drop Cells Ovalocytes [place] Cells Sodium Potassium 3.3 L Chloride Carbon Dioxide Anion Gap BUN Creatinine Estimated GFR POC Glucose 117 H Random Glucose Calcium Magnesium Total Bilirubin AST ALT Alkaline Phosphatase Total Protein Albumin Result Diagrams: 01/15/18 20:00 01/17/18 12:30 Microbiology: Microbiology 01/15/18 10:10 Gram Stain - Final Fluid - Other Body Fluid Culture - Preliminary No growth in 48 hours 01/12/18 19:00 Aerobic Blood Culture - Final Blood - Peripheral No growth in 5 days Anaerobic Blood Culture - Final No growth in 5 days 01/12/18 15:35 Aerobic Blood Culture - Final Blood - Other No growth in 5 days Anaerobic Blood Culture - Final No growth in 5 days 01/12/18 15:15 Gram Stain - Final Wound - Leg Wound Culture - Preliminary Citrobacter freundii Aeromonas species Enterococcus faecalis 01/11/18 17:20 Aerobic Blood Culture - Final Blood - Peripheral Anaerobic Blood Culture - Final 01/11/18 17:15 Aerobic Blood Culture - Preliminary Blood - Peripheral Aeromonas species Anaerobic Blood Culture - Preliminary gram negative rods Imaging: Ankle X-Ray 01/12/18 00:00 CONCLUSION: 1. Status post ORIF of the distal left fibula and tibia 2. Soft tissue swelling extending from the distal calf into the foot. 3. Mineralization and mild cortical erosion along the medial malleolus 4. Subtalar joint arthropathy Venous Doppler Study 01/12/18 00:00 CONCLUSION: Negative for deep venous thrombosis in the left lower extremity. Lower Extremity CT 01/13/18 00:00 CONCLUSION: 1. Generalized subcutaneous edema, nonspecific. Some organized subcutaneous fluid posteriorly of the distal leg, also nonspecific but not highly suggestive of abscess. 2. Surgical and degenerative bony joint changes as above. Patient has a solidly fused screw and plate arthrodesis of the tibiotalar joint. No findings convincing for osteomyelitis. 3. Mild osteoarthritis and a small to moderate nonspecific joint effusion at the knee. 4. Extensor tendinosis at the knee without evidence of rupture. Healed patella fracture post pin and wire fixation. 5. Tiny popliteal cyst at the knee. Chest X-Ray 01/15/18 00:00 CONCLUSION: Minimal improvement with less parenchymal changes in the right lung. Assessment and Plan - Disease Oriented Problem List (1) Sepsis (2) Cellulitis of left leg (3) Cellulitis of right leg (4) Ulcer of right lower extremity, limited to breakdown of skin (5) Multiple myeloma (6) Diabetes mellitus (7) Diabetic neuropathy (8) Amyloidosis (9) Hypertension (10) CHF (congestive heart failure) (11) Pneumonia (12) Thrombocytopenia - Symptom Scale (1) Shortness of breath 0-10 Scale: Unable to quantify (History of chronic anemia) (2) Pain 0-10 Scale: 1 (Currently denies pain) Comment: Patient his cellulitis to bilateral lower extremities. c/o pain mostly to LLE. Pertinent Non-Medical Issues: Psychosocial:Patient is originally from [place]. He moved to [place] in 1990. Patient is and has 2 adult children. Spiritual: Legal: Patient completed healthcare surrogate form today Ethical issues impacting care: None identified at this time Important Contacts: Health Care Surrogate- Son-Gabriel Rodriguez [phone] Alternate HCS- Spouse-Celia Rios [phone] . Prognosis: Mr. Rios is a 62-year-old male with a past medical history of multiple myeloma who has been undergoing chemotherapy in the past 2 years and had chemotherapy on 01/10/18, CHF with an estimated ejection fraction of 20-25% in 2016, CAD status post CABG and aortic valve replacement, hypertension, diabetes mellitus, diabetic neuropathy, hyperlipidemia, and amyloidosis. Patient was advised by his primary care physician to go to the ER due to progressively worsening shortness of breath and lower extremity edema. He presented to the ER on for further evaluation of congestion, shortness of breath and bilateral lower extremity edema. Clinical course complicated with thrombocytopenia, bacteremia, ejection fraction in the range of 20-25% and cellulitis to BLE. Given ongoing multiple comorbidities and ongoing chemotherapy, patient remains at high risk for further complications, deterioration and decline. Code Status: No Code DNR Plan: PLAN: Legal decision maker:Patient is currently able to participate in medical decision making. In the event that he is incapacitated, he designated his son Gabriel Rodriguez as his Health care surrogate and his spouse Celia as the alternate health care surrogate. Goals: Aggressive short of no code. Patient wants to go to a long term facility for rehabilitation. Oncology has cleared patient for discharge. CODE STATUS: No code DNR/DNI SYMPTOMS: * Pain: Patient has a history of multiple myeloma and is under going chemotherapy. He also has cellulitis to BLE. Patient is endorsing achy pain to left leg which is exacerbated with movement. He has weeping edema to LLE. Wound care following. Podiatry following patient and recommended continuing with dressing changes and antibiotic therapy. Infectious disease on case. Patient currently denying pain. Morphine sulfate and oxycodone has been discontinued today possibly in the light of discharge to a care home facility. Patient takes hydromorphone p.o. at home for pain. Continue to monitor for pain. * Shortness of breath:Hx on CAD s/p CABG, CHF and has pneumonia. Patient is on antibiotics, DuoNeb treatments, Solumedrol and Furosemide. Reports shortness of breath with activity. Currently on room air. Continue to monitor. No further recommendations. Palliative care will continue to follow the patient during hospital course as condition evolves, to assist patient/decision-maker with understanding of their medical conditions, weighing benefits/burdens of treatment options, for clarification of goals of treatment. Additionally will assist with any symptoms of palliative concern Attestation Attestation: To help prompt me to consider important information that might be impacting today's encounter and assessment, information from prior notes written by myself or my colleagues may have been "brought forward" into today's note. My signature on this note, however, is an attestation that I personally performed the exam, history, and/or decision-making noted today, and, unless otherwise indicated, the interactions with patient, family, and staff as well as the review of records all occurred today. I also attest that the listed assessment and stated plan reflect my best clinical judgment today based on the combination of historical information, prior notes, and today's exam/ interactions. When time spent is documented, it refers only to time spent today by the signer, or if indicated, combined time spent today by collaborating physician/nurse practitioner.
--- NOTE | 2018-01-17 15:40 | P.DS ---
Date of admission: 01/11/18 18:46 Primary care physician: Taiwo Palm MD Brief History from admission: Mr. Rios is a 62 y/o male with a history of multiple myeloma s/p chemo on (Dr. Smith is oncologist), CHF (EF 20 - 25% 2015), CAD s/p CABG and aortic valve replacement, diabetes mellitus, diabetic neuropathy, hyperlipidemia , hypertension, and amyloidosis who presented to the ER on 01/11 upon recommendation by his PCP Dr. Palm for 1 week history of progressively worsening SOB and lower extremity edema. The patient was found to have pneumonia, sepsis, and a small pleural effusion and was admitted to the hospitalist service for medical management. The patient is seen in his hospital room. He reports fevers and chills at home. He denies chest pain, nausea, vomiting, or diarrhea. He is diaphoretic at the time of my visit and warm to touch. He reports that he continues to feel mildly short of breath at rest and has weeping bilateral lower extremity edema. He develops worsening shortness of breath with conversation thus limiting history. DS: Medications - Discharge Medications Prescriptions: alprazolam 0.5 mg PO HS PRN #3 tab PRN Reason: Anxiety carvedilol 3.125 mg PO BID #60 tab furosemide 40 mg PO DAILY #30 tab hydromorphone [Dilaudid] 4 mg PO Q6H PRN #12 tab PRN Reason: Pain levofloxacin 750 mg PO DAILY@1100 #10 tab lisinopril [Zestril] 5 mg PO DAILY #30 tab penicillin V potassium 500 mg PO Q8HR #30 tab potassium chloride 8 meq PO DAILY #30 cap prednisone See Label Instructions .ROUTE .COMPLEX #60 each spironolactone 25 mg PO DAILY #30 tab DS: Summary Hospital Course: Patient was admitted, started on antibiotics. Was found to be bacteremic with Aeromonas which is suspected to be secondary to foot cellulitis. The bullae on his feet were drained which showed Citrobacter and Aeromonas and enterococcus. ID help comanage antibiotics and his bacteremia showed clearance on repeat cultures. Patient was also treated for acute on chronic systolic CHF exacerbation. Patient was also counseled that he needs to follow-up cardiology outpatient for ICD placement evaluation given his low EF. Patient has met maximal benefit from hospitalization is clinically stable for discharge. Patient will be discharged on IV antibiotics as well as a steroid taper so that he can be D escalated down to his baseline dose of dexamethasone once a week per oncology. - Time Spent with Patient Total time spent providing and/or coordinating discharge services: Less than 30 minutes - Quality: VTE Deep Vein Thrombosis/Pulmonary Embolism Present on Admission: No Exam Vital signs: Vital Signs 01/16/18 16:00 01/16/18 17:23 01/16/18 20:00 Temperature 97.9 F 98.1 F Pulse Rate 93 H 99 H Respiratory Rate 18 18 Blood Pressure 159/78 H 152/70 H Pulse Oximetry 97 97 98 01/17/18 00:00 01/17/18 04:00 01/17/18 08:00 Temperature 98.6 F 98.8 F 97.2 F L Pulse Rate 98 H 96 H 99 H Respiratory Rate 18 18 18 Blood Pressure 150/74 H 143/72 H 154/90 H Pulse Oximetry 94 L 98 98 01/17/18 12:00 Temperature 97.9 F Pulse Rate 101 H Respiratory Rate 18 Blood Pressure 144/92 H Pulse Oximetry 99 Intake & Output 01/16/18 01/17/18 01/17/18 18:59 06:59 18:59 Intake Total 680 / 680 1733 / 1733 Balance 680 / 680 1733 / 1733 Weight 75.7 kg Intake: IV 200 / 200 950 / 950 NS Inj 1,000 ML @ 75 mls/hr IV. 600 / 600 CONT .[id number] LEIGHA Rx#:[id number] Levaquin 750 mg Premix Inj 150 150 / 150 ML @ 100 mls/hr IV.SIG Q24H LEIGHA Rx#:[id number] Zosyn 4.5 GM Premix 4.5 gm In 200 / 200 100 / 100 100 ml @ 200 mls/hr IV.SIG Q6H LEIGHA Rx#:[id number] KCl 20 mEq Premix Inj 20 meq In 100 / 100 100 ml @ 50 mls/hr IV.SIG Q2H LEIGHA Rx#:[id number] Oral 480 / 480 780 / 780 Oral Supplement 3 / Other: # Voids 3 2 # Incontinent Voids 2 Date of Last Bowel Movement 01/14/18 01/16/18 01/16/18 # Bowel Movements 1 Narrative: Lower extremities with improved erythema, wrapped in wound care dressings , Clear lungs bilaterally, unlabored breathing Results Procedures completed during hospitalization: . Labs on day of discharge: Labs from last 24 hours 01/17/18 01/17/18 01/17/18 12:30 11:53 08:17 Sodium Potassium 3.3 L Chloride Carbon Dioxide Anion Gap BUN Creatinine Estimated GFR POC Glucose 117 H 136 H Random Glucose Calcium Magnesium 01/17/18 01/17/18 01/16/18 03:30 01:33 21:17 Sodium 142 Potassium 2.8 L* Chloride 100 Carbon Dioxide 33.5 H Anion Gap 9 BUN 28 H Creatinine 1.03 Estimated GFR 73 L POC Glucose 136 H 191 H Random Glucose 143 H Calcium 8.0 L Magnesium 1.8 01/16/18 18:20 Sodium Potassium Chloride Carbon Dioxide Anion Gap BUN Creatinine Estimated GFR POC Glucose 178 H Random Glucose Calcium Magnesium Preliminary micro results at discharge 01/15/18 10:10 Body Fluid Culture - Preliminary Fluid - Other No growth in 48 hours 01/12/18 15:15 Wound Culture - Preliminary Wound - Leg Citrobacter freundii Aeromonas species Enterococcus faecalis 01/11/18 17:15 Aerobic Blood Culture - Preliminary Blood - Peripheral Aeromonas species Anaerobic Blood Culture - Preliminary gram negative rods - Impressions ITS Impressions Ankle X-Ray 01/12/18 00:00 CONCLUSION: 1. Status post ORIF of the distal left fibula and tibia 2. Soft tissue swelling extending from the distal calf into the foot. 3. Mineralization and mild cortical erosion along the medial malleolus 4. Subtalar joint arthropathy Venous Doppler Study 01/12/18 00:00 CONCLUSION: Negative for deep venous thrombosis in the left lower extremity. Lower Extremity CT 01/13/18 00:00 CONCLUSION: 1. Generalized subcutaneous edema, nonspecific. Some organized subcutaneous fluid posteriorly of the distal leg, also nonspecific but not highly suggestive of abscess. 2. Surgical and degenerative bony joint changes as above. Patient has a solidly fused screw and plate arthrodesis of the tibiotalar joint. No findings convincing for osteomyelitis. 3. Mild osteoarthritis and a small to moderate nonspecific joint effusion at the knee. 4. Extensor tendinosis at the knee without evidence of rupture. Healed patella fracture post pin and wire fixation. 5. Tiny popliteal cyst at the knee. Chest X-Ray 01/15/18 00:00 CONCLUSION: Minimal improvement with less parenchymal changes in the right lung. Discharge Plan - Discharge Disposition Patient Disposition: 03 Discharge to SNF - Discharge Condition Condition: Stable - Discharge Order Discharge Orders: Discharge Order (Routine); Ordered 01/17/18 Ordered By: Cruz Means - Physicians Team Primary Care Provider: Taiwo Palm Attending Provider: Oleg Gilmore Other Providers: Tammi Rothman MD ; Asad Rosales DPM ; Jason Smith MD ; Idris Sands MD ; [facility]
[2018-01-17] MEDS: Lisinopril 5 MG Tablet PO SCH (15:56)
[2018-01-17] MEDS: Spironolactone 25 MG Tablet PO SCH (15:57)
[2018-01-17 16:44] LABS: Baso % (Auto) 0.1 % (0.0-2.0); Hematocrit 29.2 % (39.0-51.0); Hemoglobin 9.4 gm/dL (13.0-17.0); Lymph # (Auto) 0.1 th/mm3 (1.0-4.8); Lymph % (Auto) 1.3 % (9.0-44.0); Mean Corpuscular HGB Conc 32.1 % (32.0-36.0); Mean Corpuscular Hemoglobin 30.1 pg (27.0-34.0); Mean Corpuscular Volume 93.7 fL (80.0-100.0); Mono # (Auto) 0.2 th/mm3 (0.0-0.9); Mono % (Auto) 3.5 % (0.0-8.0); Neut # (Auto) 5.4 th/mm3 (1.8-7.7); Neut % (Auto) 95.1 % (16.0-70.0); Platelet Count 95 th/mm3 (150-450); Red Blood Count 3.11 mil/mm3 (4.50-5.90); Red Cell Distribution Width 20.9 % (11.6-17.2); White Blood Count 5.7 th/mm3 (4.0-11.0)
[2018-01-17 18:22] LABS: Ovalocytes 1+
[2018-01-17] MEDS: Sod Chloride 0.9% Inj 1,000 ML IV.CONT SCH (19:30)
[2018-01-17] MEDS: Enoxaparin Inj 30 MG/0.3 ML Syringe SQ SCH (21:55)
[2018-01-18] MEDS: Insulin NovoLOG Aspart Correctional Sugar Inj SQ SCH ×5 (03:51→20:31)
[2018-01-18] MEDS: Sod Chloride 0.9% Inj 1,000 ML IV.CONT SCH ×2 (03:54→18:26)
[2018-01-18] MEDS ORDERED: predniSONE 20 MG Tablet PO ONE (09:00)
[2018-01-18] MEDS: Spironolactone 25 MG Tablet PO SCH (09:34)
[2018-01-18] MEDS: Senna/Docusate Sodium 8.6/50 MG Tablet PO SCH (09:34)
[2018-01-18] MEDS: Calcium Carbonate 500 MG Tablet PO SCH ×2 (09:34→20:31)
[2018-01-18] MEDS: guaiFENesin 600 MG ER Tablet PO SCH ×2 (09:34→20:30)
[2018-01-18] MEDS: Lisinopril 5 MG Tablet PO SCH (09:35)
[2018-01-18] MEDS: Insulin Detemir Inj 1,000 UNIT/10 ML Vial SQ SCH ×2 (09:38→20:31)
[2018-01-18] MEDS: levoFLOXacin 750 MG Tablet PO SCH (11:42)
--- NOTE | 2018-01-18 12:08 | P.PN ---
Subjective Interval history: Follow-up gram-negative sepsis/left lower extremity cellulitis/history of multiple myeloma January 18, 2018-patient seen and examined, no change, currently afebrile and denies any shortness of breath. Discharge pending authorization from insurance company to rehab Physical Exam Vital signs: Vital Signs 01/17/18 16:00 01/17/18 20:00 01/18/18 00:00 Temperature 97.8 F 98.2 F 98.1 F Pulse Rate 101 H 102 H 67 Respiratory Rate 18 18 18 Blood Pressure 159/97 H 150/82 H 133/80 Pulse Oximetry 100 97 95 01/18/18 04:00 01/18/18 10:04 Temperature 98.3 F Pulse Rate 84 Respiratory Rate 18 Blood Pressure 147/78 H Pulse Oximetry 95 96 Intake & Output 01/17/18 01/18/18 01/18/18 18:59 06:59 18:59 Intake Total 1080 / 1080 1724 / 1724 Balance 1080 / 1080 1724 / 1724 Weight 72.1 kg Intake: IV 600 / 600 1000 / 1000 NS Inj 1,000 ML @ 75 mls/hr IV. 400 / 400 1000 / 1000 CONT .[id number] LEIGHA Rx#:[id number] Zosyn 4.5 GM Premix 4.5 gm In 100 / 100 100 ml @ 200 mls/hr IV.SIG Q6H LEIGHA Rx#:[id number] Oral 480 / 480 Other 724 / 724 Other: Other Intake Source Saline Solution # Voids 3 3 # Incontinent Voids 3 Date of Last Bowel Movement 01/16/18 # Bowel Movements 1 Narrative: GENERAL: NAD SKIN: Warm and dry. HEAD: Normocephalic. EYES: No scleral icterus. No injection or drainage. NECK: Supple, trachea midline. No JVD or lymphadenopathy. CARDIOVASCULAR: Regular rate and rhythm without murmurs, gallops, or rubs. RESPIRATORY: Breath sounds equal bilaterally. No accessory muscle use. GASTROINTESTINAL: Abdomen soft, non-tender, nondistended. MUSCULOSKELETAL: No cyanosis; +trace edema. Dressing over left lower extremity wound BACK: Nontender without obvious deformity. No CVA tenderness. Results - Labs CBC & Chem 7: 01/17/18 16:00 01/17/18 16:00 Laboratory Results - last 24 hr 01/17/18 01/17/18 01/17/18 11:53 12:30 16:00 WBC RBC Hgb Hct MCV MCH MCHC RDW Plt Count MPV Prelim Diff (Auto) Neut % (Auto) Lymph % (Auto) [place] % (Auto) Eos % (Auto) Baso % (Auto) Neut # (Auto) Lymph # (Auto) Valencia # (Auto) Eos # (Auto) Baso # (Auto) WBC Differential Diff Scan Differential Comment Platelet Estimate Platelet Morphology Ovalocytes Potassium 3.3 L 3.4 L POC Glucose 117 H 01/17/18 01/17/18 01/17/18 16:00 17:25 22:02 WBC 5.7 RBC 3.11 L Hgb 9.4 L Hct 29.2 L MCV 93.7 MCH 30.1 MCHC 32.1 RDW 20.9 H Plt Count 95 L D MPV 10.0 Prelim Diff (Auto) Slide review pending Neut % (Auto) 95.1 H Lymph % (Auto) 1.3 L Valencia % (Auto) 3.5 Eos % (Auto) 0.0 Baso % (Auto) 0.1 Neut # (Auto) 5.4 Lymph # (Auto) 0.1 L Valencia # (Auto) 0.2 Eos # (Auto) 0.0 Baso # (Auto) 0.0 WBC Differential . Diff Scan Auto diff confirmed Differential Comment . Platelet Estimate Low L Platelet Morphology Enlarged H Ovalocytes 1+ H Potassium POC Glucose 144 H 141 H 01/18/18 01/18/18 03:50 08:23 WBC RBC Hgb Hct MCV MCH MCHC RDW Plt Count MPV Prelim Diff (Auto) Neut % (Auto) Lymph % (Auto) Valencia % (Auto) Eos % (Auto) Baso % (Auto) Neut # (Auto) Lymph # (Auto) Valencia # (Auto) Eos # (Auto) Baso # (Auto) WBC Differential Diff Scan Differential Comment Platelet Estimate Platelet Morphology Ovalocytes Potassium POC Glucose 84 71 Microbiology 01/15/18 10:10 Fluid - Other Gram Stain - Final 01/15/18 10:10 Fluid - Other Body Fluid Culture - Final No growth in 72 hours (aerobically and anaerobically ) 01/12/18 19:00 Blood - Peripheral Aerobic Blood Culture - Final No growth in 5 days 01/12/18 19:00 Blood - Peripheral Anaerobic Blood Culture - Final No growth in 5 days 01/12/18 15:35 Blood - Other Aerobic Blood Culture - Final No growth in 5 days 01/12/18 15:35 Blood - Other Anaerobic Blood Culture - Final No growth in 5 days Assessment and Plan - Assessment (1) Sepsis Code(s): A41.9 - Sepsis, unspecified organism Status: Acute (2) Cellulitis of left leg Code(s): L03.116 - Cellulitis of left lower limb Status: Acute (3) Multiple myeloma Code(s): C90.00 - Multiple myeloma not having achieved remission Status: Acute - Plan 62-year-old man with Gram-negative sepsis Resolved Currently on Levaquin and penicillin Community-acquired pneumonia Continue with antibiotics including Levaquin and penicillin 10 days Continue with DuoNeb, prednisone taper, maintain oxygen saturation above 92% Left lower extremity cellulitis Continue with Levaquin Appreciate input from infectious disease specialist Left lower extremity edema, wounds Chronic venous stasis Appreciate input from podiatry who evaluated patient History of multiple myeloma Patient is now DNR Appreciate input from oncology History of systolic CHF EF of 20-25% Continue with diuretic, switch to p.o. Diabetes type 2 Continue current treatment including Levemir, insulin sliding scale Chronic medical conditions including hyperlipidemia, hypertension, diabetic neuropathy Continue outpatient medications DVT prophylaxis: Lovenox (1) Sepsis Qualifiers: Sepsis type: sepsis due to unspecified organism Qualified Code(s): A41.9 - Sepsis, unspecified organism
[2018-01-18] MEDS: Furosemide 20 MG Tablet PO SCH (17:22)
[2018-01-18] MEDS: Enoxaparin Inj 30 MG/0.3 ML Syringe SQ SCH (20:31)
[2018-01-19] MEDS: Insulin NovoLOG Aspart Correctional Sugar Inj SQ SCH ×3 (03:13→12:03)
[2018-01-19] MEDS: Sod Chloride 0.9% Inj 1,000 ML IV.CONT SCH (05:54)
[2018-01-19] MEDS ORDERED: predniSONE 10 MG Tablet PO ONE (09:00)
[2018-01-19] MEDS: guaiFENesin 600 MG ER Tablet PO SCH (09:27)
[2018-01-19] MEDS: Furosemide 20 MG Tablet PO SCH (09:28)
[2018-01-19] MEDS: Insulin Detemir Inj 1,000 UNIT/10 ML Vial SQ SCH (09:28)
[2018-01-19] MEDS: Spironolactone 25 MG Tablet PO SCH (09:28)
[2018-01-19] MEDS: Calcium Carbonate 500 MG Tablet PO SCH (09:28)
[2018-01-19] MEDS: Lisinopril 5 MG Tablet PO SCH (09:28)
--- NOTE | 2018-01-19 10:21 | P.PN ---
Subjective Interval history: Follow-up gram-negative sepsis/left lower extremity cellulitis/history of multiple myeloma January 18, 2018-patient seen and examined, no change, currently afebrile and denies any shortness of breath. Discharge pending authorization from insurance company to rehab January 19, 2018-patient seen and examined, OT was consulted yesterday, patient has no complaint this morning. Afebrile Physical Exam Vital signs: Vital Signs 01/18/18 12:00 01/18/18 16:00 01/18/18 20:00 Temperature 98.0 F 97.9 F 97.9 F Pulse Rate 87 91 H 85 Respiratory Rate 18 18 18 Blood Pressure 147/82 H 154/85 H 155/84 H Pulse Oximetry 94 L 96 100 01/19/18 00:00 01/19/18 04:00 01/19/18 08:00 Temperature 97.3 F L 97.6 F 98.1 F Pulse Rate 85 87 91 H Respiratory Rate 18 18 18 Blood Pressure 136/77 151/76 H 154/85 H Pulse Oximetry 98 99 99 Intake & Output 01/18/18 01/19/18 01/19/18 18:59 06:59 18:59 Intake Total 480 / 480 1520 / 1520 Balance 480 / 480 1520 / 1520 Weight 72.8 kg Intake: IV 0 / 0 800 / 800 NS Inj 1,000 ML @ 75 mls/hr IV. 0 / 0 800 / 800 CONT .[id number] LEIGHA Rx#:[id number] Oral 480 / 480 720 / 720 Other: # Voids 2 # Urine Diapers 3 Date of Last Bowel Movement 01/16/18 01/19/18 # Bowel Movements 1 1 Narrative: GENERAL: NAD SKIN: Warm and dry. HEAD: Normocephalic. EYES: No scleral icterus. No injection or drainage. NECK: Supple, trachea midline. No JVD or lymphadenopathy. CARDIOVASCULAR: Regular rate and rhythm without murmurs, gallops, or rubs. RESPIRATORY: Breath sounds equal bilaterally. No accessory muscle use. GASTROINTESTINAL: Abdomen soft, non-tender, nondistended. MUSCULOSKELETAL: No cyanosis; +trace edema. Dressing over Bilateral lower extremities wounds BACK: Nontender without obvious deformity. No CVA tenderness. Results - Labs CBC & Chem 7: 01/17/18 16:00 01/17/18 16:00 Laboratory Results - last 24 hr 01/18/18 01/18/18 01/18/18 11:44 17:17 20:02 POC Glucose 103 83 72 01/19/18 01/19/18 03:10 08:04 POC Glucose 81 75 Microbiology 01/12/18 15:15 Wound - Leg Gram Stain - Final 01/12/18 15:15 Wound - Leg Wound Culture - Final Citrobacter freundii Aeromonas caviae complex Enterococcus faecalis 01/12/18 15:15 Other - Final 01/15/18 10:10 Fluid - Other Gram Stain - Final 01/15/18 10:10 Fluid - Other Body Fluid Culture - Final No growth in 72 hours (aerobically and anaerobically ) Assessment and Plan - Assessment (1) Sepsis Code(s): A41.9 - Sepsis, unspecified organism Status: Acute (2) Cellulitis of left leg Code(s): L03.116 - Cellulitis of left lower limb Status: Acute (3) Multiple myeloma Code(s): C90.00 - Multiple myeloma not having achieved remission Status: Acute - Plan 62-year-old man with Gram-negative sepsis Resolved Currently on Levaquin and penicillin Community-acquired pneumonia Continue with antibiotics including Levaquin and penicillin 10 days Continue with DuoNeb, prednisone taper, maintain oxygen saturation above 92% Left lower extremity cellulitis Continue with Levaquin Appreciate input from infectious disease specialist Left lower extremity edema, wounds Chronic venous stasis Appreciate input from podiatry who evaluated patient History of multiple myeloma Patient is now DNR Appreciate input from oncology History of systolic CHF EF of 20-25% Continue with diuretic, switch to p.o. Diabetes type 2 Continue current treatment including Levemir, insulin sliding scale Chronic medical conditions including hyperlipidemia, hypertension, diabetic neuropathy Continue outpatient medications PT and OT consulted to treat DVT prophylaxis: Lovenox (1) Sepsis Qualifiers: Sepsis type: sepsis due to unspecified organism Qualified Code(s): A41.9 - Sepsis, unspecified organism
[2018-01-19] MEDS: levoFLOXacin 750 MG Tablet PO SCH (11:58)
[2018-01-19 18:33] VITALS: BP 150/79; PULSE 86; TEMP 98.6; O2SAT 93
[2018-01-20] MEDS ORDERED: predniSONE 20 MG Tablet PO ONE (09:00)
[2018-01-21] MEDS ORDERED: predniSONE 10 MG Tablet PO ONE (09:00)
[2018-01-22] MEDS ORDERED: predniSONE 5 MG Tablet PO ONE (09:00)
== END 2018-01-19 13:20 ==
LOC: NEPE 15:07 → NEDA 18:46 → N06 20:00 → N03 01-12 00:17 → N04 01-14 21:49
PROVIDERS: ADMIT Hospitalist; ATTEND Hospitalist

== ENCOUNTER 2018-02-12 17:13 | Inpatient (IN) ==
[2018-02-12] MEDS ORDERED: Piperacil/Tazo 4.5 GM Premix 4.5 GM/100 ML BAG IV.SIG STA (18:23)
[2018-02-12] MEDS ORDERED: Vancomycin Inj 1,000 MG in Sodium Chlor 0.9% Inj 250 ML IV.SIG STA (18:23)
[2018-02-12] MEDS ORDERED: Clindamycin 900 mg/NS Premix 900 MG/50 ML PIGGYBACK IV.SIG STA (18:23)
--- NOTE | 2018-02-12 18:59 | ED ---
HPI General Chief complaint: Skin/Abscess/Foreign Body Stated complaint: skin Time Seen by Provider: 02/12/18 18:18 Source: patient Mode of arrival: ambulatory Limitations: no limitations History of Present Illness HPI narrative: 63-year-old male patient with history of multiple medical issues , diabetic, chronic wounds in the left leg, presents to the ER sent and by Dr. Palm for worsening of the left leg wounds, concerning for necrotizing fasciitis. Patient complains of ongoing pain, but states he has not seen the leg himself in some time. He says the patient and for treatment of necrotizing fasciitis of the left leg. Related Data Home Medications Medication Instructions Recorded Confirmed dexamethasone 20 mg PO WEEKLY 01/11/18 01/11/18 duloxetine [Cymbalta] 30 mg PO HS 01/11/18 01/11/18 prochlorperazine maleate 10 mg PO QID PRN 01/11/18 01/11/18 [Compazine] Previous Rx's Medication Instructions Recorded alprazolam 0.5 mg PO HS PRN #3 tab 01/17/18 carvedilol 3.125 mg PO BID #60 tab 01/17/18 furosemide 40 mg PO DAILY #30 tab 01/17/18 hydromorphone [Dilaudid] 4 mg PO Q6H PRN #12 tab 01/17/18 insulin aspart U-100 [Novolog 0 unit SUB-Q ACHS AND 3AM ml 01/17/18 U-100 Insulin aspart] levofloxacin 750 mg PO DAILY@1100 #10 tab 01/17/18 lisinopril [Zestril] 5 mg PO DAILY #30 tab 01/17/18 penicillin V potassium 500 mg PO Q8HR #30 tab 01/17/18 potassium chloride 8 meq PO DAILY #30 cap 01/17/18 prednisone See Label Instructions .ROUTE 01/17/18 .COMPLEX #60 each spironolactone 25 mg PO DAILY #30 tab 01/17/18 Allergies Allergy/AdvReac Type Severity Reaction Status Date / Time azithromycin Allergy Intermediate rash Verified 01/11/18 20:23 *MDRO Multi-Drug Resistant AdvReac Mild Cleared Uncoded 08/08/16 09:57 Organism 10/2015 Review of Systems ROS: all other systems reviewed are negative FORMERLY [facility] Medical History Medical History Amyloidosis (Acute) Arthritis (Acute) CAD (coronary artery disease) (Acute) CHF (congestive heart failure) (Acute) Chest pain (Acute) Diabetes mellitus (Acute) Diabetic neuropathy (Acute) Flesh-eating bacteria (Acute) HLD (hyperlipidemia) (Acute) HTN (hypertension) (Acute) Irregular heart beat (Acute) Multiple myeloma (Acute) Myocardial infarct (Acute) Surgical History Surgical History Aortic valve replaced (Acute) H/O left knee surgery (Acute) Hx of CABG (Acute) Status post surgical manipulation of ankle joint (Acute) Family History Family History Father Cancer Mother Cancer Social History Social History Substance History: No History of Abuse Second Hand Smoke Exposure: No Smoking Status: Current every day smoker Tobacco Type: Cigarettes How Often Do You Have a Drink Containing Alcohol: 2 to 4 times a month Recent Travel in [facility] within the Last 8 Weeks: No Recent Out of Country Travel within the Last 8 Weeks: No Immunization History Tetanus Immunization: Unsure Hx Influenza Vaccine This Season: No Exam Narrative Exam Narrative: GENERAL: Well-developed elderly male patient currently in moderate distress. Awake and oriented 3. SKIN: Focused skin assessment warm/dry. Very severe appearing large ulcers of the left leg with dark necrosis, foul-smelling, on a erythematous base and notable leg discoloration. There is dorsal pedis pulses palpable in the left foot. HEAD: Atraumatic. Normocephalic. EYES: Pupils equal and round. No scleral icterus. No injection or drainage. ENT: No nasal bleeding or discharge. Mucous membranes pink and moist. NECK: Trachea midline. No JVD. CARDIOVASCULAR: Regular rate and rhythm. No murmur appreciated. RESPIRATORY: No accessory muscle use. Clear to auscultation. Breath sounds equal bilaterally. GASTROINTESTINAL: Abdomen soft, non-tender, nondistended. Hepatic and splenic margins not palpable. MUSCULOSKELETAL: No obvious deformities. No clubbing. No cyanosis. Severe bilateral edema of the lower legs.. NEUROLOGICAL: Awake and alert. No obvious cranial nerve deficits. Motor grossly within normal limits. Normal speech. PSYCHIATRIC: Appropriate mood and affect; insight and judgment normal. Course Initial Documented Vital Signs Temperature 98.2 F 02/12/18 17:22 Pulse Rate 77 02/12/18 17:22 Respiratory Rate 18 02/12/18 17:22 Blood Pressure 116/58 L 02/12/18 17:22 Pulse Oximetry 97 02/12/18 17:22 Last Documented Vital Signs Temperature 98.2 F 02/12/18 17:22 Pulse Rate 79 02/12/18 17:37 Respiratory Rate 18 02/12/18 17:37 Blood Pressure 117/86 02/12/18 17:37 Pulse Oximetry 99 02/12/18 18:43 Medical Decision Making MDM Narrative Medical decision making narrative: what the wound looks like, thinks that this is more of a chronic-appearing wound which patient and states this occurred over several days, and that the patient can wait until tomorrowIV antibiotics were initiated in the ER. Case was initially discussed with Dr. Walter of general surgery but he states that this is more of a orthopedics issue. Case was discussed with PA for Dr. Curtis, who after seeing how the wound looks, thinks they can be treated initially with IV antibiotics and wait until tomorrow for surgery. Case has been discussed with Dr. Mcdaniels for admission. Medical Screen Exam Complete: Yes Emergency Medical Condition: Yes Differential Diagnosis Differential Diagnosis: Wound infection versus necrotizing fasciitis versus sepsis Lab Data Result diagrams: 02/12/18 18:38 02/12/18 18:38 Lab Results 02/12/18 02/12/18 Range/Units 18:38 18:38 WBC 6.8 (4.0-11.0) th/mm3 RBC 2.69 L (4.50-5.90) mil/mm3 Hgb 8.2 L (13.0-17.0) gm/dL Hct 24.7 L (39.0-51.0) % MCV 91.8 (80.0-100.0) fL MCH 30.5 (27.0-34.0) pg MCHC 33.3 (32.0-36.0) % RDW 19.8 H (11.6-17.2) % Plt Count 184 D (150-450) th/mm3 MPV 9.3 (7.0-11.0) fL Neut % (Auto) 97.0 H (16.0-70.0) % Lymph % (Auto) 0.6 L (9.0-44.0) % Dolores % (Auto) 1.9 (0.0-8.0) % Eos % (Auto) 0.0 (0.0-4.0) % Baso % (Auto) 0.5 (0.0-2.0) % Neut # (Auto) 6.6 (1.8-7.7) th/mm3 Lymph # (Auto) 0.0 L (1.0-4.8) th/mm3 Dolores # (Auto) 0.1 (0.0-0.9) th/mm3 Eos # (Auto) 0.0 (0.0-0.4) th/mm3 Baso # (Auto) 0.0 (0.0-0.2) th/mm3 WBC Differential . Differential Comment Auto diff final Lactic Acid 1.6 (0.4-2.0) mmol/L Imaging Data Radiologist's impression: Chest X-Ray 02/12/18 18:06 CONCLUSION: 1. Bilateral pulmonary opacities again noted which are mildly improved at the right lung base. 2. Status post median sternotomy for bypass grafting procedure with residual cardiomegaly. 3. Small effusions. Discharge Plan Discharge Disposition Patient Disposition: 30 Still Patient Discharge Condition Condition: Stable Discharge Details Anticipated Discharge Date: 02/12/18 Diagnosis: Necrotizing fasciitis Physicians Team ED Provider: Idalia Carlin Primary Care Provider: Taiwo Palm Rxs /Orders / Referrals /Forms Prescriptions: No Action prochlorperazine maleate [Compazine] 10 mg Tablet 10 mg PO QID PRN (Reason: Nausea And Vomiting) RF: 0 dexamethasone 4 mg Tablet 20 mg PO WEEKLY RF: 0 duloxetine [Cymbalta] 30 mg Capsule,Delayed Release(Dr/Ec) 30 mg PO HS RF: 0 hydromorphone [Dilaudid] 4 mg Tablet 4 mg PO Q6H PRN (Reason: Pain) Qty: 12 RF: 0 alprazolam 0.5 mg Tablet 0.5 mg PO HS PRN (Reason: Anxiety) Qty: 3 RF: 0 lisinopril [Zestril] 5 mg Tablet 5 mg PO DAILY Qty: 30 RF: 0 spironolactone 25 mg Tablet 25 mg PO DAILY Qty: 30 RF: 0 potassium chloride 8 mEq Capsule, Extended Release 8 meq PO DAILY Qty: 30 RF: 0 carvedilol 3.125 mg Tablet 3.125 mg PO BID Qty: 60 RF: 0 prednisone 5 mg Tablets,Dose Pack See Label Instructions .ROUTE .COMPLEX Qty: 60 RF: 0 penicillin V potassium 500 mg Tablet 500 mg PO Q8HR Qty: 30 RF: 0 levofloxacin 750 mg Tablet 750 mg PO DAILY@1100 Qty: 10 RF: 0 furosemide 40 mg Tablet 40 mg PO DAILY Qty: 30 RF: 0 insulin aspart U-100 [Novolog U-100 Insulin aspart] 100 unit/mL Solution Sub-Q ACHS AND 3AM RF: 0 Status ED Status: With Doctor
[2018-02-12 19:08] LABS: Baso % (Auto) 0.5 % (0.0-2.0); Hematocrit 24.7 % (39.0-51.0); Hemoglobin 8.2 gm/dL (13.0-17.0); Lymph % (Auto) 0.6 % (9.0-44.0); Mean Corpuscular HGB Conc 33.3 % (32.0-36.0); Mean Corpuscular Hemoglobin 30.5 pg (27.0-34.0); Mean Corpuscular Volume 91.8 fL (80.0-100.0); Mean Platelet Volume 9.3 fL (7.0-11.0); Mono # (Auto) 0.1 th/mm3 (0.0-0.9); Mono % (Auto) 1.9 % (0.0-8.0); Neut # (Auto) 6.6 th/mm3 (1.8-7.7); Platelet Count 184 th/mm3 (150-450); Red Blood Count 2.69 mil/mm3 (4.50-5.90); Red Cell Distribution Width 19.8 % (11.6-17.2); White Blood Count 6.8 th/mm3 (4.0-11.0)
--- NOTE | 2018-02-12 19:24 | XR ---
EXAM DATE: 02/12/2018 6:59 PM EDT AGE/SEX: 63 years / Male INDICATIONS: Fever. CLINICAL DATA: This is the patient's initial encounter. Patient reports that signs and symptoms have been present for 1 day and indicates a pain score of 0/10. MEDICAL/SURGICAL HISTORY: . Multiple myeloma, COPD . . Bypass and aorta surgery for the heart . COMPARISON: [facility] [place], CHEST 1V SINGLE AP, 01/11/2018. . FINDINGS: The heart size remains moderately enlarged. Streaky bilateral pulmonary opacities remain greatest in the perihilar regions and right lung base. Consolidation noted at the right lung base on the prior st udy is improved. The right-sided port catheter remains in place. There is mild blunting of the costop hrenic angles. CONCLUSION: 1. Bilateral pulmonary opacities again noted which are mildly improved at the right lung base. 2. Status post median sternotomy for bypass grafting procedure with residual cardiomegaly. 3. Small effusions. Electronically signed by: Dong Lipscomb MD 02/12/2018 7:22 PM EDT
[2018-02-12 19:47] LABS: Albumin 1.9 g/dL (3.4-5.0); Calcium 6.9 mg/dL (8.5-10.1); Carbon Dioxide 24.7 meq/L (21.0-32.0); Potassium 4.8 meq/L (3.5-5.1); Total Protein 5.5 g/dL (6.4-8.2)
--- NOTE | 2018-02-12 19:57 | XR ---
EXAM DATE: 02/12/2018 7:43 PM EDT AGE/SEX: 63 years / Male INDICATIONS: Left posterior tibia pain, open wound CLINICAL DATA: This is the patient's initial encounter. Patient reports that signs and symptoms have been present for 4 - 6 months and indicates a pain score of 8/10. MEDICAL/SURGICAL HISTORY: . multiple myeloma, COPD . . bypass and aorta surgery for the hear t. Hardware placement left patella and distal left tibia COMPARISON: [facility], ANKLE LIMITED LEFT 2V, 01/12/2018. . FINDINGS: AP and lateral views of the tibia and fibula were obtained and demonstrate remote postsurgical change s from plate fixation devices along the distal tibia and fibula. There is mild osteopenia with no acu te fracture. Degenerative changes are noted in the tibiotalar joint. There is focal soft tissue swell ing posteriorly with no radiopaque foreign body. There is mild overlying skin artifact. CONCLUSION: 1. Soft tissue swelling and irregularity along the region of the open wound with no radiopaque forei gn body. 2. Osteopenia and remote postsurgical changes involving the distal tibia and fibula. Electronically signed by: Dong Lipscomb MD 02/12/2018 7:56 PM EDT
[2018-02-12] MEDS ORDERED: Sod Chloride 0.9% Inj 1,000 ML IV.SIG SCH (20:00)
[2018-02-12] MEDS ORDERED: Sod Chloride 0.9% Inj 1,000 ML IV.SIG ONE (20:21)
--- NOTE | 2018-02-12 21:33 | CT ---
EXAM DATE: 02/12/2018 9:26 PM EDT AGE/SEX: 63 years / Male INDICATIONS: Abnormal X-ray. Evaluate for pneumonia. CLINICAL DATA: This is the patient's initial encounter. Patient reports that signs and symptoms have been present for 1 day and indicates a pain score of 0/10. MEDICAL/SURGICAL HISTORY: Cardiovascular disease. Congestive heart failure. Diabetes. Hypertensi on. Myocardial Infarction. Multiple Myeloma. CABG. Aortic valve replacement. RADIATION DOSE: 9.25 CTDI (mGy) [place] [facility] [place]. . TECHNIQUE: Multiple contiguous axial images were obtained through the chest without contrast. Image s were obtained in suspended respiration using multiple row detector helical technique. Using automa fausto exposure control and adjustment of the mA and/or kV according to patient size, radiation dose was kept as low as reasonably achievable to obtain optimal diagnostic quality images. DICOM format imag e data is available electronically for review and comparison. FINDINGS: Lungs: Coarse streaky infiltrate is present in both lungs. There are small areas of consolidation in the right upper lobe. Mediastinum: Status post median sternotomy with postsurgical changes. There is no adenopathy. There is mild cardiomegaly. Pleurae: There are bilateral small pleural effusions left greater than right. Fluid is present in th e base of the left fissure. Axillae: Unremarkable. Bony Structures: Unremarkable. Miscellaneous: The examination was extended to include the upper abdomen, and both adrenal glands ar e normal in size and configuration. Calcified gallstones are noted in the gallbladder. CONCLUSION: 1. Streaky infiltrate is present in both lungs with small areas of consolidation in the right upper lobe. The findings may indicate pneumonia or asymmetric pulmonary edema. 2. Status post median sternotomy with cardiomegaly. 3. Bilateral small pleural effusions. Electronically signed by: Dong Lipscomb MD 02/12/2018 9:32 PM EDT
[2018-02-12] MEDS ORDERED: Sodium Chlor 0.9% Inj 250 ML IV.SIG SCH (22:00)
[2018-02-12] MEDS ORDERED: Vancomycin Consult Pharmacy OTHER PRN (22:57)
[2018-02-12] MEDS ORDERED: Dextrose 50% in Water 50 ML Vial IV.PUSH PRN (23:01)
[2018-02-12] MEDS ORDERED: Bisacodyl 10 MG Supp RECTAL PRN (23:02)
[2018-02-12] MEDS ORDERED: Acetaminophen 325 MG Tablet PO PRN (23:02)
[2018-02-12] MEDS ORDERED: Heparin - SQ 10,000 UNITS/ML Vial SQ SCH (23:15)
--- NOTE | 2018-02-12 23:16 | P.HP ---
History of Present Illness Service: [facility] Primary Care Physician: Taiwo Palm MD History of Present Illness: 63-year-old male with a past medical history significant for amyloidosis, arthritis, coronary artery disease, CHF, diabetes mellitus, diabetic neuropathy , hypertension, hyperlipidemia and multiple myeloma emergency department for evaluation of the left lower extremity wounds. The patient was recently discharged from [facility] to home and had a home health care nurse addressing his wounds. Today, the nurse was concerned about his wounds and sent a picture to his primary care physician. The primary care physician suggested that the patient come to the emergency department for further evaluation. The patient denies any fever/chills. No chest pain or shortness of breath. No abdominal pain. No nausea/vomiting/diarrhea. No lateralizing signs/symptoms. Inpatient Certification: I certify that the inpatient services were ordered in accordance with Medicare regulations governing the order. This includes certification that hospital inpatient services are reasonable and necessary and in the case of services not specified as inpatient-only under 42 CFR 419.22(n), that they are appropriately provided as inpatient services in accordance to with the 2-midnight benchmark under 43 CFR 412.3(e) Estimated Total Length of Stay (Days): 3 Plans for Post Hospital Care: Not yet determined Review of Systems All other systems reviewed negative except as stated in HPI PMFSH - History History Provided By: Patient - Medical History Medical History: Medical History (Last Updated 02/12/18 @ 18:42 by Dannie Osman) Flesh-eating bacteria Amyloidosis Arthritis CAD (coronary artery disease) CHF (congestive heart failure) Chest pain Diabetes mellitus Diabetic neuropathy HLD (hyperlipidemia) HTN (hypertension) Irregular heart beat Multiple myeloma Myocardial infarct - Surgical History Surgical History: Surgical History (Last Reviewed 02/12/18 @ 19:25 by Idalia Carlin MD) Aortic valve replaced H/O left knee surgery Hx of CABG Status post surgical manipulation of ankle joint - Family History Family History: Family History (Last Updated 02/12/18 @ 23:07 by Staci Mcdaniels MD) Father Cancer Mother Cancer Other Diabetes mellitus - Tobacco History Second Hand Smoke Exposure: No Tobacco Use In Past 30 Days: Yes Smoking Status: Current every day smoker Tobacco Type: Cigarettes - Alcohol History How Often Do You Have a Drink Containing Alcohol: 2 to 4 times a month - Substance Use History Substance History: No History of Abuse - Travel History Recent Travel in the [place] Within the Last 8 Weeks: No Recent Travel Out of the Country Within the Last 8 Weeks: No - Immunization History Tetanus Immunization: Unsure Hx Influenza Vaccine This Season: No Medications and Allergies Active Medications: Active Medications Acetaminophen (Tylenol) 650 mg PO Q4H PRN PRN Reason: Temp > 100.4 Carvedilol (Coreg) 3.125 mg PO BID LEIGHA Dexamethasone (Decadron) 4 mg PO DAILY LEIGHA Dextrose (D50w Vial) 50 ml IV.PUSH UNSCH PRN PRN Reason: PER HYPOGLYCEMIA PROTOCOL Duloxetine HCl (Cymbalta) 30 mg PO HS LEIGHA Furosemide (Lasix) 40 mg PO DAILY ELIGHA Glucagon (Glucagon Inj) 1 mg OTHER PRN PRN PRN Reason: for Hypoglycemia Protocol Heparin Sodium (Porcine) (Heparin Inj) 5,000 units SQ Q12H LEIGHA Hydromorphone HCl (Dilaudid) 4 mg PO Q6H PRN PRN Reason: Pain Sodium Chloride (Ns Inj) 1,000 mls @ 0 mls/hr IV.SIG BOLUS LEIGHA Sodium Chloride (Ns Inj) 250 mls @ 0 mls/hr IV.SIG BOLUS LEIGHA Sodium Chloride (Ns Inj) 1,000 mls @ 125 mls/hr IV.CONT .Q8H LEIGHA Insulin Detemir (Levemir Inj) 5 unit SQ HS LEIGHA Insulin Human Regular (Novolin R Correctional Sugar Inj) 0 units SQ ACHS AND 3AM LEIGHA; Protocol Lactulose (Lactulose Liq) 30 ml PO DAILY PRN PRN Reason: SEVERE CONSITIPATION Allergies Allergy/AdvReac Type Severity Reaction Status Date / Time azithromycin Allergy Intermediate rash Verified 01/11/18 20:23 *MDRO Multi-Drug Resistant AdvReac Mild Cleared Uncoded 08/08/16 09:57 Organism 10/2015 Home Medications Medication Instructions Recorded Confirmed Type dexamethasone [Decadron] 4 mg PO DAILY 01/11/18 02/12/18 History duloxetine [Cymbalta] 30 mg PO HS 01/11/18 02/12/18 History carvedilol [Coreg] 3.125 mg PO BID 02/12/18 02/12/18 History hydromorphone 4 mg PO Q6H PRN 02/12/18 02/12/18 History insulin aspart U-100 [Novolog 100 unit SUB-Q ACHS AND 3AM 02/12/18 02/12/18 History U-100 Insulin aspart] insulin detemir U-100 [Levemir 5 unit SUB-Q HS 02/12/18 02/12/18 History U-100 Insulin] potassium chloride [Klor-Con 10 meq PO DAILY 02/12/18 02/12/18 History Sprinkle] spironolactone [Aldactone] 25 mg PO DAILY 02/12/18 02/12/18 History trazodone 50 mg PO HS 02/12/18 02/12/18 History Exam Vital signs: Vital Signs 02/12/18 17:22 02/12/18 17:37 02/12/18 18:43 Temperature 98.2 F Pulse Rate 77 79 Respiratory Rate 18 18 Blood Pressure 116/58 L 117/86 Pulse Oximetry 97 100 99 Intake & Output 02/12/18 02/12/18 02/13/18 06:59 18:59 06:59 Intake Total 350 / 350 Balance 350 / 350 Weight 72.575 kg Intake: IV 350 / 350 Vancomycin Inj 1,000 MG In NS 250 / 250 Inj 250 ML @ 250 mls/hr IV.SIG STAT STA Rx#:[id number] Narrative: Gen.: No acute distress Head: Normocephalic. Atraumatic. EENT: Pupils equal round and reactive to light. Nose without drainage. Airway intact. Throat without injection. Cardiovascular: Regular rate and rhythm. No murmurs, rubs or gallops. Respiratory: Lungs clear to auscultation bilaterally. No wheezes or rhonchi. Abdomen: Soft, nontender, nondistended. No peritoneal signs. Musculoskeletal: No gross deformities. No edema. Skin: Multiple necrotic ulcerations of the left lower extremity with purulent, foul-smelling drainage. Neuro: Sensory and motor grossly intact. Cranial nerves II through XII grossly intact. Results - Labs CBC & Chem 7: 02/12/18 18:38 02/12/18 18:38 Labs: Laboratory Results - last 24 hr 02/12/18 02/12/18 02/12/18 18:38 18:38 18:38 WBC 6.8 RBC 2.69 L Hgb 8.2 L Hct 24.7 L MCV 91.8 MCH 30.5 MCHC 33.3 RDW 19.8 H Plt Count 184 D MPV 9.3 Neut % (Auto) 97.0 H Lymph % (Auto) 0.6 L [place] % (Auto) 1.9 Eos % (Auto) 0.0 Baso % (Auto) 0.5 Neut # (Auto) 6.6 Lymph # (Auto) 0.0 L [place] # (Auto) 0.1 Eos # (Auto) 0.0 Baso # (Auto) 0.0 WBC Differential . Differential Comment Auto diff final Sodium 126 L Potassium 4.8 Chloride 90 L Carbon Dioxide 24.7 Anion Gap 11 BUN 61 H Creatinine 1.92 H Estimated GFR 36 L Random Glucose 403 H Lactic Acid 1.6 Calcium 6.9 L* Prot Corrected Calcium 7.7 L Total Bilirubin 0.3 AST 8 L ALT 9 L Alkaline Phosphatase 103 Total Protein 5.5 L Albumin 1.9 L - Imaging Impressions Chest X-Ray 02/12/18 18:06 CONCLUSION: 1. Bilateral pulmonary opacities again noted which are mildly improved at the right lung base. 2. Status post median sternotomy for bypass grafting procedure with residual cardiomegaly. 3. Small effusions. Tibia/Fibula X-Ray 02/12/18 19:27 CONCLUSION: 1. Soft tissue swelling and irregularity along the region of the open wound with no radiopaque foreign body. 2. Osteopenia and remote postsurgical changes involving the distal tibia and fibula. Chest CT 02/12/18 20:24 CONCLUSION: 1. Streaky infiltrate is present in both lungs with small areas of consolidation in the right upper lobe. The findings may indicate pneumonia or asymmetric pulmonary edema. 2. Status post median sternotomy with cardiomegaly. 3. Bilateral small pleural effusions. Caprini VTE Risk Assessment Caprini VTE Risk Assessment: Moderate/High Risk (score >= 2) Caprini Risk Assessment Model: Point Value = 1 Point Value = 2 Point Value = 3 Point Value = 5 Age 41-60 Minor surgery BMI > 25 kg/m2 Swollen legs Varicose veins or History of unexplained or recurrent spontaneous Oral contraceptives or hormone replacement Sepsis (< 1 month) Serious lung disease, including pneumonia (< 1 month) Abnormal pulmonary function Acute myocardial infarction Congestive heart failure (< 1 month) History of inflammatory bowel disease Medical patient at bed rest Age 61-74 Arthroscopic surgery Major open surgery (> 45 min) Laparoscopic surgery (> 45 min) Malignancy Confined to bed (> 72 hours) Immobilizing plaster cast Central venous access Age >= 75 History of VTE Family history of VTE Factor V Leiden Prothrombin [id number] Lupus anticoagulant Anticardiolipin antibodies Elevated serum homocysteine Heparin-induced thrombocytopenia Other congenital or acquired thrombophilia Stroke (< 1 month) Elective arthroplasty Hip, pelvis, or leg fracture Acute spinal cord injury (< 1 month) Prophylaxis Regimen: Total Risk Factor Score Risk Level Prophylaxis Regimen 0-1 Low Early ambulation 2 Moderate Order ONE of the following: *Sequential Compression Device (SCD) *Heparin 5000 units SQ BID 3-4 Higher Order ONE of the following medications: *Heparin 5000 units SQ TID *Enoxaparin/Lovenox 40 mg SQ daily (WT < 150 kg, CrCl > 30 mL/min) *Enoxaparin/Lovenox 30 mg SQ daily (WT < 150 kg, CrCl > 10-29 mL/min) *Enoxaparin/Lovenox 30 mg SQ BID (WT < 150 kg, CrCl > 30 mL/min) AND/OR *Sequential Compression Device (SCD) 5 or more Highest Order ONE of the following medications: *Heparin 5000 units SQ TID (Preferred with Epidurals) *Enoxaparin/Lovenox 40 mg SQ daily (WT < 150 kg, CrCl > 30 mL/min) *Enoxaparin/Lovenox 30 mg SQ daily (WT < 150 kg, CrCl > 10-29 mL/min) *Enoxaparin/Lovenox 30 mg SQ BID (WT < 150 kg, CrCl > 30 mL/min) AND *Sequential Compression Device (SCD) Assessment and Plan - Plan Assessment/plan: 1. Severe cellulitis/ulcerative leg wounds Vancomycin/Zosyn Wound care consulted Orthopedic surgery consulted Wound cultures pending Blood cultures pending 2. Acute kidney injury BUN/creatinine 61/1.92 Baseline 0.5 in October 2017 IV fluid hydration Renal ultrasound pending Monitor renal function Consult nephrology if kidney function does not improve 3. Diabetes mellitus Continue home Levemir Sliding-scale insulin Monitor blood glucose 4. CAD/CHF Continue home medications Monitor closely for signs of volume overload 5. Hypertension/hyperlipidemia Continue home medications 6. Multiple myeloma Continue outpatient follow-up FEN N.p.o. Electrolytes: Monitor and replete as needed NS at 70 cc/hour Holding pharmacologic anticoagulation for possible operative intervention
[2018-02-12] MEDS ORDERED: Insulin NovoLIN Regular Correctional Sugar Inj SQ SCH (23:45)
[2018-02-13] MEDS: Insulin NovoLIN Regular Correctional Sugar Inj SQ SCH ×6 (00:52→21:15)
[2018-02-13] MEDS: Sod Chloride 0.9% Inj 1,000 ML IV.CONT SCH ×2 (01:26→09:36)
[2018-02-13] MEDS: Piperacil/Tazo 3.375 GM Premix 50 ML IV.SIG SCH ×4 (03:23→20:21)
[2018-02-13 05:01] LABS: Baso % (Auto) 0.4 % (0.0-2.0); Hematocrit 22.8 % (39.0-51.0); Hemoglobin 7.6 gm/dL (13.0-17.0); Lymph # (Auto) 0.1 th/mm3 (1.0-4.8); Lymph % (Auto) 0.8 % (9.0-44.0); Mean Corpuscular HGB Conc 33.4 % (32.0-36.0); Mean Corpuscular Hemoglobin 30.7 pg (27.0-34.0); Mean Corpuscular Volume 91.9 fL (80.0-100.0); Mean Platelet Volume 9.2 fL (7.0-11.0); Mono # (Auto) 0.4 th/mm3 (0.0-0.9); Mono % (Auto) 4.7 % (0.0-8.0); Neut # (Auto) 7.7 th/mm3 (1.8-7.7); Neut % (Auto) 94.1 % (16.0-70.0); Platelet Count 161 th/mm3 (150-450); Red Blood Count 2.48 mil/mm3 (4.50-5.90); Red Cell Distribution Width 20.1 % (11.6-17.2); White Blood Count 8.2 th/mm3 (4.0-11.0)
[2018-02-13 05:33] LABS: Calcium 6.6 mg/dL (8.5-10.1); Carbon Dioxide 18.6 meq/L (21.0-32.0); Potassium 3.9 meq/L (3.5-5.1)
[2018-02-13 05:45] LABS: Total Protein 5.3 g/dL (6.4-8.2)
--- NOTE | 2018-02-13 07:33 | P.CONOP ---
[facility] Orthopedics Consult Note - [facility] Consult date: 02/13/18 Chief complaint: Left Leg Wound Infection/Gangrene Narrative: Jose Angel is a 63-year-old male. He has multiple medical problems including amyloidosis, arthritis, coronary artery disease, CHF, diabetes, neuropathy, hypertension, high cholesterol, and left leg wounds. He recently quit smoking approximately 3 weeks ago. He presented emergency room with increasing wounds of his left leg. He denies fevers, chills, or recent weight loss. He has diminished sensation of both legs. He does not have significant pain. The ulcerations of his left leg appear to be getting worse. He denies purulent drainage. He has been having dressing changes. He was recently discharged home from [facility]. Home health has been changing his dressings. He denies any recent traumatic injuries. Review of Systems Patient denies fevers, chills, weight loss, headache, visual changes, hearing loss, chest pain, palpitations, shortness of breath, nausea, vomiting, no urinary changes, diarrhea, bowel changes, neck pain, back pain, skin rashes, weakness of extremities, easy bleeding, enlarged lymph nodes, numbness of extremities, anxiety, or depression. Patient's social history, past medical history, and family history were reviewed on chart and with patient. PMFSH - History History Provided By: Patient - Medical History Medical History: Medical History (Last Updated 02/12/18 @ 18:42 by Dannie Osman) Flesh-eating bacteria Amyloidosis Arthritis CAD (coronary artery disease) CHF (congestive heart failure) Chest pain Diabetes mellitus Diabetic neuropathy HLD (hyperlipidemia) HTN (hypertension) Irregular heart beat Multiple myeloma Myocardial infarct - Surgical History Surgical History: Surgical History (Last Reviewed 02/13/18 @ 07:30 by Danilo Null MD) Aortic valve replaced H/O left knee surgery Hx of CABG Status post surgical manipulation of ankle joint - Family History Family History: Family History (Last Reviewed 02/13/18 @ 07:30 by Danilo Null MD) Father Cancer Mother Cancer Other Diabetes mellitus - Social History I have reviewed the patient's Social History: Yes - Tobacco History Second Hand Smoke Exposure: No Tobacco Use In Past 30 Days: No Smoking Status: Former smoker Tobacco Type: Cigarettes - Alcohol History How Often Do You Have a Drink Containing Alcohol: Monthly or less - Substance Use History Substance History: No History of Abuse - Travel History Recent Travel in the [place] Within the Last 8 Weeks: No Recent Travel Out of the Country Within the Last 8 Weeks: No - Immunization History Tetanus Immunization: Unsure Hx Influenza Vaccine This Season: No Medications and Allergies Active Medications: Active Medications Acetaminophen (Tylenol) 650 mg PO Q4H PRN PRN Reason: Temp > 100.4 Al Hydroxide/Mg Hydroxide (Milk Of Magnesia Liq) 30 ml PO Q12H PRN PRN Reason: Mild Constipation Bisacodyl (Dulcolax Supp) 10 mg RECTAL DAILY PRN PRN Reason: SEVERE CONSITIPATION Carvedilol (Coreg) 3.125 mg PO BID LEIGHA Dexamethasone (Decadron) 4 mg PO DAILY LEIGHA Dextrose (D50w Vial) 50 ml IV.PUSH UNSCH PRN PRN Reason: PER HYPOGLYCEMIA PROTOCOL Duloxetine HCl (Cymbalta) 30 mg PO HS LEIGHA Furosemide (Lasix) 40 mg PO DAILY LEIGHA Glucagon (Glucagon Inj) 1 mg OTHER PRN PRN PRN Reason: for Hypoglycemia Protocol Hydromorphone HCl (Dilaudid) 4 mg PO Q6H PRN PRN Reason: BREAKTHROUGH PAIN Last Admin: 02/13/18 03:23 Dose: 4 mg Sodium Chloride (Ns Inj) 1,000 mls @ 0 mls/hr IV.SIG BOLUS LEIGHA Last Infusion: 02/13/18 01:26 Dose: Infused Sodium Chloride (Ns Inj) 250 mls @ 0 mls/hr IV.SIG BOLUS LEIGHA Last Infusion: 02/13/18 01:26 Dose: Infused Sodium Chloride (Ns Inj) 1,000 mls @ 70 mls/hr IV.CONT .[id number] LEIGHA Last Admin: 02/13/18 01:26 Dose: 70 mls/hr Piperacillin/Tazobactam/Dextrose (Zosyn 3.375 Gm Premix) 50 mls @ 100 mls/hr IV.SIG Q6H LEIGHA Last Infusion: 02/13/18 04:20 Dose: Infused Insulin Detemir (Levemir Inj) 5 unit SQ HS LEIGHA Insulin Human Regular (Novolin R Correctional Sugar Inj) 0 units SQ ACHS AND 3AM LEIGHA; Protocol Last Admin: 02/13/18 04:26 Dose: 1 units Lactulose (Lactulose Liq) 30 ml PO DAILY PRN PRN Reason: SEVERE CONSITIPATION Lisinopril (Prinivil) 5 mg PO DAILY LEIGHA Ondansetron HCl (Zofran Inj) 4 mg IV.PUSH Q6H PRN PRN Reason: NAUSEA OR VOMITING Pharmacy Profile Note (Vancomycin Consult Pharmacy) 1 each OTHER UNSCH PRN PRN Reason: Pharmacy to dose Potassium Chloride (Micro-K) 10 meq PO DAILY [facility] Senna/Docusate Sodium (Kamini-Colace) 1 tab PO BID [facility] Sennosides (Senokot) 17.2 mg PO Q12H PRN PRN Reason: Moderate Constipation Spironolactone (Aldactone) 25 mg PO DAILY [facility] Trazodone HCl (Desyrel) [address] [facility] Allergies Allergy/AdvReac Type Severity Reaction Status Date / Time azithromycin Allergy Intermediate rash Verified 01/11/18 20:23 *MDRO Multi-Drug Resistant AdvReac Mild Cleared Uncoded 08/08/16 09:57 Organism 10/2015 Home Medications Medication Instructions Recorded Confirmed Type dexamethasone [Decadron] 4 mg PO DAILY 01/11/18 02/12/18 History duloxetine [Cymbalta] 30 mg PO HS 01/11/18 02/12/18 History carvedilol [Coreg] 3.125 mg PO BID 02/12/18 02/12/18 History hydromorphone 4 mg PO Q6H PRN 02/12/18 02/12/18 History insulin aspart U-100 [Novolog 100 unit SUB-Q ACHS AND 3AM 02/12/18 02/12/18 History U-100 Insulin aspart] insulin detemir U-100 [Levemir 5 unit SUB-Q HS 02/12/18 02/12/18 History U-100 Insulin] potassium chloride [Klor-Con 10 meq PO DAILY 02/12/18 02/12/18 History Sprinkle] spironolactone [Aldactone] 25 mg PO DAILY 02/12/18 02/12/18 History trazodone 50 mg PO HS 02/12/18 02/12/18 History Exam Vital signs: Vital Signs 02/12/18 17:22 02/12/18 17:37 02/12/18 18:43 Temperature 98.2 F Pulse Rate 77 79 Respiratory Rate 18 18 Blood Pressure 116/58 L 117/86 Pulse Oximetry 97 100 99 02/12/18 23:05 02/13/18 04:00 Temperature 97.3 F L Pulse Rate 87 75 Respiratory Rate 17 20 Blood Pressure 122/63 109/59 L Pulse Oximetry 98 97 Intake & Output 02/12/18 02/13/18 02/13/18 18:59 06:59 18:59 Intake Total 1700 / 1700 Balance 1700 / 1700 Weight 72.575 kg 72.575 kg Intake: IV 1700 / 1700 Zosyn 3.375 GM Premix 50 ML @ 50 / 50 100 mls/hr IV.SIG Q6H LEIGHA Rx#: [id number] NS Inj 1,000 ML @ Wide Open IV. 1000 / 1000 SIG BOLUS LEIGHA Rx#:[id number] NS Inj 250 ML @ Wide Open IV. 250 / 250 SIG BOLUS LEIGHA Rx#:[id number] Vancomycin Inj 1,000 MG In NS 250 / 250 Inj 250 ML @ 250 mls/hr IV.SIG STAT STA Rx#:[id number] Oral 0 / 0 Other: # Urine Diapers 2 Weight On Admission 72.575 kg Narrative: Jose Angel is a 63-year-old male. General: Awake and alert. No acute distress. Appears well-developed well- nourished Head: Normocephalic, atraumatic pupils are equal Neck: Soft, nontender, trachea midline Abdomen: Soft, nondistended Examination of right arm reveals no pain or deformity with shoulder, elbow, or wrist motion. Skin is intact. Radial pulse is palpable. Normal capillary refill in fingers. Sensation is intact in radial, ulnar, and median nerve distributions. Family Specialist strength is +5. No lymphadenopathy noted. Examination of left arm reveals no pain or deformity with shoulder, elbow, or wrist motion. Skin is intact. Radial pulse is palpable. Normal capillary refill in fingers. Sensation is intact in radial, ulnar, and median nerve distributions. Family Specialist strength is +5. No lymphadenopathy noted. Examination of left lower extremity reveals no pain or deformity with hip, knee , or ankle motion. He has large wounds over the medial and lateral aspects of his calf. There is exposed tendon present. There is no erythema or foul odor. Sensation is diminished in left foot. Dorsalis pedis pulse and posterior tibial pulse are not palpable. Thigh and calf compartments are soft. No lymphadenopathy noted. +5 strength of ankle dorsiflexion and plantarflexion. Examination of right lower extremity reveals no pain or deformity with hip, knee , or ankle motion. Skin is intact. Sensation is diminished in right foot. Dorsalis pedis pulse is not palpable. Thigh and calf compartments are soft. No lymphadenopathy noted. +5 strength of ankle dorsiflexion and plantarflexion. Results - Labs Result Diagrams: 02/13/18 03:40 02/13/18 03:40 Labs: Laboratory Results - last 24 hr 02/12/18 02/12/18 02/12/18 18:38 18:38 18:38 WBC 6.8 RBC 2.69 L Hgb 8.2 L Hct 24.7 L MCV 91.8 MCH 30.5 MCHC 33.3 RDW 19.8 H Plt Count 184 D MPV 9.3 Neut % (Auto) 97.0 H Lymph % (Auto) 0.6 L [place] % (Auto) 1.9 Eos % (Auto) 0.0 Baso % (Auto) 0.5 Neut # (Auto) 6.6 Lymph # (Auto) 0.0 L [place] # (Auto) 0.1 Eos # (Auto) 0.0 Baso # (Auto) 0.0 WBC Differential . Differential Comment Auto diff final Sodium 126 L Potassium 4.8 Chloride 90 L Carbon Dioxide 24.7 Anion Gap 11 BUN 61 H Creatinine 1.92 H Estimated GFR 36 L POC Glucose Random Glucose 403 H Lactic Acid 1.6 Calcium 6.9 L* Prot Corrected Calcium 7.7 L Total Bilirubin 0.3 AST 8 L ALT 9 L Alkaline Phosphatase 103 Total Protein 5.5 L Albumin 1.9 L 02/13/18 02/13/18 02/13/18 03:05 03:40 03:40 WBC 8.2 RBC 2.48 L Hgb 7.6 L Hct 22.8 L MCV 91.9 MCH 30.7 MCHC 33.4 RDW 20.1 H Plt Count 161 MPV 9.2 Neut % (Auto) 94.1 H Lymph % (Auto) 0.8 L [place] % (Auto) 4.7 Eos % (Auto) 0.0 Baso % (Auto) 0.4 Neut # (Auto) 7.7 Lymph # (Auto) 0.1 L [place] # (Auto) 0.4 Eos # (Auto) 0.0 Baso # (Auto) 0.0 WBC Differential . Differential Comment Auto diff final Sodium 133 L Potassium 3.9 D Chloride 98 D Carbon Dioxide 18.6 L Anion Gap 16 H BUN 57 H Creatinine 1.82 H Estimated GFR 38 L POC Glucose 184 H Random Glucose 130 H D Lactic Acid Calcium 6.6 L* Prot Corrected Calcium 7.5 L Total Bilirubin AST ALT Alkaline Phosphatase Total Protein 5.3 L Albumin - Diagnostic results Imaging: Impressions Chest X-Ray 02/12/18 18:06 CONCLUSION: 1. Bilateral pulmonary opacities again noted which are mildly improved at the right lung base. 2. Status post median sternotomy for bypass grafting procedure with residual cardiomegaly. 3. Small effusions. Tibia/Fibula X-Ray 02/12/18 19:27 CONCLUSION: 1. Soft tissue swelling and irregularity along the region of the open wound with no radiopaque foreign body. 2. Osteopenia and remote postsurgical changes involving the distal tibia and fibula. Chest CT 02/12/18 20:24 CONCLUSION: 1. Streaky infiltrate is present in both lungs with small areas of consolidation in the right upper lobe. The findings may indicate pneumonia or asymmetric pulmonary edema. 2. Status post median sternotomy with cardiomegaly. 3. Bilateral small pleural effusions. Assessment and Plan - Assessment and Plan Jose Angel has multiple medical problems including diabetes and vascular disease. At this point I would recommend a vascular surgery consultation to evaluate the blood flow to his left leg. He has large open wounds on his calf. Ultimately if these wounds do not heal and he gets an infection, he could end up with an above-knee amputation. I discussed with him the need to remain nicotine and smoke free. Wound care will also be consulted for dressing changes. I will continue to follow patient's progress. All questions were answered. A mid-level provider in my office (nurse practitioner or physician recruitment and outreach assistant) may see this patient on follow-up visits and continue to implement the objectives of this plan including: Starting or adjusting medications, injections , cast application, orthotics, brace application, physical therapy, radiological studies (including x-ray, MRI, CT, ultrasound, bone scan), vascular studies, neurologic studies, specialist consultation, and proceeding with surgical management, as appropriate.
[2018-02-13] MEDS ORDERED: Potassium Chloride 8 MEQ ER Capsule PO SCH (09:00)
[2018-02-13] MEDS ORDERED: Vancomycin Inj 500 MG in Sodium Chlor 0.9% Inj 100 ML IV.SIG ONE (09:00)
[2018-02-13] MEDS: Furosemide 40 MG Tablet PO SCH (09:37)
[2018-02-13] MEDS: Spironolactone 25 MG Tablet PO SCH (09:37)
[2018-02-13] MEDS: Senna/Docusate Sodium 8.6/50 MG Tablet PO SCH ×2 (09:38→20:19)
[2018-02-13] MEDS: Lisinopril 5 MG Tablet PO SCH (09:38)
[2018-02-13] MEDS: Potassium Chloride 10 MEQ ER Capsule PO SCH (11:06)
--- NOTE | 2018-02-13 12:28 | US ---
EXAM DATE: 02/13/2018 12:11 PM EDT AGE/SEX: 63 years / Male INDICATIONS: Increased Bun and Creatinine. CLINICAL DATA: This is the patient's initial encounter. Patient reports that signs and symptoms have been present for 1 day and indicates a pain score of 3/10. MEDICAL/SURGICAL HISTORY: . Cardiovascular disease. Congestive heart failure. Diabetes. Hyperte nsion. Myocardial Infarction. Multiple Myeloma. . CABG. Aortic valve replacement. COMPARISON: POI, CT ABDOMEN AND PELVIS W/ CONTRAST, 11/01/2016. . MEASUREMENTS: Right Kidney:__13.9 x 6.1 x 6.1 cm Left Kidney:__12.1 x 5.5 x 8.2 cm FINDINGS: Right Kidney: Normal size kidneys with moderate dilatation collecting system with ureter extending do wn to a prominent bladder. Left Kidney: Moderate dilatation of the collecting system prominent bladder. Bladder: Distended bladder, pre and post void imaging of the kidneys was done. Following emptying of the bladder by Marie there is continued mild dilatation of both collecting syst ems. Follow-up would be of benefit. CONCLUSION: 1. Prominent collecting systems probably related to distended bladder. Suggest reimaging in 24 hours by ultrasound if creatinine does not normalize. Electronically signed by: Ramone Carmen MD 02/13/2018 12:27 PM EDT
--- NOTE | 2018-02-13 14:03 | ECG ---
Date Performed: 02/12/2018 Time Performed: 20:20:06 PTAGE: 63 years EKG: Sinus rhythm POSSIBLE LEFT ATRIAL ENLARGEMENT INDETERMINATE AXIS INTRAVENTRICULAR CONDUCTION DELAY ABNORMAL ECG S yobany the PREVIOUS TRACING , no significant change noted PREVIOUS TRACIN01/11/2018 18.23 DOCTOR: Morro العلي Interpretating Date/Time 02/13/2018 14:01:35
--- NOTE | 2018-02-13 14:37 | P.PN ---
Subjective Interval history: Nursing denies any deterioration since last night. Self says he still has pain in his left foot. His says he has had infection in that left leg wound before. Also nursing reports patient had urinary retention. After inserting Marie catheter 2 L were obtained of urine immediately. Physical Exam Vital signs: Vital Signs 02/12/18 17:22 02/12/18 17:37 02/12/18 18:43 Temperature 98.2 F Pulse Rate 77 79 Respiratory Rate 18 18 Blood Pressure 116/58 L 117/86 Pulse Oximetry 97 100 99 02/12/18 23:05 02/13/18 04:00 02/13/18 07:42 Temperature 97.3 F L 97.4 F L Pulse Rate 87 75 75 Respiratory Rate 17 20 18 Blood Pressure 122/63 109/59 L 130/59 L Pulse Oximetry 98 97 98 02/13/18 12:00 Temperature 97.4 F L Pulse Rate 73 Respiratory Rate 16 Blood Pressure 131/59 L Pulse Oximetry 99 Intake & Output 02/12/18 02/13/18 02/13/18 18:59 06:59 18:59 Intake Total 1700 / 1700 1150 / 1150 Output Total 1999 Balance 1700 / 1700 -850 / -850 Weight 72.575 kg 72.575 kg Intake: IV 1700 / 1700 1150 / 1150 NS Inj 1,000 ML @ 70 mls/hr IV. 1000 / 1000 CONT .[id number] LEIGHA Rx#:[id number] Zosyn 3.375 GM Premix 50 ML @ 50 / 50 50 / 50 100 mls/hr IV.SIG Q6H LEIGHA Rx#: [id number] NS Inj 1,000 ML @ Wide Open IV. 1000 / 1000 SIG BOLUS LEIGHA Rx#:[id number] NS Inj 250 ML @ Wide Open IV. 250 / 250 SIG BOLUS LEIGHA Rx#:[id number] Vancomycin Inj 1,000 MG In NS 250 / 250 Inj 250 ML @ 250 mls/hr IV.SIG STAT STA Rx#:[id number] Vancomycin Inj 500 MG In NS Inj 100 / 100 100 ML @ 200 mls/hr IV.SIG ONCE ONE Rx#:[id number] Oral 0 / 0 Output: Urine 1999 Other: # Urine Diapers 2 Weight On Admission 72.575 kg Narrative: Left lower leg in wound dressing Lying in bed, awake and alert, no acute distress, unlabored breathing - Urinary Catheter Management Indwelling Urethral Catheter Cath placed during this visit: yes Reason for continuing: Acute urinary retention Insertion date: 02/13/18 Insertion time: 10:45 Results - Labs CBC & Chem 7: 02/13/18 03:40 02/13/18 03:40 Laboratory Results - last 24 hr 02/12/18 02/12/18 02/12/18 18:38 18:38 18:38 WBC 6.8 RBC 2.69 L Hgb 8.2 L Hct 24.7 L MCV 91.8 MCH 30.5 MCHC 33.3 RDW 19.8 H Plt Count 184 D MPV 9.3 Neut % (Auto) 97.0 H Lymph % (Auto) 0.6 L [place] % (Auto) 1.9 Eos % (Auto) 0.0 Baso % (Auto) 0.5 Neut # (Auto) 6.6 Lymph # (Auto) 0.0 L [place] # (Auto) 0.1 Eos # (Auto) 0.0 Baso # (Auto) 0.0 WBC Differential . Differential Comment Auto diff final Sodium 126 L Potassium 4.8 Chloride 90 L Carbon Dioxide 24.7 Anion Gap 11 BUN 61 H Creatinine 1.92 H Estimated GFR 36 L POC Glucose Random Glucose 403 H Lactic Acid 1.6 Calcium 6.9 L* Prot Corrected Calcium 7.7 L Total Bilirubin 0.3 AST 8 L ALT 9 L Alkaline Phosphatase 103 Total Protein 5.5 L Albumin 1.9 L 02/13/18 02/13/18 02/13/18 03:05 03:40 03:40 WBC 8.2 RBC 2.48 L Hgb 7.6 L Hct 22.8 L MCV 91.9 MCH 30.7 MCHC 33.4 RDW 20.1 H Plt Count 161 MPV 9.2 Neut % (Auto) 94.1 H Lymph % (Auto) 0.8 L [place] % (Auto) 4.7 Eos % (Auto) 0.0 Baso % (Auto) 0.4 Neut # (Auto) 7.7 Lymph # (Auto) 0.1 L [place] # (Auto) 0.4 Eos # (Auto) 0.0 Baso # (Auto) 0.0 WBC Differential . Differential Comment Auto diff final Sodium 133 L Potassium 3.9 D Chloride 98 D Carbon Dioxide 18.6 L Anion Gap 16 H BUN 57 H Creatinine 1.82 H Estimated GFR 38 L POC Glucose 184 H Random Glucose 130 H D Lactic Acid Calcium 6.6 L* Prot Corrected Calcium 7.5 L Total Bilirubin AST ALT Alkaline Phosphatase Total Protein 5.3 L Albumin 02/13/18 12:50 WBC RBC Hgb Hct MCV MCH MCHC RDW Plt Count MPV Neut % (Auto) Lymph % (Auto) [place] % (Auto) Eos % (Auto) Baso % (Auto) Neut # (Auto) Lymph # (Auto) [place] # (Auto) Eos # (Auto) Baso # (Auto) WBC Differential Differential Comment Sodium Potassium Chloride Carbon Dioxide Anion Gap BUN Creatinine Estimated GFR POC Glucose 121 H Random Glucose Lactic Acid Calcium Prot Corrected Calcium Total Bilirubin AST ALT Alkaline Phosphatase Total Protein Albumin Microbiology 02/12/18 18:38 Blood - Peripheral Aerobic Blood Culture - Preliminary No growth in 1 day 02/12/18 18:38 Blood - Peripheral Anaerobic Blood Culture - Preliminary No growth in 1 day 02/12/18 18:28 Blood - Peripheral Aerobic Blood Culture - Preliminary No growth in 1 day 02/12/18 18:28 Blood - Peripheral Anaerobic Blood Culture - Preliminary No growth in 1 day - Imaging Impressions Chest X-Ray 02/12/18 18:06 CONCLUSION: 1. Bilateral pulmonary opacities again noted which are mildly improved at the right lung base. 2. Status post median sternotomy for bypass grafting procedure with residual cardiomegaly. 3. Small effusions. Tibia/Fibula X-Ray 02/12/18 19:27 CONCLUSION: 1. Soft tissue swelling and irregularity along the region of the open wound with no radiopaque foreign body. 2. Osteopenia and remote postsurgical changes involving the distal tibia and fibula. Chest CT 02/12/18 20:24 CONCLUSION: 1. Streaky infiltrate is present in both lungs with small areas of consolidation in the right upper lobe. The findings may indicate pneumonia or asymmetric pulmonary edema. 2. Status post median sternotomy with cardiomegaly. 3. Bilateral small pleural effusions. Abdomen/Bladder Ultrasound 02/13/18 00:00 CONCLUSION: 1. Prominent collecting systems probably related to distended bladder. Suggest reimaging in 24 hours by ultrasound if creatinine does not normalize. Assessment and Plan - Plan 63-year-old white male admitted with cellulitis and infected wounds 1. Severe cellulitis/ulcerative leg wounds Vancomycin/Zosyn Per orthopedic input, awaiting vascular surgery consultation Awaiting wound care nurse and physician input 2. Acute kidney injury Prerenal injury in conjunction with chronic systolic heart failure, has shown partial improvement IV fluids, continue as such, recheck in a.m., holding off on renal ultrasound due to improvement Will stop IV fluids and just administer IV albumin every 12 hours, continue home Lasix and spironolactone, measure input and output 3 CAD/chronic systolic CHF/Hypertension/hyperlipidemia Continue home medications of Coreg, lisinopril, spironolactone Acute urinary retention -Suspect acute stretch injury is already happened, may have worsened with acute illness versus neurogenic bladder with uncontrolled diabetes Maintain Marie catheter for now stretch injury Multiple myeloma -continue dexamethasone Discharge Planning: PT eval pending, possibly will need SNF again
[2018-02-13] MEDS: Enoxaparin Inj 30 MG/0.3 ML Syringe SQ SCH (15:56)
[2018-02-13] MEDS: Albumin Human 25% Inj 50 ML IV.SIG SCH (16:46)
[2018-02-13] MEDS ORDERED: Sod Chloride 0.9% Inj 1,000 ML IV.CONT SCH (17:00)
--- NOTE | 2018-02-13 17:11 | MB ---
cc: Dayne Kelly MD DATE: 02/13/2018 REASON FOR CONSULTATION: Gangrene of the left leg and posterior calf atrophy of both legs, peripheral vascular disease. HISTORY OF PRESENT ILLNESS: This 63-year-old male with multiple medical problems is admitted now to the hospital with a huge gangrenous, ulcerated area extending throughout his posterior left calf, laterally and medially, going all the way to about 2/3 down of his roberson of his lower leg. This area is necrotic, has been there for about a month, and the patient has not walked for about 3 weeks. Before that he was able to walk with a walker. Question arises about the vascular implications. PAST MEDICAL HISTORY: 1. Diabetes mellitus, coronary artery disease, 2 myocardial infarctions, hypertension, hyperlipidemia, amyloidosis and multiple myeloma since 2014. The patient just finished a chemotherapy regimen apparently for this. 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 MEDICATIONS: Can be found in the record. SOCIAL HISTORY: The patient smoked until about 2 weeks ago throughout all of this. PHYSICAL EXAMINATION: GENERAL: Reveals a very weak-appearing 63-year-old male. HEENT: Normocephalic. No trauma to the head. Pupils are equal and reactive. Extraocular muscles intact. NECK: Supple. Bilateral carotid pulses and bilateral carotid bruits 3/6. CHEST: Bilateral breath sounds, decreased over both lungs geller, very weak. The patient has significant COPD, moderate to severe. There is atrophy of the chest wall musculature and pulmonary cachexia, which is quite evident. HEART: Regular rhythm. ABDOMEN: Soft. Active bowel sounds. No rebound, no guarding, no masses. EXTREMITIES: The patient has palpable femoral pulses and scars from previous surgery. He has no distal pulses in the left leg. I do not appreciate either a popliteal pulse or anything below that. There is a very weak Doppler posterior tibial. No anterior tibial pulses and foot is cool. There is a huge ulcer in the posterior left calf, which extends laterally and medially and encompasses most of the posterior circumference of the leg with exposed tendons. Foul smelling and a combination of dry-like gangrene. On the right side, the patient has a weak anterior tibial artery and that is it. Foot is again cool. The patient has some degree of hemosiderosis and discoloration. Both calves are a very atrophic. NEUROLOGIC: The patient is very weak. His strength is about 4/6 in both lower extremities and both upper extremities. He is cachectic appearing. IMPRESSION AND RECOMMENDATIONS: This gentleman has a complex situation. 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 Since then, continued smoking. At that time, he had a fairly reasonable outflow with patent SFAs and dominant posterior tibial artery on the left anterior tibial on the right. Since then, the patient of course has multiple medical problems. At this time, we have limited options. I will order a CTA with runoff and see what the outflow looks like. However, this patient is a very poor candidate for any vascular reconstruction for the simple reason that even if we could do some surgery, the patient has necrosis of the left calf, to the point that this is completely nonsalvageable and it will further necrose and cause problems, and #2, the patient's immune system is down because of the multiple myeloma and the therapy and presence of wet gangrene in this case is a lethal thing. The will eventually develop endocarditis and either endocardium of the heart or the artificial valve and he will from this. At this point, I will do a CTA with a runoff to confirm the findings once the creatinine is down, but I would be very inclined to do with an above-knee amputation on this gentleman. At this point, we are not saving his leg, but his life. I thank you very much for the referral. MD SULTANA Arias/carisa/nadine , 04:07 PM , 04:21 PM
--- NOTE | 2018-02-13 17:49 | P.PNVS ---
Subjective Subjective/Hospital Course: Patient seen full consult dictated Thanks J Objective Vital Signs / I&O: Vital Signs 02/12/18 18:43 02/12/18 23:05 02/13/18 04:00 Temperature 97.3 F L Pulse Rate 87 75 Respiratory Rate 17 20 Blood Pressure 122/63 109/59 L Pulse Oximetry 99 98 97 02/13/18 07:42 02/13/18 12:00 02/13/18 16:00 Temperature 97.4 F L 97.4 F L 97.6 F Pulse Rate 75 73 71 Respiratory Rate 18 16 16 Blood Pressure 130/59 L 131/59 L 117/59 L Pulse Oximetry 98 99 100 Intake & Output 02/12/18 02/13/18 02/13/18 18:59 06:59 18:59 Intake Total 1700 / 1700 2200 / 2200 Output Total 3500 / 3500 Balance 1700 / 1700 -1300 / -1300 Weight 72.575 kg 72.575 kg Intake: IV 1700 / 1700 2200 / 2200 NS Inj 1,000 ML @ 70 mls/hr IV. 1999 / 1999 CONT .[id number] LEIGHA Rx#:[id number] Zosyn 3.375 GM Premix 50 ML @ 50 / 50 100 / 100 100 mls/hr IV.SIG Q6H LEIGHA Rx#: [id number] NS Inj 1,000 ML @ Wide Open IV. 1000 / 1000 SIG BOLUS LEIGHA Rx#:[id number] NS Inj 250 ML @ Wide Open IV. 250 / 250 SIG BOLUS LEIGHA Rx#:[id number] Vancomycin Inj 1,000 MG In NS 250 / 250 Inj 250 ML @ 250 mls/hr IV.SIG STAT STA Rx#:[id number] Vancomycin Inj 500 MG In NS Inj 100 / 100 100 ML @ 200 mls/hr IV.SIG ONCE ONE Rx#:[id number] Oral 0 / 0 Output: Urine 3500 / 3500 Other: # Urine Diapers 2 Weight On Admission 72.575 kg Laboratory Results - last 24 hr 02/12/18 02/12/18 02/12/18 18:38 18:38 18:38 WBC 6.8 RBC 2.69 L Hgb 8.2 L Hct 24.7 L MCV 91.8 MCH 30.5 MCHC 33.3 RDW 19.8 H Plt Count 184 D MPV 9.3 Neut % (Auto) 97.0 H Lymph % (Auto) 0.6 L [place] % (Auto) 1.9 Eos % (Auto) 0.0 Baso % (Auto) 0.5 Neut # (Auto) 6.6 Lymph # (Auto) 0.0 L [place] # (Auto) 0.1 Eos # (Auto) 0.0 Baso # (Auto) 0.0 WBC Differential . Differential Comment Auto diff final Sodium 126 L Potassium 4.8 Chloride 90 L Carbon Dioxide 24.7 Anion Gap 11 BUN 61 H Creatinine 1.92 H Estimated GFR 36 L POC Glucose Random Glucose 403 H Lactic Acid 1.6 Calcium 6.9 L* Prot Corrected Calcium 7.7 L Total Bilirubin 0.3 AST 8 L ALT 9 L Alkaline Phosphatase 103 Total Protein 5.5 L Albumin 1.9 L 02/13/18 02/13/18 02/13/18 03:05 03:40 03:40 WBC 8.2 RBC 2.48 L Hgb 7.6 L Hct 22.8 L MCV 91.9 MCH 30.7 MCHC 33.4 RDW 20.1 H Plt Count 161 MPV 9.2 Neut % (Auto) 94.1 H Lymph % (Auto) 0.8 L [place] % (Auto) 4.7 Eos % (Auto) 0.0 Baso % (Auto) 0.4 Neut # (Auto) 7.7 Lymph # (Auto) 0.1 L [place] # (Auto) 0.4 Eos # (Auto) 0.0 Baso # (Auto) 0.0 WBC Differential . Differential Comment Auto diff final Sodium 133 L Potassium 3.9 D Chloride 98 D Carbon Dioxide 18.6 L Anion Gap 16 H BUN 57 H Creatinine 1.82 H Estimated GFR 38 L POC Glucose 184 H Random Glucose 130 H D Lactic Acid Calcium 6.6 L* Prot Corrected Calcium 7.5 L Total Bilirubin AST ALT Alkaline Phosphatase Total Protein 5.3 L Albumin 02/13/18 12:50 WBC RBC Hgb Hct MCV MCH MCHC RDW Plt Count MPV Neut % (Auto) Lymph % (Auto) [place] % (Auto) Eos % (Auto) Baso % (Auto) Neut # (Auto) Lymph # (Auto) [place] # (Auto) Eos # (Auto) Baso # (Auto) WBC Differential Differential Comment Sodium Potassium Chloride Carbon Dioxide Anion Gap BUN Creatinine Estimated GFR POC Glucose 121 H Random Glucose Lactic Acid Calcium Prot Corrected Calcium Total Bilirubin AST ALT Alkaline Phosphatase Total Protein Albumin Microbiology 02/12/18 18:38 Aerobic Blood Culture - Preliminary Blood - Peripheral No growth in 1 day Anaerobic Blood Culture - Preliminary No growth in 1 day 02/12/18 18:28 Aerobic Blood Culture - Preliminary Blood - Peripheral No growth in 1 day Anaerobic Blood Culture - Preliminary No growth in 1 day Impressions Chest X-Ray 02/12/18 18:06 CONCLUSION: 1. Bilateral pulmonary opacities again noted which are mildly improved at the right lung base. 2. Status post median sternotomy for bypass grafting procedure with residual cardiomegaly. 3. Small effusions. Tibia/Fibula X-Ray 02/12/18 19:27 CONCLUSION: 1. Soft tissue swelling and irregularity along the region of the open wound with no radiopaque foreign body. 2. Osteopenia and remote postsurgical changes involving the distal tibia and fibula. Chest CT 02/12/18 20:24 CONCLUSION: 1. Streaky infiltrate is present in both lungs with small areas of consolidation in the right upper lobe. The findings may indicate pneumonia or asymmetric pulmonary edema. 2. Status post median sternotomy with cardiomegaly. 3. Bilateral small pleural effusions. Abdomen/Bladder Ultrasound 02/13/18 00:00 CONCLUSION: 1. Prominent collecting systems probably related to distended bladder. Suggest reimaging in 24 hours by ultrasound if creatinine does not normalize.
[2018-02-13] MEDS: Insulin Detemir Inj 1,000 UNIT/10 ML Vial SQ SCH (20:19)
[2018-02-13] MEDS: traZODone 50 MG Tablet PO SCH (20:20)
[2018-02-14] MEDS: Piperacil/Tazo 3.375 GM Premix 50 ML IV.SIG SCH ×4 (02:47→22:30)
[2018-02-14] MEDS: Insulin NovoLIN Regular Correctional Sugar Inj SQ SCH ×5 (02:56→22:32)
[2018-02-14] MEDS: Albumin Human 25% Inj 50 ML IV.SIG SCH ×2 (03:25→15:43)
[2018-02-14] MEDS: Furosemide 40 MG Tablet PO SCH (08:14)
[2018-02-14] MEDS: Lisinopril 5 MG Tablet PO SCH (08:14)
[2018-02-14] MEDS: Enoxaparin Inj 30 MG/0.3 ML Syringe SQ SCH (08:14)
[2018-02-14] MEDS: Spironolactone 25 MG Tablet PO SCH (08:14)
[2018-02-14] MEDS: Potassium Chloride 10 MEQ ER Capsule PO SCH (08:14)
[2018-02-14] MEDS: Senna/Docusate Sodium 8.6/50 MG Tablet PO SCH ×2 (08:14→22:30)
[2018-02-14 08:18] LABS: Calcium 7.5 mg/dL (8.5-10.1); Carbon Dioxide 29.4 meq/L (21.0-32.0); Potassium 3.3 meq/L (3.5-5.1); Vancomycin,Random 9.7 Comment
--- NOTE | 2018-02-14 10:52 | P.PNWCN ---
Wound Care Nurse Consult Description: Wound consult ordered by Roma JIMÉNEZ for wound management. Communicated with: Annette RN, CDU Recommendation: Please refer to orders. Additional information: Patient was not seen today by wound care staff.Currently under the skilled care of Wound/Pressure Injury - Patient Status Premedicated for Pain Prior to Dressing Change: No - Wound Left Leg Wound Assessment: Ongoing Wound Type: Traumatic Wound Is This a Chronic Wound: Yes Dressing Status: Dry & Intact Midline Coccyx Wound Assessment: Ongoing Wound Type: Pressure Injury Length: 1.5 Width: 2 Wound Bed Appearance: Yellow Surrounding Tissue Appearance: [place] Drainage Amount: None Dressing Status: Open to Air Cleansing Solution: skintegrit Primary Dressing: tegaderm absorbant Incision - Patient Status Premedicated for Pain Prior to Dressing Change: No
--- NOTE | 2018-02-14 14:10 | CT ---
EXAM DATE: 02/14/2018 1:45 PM EDT AGE/SEX: 63 years / Male INDICATIONS: Periphral arterial disease pain both feet CLINICAL DATA: This is the patient's initial encounter. Patient reports that signs and symptoms have been present for 1 day and indicates a pain score of 5/10. MEDICAL/SURGICAL HISTORY: Cardiovascular disease. Congestive heart failure. Diabetes. Hypertensi on CABG. Aortic valve RADIATION DOSE: 8.54 CTDI (mGy) COMPARISON: No prior exams available for comparison. TECHNIQUE: Volumetric scanning was performed using a multi-row detector CT scanner during bolus infu alba of 80 ml Omnipaque 350 (iohexol) nonionic water-soluble contrast as a single exam dose. The d ching was post processed with a variety of visualization algorithms including full volume maximum inten sity projection, multi-planar sliding thin slab reformation, curved planar reformation, and surface r endering techniques. Using automated exposure control and adjustment of the mA and/or kV according t o patient size, radiation dose was kept as low as reasonably achievable to obtain optimal diagnostic quality images. DICOM format image data is available electronically for review and comparison. FINDINGS: Abdominal aorta: The celiac and SMA origins are adequate in caliber. There are single renal arteries bilaterally. The renal arteries are widely patent. The infrarenal aorta is occluded. Pelvis: There is an aorto bifemoral graft in place. The left limb of the graft is occluded. The right limb of the graft is widely patent. Right leg: There is moderate stenosis at the junction of the graft and the distal right common femora l. The profunda femoral is patent. The superficial femoral is diseased but patent throughout its cour se. There is moderate stenosis at the adductor hiatus. The popliteal is adequate in caliber above and below the knee. Distally, there is two-vessel runoff via the posterior tibial and the peroneal. Left leg: There is reconstitution of of a diminutive left external iliac and the common femoral. The profunda femoral is patent. The superficial femoral is patent throughout its course. There is moderat e stenosis at the adductor hiatus. The popliteal is patent with high-grade stenosis in its mid segmen t. Distally, there is two-vessel runoff into the foot via the posterior tibial and the peroneal. CT source data: There are bilateral effusions larger on the left than the right. There are atelectati c changes within the lung bases. The solid organs of the abdomen are grossly intact for arterial phas e imaging. There is no free fluid within the pelvis. No iliac or inguinal adenopathy is seen. CONCLUSION: 1. The patient is post aortobifemoral graft placement. The left limb of the graft is occluded. 2. Right leg: Moderate stenosis at the junction of the graft in the right common femoral with patchy disease in the superficial femoral and a focal area of moderate stenosis at the adductor hiatus. Dis tally, there is two-vessel runoff into the foot via the posterior tibial and peroneal. 3. Left leg: Reconstitution of a diminutive left external iliac and common femoral. The profunda fem oral and superficial femoral are patent with moderate stenosis at the adductor hiatus within the supe rficial femoral. There is high-grade stenosis in the mid popliteal. Distally, there is two-vessel run off into the foot Electronically signed by: Damian Carmen MD 02/14/2018 2:09 PM EDT
--- NOTE | 2018-02-14 16:02 | P.PNVS ---
Subjective Subjective/Hospital Course: Patient seen full consult dictated Thanks J 02/14/2018 This gentleman has a complex situation. 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 Since then, continued smoking. At that time, he had a fairly reasonable outflow with patent SFAs and dominant posterior tibial artery on the left and anterior tibial on the right. Since then, the patient of course has multiple medical problems. At this time, we have limited options. CTA has been performed today and the findings are below. Regardles, this patient is a very poor candidate for any vascular reconstruction for the simple reason that even if we could do some surgery, the patient has necrosis of the left calf, to the point that this is completely nonsalvageable and it will further necrose and cause problems, and in addition, the patient's immune system is down because of the multiple myeloma and the therapy and presence of wet gangrene in this case is a potentially lethal scenario. The will eventually develop endocarditis and either endocardium of the heart or the artificial valve and he will from this. At this point, I will do a CTA with a runoff to confirm the findings once the creatinine is down, but I would be very inclined to do with an above-knee amputation on this gentleman. At this point, we are not saving his leg, but his life. CTA with runoff reveals on the right side occluded limb of aortobifemoral graft with very tiny external iliac and common femoral arteries patent diseased SFA and occluded popliteal artery. In order to improve the blood supply to the left leg patient will require revision of aortofemoral bypass on the left for which he is clearly not a candidate for a femorofemoral bypass with endarterectomy of common femoral artery on the left. Even then, popliteal artery is occluded. 1. Patient is not a candidate for major vascular construction such as aortofemoral or femoral femoral to distal anterior tibial bypass 2. Patient has a gangrenous calf with visible tendons and this is combination of wet and dry gangrene and even if reconstructed, blood flow would go into a tissue where they are irreversible gangrenous changes. 3. Patient is immunosuppressed cachectic and in very poor shape due to combination of multiple myeloma, amyloidosis and chemotherapy he is receiving. In summary this patient should have left above-knee amputation [place] for otherwise he will become septic and from all this. We will schedule patient tentatively for surgery tomorrow. Objective Vital Signs / I&O: Vital Signs 02/13/18 16:00 02/13/18 20:00 02/13/18 23:49 Temperature 97.6 F 98.1 F 98.1 F Pulse Rate 71 78 74 Respiratory Rate 16 20 20 Blood Pressure 117/59 L 126/58 L 124/61 Pulse Oximetry 100 98 98 02/14/18 04:00 02/14/18 07:54 02/14/18 09:51 Temperature 97.9 F 97.7 F Pulse Rate 70 78 Respiratory Rate 20 18 16 Blood Pressure 103/53 L 131/60 Pulse Oximetry 97 97 02/14/18 11:44 Temperature 98.7 F Pulse Rate 69 Respiratory Rate 18 Blood Pressure 108/58 L Pulse Oximetry 94 L Intake & Output 02/13/18 02/14/18 02/14/18 18:59 06:59 18:59 Intake Total 2250 / 2250 150 / 150 100 / 100 Output Total 3500 / 3500 4800 / 4800 2225 / 2225 Balance -1250 / -1250 -4650 / -4650 -2125 / -2125 Weight 73.21 kg Intake: IV 2250 / 2250 150 / 150 100 / 100 NS Inj 1,000 ML @ 70 mls/hr IV. 1999 CONT .[id number] [facility] Rx#:[id number] Flexbumin 25% Inj 50 ML @ 60 50 / 50 50 / 50 mls/hr IV.SIG Q12H [facility] Rx#: [id number] Zosyn 3.375 GM Premix 50 ML @ 100 / 100 100 / 100 100 / 100 100 mls/hr IV.SIG Q6H [facility] Rx#: [id number] Vancomycin Inj 500 MG In NS Inj 100 / 100 100 ML @ 200 mls/hr IV.SIG ONCE ONE Rx#:[id number] Output: Urine 3500 / 3500 1800 / 1800 1450 / 1450 Urine Amount (Catheter) 3000 / 3000 775 / 775 1100ml 3000 / 3000 Indwelling Urethral Catheter 775 / 775 Other: Date of Last Bowel Movement 02/14/18 # Bowel Movements 2 Laboratory Results - last 24 hr 02/13/18 02/13/18 02/14/18 18:07 20:17 02:51 Sodium Potassium Chloride Carbon Dioxide Anion Gap BUN Creatinine Estimated GFR POC Glucose 218 H 264 H 164 H Random Glucose Calcium Random Vancomycin 02/14/18 02/14/18 02/14/18 07:12 08:24 09:34 Sodium 141 Potassium 3.3 L Chloride 102 Carbon Dioxide 29.4 D Anion Gap 10 BUN 48 H Creatinine 1.15 Estimated GFR 64 L POC Glucose 58 L 89 Random Glucose 49 L* Calcium 7.5 L D Random Vancomycin 9.7 02/14/18 13:04 Sodium Potassium Chloride Carbon Dioxide Anion Gap BUN Creatinine Estimated GFR POC Glucose 149 H Random Glucose Calcium Random Vancomycin Microbiology 02/12/18 18:38 Aerobic Blood Culture - Preliminary Blood - Peripheral No growth in 2 days Anaerobic Blood Culture - Preliminary No growth in 2 days 02/12/18 18:28 Aerobic Blood Culture - Preliminary Blood - Peripheral No growth in 2 days Anaerobic Blood Culture - Preliminary No growth in 2 days Impressions Chest X-Ray 02/12/18 18:06 CONCLUSION: 1. Bilateral pulmonary opacities again noted which are mildly improved at the right lung base. 2. Status post median sternotomy for bypass grafting procedure with residual cardiomegaly. 3. Small effusions. Tibia/Fibula X-Ray 02/12/18 19:27 CONCLUSION: 1. Soft tissue swelling and irregularity along the region of the open wound with no radiopaque foreign body. 2. Osteopenia and remote postsurgical changes involving the distal tibia and fibula. Chest CT 02/12/18 20:24 CONCLUSION: 1. Streaky infiltrate is present in both lungs with small areas of consolidation in the right upper lobe. The findings may indicate pneumonia or asymmetric pulmonary edema. 2. Status post median sternotomy with cardiomegaly. 3. Bilateral small pleural effusions. Abdomen/Bladder Ultrasound 02/13/18 00:00 CONCLUSION: 1. Prominent collecting systems probably related to distended bladder. Suggest reimaging in 24 hours by ultrasound if creatinine does not normalize. Aorta w/Runoff CTA 02/14/18 00:00 CONCLUSION: 1. The patient is post aortobifemoral graft placement. The left limb of the graft is occluded. 2. Right leg: Moderate stenosis at the junction of the graft in the right common femoral with patchy disease in the superficial femoral and a focal area of moderate stenosis at the adductor hiatus. Distally, there is two-vessel runoff into the foot via the posterior tibial and peroneal. 3. Left leg: Reconstitution of a diminutive left external iliac and common femoral. The profunda femoral and superficial femoral are patent with moderate stenosis at the adductor hiatus within the superficial femoral. There is high- grade stenosis in the mid popliteal. Distally, there is two-vessel runoff into the foot
--- NOTE | 2018-02-14 16:03 | P.PNIM ---
Subjective Interval history: Nursing denies any deterioration since last night. Patient himself has no new complaints. Physical Exam Vital signs: Vital Signs 02/13/18 20:00 02/13/18 23:49 02/14/18 04:00 Temperature 98.1 F 98.1 F 97.9 F Pulse Rate 78 74 70 Respiratory Rate 20 20 20 Blood Pressure 126/58 L 124/61 103/53 L Pulse Oximetry 98 98 97 02/14/18 07:54 02/14/18 09:51 02/14/18 11:44 Temperature 97.7 F 98.7 F Pulse Rate 78 69 Respiratory Rate 18 16 18 Blood Pressure 131/60 108/58 L Pulse Oximetry 97 94 L Intake & Output 02/13/18 02/14/18 02/14/18 18:59 06:59 18:59 Intake Total 2250 / 2250 150 / 150 100 / 100 Output Total 3500 / 3500 4800 / 4800 2225 / 2225 Balance -1250 / -1250 -4650 / -4650 -2125 / -2125 Weight 73.21 kg Intake: IV 2250 / 2250 150 / 150 100 / 100 NS Inj 1,000 ML @ 70 mls/hr IV. 1999 / 1999 CONT .[id number] [facility] Rx#:[id number] Flexbumin 25% Inj 50 ML @ 60 50 / 50 50 / 50 mls/hr IV.SIG Q12H [facility] Rx#: [id number] Zosyn 3.375 GM Premix 50 ML @ 100 / 100 100 / 100 100 / 100 100 mls/hr IV.SIG Q6H [facility] Rx#: [id number] Vancomycin Inj 500 MG In NS Inj 100 / 100 100 ML @ 200 mls/hr IV.SIG ONCE ONE Rx#:[id number] Output: Urine 3500 / 3500 1800 / 1800 1450 / 1450 Urine Amount (Catheter) 3000 / 3000 775 / 775 1100ml 3000 / 3000 Indwelling Urethral Catheter 775 / 775 Other: Date of Last Bowel Movement 02/14/18 # Bowel Movements 2 Narrative: Left lower leg wrapped in wound left lower leg wrapped in wound Heart sounds indicate a 3/6 ejection murmur Clear lungs bilaterally, unlabored breathing - Urinary Catheter Management Indwelling Urethral Catheter Cath placed during this visit: yes Reason for continuing: Chronic Urinary Retention Insertion date: 02/13/18 Insertion time: 10:45 1100ml Cath placed during this visit: no Reason for continuing: Hourly intake/output Results - Labs CBC & Chem 7: 02/13/18 03:40 02/14/18 07:12 Laboratory Results - last 24 hr 02/13/18 02/13/18 02/14/18 18:07 20:17 02:51 Sodium Potassium Chloride Carbon Dioxide Anion Gap BUN Creatinine Estimated GFR POC Glucose 218 H 264 H 164 H Random Glucose Calcium Random Vancomycin 02/14/18 02/14/18 02/14/18 07:12 08:24 09:34 Sodium 141 Potassium 3.3 L Chloride 102 Carbon Dioxide 29.4 D Anion Gap 10 BUN 48 H Creatinine 1.15 Estimated GFR 64 L POC Glucose 58 L 89 Random Glucose 49 L* Calcium 7.5 L D Random Vancomycin 9.7 02/14/18 13:04 Sodium Potassium Chloride Carbon Dioxide Anion Gap BUN Creatinine Estimated GFR POC Glucose 149 H Random Glucose Calcium Random Vancomycin Microbiology 02/12/18 18:38 Blood - Peripheral Aerobic Blood Culture - Preliminary No growth in 2 days 02/12/18 18:38 Blood - Peripheral Anaerobic Blood Culture - Preliminary No growth in 2 days 02/12/18 18:28 Blood - Peripheral Aerobic Blood Culture - Preliminary No growth in 2 days 02/12/18 18:28 Blood - Peripheral Anaerobic Blood Culture - Preliminary No growth in 2 days - Imaging Impressions Aorta w/Runoff CTA 02/14/18 00:00 CONCLUSION: 1. The patient is post aortobifemoral graft placement. The left limb of the graft is occluded. 2. Right leg: Moderate stenosis at the junction of the graft in the right common femoral with patchy disease in the superficial femoral and a focal area of moderate stenosis at the adductor hiatus. Distally, there is two-vessel runoff into the foot via the posterior tibial and peroneal. 3. Left leg: Reconstitution of a diminutive left external iliac and common femoral. The profunda femoral and superficial femoral are patent with moderate stenosis at the adductor hiatus within the superficial femoral. There is high- grade stenosis in the mid popliteal. Distally, there is two-vessel runoff into the foot Assessment and Plan - Plan 63-year-old white male admitted with cellulitis and infected wounds 1. Severe cellulitis/ulcerative leg wounds/wet gangrene Vancomycin and Zosyn, vascular surgery recommending imperative left AKA and that the patient is not a good candidate otherwise and revascularizing a leg is not a feasible option. I had extensive conversation with the patient and lasting 10-15 minutes about the absence of surgical intervention. They verbalized understanding. 2. Acute kidney injury Much improved with IV fluids and albumin, will stop IV fluids at this time to minimize overloading the patient 3 CAD/chronic systolic CHF/Hypertension/hyperlipidemia Continue home medications of Coreg, lisinopril, spironolactone Acute urinary retention -Suspect acute stretch injury is already happened, may have worsened with acute illness versus neurogenic bladder with uncontrolled diabetes Maintain Marie catheter for now stretch injury Multiple myeloma -continue dexamethasone Discharge Planning: PT eval pending, possibly will need SNF again
[2018-02-14] MEDS: Vancomycin Inj 1,500 MG in Sodium Chlor 0.9% Inj 500 ML IV.SIG SCH (16:35)
[2018-02-14] MEDS: Insulin Detemir Inj 1,000 UNIT/10 ML Vial SQ SCH ×2 (21:00→22:31)
[2018-02-14] MEDS: traZODone 50 MG Tablet PO SCH (22:30)
[2018-02-15] MEDS: Albumin Human 25% Inj 50 ML IV.SIG SCH ×2 (04:47→18:13)
[2018-02-15] MEDS: Piperacil/Tazo 3.375 GM Premix 50 ML IV.SIG SCH ×4 (04:47→21:26)
[2018-02-15] MEDS ORDERED: Chlorhexidine Gluconate 2% 1 Pack (2 Cloths) TOPICAL ONE ×2 (06:04→13:29)
[2018-02-15] MEDS ORDERED: Sodium Chlor 0.9% Inj 500 ML IV.SIG SCH ×2 (07:00→14:00)
[2018-02-15] MEDS: Lisinopril 5 MG Tablet PO SCH (08:21)
[2018-02-15] MEDS: Insulin NovoLIN Regular Correctional Sugar Inj SQ SCH ×3 (09:07→21:25)
--- NOTE | 2018-02-15 11:30 | P.CONWOU ---
History of Present Illness Service: 02/15/18 Consult date: 02/13/18 Requesting Physician: Prateek Otoole Reason for Consult: Management of lower extremity wounds Primary Care Provider: Taiwo Palm MD History of Present Illness: Consulted for management of left lower extremity wound. Patient being seen by vascular for possible AKA. At this time woundcare is not needed and so will sign off. PMFSH - History History Provided By: Patient - Medical History Medical History: Medical History (Last Reviewed 02/15/18 @ 09:41 by Lesley Grace) Flesh-eating bacteria Amyloidosis Arthritis CAD (coronary artery disease) CHF (congestive heart failure) Chest pain Diabetes mellitus Diabetic neuropathy HLD (hyperlipidemia) HTN (hypertension) Irregular heart beat Multiple myeloma Myocardial infarct - Surgical History Surgical History: Surgical History (Last Reviewed 02/15/18 @ 09:41 by Lesley Grace) Aortic valve replaced H/O left knee surgery Hx of CABG Status post surgical manipulation of ankle joint - Family History Family History: Family History (Last Reviewed 02/13/18 @ 07:30 by Danilo Null MD) Father Cancer Mother Cancer Other Diabetes mellitus - Tobacco History Second Hand Smoke Exposure: No Smoking Status: Former smoker Tobacco Type: Cigarettes - Alcohol History How Often Do You Have a Drink Containing Alcohol: Monthly or less - Substance Use History Substance History: No History of Abuse - Travel History Recent Travel in the [place] Within the Last 8 Weeks: No Recent Travel Out of the Country Within the Last 8 Weeks: No - Immunization History Tetanus Immunization: Unsure Hx Influenza Vaccine This Season: No Medications and Allergies Active Medications: Active Medications Acetaminophen (Tylenol) 650 mg PO Q4H PRN PRN Reason: Temp > 100.4 Al Hydroxide/Mg Hydroxide (Milk Of Magnesia Liq) 30 ml PO Q12H PRN PRN Reason: Mild Constipation Bisacodyl (Dulcolax Supp) 10 mg RECTAL DAILY PRN PRN Reason: SEVERE CONSITIPATION Carvedilol (Coreg) 3.125 mg PO BID [facility] Last Admin: 02/15/18 08:20 Dose: 3.125 mg Dexamethasone (Decadron) 4 mg PO DAILY [facility] Last Admin: 02/14/18 08:14 Dose: 4 mg Dextrose (D50w Vial) 50 ml IV.PUSH UNSCH PRN PRN Reason: PER HYPOGLYCEMIA PROTOCOL Duloxetine HCl (Cymbalta) 30 mg PO HS [facility] Last Admin: 02/14/18 22:30 Dose: 30 mg Enoxaparin Sodium (Lovenox Inj) 30 mg SQ DAILY [facility] Last Admin: 02/14/18 08:14 Dose: 30 mg Furosemide (Lasix) 40 mg PO DAILY [facility] Last Admin: 02/14/18 08:14 Dose: 40 mg Glucagon (Glucagon Inj) 1 mg OTHER PRN PRN PRN Reason: for Hypoglycemia Protocol Hydromorphone HCl (Dilaudid) 4 mg PO Q6H PRN PRN Reason: BREAKTHROUGH PAIN Last Admin: 02/15/18 08:20 Dose: 4 mg Piperacillin/Tazobactam/Dextrose (Zosyn 3.375 Gm Premix) 50 mls @ 100 mls/hr IV.SIG Q6H [facility] Last Admin: 02/15/18 09:08 Dose: 100 mls/hr Albumin Human (Flexbumin 25% Inj) 50 mls @ 60 mls/hr IV.SIG Q12H [facility] Last Infusion: 02/15/18 08:08 Dose: Infused Sodium Chloride (Ns Inj) 1,000 mls @ 84 mls/hr IV.CONT .[id number] [facility] Last Admin: 02/13/18 18:48 Dose: Not Given Vancomycin HCl 1,500 mg/ (Sodium Chloride) 515 mls @ 250 mls/hr IV.SIG Q24H [facility] Last Infusion: 02/15/18 00:58 Dose: Infused Lactated Ringer's (Lr 1000 Ml Inj) 1,000 mls @ 30 mls/hr IV.SIG .Q24H [facility] Stop: 02/16/18 06:14 Sodium Chloride (Ns Inj) 500 mls @ 30 mls/hr IV.SIG .Q10H [facility] Insulin Detemir (Levemir Inj) 5 unit SQ HS [facility] Last Admin: 02/14/18 21:00 Dose: Not Given Insulin Human Regular (Novolin R Correctional Sugar Inj) 0 units SQ ACHS [facility]; Protocol Last Admin: 02/15/18 09:07 Dose: Not Given Lactulose (Lactulose Liq) 30 ml PO DAILY PRN PRN Reason: SEVERE CONSITIPATION Lisinopril (Prinivil) 5 mg PO DAILY [facility] Last Admin: 02/15/18 08:21 Dose: 5 mg Miscellaneous Information ([facility] Ordered Lab Info) 1 each OTHER ONCE [facility] Ondansetron HCl (Zofran Inj) 4 mg IV.PUSH Q6H PRN PRN Reason: NAUSEA OR VOMITING Pharmacy Profile Note (Vancomycin Consult Pharmacy) 1 each OTHER UNSCH PRN PRN Reason: Pharmacy to dose Potassium Chloride (Kcl) 10 meq PO DAILY [facility] Last Admin: 02/14/18 08:14 Dose: 10 meq Senna/Docusate Sodium (Kamini-Colace) 1 tab PO BID [facility] Last Admin: 02/14/18 22:30 Dose: 1 tab Sennosides (Senokot) 17.2 mg PO Q12H PRN PRN Reason: Moderate Constipation Spironolactone (Aldactone) 25 mg PO DAILY [facility] Last Admin: 02/14/18 08:14 Dose: 25 mg Tamsulosin HCl (Flomax) 0.4 mg PO [facility] Last Admin: 02/15/18 04:43 Dose: 0.4 mg Trazodone HCl (Desyrel) 50 mg PO [facility] Last Admin: 02/14/18 22:30 Dose: 50 mg Allergies Allergy/AdvReac Type Severity Reaction Status Date / Time azithromycin Allergy Intermediate rash Verified 01/11/18 20:23 *MDRO Multi-Drug Resistant AdvReac Mild Cleared Uncoded 08/08/16 09:57 Organism 10/2015 Home Medications Medication Instructions Recorded Confirmed Type dexamethasone [Decadron] 4 mg PO DAILY 01/11/18 02/12/18 History duloxetine [Cymbalta] 30 mg PO 01/11/18 02/12/18 History carvedilol [Coreg] 3.125 mg PO BID 02/12/18 02/12/18 History hydromorphone 4 mg PO Q6H PRN 02/12/18 02/12/18 History insulin aspart U-100 [Novolog 100 unit SUB-Q ACHS AND 3AM 02/12/18 02/12/18 History U-100 Insulin aspart] insulin detemir U-100 [Levemir 5 unit SUB-Q HS 02/12/18 02/12/18 History U-100 Insulin] potassium chloride [Klor-Con 10 meq PO DAILY 02/12/18 02/12/18 History Sprinkle] spironolactone [Aldactone] 25 mg PO DAILY 02/12/18 02/12/18 History trazodone 50 mg PO HS 02/12/18 02/12/18 History Physical Exam Vital signs: Vital Signs 02/14/18 11:44 02/14/18 16:00 02/14/18 18:10 Temperature 98.7 F 98.3 F 98.6 F Pulse Rate 69 77 79 Respiratory Rate 18 18 16 Blood Pressure 108/58 L 113/57 L 118/58 L Pulse Oximetry 94 L 97 96 02/15/18 00:00 02/15/18 04:00 02/15/18 08:00 Temperature 97.7 F 98 F 99.1 F Pulse Rate 81 82 98 H Respiratory Rate 18 16 19 Blood Pressure 112/57 L 124/57 L 140/63 Pulse Oximetry 97 95 93 L Intake & Output 02/14/18 02/15/18 02/15/18 18:59 06:59 18:59 Intake Total 150 / 150 615 / 615 50 / 50 Output Total 2225 / 2225 2100 / 2100 Balance -2075 / -2075 -1485 / -1485 50 / 50 Weight 65.2 kg Intake: IV 150 / 150 615 / 615 50 / 50 Flexbumin 25% Inj 50 ML @ 60 50 / 50 50 / 50 mls/hr IV.SIG Q12H [facility] Rx#: [id number] Zosyn 3.375 GM Premix 50 ML @ 100 / 100 100 / 100 100 mls/hr IV.SIG Q6H [facility] Rx#: [id number] Vancomycin Inj 1,500 MG In NS 515 / 515 Inj 500 ML @ 250 mls/hr IV.SIG Q24H [facility] Rx#:[id number] Output: Urine 1450 / 1450 2099 / 2100 Urine Amount (Catheter) 775 / 775 Indwelling Urethral Catheter 775 / 775 Other: Date of Last Bowel Movement 02/14/18 02/15/18 # Bowel Movements 2 1 - Urinary Catheter Management Indwelling Urethral Catheter Cath placed during this visit: yes Reason for continuing: Chronic Urinary Retention Insertion date: 02/13/18 Insertion time: 10:45 1100ml Cath placed during this visit: no Reason for continuing: Hourly intake/output Wound/Pressure Injury - Patient Status Premedicated for Pain Prior to Dressing Change: No - Wound Left Leg Wound Assessment: Ongoing Wound Type: Maceration Is This a Chronic Wound: Yes Wound Bed Appearance: Necrotic Drainage Odor: Foul Odor Dressing Status: Dry & Intact Primary Dressing: Petroleum Gauze Cover Dressing: Gauze Roll/Wrap Midline Coccyx Wound Assessment: Ongoing Wound Type: Pressure Injury Is This a Chronic Wound: No Requested from Provider a Wound Care Consult: No Length: 1.5 Width: 2 Wound Bed Appearance: Red Surrounding Tissue Appearance: [place] Surrounding Tissue Temperature: Warm Drainage Amount: None Dressing Status: Open to Air Cleansing Solution: skintegrit Primary Dressing: tegaderm absorbant Incision - Patient Status Premedicated for Pain Prior to Dressing Change: No - Incision Left Ankle Incision Type: Incision Assessment and Plan - Assessment (1) Gangrene of lower extremity Code(s): I96 - Gangrene, not elsewhere classified Status: Acute Plan: Patient not seen by woundcare as he is under the care of Vascular surgery and is a candidate for AKA. Signing off and may be reconsulted if appropriate.
[2018-02-15 12:48] LABS: Baso % (Auto) 0.4 % (0.0-2.0); Eos % (Auto) 0.1 % (0.0-4.0); Hematocrit 21.4 % (39.0-51.0); Hemoglobin 7.1 gm/dL (13.0-17.0); Lymph % (Auto) 0.5 % (9.0-44.0); Mean Corpuscular HGB Conc 33.2 % (32.0-36.0); Mean Corpuscular Hemoglobin 30.3 pg (27.0-34.0); Mean Corpuscular Volume 91.4 fL (80.0-100.0); Mean Platelet Volume 7.9 fL (7.0-11.0); Mono # (Auto) 0.2 th/mm3 (0.0-0.9); Mono % (Auto) 3.4 % (0.0-8.0); Neut # (Auto) 5.9 th/mm3 (1.8-7.7); Neut % (Auto) 95.6 % (16.0-70.0); Platelet Count 132 th/mm3 (150-450); Red Blood Count 2.34 mil/mm3 (4.50-5.90); Red Cell Distribution Width 20.2 % (11.6-17.2); White Blood Count 6.2 th/mm3 (4.0-11.0)
[2018-02-15] MEDS: Enoxaparin Inj 30 MG/0.3 ML Syringe SQ SCH (13:22)
[2018-02-15] MEDS ORDERED: Metoprolol Tartrate 25 MG Tablet PO ONE (13:29)
[2018-02-15] MEDS ORDERED: Phenylephrine/NS 1000 MCG/10ML Syringe IV.PUSH ONE (14:26)
[2018-02-15] MEDS ORDERED: Lidocaine PF 1% Inj 5 ML Syringe INFILTRATN ONE (14:26)
[2018-02-15] MEDS ORDERED: Neostigmine Inj 5 MG/5 ML Syringe IV.PUSH ONE (14:26)
[2018-02-15] MEDS ORDERED: Glycopyrrolate Inj 1 MG/5 ML Syringe IV.PUSH ONE (14:26)
[2018-02-15] MEDS ORDERED: *morphine SULFATE 10 MG/ML PERIprocedure ONLY ONE (16:35)
[2018-02-15] MEDS ORDERED: HYDROmorphone PF Inj 2 MG/ML Vial ONE (16:47)
[2018-02-15] MEDS ORDERED: fentaNYL Citrate Inj 100 MCG/2 ML Ampul ONE (17:15)
--- NOTE | 2018-02-15 17:32 | P.PNIM ---
Subjective Interval history: Seen after left lower extremity surgery. Still groggy. Denies any chest pain or shortness of breath. Physical Exam Vital signs: Vital Signs 02/14/18 18:10 02/15/18 00:00 02/15/18 04:00 Temperature 98.6 F 97.7 F 98 F Pulse Rate 79 81 82 Respiratory Rate 16 18 16 Blood Pressure 118/58 L 112/57 L 124/57 L Pulse Oximetry 96 97 95 02/15/18 08:00 Temperature 99.1 F Pulse Rate 98 H Respiratory Rate 19 Blood Pressure 140/63 Pulse Oximetry 93 L Intake & Output 02/14/18 02/15/18 02/15/18 18:59 06:59 18:59 Intake Total 150 / 150 615 / 615 2300 / 2300 Output Total 2225 / 2225 2100 / 2100 550 / 550 Balance -2075 / -2075 -1485 / -1485 1750 / 1750 Weight 65.2 kg Intake: IV 150 / 150 615 / 615 100 / 100 Flexbumin 25% Inj 50 ML @ 60 50 / 50 50 / 50 mls/hr IV.SIG Q12H LEIGHA Rx#: [id number] Zosyn 3.375 GM Premix 50 ML @ 100 / 100 100 / 100 50 / 50 100 mls/hr IV.SIG Q6H LEIGHA Rx#: [id number] Vancomycin Inj 1,500 MG In NS 515 / 515 Inj 500 ML @ 250 mls/hr IV.SIG Q24H LEIGHA Rx#:[id number] Anesthesia Amount 1000 / 1000 Intake (Blood Product) Amt 400 / 400 Rbc As-3 Leukoreduced Unit 400 / 400 [id number] Rbc As-3 Leukoreduced Unit 0 / 0 [id number] Autotransfusion Amount 800 / 800 Output: Urine 1450 / 1450 2100 / 2100 Estimated Blood Loss 100 / 100 Urine Amount (Catheter) 775 / 775 450 / 450 Indwelling Urethral Catheter 775 / 775 450 / 450 Other: Date of Last Bowel Movement 02/14/18 02/15/18 # Bowel Movements 2 1 Narrative: GENERAL: Patient lying in bed. Sleeping, wakes up for exam. SKIN: Warm and dry. HEAD: Normocephalic. EYES: No scleral icterus. No injection or drainage. NECK: Supple, trachea midline. No JVD or lymphadenopathy. CARDIOVASCULAR: Regular rate and rhythm without gallops, or rubs. Systolic ejection murmur. RESPIRATORY: Breath sounds equal bilaterally. No accessory muscle use. GASTROINTESTINAL: Abdomen soft, non-tender, nondistended. MUSCULOSKELETAL: No cyanosis, or edema. Left lower extremity surgical site not examined. BACK: Nontender without obvious deformity. No CVA tenderness. - Urinary Catheter Management Indwelling Urethral Catheter Cath placed during this visit: yes Reason for continuing: Acute urinary retention Insertion date: 02/13/18 Insertion time: 10:45 1100ml Cath placed during this visit: no Reason for continuing: Hourly intake/output Results - Labs CBC & Chem 7: 02/15/18 12:29 02/14/18 07:12 Laboratory Results - last 24 hr 02/14/18 02/14/18 02/14/18 17:11 17:20 18:27 WBC RBC Hgb Hct MCV MCH MCHC RDW Plt Count MPV Neut % (Auto) Lymph % (Auto) [place] % (Auto) Eos % (Auto) Baso % (Auto) Neut # (Auto) Lymph # (Auto) [place] # (Auto) Eos # (Auto) Baso # (Auto) WBC Differential Differential Comment POC Glucose 271 H Blood Type O Positive Antibody Screen Positive H Antibody Identification Cancelled Rout Panel Path Interp Cancelled MTS Gel Crossmatch See Detail 02/15/18 02/15/18 02/15/18 08:25 12:10 12:29 WBC 6.2 RBC 2.34 L Hgb 7.1 L Hct 21.4 L MCV 91.4 MCH 30.3 MCHC 33.2 RDW 20.2 H Plt Count 132 L MPV 7.9 Neut % (Auto) 95.6 H Lymph % (Auto) 0.5 L [place] % (Auto) 3.4 Eos % (Auto) 0.1 Baso % (Auto) 0.4 Neut # (Auto) 5.9 Lymph # (Auto) 0.0 L [place] # (Auto) 0.2 Eos # (Auto) 0.0 Baso # (Auto) 0.0 WBC Differential . Differential Comment Auto diff final POC Glucose 287 H 241 H Blood Type Antibody Screen Antibody Identification Rout Panel Path Interp MTS Gel Crossmatch 02/15/18 16:30 WBC RBC Hgb Hct MCV MCH MCHC RDW Plt Count MPV Neut % (Auto) Lymph % (Auto) [place] % (Auto) Eos % (Auto) Baso % (Auto) Neut # (Auto) Lymph # (Auto) [place] # (Auto) Eos # (Auto) Baso # (Auto) WBC Differential Differential Comment POC Glucose 254 H Blood Type Antibody Screen Antibody Identification Rout Panel Path Interp MTS Gel Crossmatch Microbiology 02/12/18 18:38 Blood - Peripheral Aerobic Blood Culture - Preliminary No growth in 3 days 02/12/18 18:38 Blood - Peripheral Anaerobic Blood Culture - Preliminary No growth in 3 days 02/12/18 18:28 Blood - Peripheral Aerobic Blood Culture - Preliminary No growth in 3 days 02/12/18 18:28 Blood - Peripheral Anaerobic Blood Culture - Preliminary No growth in 3 days Assessment and Plan - Plan 63-year-old white male admitted with cellulitis and infected wounds //Severe cellulitis/ulcerative leg wounds/wet gangrene //Postoperative left tiqwx-xtg-kuhn amputation on 02/15. = Appreciate surgical assistance. //Acute on chronic anemia. = Likely secondary to anemia of inflammation. -Status post transfusion of 2 units of PRBCs today. Ordering reticulocytes would not be accurate at this time We will continue to monitor. If anemia continues, will consult hematology. // Acute kidney injury Much improved with IV fluids and albumin, will stop IV fluids at this time to minimize overloading the patient //CAD/chronic systolic CHF/Hypertension/hyperlipidemia Continue home medications of Coreg, lisinopril, spironolactone //Acute urinary retention -Suspect acute stretch injury is already happened, may have worsened with acute illness versus neurogenic bladder with uncontrolled diabetes Maintain Marie catheter for now stretch injury //Multiple myeloma -She reports that he was not on dexamethasone. Discussed with pharmacist. This will be discontinued. 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 Discharge Planning: May benefit from SNF. Will follow PT recommendations.
[2018-02-15] MEDS: Senna/Docusate Sodium 8.6/50 MG Tablet PO SCH ×2 (17:44→21:25)
--- NOTE | 2018-02-15 18:38 | MP ---
cc: Dayne Kelly MD DATE OF OPERATION: 02/15/2018 PREOPERATIVE DIAGNOSIS: Gangrene of the left leg, multiple myeloma, cachexia, immune resistant sepsis and osteomyelitis. POSTOPERATIVE DIAGNOSIS: Gangrene of the left leg, multiple myeloma, cachexia, immune resistant sepsis and osteomyelitis. OPERATIVE PROCEDURE: Left above-knee amputation. SURGEON: Dayne Kelly MD ANESTHESIA: General. ESTIMATED BLOOD LOSS: 100 mL. PROCEDURE: The patient was prepped and draped in the usual fashion. The outline of the incision made with a string and then incision was made anteriorly in a fish[place] fashion with a 10 blade, deepened down through the layers of tissue including quadriceps tendon using cautery, then the incision was deepened laterally and femur was exposed. Periosteal elevator was used to elevate the periosteum from the femur to about 3 inches above the level of the original skin incision, and here the femur was transected. Posterior flap was now created with amputation knife and rapidly, the superficial femoral artery and vein grasped with Janessa clamps to prevent bleeding. Small bleeders are also clamped with hemostats and then bleeders controlled with 0 Vicryl [id number] and 2-0 Vicryl [id number] stick ties. Tiny bleeders are cauterized. The sciatic nerve was pulled, cut sharply with blade and allowed to retract. Stump is now irrigated with copious amounts of saline and then closed in layers, the fascia and quadriceps tendon to deep fascia, superficial fascia to superficial fascia. Skin was closed with 2-0 Prolene interrupted stitches. Dressing applied. The patient tolerated the procedure well. MD SULTANA Arias/cj , 04:36 PM , 04:43 PM [email or web address]
[2018-02-15] MEDS: Spironolactone 25 MG Tablet PO SCH (19:29)
[2018-02-15] MEDS: Furosemide 40 MG Tablet PO SCH (19:30)
[2018-02-15] MEDS: Pantoprazole Inj 40 MG Vial IV.PUSH SCH (19:40)
[2018-02-15] MEDS: Potassium Chloride 10 MEQ ER Capsule PO SCH (19:41)
[2018-02-15] MEDS: Vancomycin Inj 1,500 MG in Sodium Chlor 0.9% Inj 500 ML IV.SIG SCH (19:41)
[2018-02-15] MEDS: traZODone 50 MG Tablet PO SCH (21:24)
[2018-02-15] MEDS: Insulin Detemir Inj 1,000 UNIT/10 ML Vial SQ SCH (21:25)
[2018-02-16] MEDS: Albumin Human 25% Inj 50 ML IV.SIG SCH ×2 (03:06→16:21)
[2018-02-16] MEDS: Piperacil/Tazo 3.375 GM Premix 50 ML IV.SIG SCH ×4 (03:06→22:59)
[2018-02-16] MEDS: Furosemide 40 MG Tablet PO SCH (09:49)
[2018-02-16] MEDS: Spironolactone 25 MG Tablet PO SCH (09:49)
[2018-02-16] MEDS: Senna/Docusate Sodium 8.6/50 MG Tablet PO SCH ×2 (09:49→20:37)
[2018-02-16] MEDS: Potassium Chloride 10 MEQ ER Capsule PO SCH (09:49)
[2018-02-16] MEDS: Enoxaparin Inj 30 MG/0.3 ML Syringe SQ SCH (09:49)
[2018-02-16] MEDS: Insulin NovoLIN Regular Correctional Sugar Inj SQ SCH ×4 (09:50→22:58)
[2018-02-16] MEDS: Lisinopril 5 MG Tablet PO SCH (09:50)
[2018-02-16 09:58] LABS: Baso % (Auto) 0.2 % (0.0-2.0); Eos % (Auto) 0.1 % (0.0-4.0); Hematocrit 27.6 % (39.0-51.0); Hemoglobin 9.3 gm/dL (13.0-17.0); Lymph # (Auto) 0.1 th/mm3 (1.0-4.8); Lymph % (Auto) 1.5 % (9.0-44.0); Mean Corpuscular HGB Conc 33.8 % (32.0-36.0); Mean Corpuscular Hemoglobin 29.6 pg (27.0-34.0); Mean Corpuscular Volume 87.6 fL (80.0-100.0); Mean Platelet Volume 8.9 fL (7.0-11.0); Mono # (Auto) 0.3 th/mm3 (0.0-0.9); Mono % (Auto) 3.6 % (0.0-8.0); Neut % (Auto) 94.6 % (16.0-70.0); Platelet Count 137 th/mm3 (150-450); Red Blood Count 3.15 mil/mm3 (4.50-5.90); Red Cell Distribution Width 19.8 % (11.6-17.2); White Blood Count 8.4 th/mm3 (4.0-11.0)
[2018-02-16 10:33] LABS: Glomerular Filtration Rate Greater Than 89 mL/min (>89)
--- NOTE | 2018-02-16 13:17 | P.PNVS ---
Subjective Subjective/Hospital Course: Patient seen full consult dictated Thanks J 02/14/2018 This gentleman has a complex situation. 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 Since then, continued smoking. At that time, he had a fairly reasonable outflow with patent SFAs and dominant posterior tibial artery on the left and anterior tibial on the right. Since then, the patient of course has multiple medical problems. At this time, we have limited options. CTA has been performed today and the findings are below. Regardles, this patient is a very poor candidate for any vascular reconstruction for the simple reason that even if we could do some surgery, the patient has necrosis of the left calf, to the point that this is completely nonsalvageable and it will further necrose and cause problems, and in addition, the patient's immune system is down because of the multiple myeloma and the therapy and presence of wet gangrene in this case is a potentially lethal scenario. The will eventually develop endocarditis and either endocardium of the heart or the artificial valve and he will from this. At this point, I will do a CTA with a runoff to confirm the findings once the creatinine is down, but I would be very inclined to do with an above-knee amputation on this gentleman. At this point, we are not saving his leg, but his life. CTA with runoff reveals on the right side occluded limb of aortobifemoral graft with very tiny external iliac and common femoral arteries patent diseased SFA and occluded popliteal artery. In order to improve the blood supply to the left leg patient will require revision of aortofemoral bypass on the left for which he is clearly not a candidate for a femorofemoral bypass with endarterectomy of common femoral artery on the left. Even then, popliteal artery is occluded. 1. Patient is not a candidate for major vascular construction such as aortofemoral or femoral femoral to distal anterior tibial bypass 2. Patient has a gangrenous calf with visible tendons and this is combination of wet and dry gangrene and even if reconstructed, blood flow would go into a tissue where they are irreversible gangrenous changes. 3. Patient is immunosuppressed cachectic and in very poor shape due to combination of multiple myeloma, amyloidosis and chemotherapy he is receiving. In summary this patient should have left above-knee amputation [place] for otherwise he will become septic and from all this. We will schedule patient tentatively for surgery tomorrow. 02/16/2018 Status post left above-knee amputation Dressing dry and intact Will leave the original dressing on until Monday Nothing to add to care at this time Objective Vital Signs / I&O: Vital Signs 02/15/18 16:24 02/15/18 16:30 02/15/18 16:45 Temperature 98.8 F Pulse Rate 82 82 85 Respiratory Rate 18 17 20 Blood Pressure 138/66 138/67 151/73 H Pulse Oximetry 100 100 99 02/15/18 17:00 02/15/18 20:00 02/16/18 00:00 Temperature 98.7 F 98.7 F 98.9 F Pulse Rate 88 85 96 H Respiratory Rate 22 21 19 Blood Pressure 148/70 H 138/73 Pulse Oximetry 99 90 L 91 L 02/16/18 04:00 02/16/18 08:00 Temperature 99.7 F H 100.3 F H Pulse Rate 101 H 101 H Respiratory Rate 18 20 Blood Pressure 130/73 145/86 H Pulse Oximetry 90 L 90 L Intake & Output 02/15/18 02/16/18 02/16/18 18:59 06:59 18:59 Intake Total 2300 / 2300 765 / 765 290 / 290 Output Total 550 / 550 Balance 1750 / 1750 765 / 765 290 / 290 Weight 63 kg Intake: IV 100 / 100 765 / 765 50 / 50 Flexbumin 25% Inj 50 ML @ 60 50 / 50 100 / 100 mls/hr IV.SIG Q12H LEIGHA Rx#: [id number] Zosyn 3.375 GM Premix 50 ML @ 50 / 50 150 / 150 50 / 50 100 mls/hr IV.SIG Q6H LEIGHA Rx#: [id number] Vancomycin Inj 1,500 MG In NS 515 / 515 Inj 500 ML @ 250 mls/hr IV.SIG Q24H LEIGHA Rx#:[id number] Oral 0 / 0 240 / 240 Anesthesia Amount 1000 / 1000 Intake (Blood Product) Amt 400 / 400 Rbc As-3 Leukoreduced Unit 400 / 400 [id number] Rbc As-3 Leukoreduced Unit 0 / 0 [id number] Autotransfusion Amount 800 / 800 Output: Estimated Blood Loss 100 / 100 Urine Amount (Catheter) 450 / 450 Indwelling Urethral Catheter 450 / 450 Other: Date of Last Bowel Movement 02/15/18 Laboratory Results - last 24 hr 02/14/18 02/15/18 02/15/18 17:11 16:30 20:08 WBC RBC Hgb Hct MCV MCH MCHC RDW Plt Count MPV Neut % (Auto) Lymph % (Auto) [place] % (Auto) Eos % (Auto) Baso % (Auto) Neut # (Auto) Lymph # (Auto) [place] # (Auto) Eos # (Auto) Baso # (Auto) WBC Differential Differential Comment Creatinine Estimated GFR POC Glucose 254 H 273 H Blood Type O Positive Antibody Screen Positive H MTS Gel Crossmatch See Detail 02/16/18 02/16/18 02/16/18 08:31 09:15 09:15 WBC 8.4 RBC 3.15 L Hgb 9.3 L D Hct 27.6 L MCV 87.6 D MCH 29.6 MCHC 33.8 RDW 19.8 H Plt Count 137 L MPV 8.9 Neut % (Auto) 94.6 H Lymph % (Auto) 1.5 L [place] % (Auto) 3.6 Eos % (Auto) 0.1 Baso % (Auto) 0.2 Neut # (Auto) 8.0 H Lymph # (Auto) 0.1 L [place] # (Auto) 0.3 Eos # (Auto) 0.0 Baso # (Auto) 0.0 WBC Differential . Differential Comment Auto diff final Creatinine 0.86 Estimated GFR Greater than 89 POC Glucose 225 H Blood Type Antibody Screen MTS Gel Crossmatch 02/16/18 11:25 WBC RBC Hgb Hct MCV MCH MCHC RDW Plt Count MPV Neut % (Auto) Lymph % (Auto) [place] % (Auto) Eos % (Auto) Baso % (Auto) Neut # (Auto) Lymph # (Auto) [place] # (Auto) Eos # (Auto) Baso # (Auto) WBC Differential Differential Comment Creatinine Estimated GFR POC Glucose 227 H Blood Type Antibody Screen MTS Gel Crossmatch Microbiology 02/12/18 18:38 Aerobic Blood Culture - Preliminary Blood - Peripheral No growth in 4 days Anaerobic Blood Culture - Preliminary No growth in 4 days 02/12/18 18:28 Aerobic Blood Culture - Preliminary Blood - Peripheral No growth in 4 days Anaerobic Blood Culture - Preliminary No growth in 4 days Impressions Aorta w/Runoff CTA 02/14/18 00:00 CONCLUSION: 1. The patient is post aortobifemoral graft placement. The left limb of the graft is occluded. 2. Right leg: Moderate stenosis at the junction of the graft in the right common femoral with patchy disease in the superficial femoral and a focal area of moderate stenosis at the adductor hiatus. Distally, there is two-vessel runoff into the foot via the posterior tibial and peroneal. 3. Left leg: Reconstitution of a diminutive left external iliac and common femoral. The profunda femoral and superficial femoral are patent with moderate stenosis at the adductor hiatus within the superficial femoral. There is high- grade stenosis in the mid popliteal. Distally, there is two-vessel runoff into the foot
[2018-02-16] MEDS: Morphine Sulfate Inj 2 MG/ML Vial IV.PUSH PRN ×2 (13:26→19:46)
--- NOTE | 2018-02-16 15:44 | P.PNIM ---
Subjective Interval history: Patient's only complaint today is that he feels pain at his surgical site status post left huqrq-mgb-ymrb amputation. Physical Exam Vital signs: Vital Signs 02/15/18 16:24 02/15/18 16:30 02/15/18 16:45 Temperature 98.8 F Pulse Rate 82 82 85 Respiratory Rate 18 17 20 Blood Pressure 138/66 138/67 151/73 H Pulse Oximetry 100 100 99 02/15/18 17:00 02/15/18 20:00 02/16/18 00:00 Temperature 98.7 F 98.7 F 98.9 F Pulse Rate 88 85 96 H Respiratory Rate 22 21 19 Blood Pressure 148/70 H 138/73 Pulse Oximetry 99 90 L 91 L 02/16/18 04:00 02/16/18 08:00 Temperature 99.7 F H 100.3 F H Pulse Rate 101 H 101 H Respiratory Rate 18 20 Blood Pressure 130/73 145/86 H Pulse Oximetry 90 L 90 L Intake & Output 02/15/18 02/16/18 02/16/18 18:59 06:59 18:59 Intake Total 2300 / 2300 765 / 765 290 / 290 Output Total 550 / 550 Balance 1750 / 1750 765 / 765 290 / 290 Weight 63 kg Intake: IV 100 / 100 765 / 765 50 / 50 Flexbumin 25% Inj 50 ML @ 60 50 / 50 100 / 100 mls/hr IV.SIG Q12H LEIGHA Rx#: [id number] Zosyn 3.375 GM Premix 50 ML @ 50 / 50 150 / 150 50 / 50 100 mls/hr IV.SIG Q6H LEIGHA Rx#: [id number] Vancomycin Inj 1,500 MG In NS 515 / 515 Inj 500 ML @ 250 mls/hr IV.SIG Q24H LEIGHA Rx#:[id number] Oral 0 / 0 240 / 240 Anesthesia Amount 1000 / 1000 Intake (Blood Product) Amt 400 / 400 Rbc As-3 Leukoreduced Unit 400 / 400 [id number] Rbc As-3 Leukoreduced Unit 0 / 0 [id number] Autotransfusion Amount 800 / 800 Output: Estimated Blood Loss 100 / 100 Urine Amount (Catheter) 450 / 450 Indwelling Urethral Catheter 450 / 450 Other: Date of Last Bowel Movement 02/15/18 Narrative: GENERAL: AAOx3, no acute distress SKIN: Warm and dry. No rashes HEAD: Atruamtic, normocephalic. EYES: No scleral icterus. No injection or drainage. ENT: Moist mucous membranes, patent nares, no erythema of oropharynx. NECK: Supple, trachea midline. No JVD or lymphadenopathy. Normal thyroid. CARDIOVASCULAR: Regular rate and rhythm. No murmurs, gallops, or rubs. RESPIRATORY: Breath sounds clear equal bilaterally. No crackles or wheezes. No accessory muscle use. GASTROINTESTINAL: Abdomen soft, non-tender, nondistended, normal active bowel sounds MUSCULOSKELETAL: No cyanosis, or edema. Left leg amputated above the knee, surgical site under Abraham wrap dressing NEURO: CN II-XII grossly intact, no focal deficits, no slurring of speech - Urinary Catheter Management Indwelling Urethral Catheter Cath placed during this visit: yes Reason for continuing: Acute urinary retention Insertion date: 02/13/18 Insertion time: 10:45 1100ml Cath placed during this visit: no Reason for continuing: Hourly intake/output Results - Labs CBC & Chem 7: 02/16/18 09:15 02/16/18 09:15 Laboratory Results - last 24 hr 02/14/18 02/15/18 02/15/18 17:11 16:30 20:08 WBC RBC Hgb Hct MCV MCH MCHC RDW Plt Count MPV Neut % (Auto) Lymph % (Auto) [place] % (Auto) Eos % (Auto) Baso % (Auto) Neut # (Auto) Lymph # (Auto) [place] # (Auto) Eos # (Auto) Baso # (Auto) WBC Differential Differential Comment Creatinine Estimated GFR POC Glucose 254 H 273 H MTS Gel Crossmatch See Detail 02/16/18 02/16/18 02/16/18 08:31 09:15 09:15 WBC 8.4 RBC 3.15 L Hgb 9.3 L D Hct 27.6 L MCV 87.6 D MCH 29.6 MCHC 33.8 RDW 19.8 H Plt Count 137 L MPV 8.9 Neut % (Auto) 94.6 H Lymph % (Auto) 1.5 L [place] % (Auto) 3.6 Eos % (Auto) 0.1 Baso % (Auto) 0.2 Neut # (Auto) 8.0 H Lymph # (Auto) 0.1 L [place] # (Auto) 0.3 Eos # (Auto) 0.0 Baso # (Auto) 0.0 WBC Differential . Differential Comment Auto diff final Creatinine 0.86 Estimated GFR Greater than 89 POC Glucose 225 H MTS Gel Crossmatch 02/16/18 11:25 WBC RBC Hgb Hct MCV MCH MCHC RDW Plt Count MPV Neut % (Auto) Lymph % (Auto) [place] % (Auto) Eos % (Auto) Baso % (Auto) Neut # (Auto) Lymph # (Auto) [place] # (Auto) Eos # (Auto) Baso # (Auto) WBC Differential Differential Comment Creatinine Estimated GFR POC Glucose 227 H MTS Gel Crossmatch Microbiology 02/12/18 18:38 Blood - Peripheral Aerobic Blood Culture - Preliminary No growth in 4 days 02/12/18 18:38 Blood - Peripheral Anaerobic Blood Culture - Preliminary No growth in 4 days 02/12/18 18:28 Blood - Peripheral Aerobic Blood Culture - Preliminary No growth in 4 days 02/12/18 18:28 Blood - Peripheral Anaerobic Blood Culture - Preliminary No growth in 4 days Assessment and Plan - Plan 63-year-old white male admitted with cellulitis and infected wounds Severe cellulitis/ulcerative leg wounds/wet gangrene Left tzlvb-hno-scgl amputation on 02/15. Pain not quite controlled with p.o. meds alone, morphine IV added for breakthrough Appreciate surgical assistance. Acute on chronic anemia. Likely secondary to anemia of inflammation. Status post transfusion of 2 units of PRBCs 02/15/18. Continue to monitor with periodic blood work CAD/chronic systolic CHF/Hypertension/hyperlipidemia Continue home medications of Coreg, lisinopril, spironolactone Acute urinary retention Maintain Marie catheter for now stretch injury Multiple myeloma Monitor for any changes symptomatically DVT prophylaxis SCD hose, chemoprophylaxis held due to anemia and potential for low platelets and multiple myeloma
[2018-02-16] MEDS ORDERED: Pharmacy Ordered Lab Info OTHER SCH (15:45)
[2018-02-16] MEDS: Vancomycin Inj 1,500 MG in Sodium Chlor 0.9% Inj 500 ML IV.SIG SCH (17:00)
[2018-02-16] MEDS: Pantoprazole Inj 40 MG Vial IV.PUSH SCH (18:02)
[2018-02-16] MEDS: traZODone 50 MG Tablet PO SCH (20:37)
[2018-02-16 22:27] LABS: Albumin 2.5 g/dL (3.4-5.0); Magnesium 1.3 mg/dL (1.5-2.5); Phosphorus 2.4 mg/dL (2.5-4.9); Potassium 3.3 meq/L (3.5-5.1)
[2018-02-16] MEDS: Insulin Detemir Inj 1,000 UNIT/10 ML Vial SQ SCH (22:58)
[2018-02-17] MEDS: Morphine Sulfate Inj 2 MG/ML Vial IV.PUSH PRN ×3 (02:48→17:44)
[2018-02-17] MEDS: Piperacil/Tazo 3.375 GM Premix 50 ML IV.SIG SCH ×4 (02:48→22:06)
[2018-02-17] MEDS: Albumin Human 25% Inj 50 ML IV.SIG SCH ×2 (03:07→15:49)
[2018-02-17] MEDS: Spironolactone 25 MG Tablet PO SCH (08:53)
[2018-02-17] MEDS: Furosemide 40 MG Tablet PO SCH (08:53)
[2018-02-17] MEDS: Potassium Chloride 10 MEQ ER Capsule PO SCH (08:53)
[2018-02-17] MEDS: Insulin NovoLIN Regular Correctional Sugar Inj SQ SCH ×4 (08:54→22:08)
[2018-02-17] MEDS: Senna/Docusate Sodium 8.6/50 MG Tablet PO SCH ×2 (08:54→22:07)
[2018-02-17] MEDS: Enoxaparin Inj 30 MG/0.3 ML Syringe SQ SCH (08:54)
[2018-02-17] MEDS: Lisinopril 5 MG Tablet PO SCH (08:55)
--- NOTE | 2018-02-17 11:00 | P.PNIM ---
Subjective Interval history: Patient reports less left leg pain after morphine was added in between p.o. Dilaudid for breakthrough pain. He was unable to tolerate physical therapy due to right leg pain and left leg stump pain. He has no other complaints. Physical Exam Vital signs: Vital Signs 02/16/18 12:00 02/16/18 16:00 02/16/18 20:00 Temperature 97.1 F L 99.0 F 100.2 F H Pulse Rate 94 H 90 90 Respiratory Rate 20 20 18 Blood Pressure 126/87 131/75 140/77 Pulse Oximetry 93 L 92 L 92 L 02/17/18 00:00 02/17/18 04:00 02/17/18 08:00 Temperature 98.5 F 98.1 F 98.5 F Pulse Rate 89 83 84 Respiratory Rate 18 18 22 Blood Pressure 143/78 H 140/77 145/81 H Pulse Oximetry 92 L 92 L 90 L Intake & Output 02/16/18 02/17/18 02/17/18 18:59 06:59 18:59 Intake Total 1505 / 1505 1150 / 1150 50 / 50 Output Total 1850 / 1850 700 / 700 Balance -345 / -345 450 / 450 50 / 50 Intake: IV 665 / 665 1150 / 1150 50 / 50 Flexbumin 25% Inj 50 ML @ 60 50 / 50 50 / 50 mls/hr IV.SIG Q12H LEIGHA Rx#: [id number] Zosyn 3.375 GM Premix 50 ML @ 100 / 100 100 / 100 50 / 50 100 mls/hr IV.SIG Q6H LEIGHA Rx#: [id number] Vancomycin Inj 1,500 MG In NS 515 / 515 Inj 500 ML @ 250 mls/hr IV.SIG Q24H LEIGHA Rx#:[id number] Oral 840 / 840 Output: Urine 1850 / 1850 700 / 700 Other: Date of Last Bowel Movement 02/15/18 # Bowel Movements 0 Narrative: GENERAL: AAOx3, no acute distress SKIN: Warm and dry. Greenberg discoloration of right lower extremity with muscle wasting indicating poor circulation HEAD: Atruamtic, normocephalic. EYES: No scleral icterus. No injection or drainage. ENT: Moist mucous membranes, patent nares, no erythema of oropharynx. NECK: Supple, trachea midline. No JVD or lymphadenopathy. Normal thyroid. CARDIOVASCULAR: Regular rate and rhythm. No murmurs, gallops, or rubs. RESPIRATORY: Breath sounds clear equal bilaterally. No crackles or wheezes. No accessory muscle use. GASTROINTESTINAL: Abdomen soft, non-tender, nondistended, normal active bowel sounds MUSCULOSKELETAL: No cyanosis, or edema. Left leg amputated above the knee, surgical site under Abraham wrap dressing NEURO: CN II-XII grossly intact, no focal deficits, no slurring of speech - Urinary Catheter Management Indwelling Urethral Catheter Cath placed during this visit: yes Reason for continuing: Acute urinary retention Insertion date: 02/13/18 Insertion time: 10:45 1100ml Cath placed during this visit: no Reason for continuing: Hourly intake/output Results - Labs CBC & Chem 7: 02/16/18 09:15 02/16/18 09:15 Laboratory Results - last 24 hr 02/14/18 02/16/18 02/16/18 17:11 09:15 11:25 Sodium 138 Potassium 3.3 L Chloride 99 Carbon Dioxide 28.0 Anion Gap 11 BUN 14 Creatinine 0.92 Estimated GFR 83 L POC Glucose 227 H Random Glucose 198 H Calcium 7.0 L* Phosphorus 2.4 L Magnesium 1.3 L Albumin 2.5 L Vancomycin Trough Cancelled Random Vancomycin MTS Gel Crossmatch See Detail 02/16/18 02/16/18 02/17/18 17:34 21:52 05:52 Sodium Potassium Chloride Carbon Dioxide Anion Gap BUN Creatinine Estimated GFR POC Glucose 110 150 H Random Glucose Calcium Phosphorus Magnesium Albumin Vancomycin Trough Random Vancomycin 22.3 MTS Gel Crossmatch Microbiology 02/12/18 18:38 Blood - Peripheral Aerobic Blood Culture - Preliminary No growth in 4 days 02/12/18 18:38 Blood - Peripheral Anaerobic Blood Culture - Preliminary No growth in 4 days 02/12/18 18:28 Blood - Peripheral Aerobic Blood Culture - Preliminary No growth in 4 days 02/12/18 18:28 Blood - Peripheral Anaerobic Blood Culture - Preliminary No growth in 4 days Assessment and Plan - Plan 63-year-old white male admitted with cellulitis and infected wounds Severe cellulitis/ulcerative leg wounds/wet gangrene Left jpuui-gxd-svmd amputation on 02/15. Continue p.o. Dilaudid with IV morphine for breakthrough Appreciate surgical assistance. Peripheral vascular disease Right leg is exhibits greenberg discoloration with muscle wasting, typical of PAD Patient reports that his right leg is very weak Acute on chronic anemia. Likely secondary to anemia of inflammation. Status post transfusion of 2 units of PRBCs 02/15/18. Continue to monitor with periodic blood work CAD/chronic systolic CHF/Hypertension/hyperlipidemia Continue home medications of Coreg, lisinopril, spironolactone Acute urinary retention Maintain Marie catheter for now stretch injury Multiple myeloma Monitor for any changes symptomatically DVT prophylaxis SCD hose, chemoprophylaxis held due to anemia and potential for low platelets and multiple myeloma
[2018-02-17] MEDS: Pantoprazole Inj 40 MG Vial IV.PUSH SCH (17:44)
[2018-02-17] MEDS: traZODone 50 MG Tablet PO SCH (22:07)
[2018-02-17] MEDS: Insulin Detemir Inj 1,000 UNIT/10 ML Vial SQ SCH (22:08)
[2018-02-18] MEDS: Piperacil/Tazo 3.375 GM Premix 50 ML IV.SIG SCH ×4 (04:59→22:03)
[2018-02-18] MEDS: Albumin Human 25% Inj 50 ML IV.SIG SCH ×2 (05:06→15:28)
[2018-02-18 07:42] LABS: Hematocrit 31.9 % (39.0-51.0); Hemoglobin 10.4 gm/dL (13.0-17.0); Mean Corpuscular HGB Conc 32.6 % (32.0-36.0); Mean Corpuscular Hemoglobin 29.3 pg (27.0-34.0); Mean Corpuscular Volume 89.9 fL (80.0-100.0); Platelet Count 155 th/mm3 (150-450); Red Blood Count 3.55 mil/mm3 (4.50-5.90); Red Cell Distribution Width 19.8 % (11.6-17.2); White Blood Count 7.7 th/mm3 (4.0-11.0)
[2018-02-18 08:10] LABS: Anion Gap 11 meq/L (5-15); Blood Urea Nitrogen 9 mg/dL (7-18); Calcium 6.9 mg/dL (8.5-10.1); Carbon Dioxide 29.1 meq/L (21.0-32.0); Chloride 98 meq/L (98-107); Glomerular Filtration Rate Greater Than 89 mL/min (>89)
[2018-02-18 08:19] LABS: Sodium 138 meq/L (136-145)
[2018-02-18 08:23] LABS: Potassium 2.7 meq/L (3.5-5.1)
[2018-02-18 08:24] LABS: Glucose,Random 43 mg/dL (74-106)
[2018-02-18] MEDS: Insulin NovoLIN Regular Correctional Sugar Inj SQ SCH ×4 (08:42→22:02)
[2018-02-18] MEDS: Potassium Chloride 10 MEQ ER Capsule PO SCH (08:50)
[2018-02-18] MEDS: Enoxaparin Inj 30 MG/0.3 ML Syringe SQ SCH (08:51)
[2018-02-18] MEDS: Spironolactone 25 MG Tablet PO SCH (08:51)
[2018-02-18] MEDS: Morphine Sulfate Inj 2 MG/ML Vial IV.PUSH PRN ×2 (08:51→21:59)
[2018-02-18 08:52] LABS: Total Protein 6.4 g/dL (6.4-8.2)
[2018-02-18] MEDS: Lisinopril 5 MG Tablet PO SCH (08:52)
[2018-02-18] MEDS: Senna/Docusate Sodium 8.6/50 MG Tablet PO SCH ×2 (08:52→22:02)
[2018-02-18] MEDS: Furosemide 40 MG Tablet PO SCH (08:52)
--- NOTE | 2018-02-18 11:32 | P.PNIM ---
Subjective Interval history: Patient is postop for left cmmbb-hbs-lvff amputation due to gangrene in his left lower extremity. His main complaint at this point is pain. Pain meds were recently adjusted and caused some slight increase in his sleepiness. Physical Exam Vital signs: Vital Signs 02/17/18 12:00 02/17/18 16:00 02/17/18 20:00 Temperature 98.2 F 98.1 F 98.2 F Pulse Rate 76 79 80 Respiratory Rate 20 20 21 Blood Pressure 134/73 110/63 113/62 Pulse Oximetry 95 97 90 L 02/18/18 00:00 02/18/18 04:00 02/18/18 08:00 Temperature 97.9 F 97.6 F 97.8 F Pulse Rate 78 82 70 Respiratory Rate 21 19 18 Blood Pressure 107/60 94/52 L 121/64 Pulse Oximetry 95 98 95 Intake & Output 02/17/18 02/18/18 02/18/18 18:59 06:59 18:59 Intake Total 510 / 510 150 / 150 50 / 50 Output Total 3600 / 3600 450 / 450 Balance -3090 / -3090 -300 / -300 50 / 50 Intake: IV 150 / 150 150 / 150 50 / 50 Flexbumin 25% Inj 50 ML @ 60 50 / 50 50 / 50 mls/hr IV.SIG Q12H [facility] Rx#: [id number] Zosyn 3.375 GM Premix 50 ML @ 100 / 100 100 / 100 50 / 50 100 mls/hr IV.SIG Q6H [facility] Rx#: [id number] Oral 360 / 360 0 / 0 Output: Urine 1600 / 1600 450 / 450 Urine Amount (Catheter) 1999 Indwelling Urethral Catheter 1999 Other: # Bowel Movements 1 Narrative: GENERAL: AAOx3, no acute distress SKIN: Warm and dry. Greenberg discoloration of right lower extremity with muscle wasting indicating poor circulation HEAD: Atruamtic, normocephalic. EYES: No scleral icterus. No injection or drainage. ENT: Moist mucous membranes, patent nares, no erythema of oropharynx. NECK: Supple, trachea midline. No JVD or lymphadenopathy. Normal thyroid. CARDIOVASCULAR: Regular rate and rhythm. No murmurs, gallops, or rubs. RESPIRATORY: Breath sounds clear equal bilaterally. No crackles or wheezes. No accessory muscle use. GASTROINTESTINAL: Abdomen soft, non-tender, nondistended, normal active bowel sounds MUSCULOSKELETAL: No cyanosis, or edema. Left leg amputated above the knee, surgical site under Abraham wrap dressing NEURO: CN II-XII grossly intact, no focal deficits, no slurring of speech - Urinary Catheter Management Indwelling Urethral Catheter Cath placed during this visit: yes Reason for continuing: Acute urinary retention Insertion date: 02/13/18 Insertion time: 10:45 1100ml Cath placed during this visit: no Reason for continuing: Hourly intake/output Results - Labs CBC & Chem 7: 02/18/18 07:02 02/18/18 07:02 Laboratory Results - last 24 hr 02/17/18 02/17/18 02/18/18 11:47 17:02 07:02 WBC RBC Hgb Hct MCV MCH MCHC RDW Plt Count MPV Hematology Comments Sodium Potassium Chloride Carbon Dioxide Anion Gap BUN Creatinine Estimated GFR POC Glucose 208 H 189 H Random Glucose Calcium Prot Corrected Calcium Total Protein Random Vancomycin 12.4 02/18/18 02/18/18 02/18/18 07:02 07:02 07:55 WBC 7.7 RBC 3.55 L Hgb 10.4 L Hct 31.9 L MCV 89.9 MCH 29.3 MCHC 32.6 RDW 19.8 H Plt Count 155 MPV 9.0 Hematology Comments Sodium 138 Potassium 2.7 L* Chloride 98 Carbon Dioxide 29.1 Anion Gap 11 BUN 9 Creatinine 0.72 Estimated GFR Greater than 89 POC Glucose 51 L Random Glucose 43 L* D Calcium 6.9 L* Prot Corrected Calcium 7.3 L* Total Protein 6.4 D Random Vancomycin 02/18/18 02/18/18 08:21 08:49 WBC RBC Hgb Hct MCV MCH MCHC RDW Plt Count MPV Hematology Comments Sodium Potassium Chloride Carbon Dioxide Anion Gap BUN Creatinine Estimated GFR POC Glucose 56 L 116 H Random Glucose Calcium Prot Corrected Calcium Total Protein Random Vancomycin Microbiology 02/12/18 18:38 Blood - Peripheral Aerobic Blood Culture - Final No growth in 5 days 02/12/18 18:38 Blood - Peripheral Anaerobic Blood Culture - Final No growth in 5 days 02/12/18 18:28 Blood - Peripheral Aerobic Blood Culture - Final No growth in 5 days 02/12/18 18:28 Blood - Peripheral Anaerobic Blood Culture - Final No growth in 5 days Assessment and Plan - Plan 63-year-old white male admitted with cellulitis and infected wounds Severe cellulitis/ulcerative leg wounds/wet gangrene Left nwsps-[id number]-mbpv amputation on 02/15. Continue p.o. Dilaudid with IV morphine for breakthrough Patient had slight sedation following addition of IV morphine, therefore no more room for narcotics His renal function is within normal limits therefore NSAID added Appreciate surgical assistance. Hypokalemia, hypocalcemia Hypocalcemia replaced, will recheck with a.m. labs Hypokalemia replaced and recheck with a.m. labs Peripheral vascular disease Right leg is exhibits greenberg discoloration with muscle wasting, typical of PAD Patient reports that his right leg is very weak Acute on chronic anemia. Likely secondary to anemia of inflammation. Status post transfusion of 2 units of PRBCs 02/15/18. Continue to monitor with periodic blood work CAD/chronic systolic CHF/Hypertension/hyperlipidemia Continue home medications of Coreg, lisinopril, spironolactone Acute urinary retention Maintain Marie catheter for now stretch injury Multiple myeloma Monitor for any changes symptomatically DVT prophylaxis SCD hose, chemoprophylaxis held due to anemia and potential for low platelets and multiple myeloma
[2018-02-18] MEDS ORDERED: Calcium Chloride Inj 1 GM in Dextrose 5% in Water Inj 100 ML IV.SIG ONE ×2 (13:00)
[2018-02-18] MEDS: Ibuprofen 400 MG Tablet PO SCH ×2 (13:04→22:01)
[2018-02-18] MEDS: Vancomycin Inj 1,000 MG in Sodium Chlor 0.9% Inj 250 ML IV.SIG SCH (16:44)
[2018-02-18] MEDS: Pantoprazole Inj 40 MG Vial IV.PUSH SCH (17:47)
[2018-02-18] MEDS: Insulin Detemir Inj 1,000 UNIT/10 ML Vial SQ SCH (22:00)
[2018-02-18] MEDS: traZODone 50 MG Tablet PO SCH (22:02)
[2018-02-19] MEDS: Piperacil/Tazo 3.375 GM Premix 50 ML IV.SIG SCH ×4 (03:51→20:25)
[2018-02-19] MEDS: Albumin Human 25% Inj 50 ML IV.SIG SCH ×2 (03:55→15:02)
[2018-02-19] MEDS: Vancomycin Inj 1,000 MG in Sodium Chlor 0.9% Inj 250 ML IV.SIG SCH ×2 (05:16→17:08)
[2018-02-19] MEDS: Ibuprofen 400 MG Tablet PO SCH ×3 (05:17→21:35)
[2018-02-19] MEDS: Morphine Sulfate Inj 2 MG/ML Vial IV.PUSH PRN ×2 (05:18→23:30)
[2018-02-19 06:45] LABS: Anion Gap 11 meq/L (5-15); Blood Urea Nitrogen 8 mg/dL (7-18); Calcium 7.4 mg/dL (8.5-10.1); Carbon Dioxide 29.4 meq/L (21.0-32.0); Chloride 101 meq/L (98-107); Glomerular Filtration Rate Greater Than 89 mL/min (>89); Glucose,Random 60 mg/dL (74-106); Potassium 3.3 meq/L (3.5-5.1); Sodium 141 meq/L (136-145)
[2018-02-19 07:05] LABS: Total Protein 5.7 g/dL (6.4-8.2)
[2018-02-19] MEDS: Potassium Chloride 10 MEQ ER Capsule PO SCH (09:30)
--- NOTE | 2018-02-19 11:06 | P.PNVS ---
Subjective Subjective/Hospital Course: Patient seen full consult dictated Thanks J 02/14/2018 This gentleman has a complex situation. 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 Since then, continued smoking. At that time, he had a fairly reasonable outflow with patent SFAs and dominant posterior tibial artery on the left and anterior tibial on the right. Since then, the patient of course has multiple medical problems. At this time, we have limited options. CTA has been performed today and the findings are below. Regardles, this patient is a very poor candidate for any vascular reconstruction for the simple reason that even if we could do some surgery, the patient has necrosis of the left calf, to the point that this is completely nonsalvageable and it will further necrose and cause problems, and in addition, the patient's immune system is down because of the multiple myeloma and the therapy and presence of wet gangrene in this case is a potentially lethal scenario. The will eventually develop endocarditis and either endocardium of the heart or the artificial valve and he will from this. At this point, I will do a CTA with a runoff to confirm the findings once the creatinine is down, but I would be very inclined to do with an above-knee amputation on this gentleman. At this point, we are not saving his leg, but his life. CTA with runoff reveals on the right side occluded limb of aortobifemoral graft with very tiny external iliac and common femoral arteries patent diseased SFA and occluded popliteal artery. In order to improve the blood supply to the left leg patient will require revision of aortofemoral bypass on the left for which he is clearly not a candidate for a femorofemoral bypass with endarterectomy of common femoral artery on the left. Even then, popliteal artery is occluded. 1. Patient is not a candidate for major vascular construction such as aortofemoral or femoral femoral to distal anterior tibial bypass 2. Patient has a gangrenous calf with visible tendons and this is combination of wet and dry gangrene and even if reconstructed, blood flow would go into a tissue where they are irreversible gangrenous changes. 3. Patient is immunosuppressed cachectic and in very poor shape due to combination of multiple myeloma, amyloidosis and chemotherapy he is receiving. In summary this patient should have left above-knee amputation [place] for otherwise he will become septic and from all this. We will schedule patient tentatively for surgery tomorrow. 02/16/2018 Status post left above-knee amputation Dressing dry and intact Will leave the original dressing on until Monday Nothing to add to care at this time 02/19/2018 Status post AKA left. Incision is clean and dry dressing is being changed daily Patient can be discharged any time from my point Follow-up in the office in about 2 weeks Objective Vital Signs / I&O: Vital Signs 02/18/18 12:00 02/18/18 16:00 02/18/18 20:00 Temperature 98.7 F 98.9 F 98.2 F Pulse Rate 75 67 76 Respiratory Rate 18 18 16 Blood Pressure 128/70 127/60 138/65 Pulse Oximetry 100 98 95 02/19/18 00:00 02/19/18 04:00 02/19/18 08:00 Temperature 98.2 F 98 F 98.0 F Pulse Rate 74 73 67 Respiratory Rate 16 16 16 Blood Pressure 121/67 126/65 102/57 L Pulse Oximetry 94 L 96 97 Intake & Output 02/18/18 02/19/18 02/19/18 18:59 06:59 18:59 Intake Total 840 / 840 160 / 160 275 / 275 Output Total 700 / 700 Balance 140 / 140 160 / 160 275 / 275 Weight 63 kg Intake: IV 510 / 510 160 / 160 275 / 275 Flexbumin 25% Inj 50 ML @ 60 50 / 50 50 / 50 mls/hr IV.SIG Q12H [facility] Rx#: [id number] Calcium Chloride Inj 1 GM In 110 / 110 D5W Inj 100 ML @ 110 mls/hr IV. SIG ONCE ONE Rx#:[id number] Zosyn 3.375 GM Premix 50 ML @ 100 / 100 110 / 110 100 mls/hr IV.SIG Q6H [facility] Rx#: [id number] Vancomycin Inj 1,000 MG In NS 250 / 250 275 / 275 Inj 250 ML @ 250 mls/hr IV.SIG Q12H [facility] Rx#:[id number] Oral 330 / 330 Output: Urine Amount (Catheter) 700 / 700 Indwelling Urethral Catheter 700 / 700 Other: # Voids 1,000 Date of Last Bowel Movement 02/18/18 # Bowel Movements 0 Laboratory Results - last 24 hr 02/18/18 02/19/18 11:38 05:45 Sodium 141 Potassium 3.3 L Chloride 101 Carbon Dioxide 29.4 Anion Gap 11 BUN 8 Creatinine 0.76 Estimated GFR Greater than 89 POC Glucose 131 H Random Glucose 60 L Calcium 7.4 L* Prot Corrected Calcium 8.2 L D Total Protein 5.7 L D
[2018-02-19] MEDS: Insulin NovoLIN Regular Correctional Sugar Inj SQ SCH ×4 (11:15→20:22)
[2018-02-19] MEDS: Lisinopril 5 MG Tablet PO SCH (11:19)
[2018-02-19] MEDS: Furosemide 40 MG Tablet PO SCH (11:29)
[2018-02-19] MEDS: Spironolactone 25 MG Tablet PO SCH (11:30)
[2018-02-19] MEDS: Enoxaparin Inj 30 MG/0.3 ML Syringe SQ SCH (11:31)
[2018-02-19] MEDS: Senna/Docusate Sodium 8.6/50 MG Tablet PO SCH ×2 (11:32→20:22)
--- NOTE | 2018-02-19 12:24 | P.PNIM ---
Subjective Interval history: Patient is sleeping in bed today, awakens easily. He states his pain is not an issue currently. He just received morphine. Physical Exam Vital signs: Vital Signs 02/18/18 16:00 02/18/18 20:00 02/19/18 00:00 Temperature 98.9 F 98.2 F 98.2 F Pulse Rate 67 76 74 Respiratory Rate 18 16 16 Blood Pressure 127/60 138/65 121/67 Pulse Oximetry 98 95 94 L 02/19/18 04:00 02/19/18 08:00 Temperature 98 F 98.0 F Pulse Rate 73 67 Respiratory Rate 16 16 Blood Pressure 126/65 102/57 L Pulse Oximetry 96 97 Intake & Output 02/18/18 02/19/18 02/19/18 18:59 06:59 18:59 Intake Total 840 / 840 160 / 160 275 / 275 Output Total 700 / 700 Balance 140 / 140 160 / 160 275 / 275 Weight 63 kg Intake: IV 510 / 510 160 / 160 275 / 275 Flexbumin 25% Inj 50 ML @ 60 50 / 50 50 / 50 mls/hr IV.SIG Q12H [facility] Rx#: [id number] Calcium Chloride Inj 1 GM In 110 / 110 D5W Inj 100 ML @ 110 mls/hr IV. SIG ONCE ONE Rx#:[id number] Zosyn 3.375 GM Premix 50 ML @ 100 / 100 110 / 110 100 mls/hr IV.SIG Q6H [facility] Rx#: [id number] Vancomycin Inj 1,000 MG In NS 250 / 250 275 / 275 Inj 250 ML @ 250 mls/hr IV.SIG Q12H [facility] Rx#:[id number] Oral 330 / 330 Output: Urine Amount (Catheter) 700 / 700 Indwelling Urethral Catheter 700 / 700 Other: # Voids 1,000 Date of Last Bowel Movement 02/18/18 # Bowel Movements 0 Narrative: GENERAL: AAOx3, no acute distress SKIN: Warm and dry. Greenberg discoloration of right lower extremity with muscle wasting indicating poor circulation HEAD: Atruamtic, normocephalic. EYES: No scleral icterus. No injection or drainage. ENT: Moist mucous membranes, patent nares, no erythema of oropharynx. NECK: Supple, trachea midline. No JVD or lymphadenopathy. Normal thyroid. CARDIOVASCULAR: Regular rate and rhythm. No murmurs, gallops, or rubs. RESPIRATORY: Breath sounds clear equal bilaterally. No crackles or wheezes. No accessory muscle use. GASTROINTESTINAL: Abdomen soft, non-tender, nondistended, normal active bowel sounds MUSCULOSKELETAL: No cyanosis, or edema. Left leg amputated above the knee, surgical site under Abraham wrap dressing NEURO: CN II-XII grossly intact, no focal deficits, no slurring of speech - Urinary Catheter Management Indwelling Urethral Catheter Cath placed during this visit: yes Reason for continuing: Acute urinary retention Insertion date: 02/13/18 Insertion time: 10:45 1100ml Cath placed during this visit: no Reason for continuing: Hourly intake/output Results - Labs CBC & Chem 7: 02/18/18 07:02 02/19/18 05:45 Laboratory Results - last 24 hr 02/19/18 05:45 Sodium 141 Potassium 3.3 L Chloride 101 Carbon Dioxide 29.4 Anion Gap 11 BUN 8 Creatinine 0.76 Estimated GFR Greater than 89 Random Glucose 60 L Calcium 7.4 L* Prot Corrected Calcium 8.2 L D Total Protein 5.7 L D Assessment and Plan - Plan 63-year-old white male admitted with cellulitis and infected wounds Severe cellulitis/ulcerative leg wounds/wet gangrene, s/p AKA Left wuupk-ggq-pwuk amputation on 02/15. Continue p.o. Dilaudid with IV morphine for breakthrough Continue with ibuprofen as needed for inflammatory pain Appreciate surgical assistance. Hypokalemia, hypocalcemia Hypocalcemia replace as needed, will recheck with a.m. labs Hypokalemia replace as needed and recheck with a.m. labs Peripheral vascular disease Right leg is exhibits greenberg discoloration with muscle wasting, typical of PAD Patient reports that his right leg is very weak Acute on chronic anemia. Likely secondary to anemia of inflammation. Status post transfusion of 2 units of PRBCs 02/15/18. Continue to monitor with periodic blood work CAD/chronic systolic CHF/Hypertension/hyperlipidemia Continue home medications of Coreg, lisinopril, spironolactone Acute urinary retention Maintain Marie catheter for now stretch injury Multiple myeloma Monitor for any changes symptomatically DVT prophylaxis SCD hose, chemoprophylaxis held due to anemia and potential for low platelets and multiple myeloma Discharge planning Vascular surgery has cleared patient for discharge, follow-up recommended in 2 weeks from 02/19/2018 Patient will likely need rehab, chemotherapy needs to be considered and he is still very weak from chemotherapy
[2018-02-19] MEDS: Pantoprazole Inj 40 MG Vial IV.PUSH SCH (19:14)
[2018-02-19] MEDS: traZODone 50 MG Tablet PO SCH (20:22)
[2018-02-19] MEDS: Insulin Detemir Inj 1,000 UNIT/10 ML Vial SQ SCH (20:23)
[2018-02-20] MEDS: Albumin Human 25% Inj 50 ML IV.SIG SCH ×3 (03:44→17:06)
[2018-02-20] MEDS: Piperacil/Tazo 3.375 GM Premix 50 ML IV.SIG SCH ×3 (03:44→14:33)
[2018-02-20] MEDS ORDERED: Pharmacy Ordered Lab Info OTHER ONE ×2 (03:45→15:45)
[2018-02-20] MEDS: Vancomycin Inj 1,000 MG in Sodium Chlor 0.9% Inj 250 ML IV.SIG SCH ×3 (04:26→17:06)
[2018-02-20 05:10] LABS: Glomerular Filtration Rate Greater Than 89 mL/min (>89)
[2018-02-20] MEDS: Ibuprofen 400 MG Tablet PO SCH ×3 (05:21→21:02)
[2018-02-20] MEDS: Morphine Sulfate Inj 2 MG/ML Vial IV.PUSH PRN (05:21)
[2018-02-20] MEDS: Insulin NovoLIN Regular Correctional Sugar Inj SQ SCH ×4 (09:54→21:14)
[2018-02-20] MEDS: Enoxaparin Inj 30 MG/0.3 ML Syringe SQ SCH (09:55)
[2018-02-20] MEDS: Furosemide 40 MG Tablet PO SCH (09:56)
[2018-02-20] MEDS: Lisinopril 5 MG Tablet PO SCH (09:56)
[2018-02-20] MEDS: Potassium Chloride 10 MEQ ER Capsule PO SCH (09:56)
[2018-02-20] MEDS: Senna/Docusate Sodium 8.6/50 MG Tablet PO SCH ×2 (09:57→21:02)
[2018-02-20] MEDS: Spironolactone 25 MG Tablet PO SCH (09:57)
--- NOTE | 2018-02-20 15:58 | P.PNIM ---
Subjective Interval history: Patient is currently in no acute distress, lying in bed comfortably. He does not have any current complaints. Physical Exam Vital signs: Vital Signs 02/19/18 16:00 02/19/18 20:00 02/19/18 20:24 Temperature 98.2 F 96.6 F L Pulse Rate 69 73 71 Respiratory Rate 16 16 Blood Pressure 126/60 117/66 Pulse Oximetry 95 96 02/20/18 00:00 02/20/18 03:56 02/20/18 04:00 Temperature 98.6 F 97.4 F L Pulse Rate 70 77 75 Respiratory Rate 18 18 Blood Pressure 106/66 127/60 Pulse Oximetry 94 L 92 L 02/20/18 08:00 02/20/18 12:00 Temperature 97.5 F L 97.6 F Pulse Rate 63 64 Respiratory Rate 19 19 Blood Pressure 124/58 L 126/60 Pulse Oximetry 93 L 94 L Intake & Output 02/19/18 02/20/18 02/20/18 18:59 06:59 18:59 Intake Total 1150 / 1150 595 / 595 50 / 50 Output Total 1350 / 1350 400 / 400 Balance -200 / -200 195 / 195 50 / 50 Weight 62.9 kg Intake: IV 650 / 650 475 / 475 50 / 50 Flexbumin 25% Inj 50 ML @ 60 50 / 50 50 / 50 mls/hr IV.SIG Q12H [facility] Rx#: [id number] Zosyn 3.375 GM Premix 50 ML @ 50 / 50 150 / 150 50 / 50 100 mls/hr IV.SIG Q6H [facility] Rx#: [id number] Vancomycin Inj 1,000 MG In NS 550 / 550 275 / 275 Inj 250 ML @ 250 mls/hr IV.SIG Q12H [facility] Rx#:[id number] Oral 500 / 500 120 / 120 Output: Urine 1350 / 1350 Urine Amount (Catheter) 400 / 400 Indwelling Urethral Catheter 400 / 400 Other: # Incontinent Voids 2 Date of Last Bowel Movement 02/18/18 # Incontinent Bowel Movements 1 Narrative: General patient in no acute distress HEENT extraocular movements are intact, clear oropharyngeal mucosa Cardiovascular S1-S2 audible, RRR Respiratory clear to auscultation bilaterally Abdomen soft, nontender, nondistended, normal bowel sounds Extremities left lower extremity status post AKA, patient's left lower extremity currently in bandage no drainage seen going through the bandage. Weak pulses palpated in the right foot. Neuro patient moves all 4 extremities sensation is intact bilaterally. Decreased sensation of the right foot, discoloration of the distal right lower extremity. - Urinary Catheter Management Indwelling Urethral Catheter Cath placed during this visit: yes Reason for continuing: Acute urinary retention Insertion date: 02/13/18 Insertion time: 10:45 1100ml Cath placed during this visit: no Reason for continuing: Hourly intake/output Results - Labs CBC & Chem 7: 02/18/18 07:02 02/20/18 04:30 Laboratory Results - last 24 hr 02/19/18 02/19/18 02/20/18 16:29 20:21 04:30 Creatinine Estimated GFR POC Glucose 104 133 H Vancomycin Trough 24.2 H 02/20/18 04:30 Creatinine 0.82 Estimated GFR Greater than 89 POC Glucose Vancomycin Trough Assessment and Plan - Plan 63-year-old white male with severe peripheral vascular disease status post AKA of the left lower extremity because of severe cellulitis and infected wounds. Severe cellulitis of the left lower extremity status post above knee amputation Left anaqg-vzt-zkgu amputation on 02/15. Continue with pain medication as needed. IV antibiotics will be discontinued today as the infected limb has been amputated. Continue PT. OT consulted. The patient will be transferred to the rehab center likely tomorrow after OT evaluation. We will follow the recommendations from vascular surgery regarding the left AKA. Peripheral vascular disease Right leg is exhibits greenberg discoloration with muscle wasting likely because of severe peripheral vascular disease. He was advised to stop smoking and to continuously monitor his right foot for any signs of infection. CAD/chronic systolic CHF/Hypertension/hyperlipidemia Continue home medications of Coreg, lisinopril, spironolactone. As per the patient he has an ejection fraction of 25%. He will likely benefit from the addition of aspirin to his medication regimen however given the recent left AKA I will discuss this with vascular surgery prior to starting aspirin. Multiple myeloma Stable for now. Continue current management. Discharge planning Vascular surgery has cleared patient for discharge, follow-up recommended in 2 weeks from 02/19/2018 Patient will likely need rehab, OT will evaluate the patient and he will likely be transferred to the rehab unit tomorrow. Diabetes mellitus type 2 The patient will be continued on a low-dose insulin sliding scale. Basal insulin will be discontinued as the patient had hypoglycemia in the a.m. His diabetes medication regimen will be adjusted as needed. DVT prophylaxis Patient is currently on Lovenox for DVT prophylaxis.
[2018-02-20] MEDS: Pantoprazole Inj 40 MG Vial IV.PUSH SCH (18:02)
[2018-02-20] MEDS: traZODone 50 MG Tablet PO SCH (21:02)
[2018-02-21] MEDS: Ibuprofen 400 MG Tablet PO SCH ×3 (05:55→22:00)
[2018-02-21] MEDS: Insulin NovoLIN Regular Correctional Sugar Inj SQ SCH ×4 (08:11→20:49)
[2018-02-21] MEDS: Furosemide 40 MG Tablet PO SCH (09:16)
[2018-02-21] MEDS: Senna/Docusate Sodium 8.6/50 MG Tablet PO SCH ×2 (09:17→21:20)
[2018-02-21] MEDS: Spironolactone 25 MG Tablet PO SCH (09:19)
[2018-02-21] MEDS: Potassium Chloride 10 MEQ ER Capsule PO SCH (09:21)
[2018-02-21] MEDS: Enoxaparin Inj 30 MG/0.3 ML Syringe SQ SCH (09:22)
[2018-02-21] MEDS: Lisinopril 5 MG Tablet PO SCH (10:53)
--- NOTE | 2018-02-21 15:14 | P.PNIM ---
Subjective Interval history: Patient does not have any current complaints. He is lying in bed comfortably, tolerating a p.o. diet. Physical Exam Vital signs: Vital Signs 02/20/18 16:00 02/20/18 19:15 02/20/18 19:30 Temperature 98.8 F 97.5 F L Pulse Rate 77 77 Respiratory Rate 18 18 Blood Pressure 116/56 L 122/75 Pulse Oximetry 94 L 82 L 79 L 02/20/18 19:35 02/20/18 20:00 02/21/18 00:00 Temperature 98.8 F Pulse Rate 73 70 Respiratory Rate 18 Blood Pressure 108/56 L Pulse Oximetry 95 94 L 02/21/18 04:00 02/21/18 08:00 Temperature 98.1 F 98.5 F Pulse Rate 68 79 Respiratory Rate 20 20 Blood Pressure 112/72 114/56 L Pulse Oximetry 97 90 L Intake & Output 02/20/18 02/21/18 02/21/18 18:59 06:59 18:59 Intake Total 1030 / 1030 Output Total 2400 / 2400 550 / 550 Balance -1370 / -1370 -550 / -550 Weight 62.3 kg Intake: IV 100 / 100 Zosyn 3.375 GM Premix 50 ML @ 100 / 100 100 mls/hr IV.SIG Q6H [facility] Rx#: [id number] Oral 930 / 930 Output: Urine 1200 / 1200 550 / 550 Urine Amount (Catheter) 1200 / 1200 Indwelling Urethral Catheter 1200 / 1200 Other: # Voids 0 # Bowel Movements 0 Narrative: General patient in no acute distress HEENT extraocular movements are intact, clear oropharyngeal mucosa, no JVD Cardiovascular S1-S2 audible Respiratory clear to auscultation bilaterally Abdomen soft, nontender, nondistended, normal bowel sounds Extremities status post left AKA Neuro no neuro deficits - Urinary Catheter Management Indwelling Urethral Catheter Cath placed during this visit: yes, but has since been removed by the nurse Reason for continuing: Not indwelling catheter Insertion date: 02/13/18 Insertion time: 10:45 Removal date: 02/20/18 Removal time: 17:00 1100ml Cath placed during this visit: no Reason for continuing: Hourly intake/output Results - Labs CBC & Chem 7: 02/18/18 07:02 02/20/18 04:30 Laboratory Results - last 24 hr 02/14/18 02/20/18 02/20/18 18:37 15:30 21:00 POC Glucose 156 H Vancomycin Trough 26.1 H Misc Test Result 02/21/18 02/21/18 02/21/18 05:36 07:54 12:46 POC Glucose 139 H 107 179 H Vancomycin Trough Misc Test Result Assessment and Plan - Plan 63-year-old white male with severe peripheral vascular disease status post AKA of the left lower extremity because of severe cellulitis and infected wounds. Urinary retention The patient's Marie catheter was removed yesterday however the patient is having urinary retention. The patient states that he is able to urinate however does not have the urge to go at this time. I will continue to monitor the patient to see if he does void. If he does not we will perform a straight catheterization. Severe cellulitis of the left lower extremity status post above knee amputation Left ndhth-lbm-qwag amputation on 02/15. Continue with pain medication as needed. IV antibiotics will be discontinued today as the infected limb has been amputated. Continue PT. OT consulted. The patient will be transferred to the rehab center possibly today. We will follow the recommendations from vascular surgery regarding the left AKA. Peripheral vascular disease Right leg is exhibits greenberg discoloration with muscle wasting likely because of severe peripheral vascular disease. He was advised to stop smoking and to continuously monitor his right foot for any signs of infection. CAD/chronic systolic CHF/Hypertension/hyperlipidemia Continue home medications of Coreg, lisinopril, spironolactone. As per the patient he has an ejection fraction of 25%. He will likely benefit from the addition of aspirin to his medication regimen however given the recent left AKA I will discuss this with vascular surgery prior to starting aspirin. Multiple myeloma Stable for now. Continue current management. Discharge planning Vascular surgery has cleared patient for discharge, follow-up recommended in 2 weeks from 02/19/2018 Patient will likely need rehab, we are waiting for authorization from insurance for him to be transferred. Diabetes mellitus type 2 The patient will be continued on a low-dose insulin sliding scale. Basal insulin will be discontinued as the patient had hypoglycemia in the a.m. His diabetes medication regimen will be adjusted as needed. DVT prophylaxis Patient is currently on Lovenox for DVT prophylaxis.
[2018-02-21] MEDS ORDERED: Magnesium Sulfate Inj 2 GM in Sodium Chlor 0.9% Inj 96 ML IV.SIG ONE (16:29)
[2018-02-21] MEDS: Mag Sulf 1 gm/100 ml Premix 100 ML IV.SIG SCH ×2 (17:18→18:35)
[2018-02-21] MEDS: Pantoprazole Inj 40 MG Vial IV.PUSH SCH (17:19)
[2018-02-21 18:27] LABS: Anion Gap 10 meq/L (5-15); Blood Urea Nitrogen 11 mg/dL (7-18); Calcium 6.7 mg/dL (8.5-10.1); Carbon Dioxide 30.3 meq/L (21.0-32.0); Chloride 100 meq/L (98-107); Creatine Kinase 23 U/L (39-308); Glomerular Filtration Rate Greater Than 89 mL/min (>89); Glucose,Random 160 mg/dL (74-106); Magnesium 1.4 mg/dL (1.5-2.5); Potassium 3.3 meq/L (3.5-5.1); Sodium 140 meq/L (136-145)
[2018-02-21 18:40] LABS: Total Protein 5.8 g/dL (6.4-8.2)
[2018-02-21] MEDS ORDERED: Potassium Chloride 25 MEQ Effervescent Tablet PO ONE (20:00)
[2018-02-21] MEDS ORDERED: Potassium Chlor 10 mEq Premix 10 MEQ/100 ML PIGGYBACK IV.SIG ONE (20:30)
[2018-02-21] MEDS: traZODone 50 MG Tablet PO SCH (20:48)
[2018-02-21] MEDS ORDERED: Calcium Gluconate Inj 2 GM in Dextrose 5% in Water Inj 100 ML IV.SIG ONE ×2 (21:00)
[2018-02-21] MEDS: Morphine Sulfate Inj 2 MG/ML Vial IV.PUSH PRN (21:21)
--- NOTE | 2018-02-21 21:55 | MB ---
cc: Edgar Lyon DO DATE: 02/21/2018 REASON FOR CONSULTATION: Wide complex tachycardia. HISTORY OF PRESENT ILLNESS: Gabriel Walter is a pleasant 63-year-old male who sees my partner, Dr. Bauer, in the office and presented to [facility] on 02/12/2018 for evaluation of his left lower extremity wounds. Apparently, the patient was previously in the hospital and then went to [facility] and has since been discharged home with home health care nursing addressing his wounds. The nurse was concerned about his wounds and sent a picture to his primary care physician, and his primary care physician suggested the patient come into the emergency room for further evaluation. The patient denied any fevers or chills at that time. Since that time, he was evaluated by CT surgery, and Dr. Kelly evaluated him. It was felt that he had gangrenous tissue and was not a candidate for major vascular reconstruction, as well as being immunosuppressed, cachectic and overall poor shape, and so it was felt that he needed a left fqfbb-bxx-ydtc amputation. Since that time, he has done relatively well and they were getting ready to send him to rehab, but it was noted on telemetry that he had some wide complex tachycardia. Dr. Brock called me and we discussed the case, and I said I would see him. In reviewing his telemetry, it appears that there are some shorter bursts of 3 or 4 beat wide complex tachycardia, which the R-R interval changes, consistent with atrial fibrillation with aberrancy. He also had one long 20-beat run of wide complex tachycardia for which the R-R interval does change somewhat, but this may also be an episode of PAC with aberrancy. Overall, I do not believe that it was ventricular tachycardia. In seeing the patient, he is hemodynamically stable without chest pain or shortness of breath. He states that he does have a history of atrial fibrillation, but I do not see this documented anywhere. PAST MEDICAL HISTORY: 1. Questionable history of atrial fibrillation. 2. Amyloidosis. 3. Coronary artery disease. 4. Systolic congestive heart failure. 5. Diabetes mellitus. 6. Diabetic neuropathy. 7. Peripheral artery disease. 8. Hyperlipidemia. 9. Hypertension. 10. Multiple myeloma. 11. Myocardial infarction. PAST SURGICAL HISTORY: 1. Left ihhey-txw-yzlg amputation (02/15/2018). 2. CABG x3 (12/2008) with VALDEZ to LAD, SVG to OM, SVG to PDA. 3. Left knee surgery. 4. Surgical manipulation of ankle joint. ALLERGIES: AZITHROMYCIN. MEDICATIONS: 1. Decadron 4 mg daily. 2. Cymbalta 30 mg every night. 3. Lisinopril 5 mg daily. 4. Lasix 40 mg daily. 5. Hydromorphone 4 mg every 6 hours as needed. 6. Levemir 5 units every night. 7. Trazodone 50 mg every night. 8. Coreg 3.125 mg b.i.d. 9. NovoLog sliding scale. 10. Aldactone 25 mg daily. 11. Potassium 10 mEq daily. FAMILY HISTORY: Denies sudden cardiac within the family. SOCIAL HISTORY: The patient continues to smoke daily. No history of alcohol or drug abuse. REVIEW OF SYSTEMS: Fourteen systems were reviewed including osteopathic. Pertinent positives and negatives above, otherwise negative. PHYSICAL EXAMINATION: VITAL SIGNS: Temperature 98.2, heart rate 74, blood pressure 116/56, respirations 18, pulse oximetry 96% on room air. GENERAL: The patient appears well, in no acute distress, alert, awake and oriented x3. HEENT: Extraocular muscles intact. Mucous membranes moist. NECK: Supple. No JVD at 45 degrees. No carotid bruits heard bilaterally. Carotid upstroke is brisk in nature. HEART: Regular rate and rhythm. Positive first and second heart sounds are noted. No murmurs, gallops or rubs. LUNGS: Clear to auscultation bilaterally. No wheezes, rales or rhonchi. ABDOMEN: Soft, nontender, nondistended. No organomegaly noted. EXTREMITIES: Right lower extremity shows some chronic changes of venous stasis. Left lower extremity with fgovv-nqr-kbsq amputation and bandage over the wound site. NEUROLOGIC: No focal deficits. SKIN: Warm, dry and intact. OSTEOPATHIC: No kyphoscoliosis, lordosis or paraspinal tender points. LABORATORY DATA: Hemoglobin 10.4, hematocrit 31.9, platelets 155, potassium 3.3, BUN 11, creatinine 0.75, magnesium 1.4. Troponin less than 0.02. ELECTROCARDIOGRAM: Sinus rhythm, possible left atrial abnormality, interventricular conduction delay, LVH with probable secondary ST-T wave changes. No change from 02/12/2018. IMPRESSION: 1. Wide complex tachycardia. 2. Peripheral artery disease with previous aortobifemoral bypass. 3. Status post left rwhdf-fyo-knsr amputation due to gangrenous tissue of the legs. 4. Amyloidosis. 5. Coronary artery disease with a history of coronary artery bypass graft, as above. 6. Questionable history of atrial fibrillation. 7. Chronic systolic congestive heart failure. 8. Diabetes. 9. Diabetic neuropathy. 10. Hypertension. 11. Hyperlipidemia. 12. Multiple myeloma. 13. Tobacco abuse. RECOMMENDATIONS: 1. Mr. Rios appeared to have a wide complex tachycardia on telemetry. Overall, there are a few 3- and 4-beat runs, which appear to have irregular R-R intervals consistent with probable fibrillation with aberrancy. Overall, the patient believes that he has a history of atrial fibrillation, although I do not see this documented within the history here or in the office notes. 2. Overall, I would not consider him an anticoagulation candidate at this time, as he has had hemoglobins as low as 5-6 and, overall recent surgery, as well as unsure about his gait after having above-knee amputation. This can be reconsidered in the outpatient setting. 3. He did have a long episode which appeared a little more regular at around 20 beats. This looked more to be PAT with aberrancy. 4. Electrolytes have been checked and his magnesium and potassium are both relatively low, and these will be replaced. 5. Overall, the patient had no chest pain or shortness of breath and EKG shows no significant change from previous. For now, I would continue to treat him medically, as I do not believe that this is ischemic induced nonsustained VT. 6. While here in the hospital, he will be watched on telemetry. 7. We will attempt to try to increase his beta blockade by increasing his carvedilol. 8. There was a question of restarting him on aspirin due to his recent surgery, but overall, this appears to be healed and I would start him back on aspirin 81 mg daily. 9. We did discuss undergoing a stress test, but per the , she was told that he should not undergo any further consideration of stress testing, as everything possible has been done coronary jacinto. I have reviewed the notes in the office and I do not see anything stating this, but this can be reconsidered at another time, outpatient if necessary. 10. I spoke to him for greater than 3 minutes about tobacco cessation. Thank you for allowing me to see Jose Angel Rios. If there are any questions, please do not hesitate to call. DO AUDREY Arndt/cj , 09:12 PM , 09:28 PM EMILY
[2018-02-22] MEDS: Ibuprofen 400 MG Tablet PO SCH ×3 (05:30→21:19)
[2018-02-22 07:27] LABS: Glomerular Filtration Rate Greater Than 89 mL/min (>89)
[2018-02-22] MEDS: Insulin NovoLIN Regular Correctional Sugar Inj SQ SCH ×4 (09:15→21:18)
[2018-02-22] MEDS: Enoxaparin Inj 30 MG/0.3 ML Syringe SQ SCH (09:16)
[2018-02-22] MEDS: Carvedilol 6.25 MG Tablet PO SCH ×2 (09:17→20:28)
[2018-02-22] MEDS: Potassium Chloride 10 MEQ ER Capsule PO SCH (09:17)
[2018-02-22] MEDS: Furosemide 40 MG Tablet PO SCH (09:19)
[2018-02-22] MEDS: Senna/Docusate Sodium 8.6/50 MG Tablet PO SCH ×2 (09:20→20:28)
[2018-02-22] MEDS: Spironolactone 25 MG Tablet PO SCH (09:20)
[2018-02-22] MEDS: Lisinopril 5 MG Tablet PO SCH (09:23)
[2018-02-22] MEDS ORDERED: Magnesium Sulfate Inj 4 GM in Sodium Chlor 0.9% Inj 92 ML IV.SIG ONE (10:00)
--- NOTE | 2018-02-22 10:00 | P.PNIM ---
Subjective Interval history: Patient is laying down in bed. He does not have any complaints of pain. No nausea or vomiting. The patient is tolerating a p.o. diet. Physical Exam Vital signs: Vital Signs 02/21/18 12:00 02/21/18 16:00 02/21/18 20:00 Temperature 98.2 F 98.0 F Pulse Rate 69 74 82 Respiratory Rate 18 18 Blood Pressure 116/56 L 121/63 Pulse Oximetry 96 93 L 02/22/18 00:00 02/22/18 04:00 02/22/18 08:00 Temperature 98.6 F 99.0 F Pulse Rate 87 86 78 Respiratory Rate 18 18 Blood Pressure 122/68 130/68 Pulse Oximetry 93 L 96 Intake & Output 02/21/18 02/22/18 02/22/18 18:59 06:59 18:59 Intake Total 540 / 540 630 / 630 Output Total 550 / 550 Balance -10 / -10 630 / 630 Weight 61.5 kg Intake: IV 100 / 100 230 / 230 Calcium Gluconate Inj 2 GM In 120 / 120 D5W Inj 100 ML @ 120 mls/hr IV. SIG ONCE ONE Rx#:[id number] Magnesium Sulfate 1 gm/D5W 100 100 / 100 100 / 100 ml Premix 100 ML @ 100 mls/hr IV.SIG Q1H LEIGHA Rx#:[id number] KCl 10 mEq Premix Inj 10 meq In 10 / 10 100 ml @ 100 mls/hr IV.SIG ONCE ONE Rx#:[id number] Oral 440 / 440 400 / 400 Output: Urine 550 / 550 Other: # Voids 3 # Bowel Movements 0 Narrative: General patient in no acute distress HEENT extraocular movements are intact, clear oropharyngeal mucosa, no JVD Cardiovascular S1-S2 audible Respiratory clear to auscultation bilaterally Abdomen soft, nontender, nondistended, normal bowel sounds Extremities status post left AKA Neuro no neuro deficits - Urinary Catheter Management Indwelling Urethral Catheter Cath placed during this visit: yes, but has since been removed by the nurse Reason for continuing: Not indwelling catheter Insertion date: 02/13/18 Insertion time: 10:45 Removal date: 02/20/18 Removal time: 17:00 Straight Cath placed during this visit: yes, but has since been removed by the nurse Reason for continuing: Not indwelling catheter Insertion date: 02/21/18 Insertion time: 23:56 Removal date: 02/22/18 Removal time: 00:05 1100ml Cath placed during this visit: no Reason for continuing: Hourly intake/output Results - Labs CBC & Chem 7: 02/18/18 07:02 02/22/18 06:17 Laboratory Results - last 24 hr 02/21/18 02/21/18 02/21/18 12:46 17:55 17:55 Sodium 140 Potassium 3.3 L Chloride 100 Carbon Dioxide 30.3 Anion Gap 10 BUN 11 Creatinine 0.75 Estimated GFR Greater than 89 POC Glucose 179 H Random Glucose 160 H Calcium 6.7 L* Prot Corrected Calcium 7.3 L* Magnesium 1.4 L Total Creatine Kinase 23 L Troponin I Less than 0.02 L Total Protein 5.8 L 02/21/18 02/21/18 02/21/18 17:55 17:55 19:43 Sodium Potassium Chloride Carbon Dioxide Anion Gap BUN Creatinine Estimated GFR POC Glucose 220 H Random Glucose Calcium Prot Corrected Calcium Magnesium Cancelled Total Creatine Kinase Troponin I Cancelled Total Protein 02/22/18 02/22/18 06:17 09:01 Sodium Potassium Chloride Carbon Dioxide Anion Gap BUN Creatinine 0.84 Estimated GFR Greater than 89 POC Glucose 200 H Random Glucose Calcium Prot Corrected Calcium Magnesium Total Creatine Kinase Troponin I Total Protein Assessment and Plan - Plan 63-year-old white male with severe peripheral vascular disease status post AKA of the left lower extremity because of severe cellulitis and infected wounds. Nonsustained ventricular tachycardia likely secondary to electrolyte abnormalities The patient had a few runs of NSVT yesterday. I evaluated the patient, he was asymptomatic and had no complaints of chest pain or palpitations. An EKG was done which showed that the patient was in sinus rhythm. Troponin and CK-MB were ordered which were negative. Magnesium and potassium were found to be low and electrolytes were replaced yesterday. Since yesterday's episodes the patient has not had any significant runs of NSVT. Cardiology was consulted yesterday. I had a discussion with Dr. Lyon who thinks the short runs on telemetry are possibly atrial fibrillation with aberrancy. The longer run that the patient had was likely an and NSVT. This is likely because of the electrolyte abnormalities. I will follow up with a renal panel with magnesium later today. Given the patient's poor systolic function he is at high risk for arrhythmias. Urinary retention The patient's Marie catheter was removed yesterday however the patient is having urinary retention. He is now refusing Marie catheter placement, we will continue to straight cath the patient and monitor to see if he does void. I will continue to monitor the patient to see if he does void. Severe cellulitis of the left lower extremity status post above knee amputation Left stijq-lnl-olvz amputation on 02/15. Continue with pain medication as needed. IV antibiotics will be discontinued today as the infected limb has been amputated. Continue PT. OT consulted. The patient will be transferred to the rehab center possibly today. We will follow the recommendations from vascular surgery regarding the left AKA. Peripheral vascular disease Right leg is exhibits greenberg discoloration with muscle wasting likely because of severe peripheral vascular disease. He was advised to stop smoking and to continuously monitor his right foot for any signs of infection. CAD/chronic systolic CHF/Hypertension/hyperlipidemia Continue home medications of Coreg, lisinopril, spironolactone. As per the patient he has an ejection fraction of 25%. He will likely benefit from the addition of aspirin to his medication regimen however given the recent left AKA I will discuss this with vascular surgery prior to starting aspirin. Multiple myeloma Stable for now. Continue current management. Discharge planning Vascular surgery has cleared patient for discharge, follow-up recommended in 2 weeks from 02/19/2018 Patient will likely need rehab, we are waiting for authorization from insurance for him to be transferred. Diabetes mellitus type 2 The patient will be continued on a low-dose insulin sliding scale. Basal insulin will be discontinued as the patient had hypoglycemia in the a.m. His diabetes medication regimen will be adjusted as needed. DVT prophylaxis Patient is currently on Lovenox for DVT prophylaxis.
[2018-02-22] MEDS ORDERED: Acetaminophen 325 MG Tablet PO PRN (10:28)
[2018-02-22] MEDS ORDERED: Morphine Sulfate Inj 2 MG/ML Vial IV.PUSH PRN (17:59)
--- NOTE | 2018-02-22 18:16 | P.DS ---
Date of admission: 02/12/18 19:49 Primary care physician: Taiwo Palm MD Brief History from admission: 63-year-old male with a past medical history significant for amyloidosis, arthritis, coronary artery disease, CHF, diabetes mellitus, diabetic neuropathy , hypertension, hyperlipidemia and multiple myeloma emergency department for evaluation of the left lower extremity wounds. The patient was recently discharged from [facility] to home and had a home health care nurse addressing his wounds. Today, the nurse was concerned about his wounds and sent a picture to his primary care physician. The primary care physician suggested that the patient come to the emergency department for further evaluation. The patient denies any fever/chills. No chest pain or shortness of breath. No abdominal pain. No nausea/vomiting/diarrhea. No lateralizing signs/symptoms. DS: Diagnosis - Discharge Diagnosis (1) Unilateral AKA Status: Acute (2) NSVT (nonsustained ventricular tachycardia) Status: Acute DS: Summary Hospital Course: 63-year-old white male with severe peripheral vascular disease status post AKA of the left lower extremity because of severe cellulitis and infected wounds. Nonsustained ventricular tachycardia likely secondary to electrolyte abnormalities The patient had a few runs of NSVT yesterday. I evaluated the patient, he was asymptomatic and had no complaints of chest pain or palpitations. An EKG was done which showed that the patient was in sinus rhythm. Troponin and CK-MB were ordered which were negative. Magnesium and potassium were found to be low and electrolytes were replaced yesterday. Since yesterday's episodes the patient has not had any significant runs of NSVT. Cardiology was consulted yesterday. I had a discussion with Dr. Lyon who thinks the short runs on telemetry are possibly atrial fibrillation with aberrancy. The longer run that the patient had was likely an and NSVT. This is likely because of the electrolyte abnormalities. The patient's electrolytes potassium and magnesium should be monitored closely and replaced as needed. Urinary retention The patient's Marie catheter was removed yesterday however the patient is having urinary retention. He is now refusing Marie catheter placement, we will continue to straight cath the patient and monitor to see if he does void. He will be transferred to [place] rehab today, if the patient does not avoid a Marie catheter should be placed and he may possibly need evaluation by urology. Severe cellulitis of the left lower extremity status post above knee amputation Left scifd-urx-eduj amputation on 02/15. Continue with pain medication as needed. IV antibiotics will be discontinued today as the infected limb has been amputated. Continue PT. OT consulted. The patient will be transferred to the rehab center possibly today. The patient can follow-up with vascular surgery as per their documentation within 2 weeks. Peripheral vascular disease Right leg is exhibits greenberg discoloration with muscle wasting likely because of severe peripheral vascular disease. He was advised to stop smoking and to continuously monitor his right foot for any signs of infection. CAD/chronic systolic CHF/Hypertension/hyperlipidemia Continue home medications of Coreg, lisinopril, spironolactone. As per the patient he has an ejection fraction of 25%. He will likely benefit from the addition of aspirin to his medication regimen however given the recent left AKA I will discuss this with vascular surgery prior to starting aspirin. Multiple myeloma Stable for now. Continue current management. Discharge planning Vascular surgery has cleared patient for discharge, follow-up recommended in 2 weeks from 02/19/2018 Patient will likely need rehab, we are waiting for authorization from insurance for him to be transferred. Diabetes mellitus type 2 The patient will be continued on a low-dose insulin sliding scale. Basal insulin will be discontinued as the patient had hypoglycemia in the a.m. His diabetes medication regimen will be adjusted as needed. DVT prophylaxis Patient is currently on Lovenox for DVT prophylaxis. - Time Spent with Patient Total time spent providing and/or coordinating discharge services: Greater than 30 minutes - Quality: VTE Deep Vein Thrombosis/Pulmonary Embolism Present on Admission: No Exam Vital signs: Vital Signs 02/21/18 20:00 02/22/18 00:00 02/22/18 04:00 Temperature 98.0 F 98.6 F 99.0 F Pulse Rate 82 87 86 Respiratory Rate 18 Blood Pressure 121/63 122/68 130/68 Pulse Oximetry 93 L 93 L 96 02/22/18 08:00 02/22/18 12:00 02/22/18 16:00 Temperature 98.3 F 97.7 F 98.2 F Pulse Rate 78 71 74 Respiratory Rate 18 18 Blood Pressure 132/59 L 101/53 L 132/79 Pulse Oximetry 96 93 L 95 Intake & Output 02/21/18 02/22/18 02/22/18 18:59 06:59 18:59 Intake Total 540 / 540 630 / 630 100 / 100 Output Total 550 / 550 500 / 500 Balance -10 / -10 630 / 630 -400 / -400 Weight 61.5 kg Intake: IV 100 / 100 230 / 230 100 / 100 Calcium Gluconate Inj 2 GM In 120 / 120 D5W Inj 100 ML @ 120 mls/hr IV. SIG ONCE ONE Rx#:[id number] Magnesium Sulfate 1 gm/D5W 100 100 / 100 100 / 100 ml Premix 100 ML @ 100 mls/hr IV.SIG Q1H LEIGHA Rx#:[id number] Magnesium Sulfate Inj 4 GM In 100 / 100 NS Inj 92 ML @ 25 mls/hr IV.SIG ONCE ONE Rx#:[id number] KCl 10 mEq Premix Inj 10 meq In 10 / 10 100 ml @ 100 mls/hr IV.SIG ONCE ONE Rx#:[id number] Oral 440 / 440 400 / 400 Output: Urine 550 / 550 Urine Amount (Catheter) 500 / 500 Straight 500 / 500 Other: # Voids 3 Date of Last Bowel Movement 02/21/18 # Bowel Movements 0 Results Procedures completed during hospitalization: Left lower ext AKA Completed studies during hospitalization: Pending at discharge 02/15/18 16:31 Surgical [PTH] Routine Labs on day of discharge: Labs from last 24 hours 02/22/18 02/22/18 02/22/18 17:27 16:44 09:01 Sodium Pending Potassium Pending Chloride Pending Carbon Dioxide Pending Anion Gap Pending BUN Pending Creatinine Pending Estimated GFR POC Glucose 196 H 200 H Random Glucose Pending Calcium Pending Prot Corrected Calcium Magnesium Pending Total Creatine Kinase Troponin I Total Protein 02/22/18 02/21/18 02/21/18 06:17 19:43 17:55 Sodium Potassium Chloride Carbon Dioxide Anion Gap BUN Creatinine 0.84 Estimated GFR Greater than 89 POC Glucose 220 H Random Glucose Calcium Prot Corrected Calcium Magnesium Total Creatine Kinase 23 L Troponin I Less than 0.02 L Total Protein 02/21/18 17:55 Sodium 140 Potassium 3.3 L Chloride 100 Carbon Dioxide 30.3 Anion Gap 10 BUN 11 Creatinine 0.75 Estimated GFR Greater than 89 POC Glucose Random Glucose 160 H Calcium 6.7 L* Prot Corrected Calcium 7.3 L* Magnesium 1.4 L Total Creatine Kinase Troponin I Total Protein 5.8 L - Impressions ITS Impressions Chest X-Ray 02/12/18 18:06 CONCLUSION: 1. Bilateral pulmonary opacities again noted which are mildly improved at the right lung base. 2. Status post median sternotomy for bypass grafting procedure with residual cardiomegaly. 3. Small effusions. Tibia/Fibula X-Ray 02/12/18 19:27 CONCLUSION: 1. Soft tissue swelling and irregularity along the region of the open wound with no radiopaque foreign body. 2. Osteopenia and remote postsurgical changes involving the distal tibia and fibula. Chest CT 02/12/18 20:24 CONCLUSION: 1. Streaky infiltrate is present in both lungs with small areas of consolidation in the right upper lobe. The findings may indicate pneumonia or asymmetric pulmonary edema. 2. Status post median sternotomy with cardiomegaly. 3. Bilateral small pleural effusions. Abdomen/Bladder Ultrasound 02/13/18 00:00 CONCLUSION: 1. Prominent collecting systems probably related to distended bladder. Suggest reimaging in 24 hours by ultrasound if creatinine does not normalize. Aorta w/Runoff CTA 02/14/18 00:00 CONCLUSION: 1. The patient is post aortobifemoral graft placement. The left limb of the graft is occluded. 2. Right leg: Moderate stenosis at the junction of the graft in the right common femoral with patchy disease in the superficial femoral and a focal area of moderate stenosis at the adductor hiatus. Distally, there is two-vessel runoff into the foot via the posterior tibial and peroneal. 3. Left leg: Reconstitution of a diminutive left external iliac and common femoral. The profunda femoral and superficial femoral are patent with moderate stenosis at the adductor hiatus within the superficial femoral. There is high- grade stenosis in the mid popliteal. Distally, there is two-vessel runoff into the foot Discharge Plan - Discharge Disposition Patient Disposition: 63 Rehab Inpatient - Discharge Condition Condition: Stable - Discharge Order Discharge Orders: Discharge Order (Routine); Ordered 02/22/18 Ordered By: Donna Brock - Discharge Details Anticipated Discharge Date: 02/12/18 - Physicians Team Primary Care Provider: Taiwo Palm Attending Provider: Donna Brock Other Providers: Dayne Kelly MD ; Cathy Scott MD ; [facility] ; Edgar Lyon DO
--- NOTE | 2018-02-22 18:45 | ECG ---
Date Performed: 02/21/2018 Time Performed: 16:36:58 PTAGE: 63 years EKG: Sinus rhythm . Left atrial abnormality Low limb lead voltage Indeterminate axis IV conduction defect Possible left ventricular hypertrophy ST-T changes are probably due to ventricular hypertrophy Since the previous tracing, no significant change noted Abnormal ECG PREVIOUS TRACING : 02/12/2018 20.20 DOCTOR: Zheng Dominguez Interpretating Date/Time 02/22/2018 18:43:16
[2018-02-22 18:46] LABS: Calcium 7.1 mg/dL (8.5-10.1); Carbon Dioxide 29.4 meq/L (21.0-32.0); Magnesium 2.6 mg/dL (1.5-2.5); Potassium 4.1 meq/L (3.5-5.1)
[2018-02-22] MEDS: Pantoprazole Inj 40 MG Vial IV.PUSH SCH (18:48)
[2018-02-22 19:05] LABS: Total Protein 6.1 g/dL (6.4-8.2)
[2018-02-22] MEDS: traZODone 50 MG Tablet PO SCH (20:28)
--- NOTE | 2018-02-22 21:21 | P.PNVS ---
Subjective Subjective/Hospital Course: Patient seen full consult dictated Thanks J 02/14/2018 This gentleman has a complex situation. 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 Since then, continued smoking. At that time, he had a fairly reasonable outflow with patent SFAs and dominant posterior tibial artery on the left and anterior tibial on the right. Since then, the patient of course has multiple medical problems. At this time, we have limited options. CTA has been performed today and the findings are below. Regardles, this patient is a very poor candidate for any vascular reconstruction for the simple reason that even if we could do some surgery, the patient has necrosis of the left calf, to the point that this is completely nonsalvageable and it will further necrose and cause problems, and in addition, the patient's immune system is down because of the multiple myeloma and the therapy and presence of wet gangrene in this case is a potentially lethal scenario. The will eventually develop endocarditis and either endocardium of the heart or the artificial valve and he will from this. At this point, I will do a CTA with a runoff to confirm the findings once the creatinine is down, but I would be very inclined to do with an above-knee amputation on this gentleman. At this point, we are not saving his leg, but his life. CTA with runoff reveals on the right side occluded limb of aortobifemoral graft with very tiny external iliac and common femoral arteries patent diseased SFA and occluded popliteal artery. In order to improve the blood supply to the left leg patient will require revision of aortofemoral bypass on the left for which he is clearly not a candidate for a femorofemoral bypass with endarterectomy of common femoral artery on the left. Even then, popliteal artery is occluded. 1. Patient is not a candidate for major vascular construction such as aortofemoral or femoral femoral to distal anterior tibial bypass 2. Patient has a gangrenous calf with visible tendons and this is combination of wet and dry gangrene and even if reconstructed, blood flow would go into a tissue where they are irreversible gangrenous changes. 3. Patient is immunosuppressed cachectic and in very poor shape due to combination of multiple myeloma, amyloidosis and chemotherapy he is receiving. In summary this patient should have left above-knee amputation [place] for otherwise he will become septic and from all this. We will schedule patient tentatively for surgery tomorrow. 02/16/2018 Status post left above-knee amputation Dressing dry and intact Will leave the original dressing on until Monday Nothing to add to care at this time 02/19/2018 Status post AKA left. Incision is clean and dry dressing is being changed daily Patient can be discharged any time from my point Follow-up in the office in about 2 weeks 02/22/2018 Stump is clean and dry healing very nicely Discussed with medicine and patient is to be discharged today or tomorrow Follow-up in my office in about 2 weeks for stitch removal Nothing to add to care from vascular point Objective Vital Signs / I&O: Vital Signs 02/22/18 00:00 02/22/18 04:00 02/22/18 08:00 Temperature 98.6 F 99.0 F 98.3 F Pulse Rate 87 86 78 Respiratory Rate 18 18 18 Blood Pressure 122/68 130/68 132/59 L Pulse Oximetry 93 L 96 96 02/22/18 12:00 02/22/18 16:00 Temperature 97.7 F 98.2 F Pulse Rate 71 74 Respiratory Rate 18 18 Blood Pressure 101/53 L 132/79 Pulse Oximetry 93 L 95 Intake & Output 02/22/18 02/22/18 02/23/18 06:59 18:59 06:59 Intake Total 630 / 630 940 / 940 Output Total 500 / 500 Balance 630 / 630 440 / 440 Weight 61.5 kg Intake: IV 230 / 230 100 / 100 Calcium Gluconate Inj 2 GM In 120 / 120 D5W Inj 100 ML @ 120 mls/hr IV. SIG ONCE ONE Rx#:[id number] Magnesium Sulfate 1 gm/D5W 100 100 / 100 ml Premix 100 ML @ 100 mls/hr IV.SIG Q1H LEIGHA Rx#:[id number] Magnesium Sulfate Inj 4 GM In 100 / 100 NS Inj 92 ML @ 25 mls/hr IV.SIG ONCE ONE Rx#:[id number] KCl 10 mEq Premix Inj 10 meq In 10 / 10 100 ml @ 100 mls/hr IV.SIG ONCE ONE Rx#:[id number] Oral 400 / 400 840 / 840 Output: Urine Amount (Catheter) 500 / 500 Straight 500 / 500 Other: Date of Last Bowel Movement 02/21/18 Laboratory Results - last 24 hr 09/02/22/18 02/22/18 06:17 09:01 16:44 Sodium Potassium Chloride Carbon Dioxide Anion Gap BUN Creatinine 0.84 Estimated GFR Greater than 89 POC Glucose 200 H 196 H Random Glucose Calcium Prot Corrected Calcium Magnesium Total Protein 02/22/18 02/22/18 17:27 20:35 Sodium 140 Potassium 4.1 D Chloride 103 Carbon Dioxide 29.4 Anion Gap 8 BUN 14 Creatinine 0.93 Estimated GFR 82 L POC Glucose 281 H Random Glucose 203 H Calcium 7.1 L* Prot Corrected Calcium 7.6 L Magnesium 2.6 H D Total Protein 6.1 L
--- NOTE | 2018-02-22 23:03 | P.PNCA ---
Subjective Interval history: Consult dictated, placed under visit for 02/21/18 Will call Dictation to attempt to move it to correct visit No event overnight No further wide complex tachycardias after electrolytes replaced Feels well overall, no complaints Physical Exam Vital signs: Vital Signs 02/22/18 00:00 02/22/18 04:00 02/22/18 08:00 Temperature 98.6 F 99.0 F 98.3 F Pulse Rate 87 86 78 Respiratory Rate 18 18 18 Blood Pressure 122/68 130/68 132/59 L Pulse Oximetry 93 L 96 96 02/22/18 12:00 02/22/18 16:00 02/22/18 20:00 Temperature 97.7 F 98.2 F 97.4 F L Pulse Rate 71 74 79 Respiratory Rate 18 15 Blood Pressure 101/53 L 132/79 121/59 L Pulse Oximetry 93 L 95 94 L Intake & Output 02/22/18 02/22/18 02/23/18 06:59 18:59 06:59 Intake Total 630 / 630 940 / 940 Output Total 500 / 500 Balance 630 / 630 440 / 440 Weight 61.5 kg Intake: IV 230 / 230 100 / 100 Calcium Gluconate Inj 2 GM In 120 / 120 D5W Inj 100 ML @ 120 mls/hr IV. SIG ONCE ONE Rx#:[id number] Magnesium Sulfate 1 gm/D5W 100 100 / 100 ml Premix 100 ML @ 100 mls/hr IV.SIG Q1H LEIGHA Rx#:[id number] Magnesium Sulfate Inj 4 GM In 100 / 100 NS Inj 92 ML @ 25 mls/hr IV.SIG ONCE ONE Rx#:[id number] KCl 10 mEq Premix Inj 10 meq In 10 / 10 100 ml @ 100 mls/hr IV.SIG ONCE ONE Rx#:[id number] Oral 400 / 400 840 / 840 Output: Urine Amount (Catheter) 500 / 500 Straight 500 / 500 Other: Date of Last Bowel Movement 02/21/18 02/21/18 Narrative: General patient in no acute distress HEENT extraocular movements are intact, clear oropharyngeal mucosa, no JVD Cardiovascular S1-S2 audible Respiratory clear to auscultation bilaterally Abdomen soft, nontender, nondistended, normal bowel sounds Extremities status post left AKA Neuro no neuro deficits - Urinary Catheter Management Indwelling Urethral Catheter Cath placed during this visit: yes, but has since been removed by the nurse Reason for continuing: Not indwelling catheter Insertion date: 02/13/18 Insertion time: 10:45 Removal date: 02/20/18 Removal time: 17:00 Straight Cath placed during this visit: yes, but has since been removed by the nurse Reason for continuing: Not indwelling catheter Insertion date: 02/21/18 Insertion time: 23:56 Removal date: 02/22/18 Removal time: 00:05 1100ml Cath placed during this visit: no Reason for continuing: Hourly intake/output Assessment and Plan - Assessment (1) Wide-complex tachycardia Code(s): I47.2 - Ventricular tachycardia Status: Acute (2) Gangrene of lower extremity Code(s): I96 - Gangrene, not elsewhere classified Status: Acute (3) Unilateral AKA Code(s): Z89.619 - Acquired absence of unspecified leg above knee Status: Acute (4) Amyloidosis Code(s): E85.9 - Amyloidosis, unspecified Status: Acute (5) CHF (congestive heart failure) Code(s): I50.9 - Heart failure, unspecified Status: Acute (6) Cellulitis of left leg Code(s): L03.116 - Cellulitis of left lower limb Status: Acute (7) Diabetes mellitus Code(s): E11.9 - Type 2 diabetes mellitus without complications Status: Acute (8) Hypertension Code(s): I10 - Essential (primary) hypertension Status: Acute (9) Multiple myeloma Code(s): C90.00 - Multiple myeloma not having achieved remission Status: Acute - Plan 1) Left lower leg ischemia with gangrenous tissue s/p AKA 2) Amyloidosis 3) Wide complex tachycardia Few short 3-5 beat runs appear to be AFib with aberrancy as R-R interval is changing Did have a longer episode of around 20 beats More likely PAT with aberrancy Not felt to be NSVT No further events after electrolytes corrected Coreg increased to 6.25mg BID 4) Questionable history of AFib per the patient Not a candidate for anti-coagulation at this time Previous history of Hgb in the 5-6 range Recent surgery Gait impairment with left AKA Can be reassessed outpatient ASA 81mg daily 5) Tobacco cessation
[2018-02-23] MEDS: Ibuprofen 400 MG Tablet PO SCH (05:49)
[2018-02-23] MEDS: Insulin NovoLIN Regular Correctional Sugar Inj SQ SCH (08:22)
[2018-02-23] MEDS: Carvedilol 6.25 MG Tablet PO SCH (08:41)
[2018-02-23] MEDS: Spironolactone 25 MG Tablet PO SCH (08:41)
[2018-02-23] MEDS: Furosemide 40 MG Tablet PO SCH (08:41)
[2018-02-23] MEDS: Enoxaparin Inj 30 MG/0.3 ML Syringe SQ SCH (08:41)
[2018-02-23] MEDS: Senna/Docusate Sodium 8.6/50 MG Tablet PO SCH (08:41)
[2018-02-23] MEDS: Lisinopril 5 MG Tablet PO SCH (08:42)
[2018-02-23] MEDS: Potassium Chloride 10 MEQ ER Capsule PO SCH (08:42)
[2018-02-23 09:18] VITALS: BP 124/59; PULSE 72; RESP 17; TEMP 98.4; O2SAT 90
--- NOTE | 2018-02-23 17:06 | P.PNIM ---
Subjective Interval history: Patient complains of some pain in his left lower extremity at the AKA site.. Otherwise he does not have any other complaints. Physical Exam Vital signs: Vital Signs 02/22/18 20:00 02/22/18 23:50 02/23/18 00:00 Temperature 97.4 F L 97.8 F 97.8 F Pulse Rate 79 68 68 Respiratory Rate 15 17 17 Blood Pressure 121/59 L 122/64 122/64 Pulse Oximetry 94 L 93 L 93 L 02/23/18 04:00 02/23/18 08:00 Temperature 98.1 F 98.4 F Pulse Rate 71 72 Respiratory Rate 18 17 Blood Pressure 120/66 124/59 L Pulse Oximetry 92 L 90 L Intake & Output 02/22/18 02/23/18 02/23/18 18:59 06:59 18:59 Intake Total 940 / 940 200 / 200 Output Total 500 / 500 800 / 800 Balance 440 / 440 -600 / -600 Weight 64.7 kg Intake: IV 100 / 100 Magnesium Sulfate Inj 4 GM In 100 / 100 NS Inj 92 ML @ 25 mls/hr IV.SIG ONCE ONE Rx#:[id number] Oral 840 / 840 200 / 200 Output: Urine Amount (Catheter) 500 / 500 800 / 800 Straight 500 / 500 800 / 800 Other: Date of Last Bowel Movement 02/21/18 02/21/18 # Bowel Movements 0 Narrative: General patient in no acute distress HEENT extraocular movements are intact, clear oropharyngeal mucosa, no JVD Cardiovascular S1-S2 audible Respiratory clear to auscultation bilaterally Abdomen soft, nontender, nondistended, normal bowel sounds Extremities status post left AKA Neuro no neuro deficits - Urinary Catheter Management Indwelling Urethral Catheter Cath placed during this visit: yes, but has since been removed by the nurse Reason for continuing: Not indwelling catheter Insertion date: 02/13/18 Insertion time: 10:45 Removal date: 02/20/18 Removal time: 17:00 Straight Cath placed during this visit: yes, but has since been removed by the nurse Reason for continuing: Not indwelling catheter Insertion date: 02/21/18 Insertion time: 23:56 Removal date: 02/22/18 Removal time: 00:05 1100ml Cath placed during this visit: no Reason for continuing: Hourly intake/output Results - Labs CBC & Chem 7: 02/18/18 07:02 02/22/18 17:27 Laboratory Results - last 24 hr 02/22/18 02/22/18 02/22/18 16:44 17:27 20:35 Sodium 140 Potassium 4.1 D Chloride 103 Carbon Dioxide 29.4 Anion Gap 8 BUN 14 Creatinine 0.93 Estimated GFR 82 L POC Glucose 196 H 281 H Random Glucose 203 H Calcium 7.1 L* Prot Corrected Calcium 7.6 L Magnesium 2.6 H D Total Protein 6.1 L 02/23/18 02/23/18 04:16 07:50 Sodium Potassium Chloride Carbon Dioxide Anion Gap BUN Creatinine Estimated GFR POC Glucose 92 94 Random Glucose Calcium Prot Corrected Calcium Magnesium Total Protein - Procedures Left lower ext AKA Assessment and Plan - Assessment (1) Unilateral AKA Code(s): Z89.619 - Acquired absence of unspecified leg above knee Status: Acute (2) NSVT (nonsustained ventricular tachycardia) Code(s): I47.2 - Ventricular tachycardia Status: Acute - Plan 63-year-old white male with severe peripheral vascular disease status post AKA of the left lower extremity because of severe cellulitis and infected wounds. Nonsustained ventricular tachycardia likely secondary to electrolyte abnormalities Continue to monitor the patient's electrolytes. Correct potassium and magnesium levels. The patient has systolic CHF and is at high risk for arrhythmias. Urinary retention The patient was having urinary retention after his Marie catheter was removed. We had straight cathed the patient a few times since he was unable to void. The patient was refusing to allow us to place the Marie catheter after he was initially removed. Continue to monitor the patient to see whether or not he is voiding. Continue Flomax. Severe cellulitis of the left lower extremity status post above knee amputation Left [id number] amputation on 02/15. Continue with pain medication as needed. Continue PT/OT. The patient will be transferred to the rehab center possibly today. We will follow the recommendations from vascular surgery regarding the left AKA. Peripheral vascular disease Right leg is exhibits greenberg discoloration with muscle wasting likely because of severe peripheral vascular disease. He was advised to stop smoking and to continuously monitor his right foot for any signs of infection. CAD/chronic systolic CHF/Hypertension/hyperlipidemia Continue home medications of Coreg, lisinopril, spironolactone. As per the patient he has an ejection fraction of 25%. Multiple myeloma Stable for now. Continue current management. Discharge planning Vascular surgery has cleared patient for discharge, follow-up recommended in 2 weeks from 02/19/2018 Patient will likely need rehab, we are waiting for authorization from insurance for him to be transferred. Diabetes mellitus type 2 The patient will be continued on a low-dose insulin sliding scale. Basal insulin will be discontinued as the patient had hypoglycemia in the a.m. His diabetes medication regimen will be adjusted as needed. DVT prophylaxis Patient is currently on Lovenox for DVT prophylaxis.
--- NOTE | 2018-02-23 18:32 | P.PNCA ---
Subjective Interval history: No events overnight Since electrolytes replaced, no further arrhythmias noted Medications and Allergies Allergies Allergy/AdvReac Type Severity Reaction Status Date / Time azithromycin Allergy Intermediate rash Verified 01/11/18 20:23 *MDRO Multi-Drug Resistant AdvReac Mild Cleared Uncoded 08/08/16 09:57 Organism 10/2015 Home Medications Medication Instructions Recorded Confirmed Type dexamethasone [Decadron] 4 mg PO DAILY 01/11/18 02/23/18 History duloxetine [Cymbalta] 30 mg PO HS 01/11/18 02/23/18 History hydromorphone 4 mg PO Q6H PRN 02/12/18 02/23/18 History potassium chloride [Klor-Con 10 meq PO DAILY 02/12/18 02/23/18 History Sprinkle] spironolactone [Aldactone] 25 mg PO DAILY 02/12/18 02/23/18 History trazodone 50 mg PO HS 02/12/18 02/23/18 History Physical Exam Vital signs: Vital Signs 02/22/18 20:00 02/22/18 23:50 02/23/18 00:00 Temperature 97.4 F L 97.8 F 97.8 F Pulse Rate 79 68 68 Respiratory Rate 15 17 17 Blood Pressure 121/59 L 122/64 122/64 Pulse Oximetry 94 L 93 L 93 L 02/23/18 04:00 02/23/18 08:00 Temperature 98.1 F 98.4 F Pulse Rate 71 72 Respiratory Rate 18 17 Blood Pressure 120/66 124/59 L Pulse Oximetry 92 L 90 L Intake & Output 02/22/18 02/23/18 02/23/18 18:59 06:59 18:59 Intake Total 940 / 940 200 / 200 Output Total 500 / 500 800 / 800 Balance 440 / 440 -600 / -600 Weight 64.7 kg Intake: IV 100 / 100 Magnesium Sulfate Inj 4 GM In 100 / 100 NS Inj 92 ML @ 25 mls/hr IV.SIG ONCE ONE Rx#:[id number] Oral 840 / 840 200 / 200 Output: Urine Amount (Catheter) 500 / 500 800 / 800 Straight 500 / 500 800 / 800 Other: Date of Last Bowel Movement 02/21/18 02/21/18 # Bowel Movements 0 Narrative: General patient in no acute distress HEENT extraocular movements are intact, clear oropharyngeal mucosa, no JVD Cardiovascular S1-S2 audible Respiratory clear to auscultation bilaterally Abdomen soft, nontender, nondistended, normal bowel sounds Extremities status post left AKA Neuro no neuro deficits - Urinary Catheter Management Indwelling Urethral Catheter Cath placed during this visit: yes, but has since been removed by the nurse Reason for continuing: Not indwelling catheter Insertion date: 02/13/18 Insertion time: 10:45 Removal date: 02/20/18 Removal time: 17:00 Straight Cath placed during this visit: yes, but has since been removed by the nurse Reason for continuing: Not indwelling catheter Insertion date: 02/21/18 Insertion time: 23:56 Removal date: 02/22/18 Removal time: 00:05 1100ml Cath placed during this visit: no Reason for continuing: Hourly intake/output Results 02/18/18 07:02 02/22/18 17:27 Comprehensive Metabolic Panel 02/21/18 02/22/18 02/22/18 Range/Units 17:55 06:17 17:27 Sodium 140 (136-145) meq/L Potassium 4.1 D (3.5-5.1) meq/L Chloride 103 (98-107) meq/L Carbon Dioxide 29.4 (21.0-32.0) meq/L BUN 14 (7-18) mg/dL Creatinine 0.84 0.93 (0.60-1.30) mg/dL Calcium 7.1 L* (8.5-10.1) mg/dL Total Protein 5.8 L 6.1 L (6.4-8.2) g/dL Intake and Output 02/23/18 02/23/18 02/23/18 06:59 14:59 22:59 Intake Total 200 / 200 Output Total 800 / 800 Balance -600 / -600 Intake: Oral 200 / 200 Output: Urine Amount (Catheter) 800 / 800 Straight 800 / 800 Other: Date of Last Bowel Movement 02/21/18 # Bowel Movements 0 Weight 64.7 kg Assessment and Plan - Assessment (1) Gangrene of lower extremity Code(s): I96 - Gangrene, not elsewhere classified Status: Acute (2) Unilateral AKA Code(s): Z89.619 - Acquired absence of unspecified leg above knee Status: Acute (3) Amyloidosis Code(s): E85.9 - Amyloidosis, unspecified Status: Acute (4) CHF (congestive heart failure) Code(s): I50.9 - Heart failure, unspecified Status: Chronic (5) Cellulitis of left leg Code(s): L03.116 - Cellulitis of left lower limb Status: Acute (6) Diabetes mellitus Code(s): E11.9 - Type 2 diabetes mellitus without complications Status: Chronic (7) Hypertension Code(s): I10 - Essential (primary) hypertension Status: Chronic (8) Multiple myeloma Code(s): C90.00 - Multiple myeloma not having achieved remission Status: Chronic - Plan 1) Left lower leg ischemia with gangrenous tissue s/p AKA 2) Amyloidosis 3) Wide complex tachycardia Few short 3-5 beat runs appear to be AFib with aberrancy as R-R interval is changing Did have a longer episode of around 20 beats More likely PAT with aberrancy Not felt to be NSVT No further events after electrolytes corrected Coreg increased to 6.25mg BID 4) Questionable history of AFib per the patient Not a candidate for anti-coagulation at this time Previous history of Hgb in the 5-6 range Recent surgery Gait impairment with left AKA Can be reassessed outpatient ASA 81mg daily 5) Tobacco cessation (4) CHF (congestive heart failure) Qualifiers: Heart failure type: unspecified Heart failure chronicity: chronic Qualified Code(s): I50.9 - Heart failure, unspecified (6) Diabetes mellitus Qualifiers: Diabetes mellitus type: type 2 Diabetes mellitus complication status: with neurologic complications Diabetes mellitus complication detail: with polyneuropathy (7) Hypertension Qualifiers: Hypertension type: essential hypertension Qualified Code(s): I10 - Essential (primary) hypertension (8) Multiple myeloma Qualifiers: Multiple myeloma remission status: unspecified Qualified Code(s): C90.00 - Multiple myeloma not having achieved remission
== END 2018-02-23 12:45 ==
LOC: NEPC 17:13 → NEDA 19:49 → NEPHCDU 02-13 01:42 → N04 02-14 18:07
PROVIDERS: ADMIT Hospitalist; ATTEND Hospitalist